=== PATIENT | female | born 1935 | race Caucasian/White ===

== ENCOUNTER 2018-09-05 17:50 | Inpatient (IN) | payer MEDICARE, BC ==
[2018-09-05] MEDS ORDERED: ONDANSETRON HCL INJ/PF 4 MG/2 ML SDV IV ONE (18:26)
--- NOTE | 2018-09-05 18:31 | ER Document Report ---
ED General - General Mode of Arrival: Ambulatory Information source: Relative TRAVEL OUTSIDE OF THE [place] IN LAST 30 DAYS: No <PARISA JHAVERI - Last Filed: 09/05/18 19:09> <USMAN LEVINE - Last Filed: 09/05/18 22:49> - General Chief Complaint: Flu Symptoms Stated Complaint: FLU LIKE SYMPTOMS Time Seen by Provider: 09/05/18 18:12 Notes: Patient is an 83 year old female with HTN, hyperlipidemia, insulin dependent diabetes, hypothyroidism, GERD presents to the the emergency department accompanied by son and daughter in law complaining of multiple symptoms including general malaise, wheezing, decreased appetite, vomiting and diarrhea. Family states the patient has been feeling unwell for the last 3-4 days. They report she has had half of a banana and a cup of milk around noon today. They also state she developed diarrhea yesterday evening and has had 4 episodes of vomiting today. They state they took the patient's blood sugar around 10 am today and found it to be 180. They also complain of increased confusion. Family denies any fevers or coughs. Son states the patient's symptoms are similar to 10 years ago when the patient had a bowel obstruction with subsequent lysis of adhesions. Son also reports the patient having symptoms similar to a mini stroke 6 months ago which the patient did not receive medical care. Patient is on chronic pain management and takes 4mg of Dilaudid 4x daily. Patient's PCP is Dr. Romeo. (PARISA JHAVERI) Patient does live at home with her family and has a home health caregiver. She has not been on antibiotics anytime recently. (USMAN LEVINE) - Related Data Allergies/Adverse Reactions: adhesive tape [Adhesive Tape] Allergy (Verified 08/09/12 14:02) latex [Latex] Allergy (Verified 08/09/12 14:02) meperidine HCl [From Demerol] Allergy (Verified 08/09/12 14:02) Past Medical History - General Information source: Relative - Social History Smoking Status: Unknown if Ever Smoked Family History: Reviewed & Not Pertinent Patient has suicidal ideation: No Patient has homicidal ideation: No - Past Medical History Cardiac Medical History: Reports: Hx Hypercholesterolemia, Hx Hypertension Endocrine Medical History: Reports: Hx Diabetes Mellitus Type 1, Hx Diabetes Mellitus Type 2 GI Medical History: Reports: Hx Gastroesophageal Reflux Disease Past Surgical History: Reports: Hx Abdominal Surgery, Hx Breast Surgery, Hx Hysterectomy, Hx Orthopedic Surgery - back - Immunizations Hx Diphtheria, Pertussis, Tetanus Vaccination: No Hx Pneumococcal Vaccination: 08/20/07 <PARISA JHAVERI - Last Filed: 09/05/18 19:09> Review of Systems - Review of Systems Constitutional: See HPI, Malaise EENT: No symptoms reported Cardiovascular: No symptoms reported Respiratory: See HPI, Wheezing Gastrointestinal: See HPI, Diarrhea, Vomiting Genitourinary: No symptoms reported Female Genitourinary: No symptoms reported Musculoskeletal: No symptoms reported Skin: No symptoms reported Hematologic/Lymphatic: No symptoms reported Neurological/Psychological: See HPI, Confusion -: Yes All other systems reviewed and negative <PARISA JHAVERI - Last Filed: 09/05/18 19:09> Physical Exam <PARISA JHAVERI - Last Filed: 09/05/18 19:09> - Vital signs Vitals: Resp Pulse Ox 23 H 91 L 09/05/18 19:01 09/05/18 19:01 - Notes Notes: GENERAL: Alert, does not answer questions, follows commands. No acute distress. HEAD: Normocephalic, atraumatic. EYES: Pupils equal, round, and reactive to light. Extraocular movements intact. ENT: Oral mucosa dry, tongue midline. NECK: Full range of motion. Supple. Trachea midline. LUNGS: Clear to auscultation bilaterally, no wheezes, rales, or rhonchi. No respiratory distress. HEART:Irregularly irregular.Tachycardic. ABDOMEN: Soft, obese, non-tender. Non-distended. Diminished bowel sounds. EXTREMITIES: Moves all 4 extremities spontaneously. 1+ pitting edema in the bilateral lower extremities. NEUROLOGICAL: Alert. Does not answer questions, follows commands. PSYCH: Normal affect, normal mood. SKIN: Warm, dry, normal turgor. No rashes or lesions noted. (PARISA JHAVERI) Course - Laboratory Result Diagrams: 09/05/18 18:40 09/05/18 18:40 <PARISA JHAVERI - Last Filed: 09/05/18 19:09> - Laboratory Result Diagrams: 09/05/18 18:40 09/05/18 18:40 - Diagnostic Test Radiology reviewed: Reports reviewed - Acute abdominal series shows enlarged heart with point vascular congestion, dilated loops of bowel that are nonspecific - EKG Interpretation by Ca EKG shows normal: [place], Intervals, QRS Complexes, ST-T Waves Rate: Tachycardia - 124 Rhythm: A.Fib, PVC's Voltage: Consistant with LVH When compared to previous EKG there are: Previous EKG unavailable - Consults Dr. Jarvis Time consulted: 21:43 Consulted provider: other - Requests a lactic acid and CT scan of the abdomen and pelvis prior to decision about admission. <USMAN LEVINE - Last Filed: 09/05/18 22:49> - Vital Signs Vital signs: Temp Pulse Resp BP Pulse Ox 99.7 F 19 161/78 H 97 09/05/18 20:27 09/05/18 21:01 09/05/18 21:01 09/05/18 21:01 - Laboratory Laboratory results interpreted by al: 09/05/18 09/05/18 09/05/18 18:40 18:40 18:40 WBC 21.8 H Seg Neuts % (Manual) 97 H Lymphocytes % (Manual) 1 L Monocytes % (Manual) 2 L Abs Neuts (Manual) 21.1 H Abs Lymphs (Manual) 0.2 L Sodium 127.1 L Potassium 3.2 L Chloride 87 L Carbon Dioxide 31 H BUN 23 H Est GFR (Non-Af Amer) 58 L Glucose 193 H Magnesium 1.4 L Total Bilirubin 1.5 H Direct Bilirubin 0.5 H AST 91 H Creatine Kinase 1306 H CK-MB (CK-2) 9.06 H NT-Pro-B Natriuret Pep Total Protein 6.0 L Albumin 3.4 L Urine Protein Urine Glucose (UA) Urine Ketones Urine Blood Urine Urobilinogen 09/05/18 09/05/18 18:40 19:02 WBC Seg Neuts % (Manual) Lymphocytes % (Manual) Monocytes % (Manual) Abs Neuts (Manual) Abs Lymphs (Manual) Sodium Potassium Chloride Carbon Dioxide BUN Est GFR (Non-Af Amer) Glucose Magnesium Total Bilirubin Direct Bilirubin AST Creatine Kinase CK-MB (CK-2) NT-Pro-B Natriuret Pep 4010 H Total Protein Albumin Urine Protein 30 H Urine Glucose (UA) 50 H Urine Ketones 20 H Urine Blood MODERATE H Urine Urobilinogen 2.0 H Critical Care Note - Critical Care Note Total time excluding time spent on procedures (mins): 40 <USMAN LEVINE - Last Filed: 09/05/18 22:49> Discharge <PARISA JHAVERI - Last Filed: 09/05/18 19:09> <USMAN LEVINE - Last Filed: 09/05/18 22:49> - Discharge Clinical Impression: Clostridium difficile colitis, Atrial fibrillation with RVR, High blood pressure associated with diabetes Rhabdomyolysis Qualifiers: Rhabdomyolysis type: non-traumatic Qualified Code(s): M62.82 - Rhabdomyolysis Leukocytosis Qualifiers: Leukocytosis type: unspecified Qualified Code(s): D72.829 - Elevated white blood cell count, unspecified Referrals: NNEKA ROMEO MD [Primary Care Provider] - Follow up as needed Scribe Attestation: 09/05/18 20:52 I personally performed the services described in the documentation, reviewed and edited the documentation which was dictated to the scribe in my presence, and it accurately records my words and actions. (USMAN LEVINE) Scribe Documentation - Scribe Written by Scribe:: Perla Loza, 09/05/2018 18:34 acting as scribe for :: Selene <PARISA JHAVERI - Last Filed: 09/05/18 19:09>
[2018-09-05 19:08] LABS: HEMATOCRIT 39.4 % (36.0-47.0); HEMOGLOBIN 13.5 g/dL (12.0-15.5); MEAN CORPUSCULAR HEMOGLOBIN 31.6 pg (27.0-33.4); MEAN CORPUSCULAR HGB CONC 34.2 g/dL (32.0-36.0); MEAN CORPUSCULAR VOLUME 93 fl (80-97); PLATELET COUNT 216 10^3/uL (150-450); RED BLOOD COUNT 4.26 10^6/uL (3.72-5.28); RED CELL DISTRIBUTION WIDTH 13.8 % (11.5-14.0); WHITE BLOOD COUNT 21.8 10^3/uL (4.0-10.5)
[2018-09-05 19:17] LABS: ALANINE AMINOTRANSFERASE 24 U/L (9-52); ALBUMIN 3.4 g/dL (3.5-5.0); ALKALINE PHOSPHATASE 62 U/L (38-126); ANION GAP 9 (5-19); ASPARTATE AMINO TRANSFERASE 91 U/L (14-36); BILIRUBIN,DIRECT 0.5 mg/dL (0.0-0.4); BILIRUBIN,TOTAL 1.5 mg/dL (0.2-1.3); BLOOD UREA NITROGEN 23 mg/dL (7-20); CALCIUM 8.6 mg/dL (8.4-10.2); CARBON DIOXIDE 31 mmol/L (22-30); CHLORIDE 87 mmol/L (98-107); CREATINE KINASE 1306 U/L (30-135); GLUCOSE 193 mg/dL (75-110); POTASSIUM 3.2 mmol/L (3.6-5.0); SODIUM 127.1 mmol/L (137-145)
[2018-09-05 19:20] LABS: APPEARANCE,URINE CLEAR; BILIRUBIN,URINE NEGATIVE (NEGATIVE); COLOR,URINE YELLOW; GLUCOSE, URINE 50 mg/dL (NEGATIVE); KETONES,URINE 20 mg/dL (NEGATIVE); LEUKOCYTE ESTERASE,URINE NEGATIVE (NEGATIVE); NITRITE,URINE NEGATIVE (NEGATIVE); PROTEIN,URINE 30 mg/dL (NEGATIVE); URINE SPECIFIC GRAVITY 1.019
[2018-09-05 19:29] LABS: CREATINE KINASE MB 9.06 ng/mL (<4.55)
[2018-09-05 19:31] LABS: TROPONIN I 0.041 ng/mL
[2018-09-05 19:32] LABS: ABSOLUTE LYMPHOCYTES# (MANUAL) 0.2 10^3/uL (0.5-4.7); ABSOLUTE MONOCYTES # (MANUAL) 0.4 10^3/uL (0.1-1.4); ABSOLUTE NEUTROPHILS# (MANUAL) 21.1 10^3/uL (1.7-8.2); BASOPHILS % (MANUAL) 0 % (0-2); EOSINOPHILS % (MANUAL) 0 % (0-6); LYMPHOCYTES % (MANUAL) 1 % (13-45); MONOCYTES % (MANUAL) 2 % (3-13); PLATELET COMMENT ADEQUATE; SEGMENTED NEUTROPHILS % (MAN) 97 % (42-78); TOTAL CELLS COUNTED 100; TOXIC VACUOLATION PRESENT
[2018-09-05] MEDS ORDERED: NORMAL SALINE 1000 ML 1,000 ML IV ONE (19:35)
--- NOTE | 2018-09-05 19:42 | RADIOLOGY REPORT (SQ) ---
EXAM DESCRIPTION: ACUTE ABDOMEN SERIES COMPLETED DATE/TIME: 09/05/2018 7:17 pm REASON FOR STUDY: N,V,D abd distention COMPARISON: 12/18/2008 NUMBER OF VIEWS: Three views. TECHNIQUE: Frontal chest, supine abdomen and upright/decubitus abdomen radiographic images acquired. LIMITATIONS: Nonspecific abdomen. None. FINDINGS: CHEST: Pulmonary vascular congestion. Cardiomegaly. Cannot exclude mild pulmonary edema. FREE AIR: None. No abnormal gas collections. BOWEL GAS PATTERN: Nonobstructive pattern. There are some gas-filled loops of bowel. CALCIFICATIONS: No suspicious calcifications. HARDWARE: Surgical changes in the lumbar spine. SOFT TISSUES: No gross mass or suggestion of organomegaly. BONES: No acute fracture. No worrisome bone lesions. OTHER: No other significant finding. IMPRESSION: Cardiomegaly. Cannot exclude mild pulmonary edema. Nonspecific abdomen. TECHNICAL DOCUMENTATION: JOB ID: [id number] Last Guide- All Rights Reserved Reading location - IP/workstation name: [email or web address]
[2018-09-05] MEDS ORDERED: ERTAPENEM SODIUM INJ 1 GM VIAL IV ONE (19:44)
[2018-09-05] MEDS ORDERED: VANCOMYCIN HCL INJ 1000 MG VIAL IV ONE (21:49)
--- NOTE | 2018-09-05 22:55 | RADIOLOGY REPORT (SQ) ---
EXAM DESCRIPTION: CT ABDOMEN PELVIS WITH IV CONTRAST COMPLETED DATE/TME: 09/05/2018 21:54 CLINICAL HISTORY: 83 years Female, C. difficile colitis, leukocytosis,distended bowel Comparison: None. Technique: IV contrast. Coronal and sagittal reformat. This exam was performed according to our departmental dose-optimization program, which includes automated exposure control, adjustment of the mA and/or kV according to patient size and/or use of iterative reconstruction technique. [facility]: Dose Right [facility]: CareDose [facility]: Dose Right [facility]: Teradose 4D [facility]: [employer] LIMITATIONS: Arm position. Findings: Moderate to severe diffuse bowel wall thickening of the sigmoid and rectal colon. Retained fluid within the large bowel. Patulous large bowel. Lobular liver contour which may indicate cirrhosis. Splenic varices. No ascites. Atelectasis/scar. Posterior L3-L4 hardware fusion. Degenerative disc disease. Atherosclerotic vascular disease. Inferior thorax, liver, gallbladder, pancreas, spleen, adrenals, renal system, gastrointestinal tract, pelvic organs, lymphatics, vasculature, and musculoskeleton appear otherwise unremarkable. IMPRESSION: 1. Moderate colitis. Differential etiologies include infectious, inflammatory, and neoplastic processes. 2. Possible cirrhosis. Splenic varices.
--- NOTE | 2018-09-05 23:06 | EKG REPORT ---
SEVERITY:- ABNORMAL ECG - ATRIAL FIBRILLATION, V-RATE 90-156 VENTRICULAR PREMATURE COMPLEX LVH WITH SECONDARY REPOLARIZATION ABNORMALITY : Confirmed by: Gage Marie 05-Sep-2018 23:05:31
[2018-09-06] MEDS ORDERED: LORAZEPAM INJ 2 MG/1 ML VIAL IV ONE (00:11)
[2018-09-06] MEDS ORDERED: GLUCAGON,HUMAN RECOMB 1 MG INJ IM PRN ×2 (00:11→10:00)
[2018-09-06] MEDS ORDERED: DEXTROSE 50%-WATER 25 GM/50 ML DISP.SYRIN IV PRN ×4 (00:11→10:00)
[2018-09-06] MEDS ORDERED: ACETAMINOPHEN 650 MG SUPP.RECT PR PRN (00:11)
[2018-09-06] MEDS ORDERED: DEXTROSE 40% GEL 15 GM TUBE PO PRN ×4 (00:11→10:00)
[2018-09-06] MEDS ORDERED: PROMETHAZINE HCL 25 MG TABLET PO PRN (00:11)
[2018-09-06] MEDS ORDERED: PROMETHAZINE HCL INJ 25 MG/1 ML VIAL IV PRN (00:11)
[2018-09-06] MEDS ORDERED: INSULIN LISPRO 100 UNIT/ML 3 ML VIAL SUBCUT PRN (00:11)
[2018-09-06] MEDS: VANCOMYCIN HCL INJ 500 MG VIAL PO SCH ×4 (00:41→17:58)
[2018-09-06 01:22] LABS: CREATINE KINASE MB 9.86 ng/mL (<4.55)
[2018-09-06 01:25] LABS: TROPONIN I 0.044 ng/mL
[2018-09-06] MEDS ORDERED: VANCOMYCIN HCL INJ 500 MG VIAL ONE ×2 (03:54→04:50)
[2018-09-06] MEDS ORDERED: DILTIAZEM HCL INJ 25 MG/5 ML VIAL ONE (04:11)
[2018-09-06] MEDS ORDERED: DILTIAZEM HCL INJ 25 MG/5 ML VIAL IV ONE ×2 (04:15→04:45)
[2018-09-06] MEDS: NORMAL SALINE 1000 ML 1,000 ML IV PRN ×2 (04:28→09:32)
[2018-09-06] MEDS ORDERED: METOPROLOL TARTRATE PF/INJ 5 MG/5 ML SDV IV PRN (04:38)
[2018-09-06] MEDS: HEPARIN SOD (PORCINE) 5,000 UNIT/ML 1 ML SYRINGE SUBCUT SCH ×3 (06:07→22:36)
[2018-09-06] MEDS: POTASSI CL 20 MEQ/50 ML RIDER 20 MEQ/50 ML RTUPB IV SCH ×3 (06:08→13:33)
--- NOTE | 2018-09-06 07:40 | PDOC H&P ---
History of Present Illness Admission Date/PCP: 09/06/18 00:26 NNEKA ULLOA MD Patient complains of: Abdominal pain History of Present Illness: YULI HAMMER is a 83 year old female with a past medical history of Dilaudid dependent chronic pain, atrial fibrillation, congestive heart failure, hypertension, dyslipidemia, insulin-dependent diabetes, hypothyroidism, GERD, obstructive sleep apnea with noncompliance, minimally ambulatory from bed to bathroom only. She presents with 4 days of abdominal pain nausea vomiting and diarrhea associated with fever prompting evaluation in the emergency room where she is found to have confusion, leukocytosis, colitis by CT and C. difficile positive stool. She started on IV vancomycin, Invanz and referred to the spitalist for admission. Patient is confused unable to provide history. Past Medical History Cardiac Medical History: Reports: Hyperlipidema, Hypertension Pulmonary Medical History: Reports: Sleep Apnea Endocrine Medical History: Reports: Diabetes Mellitus Type 1, Diabetes Mellitus Type 2 Renal/ Medical History: Reports: None Malignancy Medical History: Reports: None GI Medical History: Reports: Gastroesophageal Reflux Disease Psychiatric Medical History: Reports: Depression, Other - Chronic pain Past Surgical History Past Surgical History: Reports: Hysterectomy, Orthopedic Surgery - back Social History Information Source: [facility] Records Lives with: Alone - With daily caregiver Smoking Status: Former Smoker Number of Years Smokin Frequency of Alcohol Use: None Hx Recreational Drug Use: No Hx Prescription Drug Abuse: No - Advance Directive Resuscitation Status: Full Code Family History Family History: Other - Unobtainable Parental Family History Reviewed: No - Patient with altered mental status Children Family History Reviewed: No Sibling(s) Family History Reviewed.: No Medication/Allergy Home Medications: Ezetimibe [Zetia 10 Mg Tablet] 10 mg PO QHS 12/05/11 Levothyroxine Sodium [Synthroid 50 Mcg Tablet] 50 mcg PO MOTUWETHFRSA@0600 12/05/11 Lorazepam [Ativan 1 mg Tablet] 1 mg PO Q12 12/05/11 Mirtazapine [Remeron 15 Mg Tablet] 15 mg PO QHS 12/05/11 Triamterene/Hydrochlorothiazid [Dyazide 37.5-25 Capsule] 1 each PO DAILY 08/09/12 Escitalopram Oxalate [Lexapro 10 mg Tablet] 10 mg PO Q12 09/06/18 Hydromorphone HCl [Dilaudid] 4 mg PO Q6HP PRN 09/06/18 Insulin Aspart Prot/Insuln Asp [Novolog Mix 70-30 Flexpen Syrn] 0 unit SQ .SLIDING SCALE PRN 09/06/18 Insulin Aspart Prot/Insuln Asp [Novolog Mix 70-30 Flexpen Syrn] 5 unit SQ WLUNCH 09/06/18 Insulin Aspart Prot/Insuln Asp [Novolog Mix 70-30 Flexpen Syrn] 25 unit SQ WSUPPER 09/06/18 Insulin Aspart Prot/Insuln Asp [Novolog Mix 70-30 Flexpen Syrn] 30 unit SQ [id number] 09/06/18 Metoprolol Tartrate [Lopressor 25 mg Tablet] 25 mg PO Q12 09/06/18 Valsartan [Diovan 160 mg Tablet] 160 mg PO DAILY 09/06/18 Allergies/Adverse Reactions: adhesive tape [Adhesive Tape] Allergy (Verified 08/09/12 14:02) latex [Latex] Allergy (Verified 08/09/12 14:02) meperidine HCl [From Demerol] Allergy (Verified 08/09/12 14:02) Review of Systems ROS unobtainable: Due to mental status - Unobtainable Physical Exam Vital Signs: Temp Pulse Resp BP Pulse Ox 99.2 F 116 H 24 H 112/55 L 92 09/06/18 04:31 09/06/18 04:31 09/06/18 04:31 09/06/18 04:31 09/06/18 04:31 Intake & Output 09/04/18 09/05/18 09/06/18 11:59 11:59 11:59 Intake Total 1000 Output Total 0 Balance 1000 Weight 84 kg General appearance: PRESENT: obese, severe distress. ABSENT: cooperative, disheveled Head exam: PRESENT: atraumatic, normocephalic Eye exam: PRESENT: conjunctiva pink, EOMI, PERRLA. ABSENT: scleral icterus Ear exam: PRESENT: normal external ear exam Mouth exam: PRESENT: dry mucosa, tongue midline Neck exam: ABSENT: carotid bruit, JVD, lymphadenopathy, thyromegaly Respiratory exam: PRESENT: clear to auscultation [place]. ABSENT: rales, rhonchi, wheezes Cardiovascular exam: PRESENT: RRR. ABSENT: diastolic murmur, rubs, systolic murmur Pulses: PRESENT: normal dorsalis pedis pul Vascular exam: PRESENT: normal capillary refill GI/Abdominal exam: PRESENT: normal bowel sounds, soft. ABSENT: distended, guarding, mass, organolmegaly, rebound, tenderness Rectal exam: PRESENT: deferred Extremities exam: PRESENT: full ROM. ABSENT: calf tenderness, clubbing, pedal edema Musculoskeletal exam: ABSENT: tenderness Neurological exam: PRESENT: alert, altered, CN II-XII grossly intact Psychiatric exam: PRESENT: appropriate affect, normal mood. ABSENT: homicidal ideation, suicidal ideation Skin exam: PRESENT: dry, intact, warm. ABSENT: cyanosis, rash Results Laboratory Results: 09/05/18 18:40 09/05/18 18:40 09/05/18 09/05/18 09/05/18 18:40 18:40 19:02 WBC 21.8 H RBC 4.26 Hgb 13.5 Hct 39.4 MCV 93 MCH 31.6 MCHC 34.2 RDW 13.8 Plt Count 216 Seg Neutrophils % Not Reportable Lymphocytes % Not Reportable Monocytes % Not Reportable Eosinophils % Not Reportable Basophils % Not Reportable Absolute Neutrophils Not Reportable Absolute Lymphocytes Not Reportable Absolute Monocytes Not Reportable Absolute Eosinophils Not Reportable Absolute Basophils Not Reportable Sodium 127.1 L Potassium 3.2 L Chloride 87 L Carbon Dioxide 31 H Anion Gap 9 BUN 23 H Creatinine 0.92 Est GFR ( Amer) > 60 Est GFR (Non-Af Amer) 58 L Glucose 193 H Lactic Acid Calcium 8.6 Magnesium 1.4 L Total Bilirubin 1.5 H AST 91 H ALT 24 Alkaline Phosphatase 62 Total Protein 6.0 L Albumin 3.4 L Urine Color YELLOW Urine Appearance CLEAR Urine pH 5.0 Ur Specific [place] 1.019 Urine Protein 30 H Urine Glucose (UA) 50 H Urine Ketones 20 H Urine Blood MODERATE H Urine Nitrite NEGATIVE Ur Leukocyte Esterase NEGATIVE Urine WBC (Auto) 2 Urine RBC (Auto) 2 Stool for White Cells 09/05/18 09/05/18 20:20 22:40 WBC RBC Hgb Hct MCV MCH MCHC RDW Plt Count Seg Neutrophils % Lymphocytes % Monocytes % Eosinophils % Basophils % Absolute Neutrophils Absolute Lymphocytes Absolute Monocytes Absolute Eosinophils Absolute Basophils Sodium Potassium Chloride Carbon Dioxide Anion Gap BUN Creatinine Est GFR ( Amer) Est GFR (Non-Af Amer) Glucose Lactic Acid 1.6 Calcium Magnesium Total Bilirubin AST ALT Alkaline Phosphatase Total Protein Albumin Urine Color Urine Appearance Urine pH Ur Specific [place] Urine Protein Urine Glucose (UA) Urine Ketones Urine Blood Urine Nitrite Ur Leukocyte Esterase Urine WBC (Auto) Urine RBC (Auto) Stool for White Cells NO WBCs SEEN 09/05/18 09/05/18 09/05/18 18:40 18:40 18:40 Creatine Kinase 1306 H CK-MB (CK-2) 9.06 H Troponin I 0.041 NT-Pro-B Natriuret Pep 4010 H 09/06/18 09/06/18 00:47 00:47 Creatine Kinase 1231 H CK-MB (CK-2) 9.86 H Troponin I 0.044 NT-Pro-B Natriuret Pep Impressions: Acute Abdomen Series 09/05/18 18:27 IMPRESSION: Cardiomegaly. Cannot exclude mild pulmonary edema. Nonspecific abdomen. Abdomen/Pelvis CT 09/05/18 21:54 IMPRESSION: 1. Moderate colitis. Differential etiologies include infectious, inflammatory, and neoplastic processes. 2. Possible cirrhosis. Splenic varices. Assessment & Plan - Diagnosis (1) Clostridium difficile colitis Is this a current diagnosis for this admission?: Yes Plan: Discontinue IV antibiotics, p.o. vancomycin 250 mg every 6 hours. IV fluid challenge, surgical consultation for possibility of developing toxic megacolon (2) Atrial fibrillation with RVR Is this a current diagnosis for this admission?: Yes Plan: IV Lopressor every 6 as needed (3) High blood pressure associated with diabetes Is this a current diagnosis for this admission?: Yes Plan: Humalog sliding scale while n.p.o. (4) Rhabdomyolysis Qualifiers: Rhabdomyolysis type: non-traumatic Qualified Code(s): M62.82 - Rhabdomyolysis Is this a current diagnosis for this admission?: Yes Plan: IV fluid challenge, follow-up chemistry - Time Time Spent: 50 to 70 Minutes - Inpatient Certification Medical Necessity: Need Close Monitoring Due to Risk of Patient Decompensation
[2018-09-06 07:56] LABS: CREATINE KINASE MB 8.18 ng/mL (<4.55); TROPONIN I 0.055 ng/mL
[2018-09-06] MEDS: FAMOTIDINE INJ/PF 20 MG/2 ML SDV IV SCH ×2 (09:28→21:36)
[2018-09-06] MEDS ORDERED: NORMAL SALINE 1000 ML 1,000 ML IV PRN (09:51)
[2018-09-06] MEDS ORDERED: HYDROMORPHONE HCL 2 MG TABLET PO PRN (09:58)
[2018-09-06] MEDS ORDERED: TRIAMTERENE PO SCH (10:00)
[2018-09-06] MEDS ORDERED: HYDROCHLOROTHIAZID PO SCH (10:00)
--- NOTE | 2018-09-06 10:00 | PDOC PROGRESS REPORT ---
Subjective Progress Note for:: 09/06/18 Subjective:: 83-year-old female admitted with severe diarrhea positive for C. difficile she is on p.o. vancomycin.Ms. 3.2 this morning, magnesium is 1.4 and sodium is 127. She is getting potassium supplementation order for magnesium was written and she is getting IV fluids normal saline we going to recheck her sodium levels today. Patient is still having the loose stools. Temperature is 99.2. Blood pressure is 112/55. Reason For Visit: C DIFF COLITIS,VINCENT, DIABETES, CHRONIC PAIN Physical Exam Vital Signs: Temp Pulse Resp BP Pulse Ox 99.2 F 105 H 24 H 112/55 L 92 09/06/18 04:31 09/06/18 07:00 09/06/18 04:31 09/06/18 04:31 09/06/18 04:31 Intake & Output 09/05/18 09/06/18 09/07/18 06:59 06:59 06:59 Intake Total 1000 1050 Output Total 0 Balance 1000 1050 Weight 84 kg General appearance: PRESENT: mild distress Head exam: PRESENT: atraumatic Eye exam: PRESENT: PERRLA Mouth exam: PRESENT: moist Neck exam: ABSENT: carotid bruit, JVD, lymphadenopathy, thyromegaly Respiratory exam: PRESENT: clear to auscultation caroline. ABSENT: rales, rhonchi, wheezes Cardiovascular exam: PRESENT: tachycardia GI/Abdominal exam: PRESENT: normal bowel sounds, soft, other - Generalized mild tenderness which is diffuse. Extremities exam: PRESENT: full ROM. ABSENT: calf tenderness, clubbing, pedal edema Neurological exam: PRESENT: alert, awake, oriented to person, oriented to place, oriented to time, oriented to situation, CN II-XII grossly intact. ABSENT: motor sensory deficit Psychiatric exam: PRESENT: appropriate affect, normal mood. ABSENT: homicidal ideation, suicidal ideation Results Laboratory Results: 09/05/18 09/05/18 09/05/18 18:40 18:40 19:02 WBC 21.8 H RBC 4.26 Hgb 13.5 Hct 39.4 MCV 93 MCH 31.6 MCHC 34.2 RDW 13.8 Plt Count 216 Seg Neutrophils % Not Reportable Lymphocytes % Not Reportable Monocytes % Not Reportable Eosinophils % Not Reportable Basophils % Not Reportable Absolute Neutrophils Not Reportable Absolute Lymphocytes Not Reportable Absolute Monocytes Not Reportable Absolute Eosinophils Not Reportable Absolute Basophils Not Reportable Sodium 127.1 L Potassium 3.2 L Chloride 87 L Carbon Dioxide 31 H Anion Gap 9 BUN 23 H Creatinine 0.92 Est GFR ( Amer) > 60 Est GFR (Non-Af Amer) 58 L Glucose 193 H Lactic Acid Calcium 8.6 Magnesium 1.4 L Total Bilirubin 1.5 H AST 91 H ALT 24 Alkaline Phosphatase 62 Total Protein 6.0 L Albumin 3.4 L Urine Color YELLOW Urine Appearance CLEAR Urine pH 5.0 Ur Specific [place] 1.019 Urine Protein 30 H Urine Glucose (UA) 50 H Urine Ketones 20 H Urine Blood MODERATE H Urine Nitrite NEGATIVE Ur Leukocyte Esterase NEGATIVE Urine WBC (Auto) 2 Urine RBC (Auto) 2 Stool for White Cells 09/05/18 09/05/18 20:20 22:40 WBC RBC Hgb Hct MCV MCH MCHC RDW Plt Count Seg Neutrophils % Lymphocytes % Monocytes % Eosinophils % Basophils % Absolute Neutrophils Absolute Lymphocytes Absolute Monocytes Absolute Eosinophils Absolute Basophils Sodium Potassium Chloride Carbon Dioxide Anion Gap BUN Creatinine Est GFR ( Amer) Est GFR (Non-Af Amer) Glucose Lactic Acid 1.6 Calcium Magnesium Total Bilirubin AST ALT Alkaline Phosphatase Total Protein Albumin Urine Color Urine Appearance Urine pH Ur Specific [place]ollhouse Urine Protein Urine Glucose (UA) Urine Ketones Urine Blood Urine Nitrite Ur Leukocyte Esterase Urine WBC (Auto) Urine RBC (Auto) Stool for White Cells NO WBCs SEEN 09/05/18 09/05/18 09/05/18 18:40 18:40 18:40 Creatine Kinase 1306 H CK-MB (CK-2) 9.06 H Troponin I 0.041 NT-Pro-B Natriuret Pep 4010 H 09/06/18 09/06/18 09/06/18 00:47 00:47 07:00 Creatine Kinase 1231 H 1007 H CK-MB (CK-2) 9.86 H Troponin I 0.044 NT-Pro-B Natriuret Pep 09/06/18 07:00 Creatine Kinase CK-MB (CK-2) 8.18 H Troponin I 0.055 NT-Pro-B Natriuret Pep Impressions: Acute Abdomen Series 09/05/18 18:27 IMPRESSION: Cardiomegaly. Cannot exclude mild pulmonary edema. Nonspecific abdomen. Abdomen/Pelvis CT 09/05/18 21:54 IMPRESSION: 1. Moderate colitis. Differential etiologies include infectious, inflammatory, and neoplastic processes. 2. Possible cirrhosis. Splenic varices. Assessment & Plan - Diagnosis (1) Clostridium difficile colitis Is this a current diagnosis for this admission?: Yes Plan: 09/06/2018 stool positive for C. difficile patient is on p.o. vancomycin. Temperature 99.2. She is n.p.o., the CT scan indicates infectious process/neoplasm causes need to be ruled out. surgical consult was placed. And is to continue the IV fluids. (2) Atrial fibrillation with RVR Is this a current diagnosis for this admission?: Yes Plan: 09/06/2018 patient has history of chronic atrial fibrillation with RVR she is on Lopressor IV every 6 as needed, restarted her home medications. And reviewed her home medications she is not on any anticoagulants. Baseline PT/INR is requested. (3) Rhabdomyolysis Qualifiers: Rhabdomyolysis type: non-traumatic Qualified Code(s): M62.82 - Rhabdomyolysis Is this a current diagnosis for this admission?: Yes Plan: 09/06/2018-CPK levels are elevated at the time of admission 1306 with IV fluids it came down to 1007. Plan is to continue the IV fluids recheck the CPK levels this evening. (4) Leukocytosis Qualifiers: Leukocytosis type: unspecified Qualified Code(s): D72.829 - Elevated white blood cell count, unspecified Is this a current diagnosis for this admission?: Yes Plan: 09/06/2018 leukocyte esterase is most likely secondary to colitis with positive C. difficile. She does not know how she got C. difficile. 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 (5) Hyponatremia Is this a current diagnosis for this admission?: Yes Plan: 09/06/2017 sodium levels are 127. Hyponatremia most likely secondary to severe diarrhea causing dehydration. Is presently on normal saline we are going to recheck her chemistry today (6) Hypokalemia Is this a current diagnosis for this admission?: Yes Plan: 09/06/2018 patient's potassium is 3.2. she is getting K rider plan is to recheck the potassium levels this morning. (7) Hypomagnesemia Is this a current diagnosis for this admission?: Yes Plan: 09/06/2018 magnesium level is 1.4 probably secondary to severe diarrhea. She is going to get 2 g of IV magnesium supplementation. - Time Time Spent with patient: 15-24 minutes Medications reviewed and adjusted accordingly: Yes Anticipated discharge: Home
[2018-09-06 10:10] LABS: ALANINE AMINOTRANSFERASE 33 U/L (9-52); ALBUMIN 3.1 g/dL (3.5-5.0); ALKALINE PHOSPHATASE 66 U/L (38-126); ANION GAP 8 (5-19); ASPARTATE AMINO TRANSFERASE 98 U/L (14-36); BILIRUBIN,DIRECT 0.5 mg/dL (0.0-0.4); BILIRUBIN,TOTAL 0.9 mg/dL (0.2-1.3); BLOOD UREA NITROGEN 23 mg/dL (7-20); CALCIUM 8.3 mg/dL (8.4-10.2); CARBON DIOXIDE 29 mmol/L (22-30); CHLORIDE 95 mmol/L (98-107); GLUCOSE 146 mg/dL (75-110); SODIUM 132.3 mmol/L (137-145); TOTAL PROTEIN 5.8 g/dL (6.3-8.2)
[2018-09-06 10:13] LABS: POTASSIUM 3.1 mmol/L (3.6-5.0)
[2018-09-06 10:14] LABS: HEMATOCRIT 37.1 % (36.0-47.0); HEMOGLOBIN 12.7 g/dL (12.0-15.5); MEAN CORPUSCULAR HEMOGLOBIN 31.3 pg (27.0-33.4); MEAN CORPUSCULAR HGB CONC 34.1 g/dL (32.0-36.0); MEAN CORPUSCULAR VOLUME 92 fl (80-97); PLATELET COUNT 212 10^3/uL (150-450); RED BLOOD COUNT 4.04 10^6/uL (3.72-5.28); WHITE BLOOD COUNT 21.6 10^3/uL (4.0-10.5)
[2018-09-06 10:44] LABS: ABSOLUTE LYMPHOCYTES# (MANUAL) 1.1 10^3/uL (0.5-4.7); ABSOLUTE MONOCYTES # (MANUAL) 0.2 10^3/uL (0.1-1.4); ABSOLUTE NEUTROPHILS# (MANUAL) 20.3 10^3/uL (1.7-8.2); BAND NEUTROPHILS % (MANUAL) 2 % (3-5); BASOPHILS % (MANUAL) 0 % (0-2); EOSINOPHILS % (MANUAL) 0 % (0-6); LYMPHOCYTES % (MANUAL) 5 % (13-45); MONOCYTES % (MANUAL) 1 % (3-13); SEGMENTED NEUTROPHILS % (MAN) 92 % (42-78); TOTAL CELLS COUNTED 100
[2018-09-06 10:45] LABS: PLATELET COMMENT ADEQUATE; RBC MORPHOLOGY COMMENT NORMO-CYTIC/CHROMIC
[2018-09-06 11:08] LABS: INTERNATIONAL RATION (INR) 1.35; PROTHROMBIN TIME 17.4 SEC (11.4-15.4)
[2018-09-06 11:31] LABS: CREATINE KINASE MB 7.46 ng/mL (<4.55); TROPONIN I 0.044 ng/mL
[2018-09-06] MEDS ORDERED: POTASSI CL 20 MEQ/50 ML RIDER 20 MEQ/50 ML RTUPB IV ONE (13:24)
[2018-09-06] MEDS: MAGNESIUM SULFATE/D5W 1 GM/100 ML RTUPB IV SCH ×2 (13:30→17:59)
[2018-09-06] MEDS: LORAZEPAM 1 MG TABLET PO SCH ×2 (13:33→22:36)
[2018-09-06] MEDS: METOPROLOL TARTRATE 25 MG TABLET PO SCH ×2 (13:33→22:40)
[2018-09-06] MEDS: ESCITALOPRAM OXALATE 10 MG TABLET PO SCH ×2 (13:34→22:36)
[2018-09-06] MEDS: VALSARTAN 160 MG TABLET PO SCH (13:34)
[2018-09-06] MEDS: TRIAMTERENE/HYDROCHLOROTHIAZIDE 37.5-25 MG TABLET PO SCH (14:30)
[2018-09-06 17:47] LABS: CREATINE KINASE MB 8.2 ng/mL (<4.55); TROPONIN I 0.044 ng/mL
[2018-09-06] MEDS ORDERED: MAGNESIUM SULFATE/D5W 1 GM/100 ML RTUPB IV ONE (17:53)
[2018-09-06] MEDS: IPRATROPIUM/ALBUTEROL 0.5-2.5 MG/3 ML AMPUL NEB PRN (20:41)
[2018-09-06] MEDS ORDERED: FUROSEMIDE INJ/PF 20 MG/2 ML SDV IV ONE (20:45)
[2018-09-06] MEDS: EZETIMIBE 10 MG TABLET PO SCH (22:36)
[2018-09-06] MEDS: MIRTAZAPINE 15 MG TABLET PO SCH (22:36)
[2018-09-06 23:49] LABS: CREATINE KINASE MB 8.83 ng/mL (<4.55); TROPONIN I 0.044 ng/mL
[2018-09-07] MEDS: VANCOMYCIN HCL INJ 500 MG VIAL PO SCH ×4 (00:27→18:18)
[2018-09-07 05:02] LABS: HEMATOCRIT 38.7 % (36.0-47.0); HEMOGLOBIN 12.9 g/dL (12.0-15.5); MEAN CORPUSCULAR HEMOGLOBIN 31.1 pg (27.0-33.4); MEAN CORPUSCULAR HGB CONC 33.3 g/dL (32.0-36.0); MEAN CORPUSCULAR VOLUME 93 fl (80-97); PLATELET COUNT 219 10^3/uL (150-450); RED BLOOD COUNT 4.14 10^6/uL (3.72-5.28); RED CELL DISTRIBUTION WIDTH 14.1 % (11.5-14.0); WHITE BLOOD COUNT 20.6 10^3/uL (4.0-10.5)
[2018-09-07 05:22] LABS: ALANINE AMINOTRANSFERASE 38 U/L (9-52); ALBUMIN 3.4 g/dL (3.5-5.0); ALKALINE PHOSPHATASE 62 U/L (38-126); ANION GAP 6 (5-19); ASPARTATE AMINO TRANSFERASE 94 U/L (14-36); BILIRUBIN,DIRECT 0.4 mg/dL (0.0-0.4); BILIRUBIN,TOTAL 0.8 mg/dL (0.2-1.3); BLOOD UREA NITROGEN 26 mg/dL (7-20); CALCIUM 8.5 mg/dL (8.4-10.2); CARBON DIOXIDE 30 mmol/L (22-30); CHLORIDE 100 mmol/L (98-107); GLUCOSE 143 mg/dL (75-110); POTASSIUM 3.5 mmol/L (3.6-5.0); TOTAL PROTEIN 6.2 g/dL (6.3-8.2)
[2018-09-07 05:42] LABS: ABSOLUTE LYMPHOCYTES# (MANUAL) 0.8 10^3/uL (0.5-4.7); ABSOLUTE NEUTROPHILS# (MANUAL) 18.7 10^3/uL (1.7-8.2); BASOPHILS % (MANUAL) 0 % (0-2); EOSINOPHILS % (MANUAL) 0 % (0-6); LYMPHOCYTES % (MANUAL) 4 % (13-45); MONOCYTES % (MANUAL) 5 % (3-13); SEGMENTED NEUTROPHILS % (MAN) 91 % (42-78); TOTAL CELLS COUNTED 100
[2018-09-07 05:43] LABS: ANISOCYTOSIS SLIGHT; PLATELET COMMENT ADEQUATE; POLYCHROMASIA SLIGHT
[2018-09-07] MEDS: HEPARIN SOD (PORCINE) 5,000 UNIT/ML 1 ML SYRINGE SUBCUT SCH ×3 (05:55→21:47)
[2018-09-07] MEDS: LEVOTHYROXINE SODIUM 0.05 MG TABLET PO SCH (05:59)
[2018-09-07] MEDS ORDERED: FUROSEMIDE INJ/PF 40 MG/4 ML SDV IV ONE (09:00)
[2018-09-07] MEDS: METOPROLOL TARTRATE 25 MG TABLET PO SCH ×2 (09:41→21:48)
[2018-09-07] MEDS: TRIAMTERENE/HYDROCHLOROTHIAZIDE 37.5-25 MG TABLET PO SCH (09:41)
[2018-09-07] MEDS: ESCITALOPRAM OXALATE 10 MG TABLET PO SCH ×2 (09:41→21:47)
[2018-09-07] MEDS: LORAZEPAM 1 MG TABLET PO SCH ×2 (09:41→21:47)
[2018-09-07] MEDS: VALSARTAN 160 MG TABLET PO SCH (09:41)
[2018-09-07] MEDS: FAMOTIDINE INJ/PF 20 MG/2 ML SDV IV SCH ×2 (09:42→21:48)
[2018-09-07] MEDS ORDERED: NORMAL SALINE 1000 ML 1,000 ML IV PRN (10:09)
--- NOTE | 2018-09-07 10:31 | PDOC CONSULTATION ---
Consultation Consult Date: 09/07/18 Consult reason:: C. Difficili colitis History of Present Illness Admission Date/PCP: 09/06/18 00:26 NNEKA ULLOA MD History of Present Illness: YULI HAMMER is a 83 year old female, home bound, rough to hospital with hx of severe diarrhea, now C. Difficilis positive, on oral vancomycin only, has leukocytosis (WBC = 20.6), obtunded but responsive to commands and tachypneic. On admission, she was found to have multiple electrolyte adormalities (hyponatrema, hypokalemia, and hypomagnesimia) now corrected except for mild hyponatrermia (136). Currently, she denies abdominal pain and is currently passing several bouts of green liquid stools. Past Medical History Cardiac Medical History: Reports: Hyperlipidema, Hypertension Pulmonary Medical History: Reports: Sleep Apnea Endocrine Medical History: Reports: Diabetes Mellitus Type 1, Diabetes Mellitus Type 2 Renal/ Medical History: Reports: None Malignancy Medical History: Reports: None GI Medical History: Reports: Gastroesophageal Reflux Disease Psychiatric Medical History: Reports: Depression, Other - Chronic pain Past Surgical History Past Surgical History: Reports: Hysterectomy, Orthopedic Surgery - back Social History Lives with: Alone - With daily caregiver Smoking Status: Former Smoker Number of Years Smokin Frequency of Alcohol Use: None Hx Recreational Drug Use: No Hx Prescription Drug Abuse: No - Advance Directive Resuscitation Status: Full Code Family History Family History: Other - Unobtainable Parental Family History Reviewed: No Children Family History Reviewed: No Sibling(s) Family History Reviewed.: No Medication/Allergy Home Medications: Ezetimibe [Zetia 10 Mg Tablet] 10 mg PO QHS 12/05/11 Levothyroxine Sodium [Synthroid 50 Mcg Tablet] 50 mcg PO MOTUWETHFRSA@0600 12/05/11 Lorazepam [Ativan 1 mg Tablet] 1 mg PO Q12 12/05/11 Mirtazapine [Remeron 15 Mg Tablet] 15 mg PO QHS 12/05/11 Triamterene/Hydrochlorothiazid [Dyazide 37.5-25 Capsule] 1 each PO DAILY 08/09/12 Escitalopram Oxalate [Lexapro 10 mg Tablet] 10 mg PO Q12 09/06/18 Hydromorphone HCl [Dilaudid] 4 mg PO Q6HP PRN 09/06/18 Insulin Aspart Prot/Insuln Asp [Novolog Mix 70-30 Flexpen Syrn] 0 unit SQ .SLIDING SCALE PRN 09/06/18 Insulin Aspart Prot/Insuln Asp [Novolog Mix 70-30 Flexpen Syrn] 5 unit SQ WLUNCH 09/06/18 Insulin Aspart Prot/Insuln Asp [Novolog Mix 70-30 Flexpen Syrn] 25 unit SQ WSUPPER 09/06/18 Insulin Aspart Prot/Insuln Asp [Novolog Mix 70-30 Flexpen Syrn] 30 unit SQ WBRKFST 09/06/18 Metoprolol Tartrate [Lopressor 25 mg Tablet] 25 mg PO Q12 09/06/18 Valsartan [Diovan 160 mg Tablet] 160 mg PO DAILY 09/06/18 Allergies/Adverse Reactions: adhesive tape [Adhesive Tape] Allergy (Verified 08/09/12 14:02) latex [Latex] Allergy (Verified 08/09/12 14:02) meperidine HCl [From Demerol] Allergy (Verified 08/09/12 14:02) Physical Exam Vital Signs: Temp Pulse Resp BP Pulse Ox 97.7 F 91 20 164/92 H 96 09/07/18 05:21 09/07/18 05:21 09/07/18 05:21 09/07/18 05:21 09/07/18 05:21 Intake & Output 09/06/18 09/07/18 09/08/18 06:59 06:59 06:59 Intake Total 1000 2350 Output Total 0 Balance 1000 2350 Weight 84 kg 84.5 kg General appearance: PRESENT: cooperative, mild distress, other - obtunded, but responsive Mouth exam: PRESENT: dry mucosa, neck supple Neck exam: PRESENT: full ROM Respiratory exam: PRESENT: clear to auscultation caroline Cardiovascular exam: PRESENT: RRR GI/Abdominal exam: PRESENT: hypoactive bowel sounds - not distended, no peritoneal signs, soft Rectal exam: PRESENT: deferred Extremities exam: PRESENT: full ROM Musculoskeletal exam: PRESENT: full ROM Neurological exam: PRESENT: other - disoriented to place, person, and time Results Laboratory Results: 09/07/18 04:31 09/07/18 04:31 09/06/18 09/06/18 09/06/18 07:00 07:00 10:43 WBC 21.6 H RBC 4.04 Hgb 12.7 Hct 37.1 MCV 92 MCH 31.3 MCHC 34.1 RDW 14.0 Plt Count 212 Seg Neutrophils % Not Reportable Lymphocytes % Not Reportable Monocytes % Not Reportable Eosinophils % Not Reportable Basophils % Not Reportable Absolute Neutrophils Not Reportable Absolute Lymphocytes Not Reportable Absolute Monocytes Not Reportable Absolute Eosinophils Not Reportable Absolute Basophils Not Reportable Sodium 132.3 L Potassium 3.1 L Chloride 95 L Carbon Dioxide 29 Anion Gap 8 BUN 23 H Creatinine 0.88 Est GFR ( Amer) > 60 Est GFR (Non-Af Amer) > 60 Glucose 146 H Lactic Acid 1.3 Calcium 8.3 L Magnesium 1.6 Total Bilirubin 0.9 AST 98 H ALT 33 Alkaline Phosphatase 66 Total Protein 5.8 L Albumin 3.1 L 09/07/18 09/07/18 09/07/18 04:31 04:31 04:31 WBC 20.6 H RBC 4.14 Hgb 12.9 Hct 38.7 MCV 93 MCH 31.1 MCHC 33.3 RDW 14.1 H Plt Count 219 Seg Neutrophils % Not Reportable Lymphocytes % Not Reportable Monocytes % Not Reportable Eosinophils % Not Reportable Basophils % Not Reportable Absolute Neutrophils Not Reportable Absolute Lymphocytes Not Reportable Absolute Monocytes Not Reportable Absolute Eosinophils Not Reportable Absolute Basophils Not Reportable Sodium 136.0 L Potassium 3.5 L Chloride 100 Carbon Dioxide 30 Anion Gap 6 BUN 26 H Creatinine 1.02 Est GFR ( Amer) > 60 Est GFR (Non-Af Amer) 52 L Glucose 143 H Lactic Acid Calcium 8.5 Magnesium 2.3 Total Bilirubin 0.8 AST 94 H ALT 38 Alkaline Phosphatase 62 Total Protein 6.2 L Albumin 3.4 L 09/05/18 09/05/18 09/05/18 18:40 18:40 18:40 Creatine Kinase 1306 H CK-MB (CK-2) 9.06 H Troponin I 0.041 NT-Pro-B Natriuret Pep 4010 H 09/06/18 09/06/18 09/06/18 00:47 00:47 07:00 Creatine Kinase 1231 H 1007 H CK-MB (CK-2) 9.86 H Troponin I 0.044 NT-Pro-B Natriuret Pep 09/06/18 09/06/18 09/06/18 07:00 10:43 10:43 Creatine Kinase 981 H CK-MB (CK-2) 8.18 H 7.46 H Troponin I 0.055 0.044 NT-Pro-B Natriuret Pep 4300 H 09/06/18 09/06/18 09/06/18 17:00 17:00 23:15 Creatine Kinase 984 H 907 H CK-MB (CK-2) 8.20 H Troponin I 0.044 NT-Pro-B Natriuret Pep 09/06/18 23:15 Creatine Kinase CK-MB (CK-2) 8.83 H Troponin I 0.044 NT-Pro-B Natriuret Pep Impressions: Acute Abdomen Series 09/05/18 18:27 IMPRESSION: Cardiomegaly. Cannot exclude mild pulmonary edema. Nonspecific abdomen. Abdomen/Pelvis CT 09/05/18 21:54 IMPRESSION: 1. Moderate colitis. Differential etiologies include infectious, inflammatory, and neoplastic processes. 2. Possible cirrhosis. Splenic varices. Assessment & Plan - Diagnosis (2) Clostridium difficile colitis Is this a current diagnosis for this admission?: Yes (3) Hyponatremia Is this a current diagnosis for this admission?: Yes - Plan Summary Plan Summary: A/ diarrhea secondary to C. Dificilis colitits confusion tachypneic electrolyte abnormalities, no correctfed except for mild hyponatremia (136) CT scan A/P significant for sigmoid colitis and proctitis, no evidence of signs of surgical catastrophy P/ Continue IVF NS 100 ml/hr Bolus NS 500 mL now Insert Flores catheter Consider adding IV Abx (Flagyl), already done by hospitalist Consider adding rectal vancomycin enema Consider admission to the ICU if the clinical pictures does not improve or deteriorates. Will follow
[2018-09-07] MEDS: IPRATROPIUM/ALBUTEROL 0.5-2.5 MG/3 ML AMPUL NEB PRN (10:59)
--- NOTE | 2018-09-07 11:48 | RADIOLOGY REPORT (SQ) ---
EXAM DESCRIPTION: CHEST SINGLE VIEW COMPLETED DATE/TIME: 09/07/2018 11:35 am REASON FOR STUDY: assess respiratory distress COMPARISON: 09/05/2018. EXAM PARAMETERS: NUMBER OF VIEWS: One view. TECHNIQUE: Single frontal radiographic view of the chest acquired. RADIATION DOSE: NA LIMITATIONS: None. FINDINGS: LUNGS AND PLEURA: No opacities, masses or pneumothorax. No pleural effusion. MEDIASTINUM AND HILAR STRUCTURES: No masses. Contour normal. HEART AND VASCULAR STRUCTURES: Stable mild cardiomegaly. Mild vascular prominence. BONES: No acute findings. Degenerative changes in the spine. HARDWARE: None in the chest. OTHER: No other significant finding. IMPRESSION: STABLE MILD CARDIOMEGALY WITH MILD VASCULAR PROMINENCE. NO SIGNIFICANT CHANGE. TECHNICAL DOCUMENTATION: JOB ID: [id number] [email or web address]- All Rights Reserved Reading location - IP/workstation name: [email or web address]
--- NOTE | 2018-09-07 15:07 | PROGRESS NOTE E ---
Progress Note NAME: YULI HAMMER : 1935 AGE: 83Y DATE: 09/07/2018 ROOM: 317 SUBJECTIVE: The patient is a pleasant 83-year-old female who has a past medical history of atrial fibrillation, C. diff, admitted with hyponatremia, C. diff, rhabdomyolysis, started on IV fluid. She still has a leukocytosis, but she is afebrile. Her white blood count is 20. OBJECTIVE: GENERAL: The patient is lying in bed, comfortable, not in distress. VITAL SIGNS: Temperature 97.9, heart rate 91, blood pressure 164/92, saturation 96% via nasal cannula. HEENT: Normocephalic/atraumatic. Pupils are equal, round, and reactive to light and accommodation bilaterally. Mucous membranes intact. Ears: Tympanic membranes intact bilaterally. No discharge from the ears. No discharge from the nose. NECK: Supple. No increased JVD. No thyromegaly, no lymphadenopathy. CARDIOVASCULAR: Normal S1, S2. Regular rate and rhythm. No murmur, no gallop. RESPIRATORY: Bilateral crackles ABDOMEN: Soft, nontender. MUSCULOSKELETAL: No edema. NEUROLOGIC: Awake, alert. SKIN: No rash. LABORATORY: White blood count 20, hemoglobin 12.9. Sodium 136, potassium 3.5, creatinine 1.0. ASSESSMENT AND PLAN: 1. CLOSTRIDIUM DIFFICILE. 2. LEUKOCYTOSIS. 3. SEPSIS. 4. POSSIBLE CIRRHOSIS. 5. RHABDOMYOLYSIS, MILD. 6. HYPONATREMIA SECONDARY TO VOLUME DEPLETION, IMPROVED. 7. HYPOMAGNESEMIA, CORRECTED. Will continue current treatment. Continue vancomycin p.o. Will add Flagyl also p.o. since the patient still has leukocytosis. Lasix 40 mg IV now and order chest x-ray for volume overload. MEDICAL NECESSITY: The patient needs to stay for treatment of C. diff. DICTATING PHYSICIAN: SHIRA COBOS M.D. [id number] PHY#: [id number] ID: [id number] JOB#: [id number] ACCT: [id number] cc: >
[2018-09-07] MEDS: METRONIDAZOLE 500 MG TABLET PO SCH ×2 (15:25→18:18)
[2018-09-07] MEDS: VANCOMYCIN HCL INJ 500 MG VIAL PR SCH ×2 (15:26→18:18)
[2018-09-07] MEDS: LEVALBUTEROL HCL NEB 1.25 MG/3 ML AMPUL NEB PRN (16:28)
[2018-09-07] MEDS: MIRTAZAPINE 15 MG TABLET PO SCH (21:48)
[2018-09-07] MEDS: EZETIMIBE 10 MG TABLET PO SCH (21:49)
[2018-09-08] MEDS: METRONIDAZOLE 500 MG TABLET PO SCH ×4 (00:53→18:15)
[2018-09-08] MEDS: VANCOMYCIN HCL INJ 500 MG VIAL PO SCH ×4 (00:53→18:15)
[2018-09-08] MEDS: IPRATROPIUM/ALBUTEROL 0.5-2.5 MG/3 ML AMPUL NEB PRN (01:04)
[2018-09-08] MEDS: VANCOMYCIN HCL INJ 500 MG VIAL PR SCH ×4 (02:20→18:19)
[2018-09-08] MEDS: HEPARIN SOD (PORCINE) 5,000 UNIT/ML 1 ML SYRINGE SUBCUT SCH ×3 (06:02→22:12)
[2018-09-08 06:18] LABS: HEMATOCRIT 39.4 % (36.0-47.0); MEAN CORPUSCULAR HEMOGLOBIN 30.8 pg (27.0-33.4); MEAN CORPUSCULAR HGB CONC 33.1 g/dL (32.0-36.0); MEAN CORPUSCULAR VOLUME 93 fl (80-97); PLATELET COUNT 227 10^3/uL (150-450); RED BLOOD COUNT 4.24 10^6/uL (3.72-5.28); RED CELL DISTRIBUTION WIDTH 13.9 % (11.5-14.0); WHITE BLOOD COUNT 14.3 10^3/uL (4.0-10.5)
[2018-09-08 06:41] LABS: ALBUMIN 3.7 g/dL (3.5-5.0); ANION GAP 8 (5-19); BLOOD UREA NITROGEN 29 mg/dL (7-20); CALCIUM 8.8 mg/dL (8.4-10.2); CARBON DIOXIDE 29 mmol/L (22-30); CHLORIDE 99 mmol/L (98-107); GLUCOSE 148 mg/dL (75-110); PHOSPHORUS 3.4 mg/dL (2.5-4.5); POTASSIUM 3.5 mmol/L (3.6-5.0); SODIUM 136.2 mmol/L (137-145)
[2018-09-08 07:07] LABS: ABSOLUTE LYMPHOCYTES# (MANUAL) 1.1 10^3/uL (0.5-4.7); ABSOLUTE MONOCYTES # (MANUAL) 0.6 10^3/uL (0.1-1.4); ABSOLUTE NEUTROPHILS# (MANUAL) 12.4 10^3/uL (1.7-8.2); BASOPHILS % (MANUAL) 0 % (0-2); EOSINOPHILS % (MANUAL) 1 % (0-6); LYMPHOCYTES % (MANUAL) 8 % (13-45); MONOCYTES % (MANUAL) 4 % (3-13); PLATELET COMMENT ADEQUATE; SEGMENTED NEUTROPHILS % (MAN) 87 % (42-78); TOTAL CELLS COUNTED 100
[2018-09-08] MEDS: INSULIN REG, HUMAN 100 UNIT/ML 3 ML VIAL (PYX) SUBCUT PRN ×2 (08:02→13:56)
[2018-09-08] MEDS: LEVALBUTEROL HCL NEB 1.25 MG/3 ML AMPUL NEB PRN ×2 (08:51→18:50)
[2018-09-08] MEDS ORDERED: METOPROLOL TARTRATE 25 MG TABLET PO SCH (10:00)
[2018-09-08] MEDS: TRIAMTERENE/HYDROCHLOROTHIAZIDE 37.5-25 MG TABLET PO SCH (10:31)
[2018-09-08] MEDS: ESCITALOPRAM OXALATE 10 MG TABLET PO SCH ×2 (10:31→22:11)
[2018-09-08] MEDS: METOPROLOL TARTRATE 50 MG TABLET PO SCH ×2 (10:31→22:11)
[2018-09-08] MEDS: FAMOTIDINE INJ/PF 20 MG/2 ML SDV IV SCH ×2 (10:31→22:12)
[2018-09-08] MEDS: VALSARTAN 160 MG TABLET PO SCH (10:31)
[2018-09-08] MEDS: LORAZEPAM 1 MG TABLET PO SCH ×2 (10:31→22:11)
--- NOTE | 2018-09-08 13:31 | PDOC PROGRESS REPORT ---
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; no c/o Reason For Visit: C DIFF COLITIS,VINCENT, DIABETES, CHRONIC PAIN Physical Exam Vital Signs: Temp Pulse Resp BP Pulse Ox 97.7 F 81 28 H 154/84 H 98 09/08/18 12:34 09/08/18 12:34 09/08/18 12:34 09/08/18 12:34 09/08/18 12:34 Intake & Output 09/07/18 09/08/18 09/09/18 06:59 06:59 06:59 Intake Total 2350 1000 0 Output Total 1900 150 Balance 2350 -900 -150 Weight 84.5 kg 84.4 kg General appearance: PRESENT: no acute distress GI/Abdominal exam: PRESENT: soft, other - obese Results Laboratory Results: 09/08/18 05:56 09/08/18 05:56 09/08/18 09/08/18 05:56 05:56 WBC 14.3 H RBC 4.24 Hgb 13.0 Hct 39.4 MCV 93 MCH 30.8 MCHC 33.1 RDW 13.9 Plt Count 227 Seg Neutrophils % Not Reportable Lymphocytes % Not Reportable Monocytes % Not Reportable Eosinophils % Not Reportable Basophils % Not Reportable Absolute Neutrophils Not Reportable Absolute Lymphocytes Not Reportable Absolute Monocytes Not Reportable Absolute Eosinophils Not Reportable Absolute Basophils Not Reportable Sodium 136.2 L Potassium 3.5 L Chloride 99 Carbon Dioxide 29 Anion Gap 8 BUN 29 H Creatinine 1.01 Est GFR ( Amer) > 60 Est GFR (Non-Af Amer) 52 L Glucose 148 H Calcium 8.8 Phosphorus 3.4 Albumin 3.7 09/05/18 20:20 Stool - Stool - Final 09/05/18 20:20 Stool - Stool Stool Culture - Final NO SALMONELLA, SHIGELLA, CAMPYLOBACTER, OR E.COLI 0157 RECOVERED. NEGATIVE FOR SHIGA TOXINS 1&2. 09/05/18 09/05/18 09/05/18 18:40 18:40 18:40 Creatine Kinase 1306 H CK-MB (CK-2) 9.06 H Troponin I 0.041 NT-Pro-B Natriuret Pep 4010 H 09/06/18 09/06/18 09/06/18 00:47 00:47 07:00 Creatine Kinase 1231 H 1007 H CK-MB (CK-2) 9.86 H Troponin I 0.044 NT-Pro-B Natriuret Pep 09/06/18 09/06/18 09/06/18 07:00 10:43 10:43 Creatine Kinase 981 H CK-MB (CK-2) 8.18 H 7.46 H Troponin I 0.055 0.044 NT-Pro-B Natriuret Pep 4300 H 09/06/18 09/06/18 09/06/18 17:00 17:00 23:15 Creatine Kinase 984 H 907 H CK-MB (CK-2) 8.20 H Troponin I 0.044 NT-Pro-B Natriuret Pep 09/06/18 23:15 Creatine Kinase CK-MB (CK-2) 8.83 H Troponin I 0.044 NT-Pro-B Natriuret Pep Impressions: Acute Abdomen Series 09/05/18 18:27 IMPRESSION: Cardiomegaly. Cannot exclude mild pulmonary edema. Nonspecific abdomen. Abdomen/Pelvis CT 09/05/18 21:54 IMPRESSION: 1. Moderate colitis. Differential etiologies include infectious, inflammatory, and neoplastic processes. 2. Possible cirrhosis. Splenic varices. Chest X-Ray 09/07/18 00:00 IMPRESSION: STABLE MILD CARDIOMEGALY WITH MILD VASCULAR PROMINENCE. NO SIGNIFICANT CHANGE. Assessment & Plan - Diagnosis (2) Clostridium difficile colitis Is this a current diagnosis for this admission?: Yes (3) Hyponatremia Is this a current diagnosis for this admission?: Yes - Plan Summary Plan Summary: A/ C. Difficilis colitis resolving Bowel function returned (2 BM yeterday) mental status improved, patient awake but confused (as per her baseline) VS, afebrile WBC decreased to 14 today after IV and oral abx (Flagyl and Vancomycin) abdomen soft P/ No cute General Surgery issues identified at this time requiring any intervention My recommendation is to continue current medical management of the infectious colitis as per the Hospitalist service I will sign off, please call me back with questions or concerns
--- NOTE | 2018-09-08 15:47 | PROGRESS NOTE E ---
Progress Note NAME: YULI HAMMER : 1935 AGE: 83Y DATE: 09/08/2018 ROOM: 317 SUBJECTIVE: The patient is an 83-year-old male who has a past medical history of atrial fibrillation, Clostridium difficile, admitted with hypernatremia, Clostridium difficile colitis, rhabdomyolysis. Was started on IV fluids. She has leukocytosis. The patient was on BiPAP overnight. She is feeling better today. She is on vancomycin orally. Yesterday, we added Flagyl p.o. as well as vancomycin enema. She had leukocytosis decrease to 14 today. OBJECTIVE: GENERAL: Patient lying in bed, comfortable, not in distress. VITAL SIGNS: Blood pressure is 178/96, heart rate 98, temperature 98.2, respiratory rate 24, saturation 93% on room air. HEENT: Head normocephalic, atraumatic. Pupils round, reactive to the light and accommodation bilaterally. Extraocular movements intact. Ears: Tympanic membranes intact bilaterally. No discharge from the ears. No discharge from the nose. NECK: Supple. No increased JVD. No thyromegaly, no lymphadenopathy. CARDIOVASCULAR: Normal S1, S2. Regular rate and rhythm. No murmur. RESPIRATORY: Bilateral crackles. ABDOMEN: Soft, nontender. MUSCULOSKELETAL: No edema. LABORATORY DATA: White blood count 14, hemoglobin is 13. Potassium is 3.5, sodium is 136, creatinine is 1.0. ASSESSMENT: 1. CLOSTRIDIUM DIFFICILE COLITIS. 2. LEUKOCYTOSIS, IMPROVED. 3. SEPSIS, RESOLVING. 4. POSSIBLE CIRRHOSIS. 5. RHABDOMYOLYSIS, IMPROVING. 6. HYPERNATREMIA, IMPROVED. PLAN: 1. Will continue p.o. vancomycin, as well as vancomycin enema and Flagyl. 2. As patient is clinically improved, IV fluids are discontinued. 3. Her blood pressure is slightly elevated. Will adjust her medication. 4. Will increase her Lopressor to 50 mg twice a day. MEDICAL NECESSITY: The patient needs to stay for treatment of Clostridium difficile. DICTATING PHYSICIAN: SHIRA COBOS M.D. [id number] PHY#: [id number] ID: [id number] JOB#: [id number] ACCT: [id number] cc: >
[2018-09-08] MEDS ORDERED: FUROSEMIDE INJ/PF 40 MG/4 ML SDV IV ONE (17:02)
[2018-09-08] MEDS: MIRTAZAPINE 15 MG TABLET PO SCH (22:11)
[2018-09-08] MEDS: AMLODIPINE BESYLATE 10 MG TABLET PO SCH (22:12)
[2018-09-08] MEDS: EZETIMIBE 10 MG TABLET PO SCH (22:13)
[2018-09-09] MEDS: VANCOMYCIN HCL INJ 500 MG VIAL PR SCH ×5 (01:14→23:40)
[2018-09-09] MEDS: METRONIDAZOLE 500 MG TABLET PO SCH ×5 (01:14→23:40)
[2018-09-09] MEDS: VANCOMYCIN HCL INJ 500 MG VIAL PO SCH ×5 (01:14→23:40)
[2018-09-09] MEDS: LEVOTHYROXINE SODIUM 0.05 MG TABLET PO SCH (05:24)
[2018-09-09] MEDS: HEPARIN SOD (PORCINE) 5,000 UNIT/ML 1 ML SYRINGE SUBCUT SCH ×3 (05:24→21:40)
[2018-09-09] MEDS: IPRATROPIUM/ALBUTEROL 0.5-2.5 MG/3 ML AMPUL NEB PRN (09:47)
[2018-09-09] MEDS: VALSARTAN 160 MG TABLET PO SCH (10:47)
[2018-09-09] MEDS: TRIAMTERENE/HYDROCHLOROTHIAZIDE 37.5-25 MG TABLET PO SCH (10:48)
[2018-09-09] MEDS: ESCITALOPRAM OXALATE 10 MG TABLET PO SCH ×2 (10:48→21:41)
[2018-09-09] MEDS: FAMOTIDINE INJ/PF 20 MG/2 ML SDV IV SCH ×2 (10:48→21:40)
[2018-09-09] MEDS: METHYLPREDNISOLONE INJ 40 MG/1 ML SDV IV SCH ×3 (10:48→21:40)
[2018-09-09] MEDS: METOPROLOL TARTRATE 50 MG TABLET PO SCH ×2 (10:48→21:41)
[2018-09-09] MEDS: LORAZEPAM 1 MG TABLET PO SCH ×2 (10:48→21:41)
[2018-09-09] MEDS: IPRATROPIUM/ALBUTEROL 0.5-2.5 MG/3 ML AMPUL NEB SCH ×4 (11:29→23:28)
--- NOTE | 2018-09-09 11:41 | RADIOLOGY REPORT (SQ) ---
EXAM DESCRIPTION: CHEST SINGLE VIEW COMPLETED DATE/TIME: 09/09/2018 10:55 am REASON FOR STUDY: sob COMPARISON: 09/07/2018 EXAM PARAMETERS: NUMBER OF VIEWS: One view. TECHNIQUE: Single frontal radiographic view of the chest acquired. RADIATION DOSE: NA LIMITATIONS: None. FINDINGS: LUNGS AND PLEURA: Blunting of the costophrenic angles, suggest small pleural effusions. Mild prominence of the interstitial markings may represent edema. No pneumothorax. MEDIASTINUM AND HILAR STRUCTURES: No masses. Contour normal. HEART AND VASCULAR STRUCTURES: Cardiomegaly and pulmonary vascular congestion. BONES: No acute findings. HARDWARE: None in the chest. OTHER: No other significant finding. IMPRESSION: 1. Bilateral small pleural effusions, cardiomegaly and pulmonary vascular congestion. Mild prominence of the interstitial markings may represent edema. TECHNICAL DOCUMENTATION: JOB ID: [id number] [employer]- All Rights Reserved Reading location - IP/workstation name: [email or web address]
--- NOTE | 2018-09-09 13:25 | PDOC PROGRESS REPORT ---
Subjective Progress Note for:: 09/09/18 Subjective:: This is an 83-year-old female with a PMH of chronic atrial fibrillation (not on anticoagulation), congestive heart failure, hypertension, dyslipidemia, insulin-dependent diabetes, hypothyroidism, GERD, obstructive sleep apnea with noncompliance, and COPD who presented with diarrhea and was admitted for C difficile colitis. She was also started on IV fluids and surgery also evaluated patient. Assumed care today. Reviewed chart. Per RN, patient has been having tachypnea in the past 2 days. Patient does complain of SOB today. Lung exam reveals prominent bilateral wheezing and bibasilar rales. No significant cough. No fever or chills. Denies chest pain. Her diarrhea has improved as well and she had 2 loose but better formed stools overnight. Denies abdominal pain. No nausea or vomiting. Called [facility], phone answered by [employer] ([facility] ) and update about labs and plan. She says patient has never been on anticoagulation for Afib and they are unsure why. Discussed risks and benefits of anticoagulation including bleeding. She denies history of bleeding in the patient. Fall risks also brought up. She expressed they will discuss this with family and patient and will also await evaluation and recommendation from physical therapy before deciding about anti coagulation. Reason For Visit: C DIFF COLITIS,VINCENT, DIABETES, CHRONIC PAIN Physical Exam Vital Signs: Temp Pulse Resp BP Pulse Ox 97.5 F 76 24 H 142/76 H 99 09/09/18 12:30 09/09/18 12:30 09/09/18 12:30 09/09/18 12:30 09/09/18 12:30 Intake & Output 09/08/18 09/09/18 09/10/18 06:59 06:59 06:59 Intake Total 1000 387 367 Output Total 1900 1550 200 Balance -900 -1163 167 Weight 186 lb 1.122 oz 187 lb 13.341 oz General appearance: PRESENT: mild distress, well-developed Head exam: PRESENT: atraumatic, normocephalic Eye exam: PRESENT: conjunctiva pink, EOMI, PERRLA. ABSENT: scleral icterus Ear exam: PRESENT: normal external ear exam Neck exam: ABSENT: carotid bruit, JVD, lymphadenopathy, thyromegaly Respiratory exam: PRESENT: rales, rhonchi, wheezes Cardiovascular exam: PRESENT: irregular rhythm. ABSENT: diastolic murmur, rubs, systolic murmur Pulses: PRESENT: normal dorsalis pedis pul GI/Abdominal exam: PRESENT: normal bowel sounds, soft. ABSENT: distended, guarding, mass, organolmegaly, rebound, tenderness Rectal exam: PRESENT: deferred Neurological exam: PRESENT: awake, oriented to person, oriented to place. ABSENT: oriented to time, oriented to situation Results Laboratory Results: 09/08/18 05:56 09/08/18 05:56 09/05/18 20:20 Stool - Stool - Final 09/05/18 20:20 Stool - Stool Stool Culture - Final NO SALMONELLA, SHIGELLA, CAMPYLOBACTER, OR E.COLI 0157 RECOVERED. NEGATIVE FOR SHIGA TOXINS 1&2. 09/05/18 09/05/18 09/05/18 18:40 18:40 18:40 Creatine Kinase 1306 H CK-MB (CK-2) 9.06 H Troponin I 0.041 NT-Pro-B Natriuret Pep 4010 H 09/06/18 09/06/18 09/06/18 00:47 00:47 07:00 Creatine Kinase 1231 H 1007 H CK-MB (CK-2) 9.86 H Troponin I 0.044 NT-Pro-B Natriuret Pep 09/06/18 09/06/18 09/06/18 07:00 10:43 10:43 Creatine Kinase 981 H CK-MB (CK-2) 8.18 H 7.46 H Troponin I 0.055 0.044 NT-Pro-B Natriuret Pep 4300 H 09/06/18 09/06/18 09/06/18 17:00 17:00 23:15 Creatine Kinase 984 H 907 H CK-MB (CK-2) 8.20 H Troponin I 0.044 NT-Pro-B Natriuret Pep 09/06/18 23:15 Creatine Kinase CK-MB (CK-2) 8.83 H Troponin I 0.044 NT-Pro-B Natriuret Pep Impressions: Acute Abdomen Series 09/05/18 18:27 IMPRESSION: Cardiomegaly. Cannot exclude mild pulmonary edema. Nonspecific abdomen. Abdomen/Pelvis CT 09/05/18 21:54 IMPRESSION: 1. Moderate colitis. Differential etiologies include infectious, inflammatory, and neoplastic processes. 2. Possible cirrhosis. Splenic varices. Chest X-Ray 09/09/18 10:09 IMPRESSION: 1. Bilateral small pleural effusions, cardiomegaly and pulmonary vascular congestion. Mild prominence of the interstitial markings may represent edema. Assessment & Plan - Diagnosis (1) Clostridium difficile colitis Is this a current diagnosis for this admission?: Yes Plan: Improving. Stools have been more well formed in the past 2 days. Continue vancomycin and Flagyl. Noted CT abdomen findings. Denies abdominal pain today. No surgical issues at this time. Continue to monitor for recurrence of abdominal pain. (2) Acute respiratory failure with hypoxia Is this a current diagnosis for this admission?: Yes Plan: Secondary to COPD exacerbation and pulmonary congestion. Currently on 3L via NC. (3) COPD exacerbation Is this a current diagnosis for this admission?: Yes Plan: She does have significant bilateral wheezing and rales this morning. Start IV steroids and scheduled breathing treatments. (4) Pulmonary congestion Is this a current diagnosis for this admission?: Yes Plan: She has also bibasal rales on top of wheezing. CXZR done and shows congestion. Will start IV Lasix 40 mg daily. Start PO Potassium 20 meqs bid for anticipated diuresis-induced hypokalemia. Repeat BMP tomorrow. (5) Atrial fibrillation with RVR Is this a current diagnosis for this admission?: Yes Plan: In Afib but rate-controlled. HR in the 80s. Continue lopressor. She has not been on anticoagulation. NAVID VASC score of 6. Called [facility], phone answered by [employer] ([facility] ) and update about labs and plan. She says patient has never been on anticoagulation for Afib and they are unsure why. Discussed risks and benefits of anticoagulation including bleeding. She denies history of bleeding in the patient. Fall risks also brought up. She expressed they will discuss this with family and patient and will also await ashanti luation and recommendation from physical therapy before deciding about anticoagulation. - Time Time Spent with patient: 35 or more minutes
[2018-09-09] MEDS: FUROSEMIDE INJ/PF 40 MG/4 ML SDV IV SCH (13:27)
[2018-09-09] MEDS: POTASSIUM CHLORIDE 10 MEQ CAPSULE.ER PO SCH ×2 (13:29→21:40)
[2018-09-09] MEDS: INSULIN REG, HUMAN 100 UNIT/ML 3 ML VIAL (PYX) SUBCUT PRN ×3 (13:55→23:52)
[2018-09-09 14:19] LABS: ABSOLUTE LYMPHOCYTES (AUTO) 0.5 10^3/uL (0.5-4.7); ABSOLUTE MONOCYTES (AUTO) 0.4 10^3/uL (0.1-1.4); ABSOLUTE NEUT (AUTO) 8.6 10^3/uL (1.7-8.2); BASOPHILS % (AUTO) 0.4 % (0-2); EOSINOPHILS % (AUTO) 0.4 % (0-6); HEMATOCRIT 42.8 % (36.0-47.0); HEMOGLOBIN 14.3 g/dL (12.0-15.5); LYMPHOCYTES % (AUTO) 5.4 % (13-45); MEAN CORPUSCULAR HEMOGLOBIN 31.2 pg (27.0-33.4); MEAN CORPUSCULAR HGB CONC 33.3 g/dL (32.0-36.0); MEAN CORPUSCULAR VOLUME 94 fl (80-97); MONOCYTES % (AUTO) 3.8 % (3-13); PLATELET COUNT 248 10^3/uL (150-450); RED BLOOD COUNT 4.58 10^6/uL (3.72-5.28); RED CELL DISTRIBUTION WIDTH 13.9 % (11.5-14.0); TOTAL CELLS COUNTED % (AUTO) 100 %; WHITE BLOOD COUNT 9.5 10^3/uL (4.0-10.5)
[2018-09-09 14:38] LABS: ANION GAP 9 (5-19); BLOOD UREA NITROGEN 27 mg/dL (7-20); CALCIUM 9.4 mg/dL (8.4-10.2); CARBON DIOXIDE 33 mmol/L (22-30); CHLORIDE 92 mmol/L (98-107); GLUCOSE 178 mg/dL (75-110); POTASSIUM 3.5 mmol/L (3.6-5.0); SODIUM 133.9 mmol/L (137-145)
[2018-09-09] MEDS: AMLODIPINE BESYLATE 10 MG TABLET PO SCH (21:41)
[2018-09-09] MEDS: MIRTAZAPINE 15 MG TABLET PO SCH (21:41)
[2018-09-09] MEDS: EZETIMIBE 10 MG TABLET PO SCH (21:42)
[2018-09-10] MEDS: IPRATROPIUM/ALBUTEROL 0.5-2.5 MG/3 ML AMPUL NEB SCH ×5 (04:21→20:44)
[2018-09-10 05:04] LABS: ABSOLUTE LYMPHOCYTES (AUTO) 0.7 10^3/uL (0.5-4.7); ABSOLUTE MONOCYTES (AUTO) 0.4 10^3/uL (0.1-1.4); ABSOLUTE NEUT (AUTO) 7.5 10^3/uL (1.7-8.2); BASOPHILS % (AUTO) 0.2 % (0-2); HEMATOCRIT 41.8 % (36.0-47.0); HEMOGLOBIN 14.3 g/dL (12.0-15.5); LYMPHOCYTES % (AUTO) 7.8 % (13-45); MEAN CORPUSCULAR HEMOGLOBIN 31.4 pg (27.0-33.4); MEAN CORPUSCULAR HGB CONC 34.2 g/dL (32.0-36.0); MEAN CORPUSCULAR VOLUME 92 fl (80-97); MONOCYTES % (AUTO) 4.4 % (3-13); PLATELET COUNT 285 10^3/uL (150-450); RED BLOOD COUNT 4.55 10^6/uL (3.72-5.28); RED CELL DISTRIBUTION WIDTH 13.8 % (11.5-14.0); SEGMENTED NEUTROPHILS % (AUTO) 87.6 % (42-78); TOTAL CELLS COUNTED % (AUTO) 100 %; WHITE BLOOD COUNT 8.6 10^3/uL (4.0-10.5)
[2018-09-10 05:35] LABS: ANION GAP 12 (5-19); BLOOD UREA NITROGEN 30 mg/dL (7-20); CALCIUM 9.2 mg/dL (8.4-10.2); CARBON DIOXIDE 31 mmol/L (22-30); CHLORIDE 92 mmol/L (98-107); GLUCOSE 190 mg/dL (75-110); POTASSIUM 3.4 mmol/L (3.6-5.0); SODIUM 134.7 mmol/L (137-145)
[2018-09-10] MEDS: HEPARIN SOD (PORCINE) 5,000 UNIT/ML 1 ML SYRINGE SUBCUT SCH ×3 (05:46→22:35)
[2018-09-10] MEDS: VANCOMYCIN HCL INJ 500 MG VIAL PO SCH ×3 (05:46→17:57)
[2018-09-10] MEDS: METRONIDAZOLE 500 MG TABLET PO SCH ×3 (05:46→17:57)
[2018-09-10] MEDS: VANCOMYCIN HCL INJ 500 MG VIAL PR SCH ×3 (05:46→17:57)
[2018-09-10] MEDS: METHYLPREDNISOLONE INJ 40 MG/1 ML SDV IV SCH ×3 (05:47→22:34)
[2018-09-10] MEDS: LEVOTHYROXINE SODIUM 0.05 MG TABLET PO SCH (05:49)
[2018-09-10] MEDS: INSULIN REG, HUMAN 100 UNIT/ML 3 ML VIAL (PYX) SUBCUT PRN ×3 (07:31→18:05)
--- NOTE | 2018-09-10 10:09 | RADIOLOGY REPORT (SQ) ---
EXAM DESCRIPTION: CHEST SINGLE VIEW COMPLETED DATE/TIME: 09/10/2018 9:46 am REASON FOR STUDY: reassess congestion COMPARISON: 09/09/2018 EXAM PARAMETERS: NUMBER OF VIEWS: One view. TECHNIQUE: Single frontal radiographic view of the chest acquired. RADIATION DOSE: NA LIMITATIONS: None. FINDINGS: LUNGS AND PLEURA: Slight decrease in the bilateral pleural effusions. Mildly prominent i nterstitial markings slightly decreased, may represent edema. No pneumothorax. MEDIASTINUM AND HILAR STRUCTURES: No masses. Contour normal. HEART AND VASCULAR STRUCTURES: Cardiomegaly, stable finding. Mild decrease in the pulmonary vascula r congestion. BONES: No acute findings. HARDWARE: None in the chest. OTHER: No other significant finding. IMPRESSION: 1. Since the prior examination dated 09/09/2018, slight to mild improvement in the CHF c hanges. TECHNICAL DOCUMENTATION: JOB ID: [id number] [employer]- All Rights Reserved Reading location - IP/workstation name: [email or web address]
[2018-09-10] MEDS: FAMOTIDINE INJ/PF 20 MG/2 ML SDV IV SCH ×2 (11:37→22:33)
[2018-09-10] MEDS: POTASSIUM CHLORIDE 10 MEQ CAPSULE.ER PO SCH ×2 (11:37→22:32)
[2018-09-10] MEDS: FUROSEMIDE INJ/PF 40 MG/4 ML SDV IV SCH (11:37)
[2018-09-10] MEDS: TRIAMTERENE/HYDROCHLOROTHIAZIDE 37.5-25 MG TABLET PO SCH (11:38)
[2018-09-10] MEDS: VALSARTAN 160 MG TABLET PO SCH (11:38)
[2018-09-10] MEDS: LORAZEPAM 1 MG TABLET PO SCH ×2 (11:38→22:33)
[2018-09-10] MEDS: ESCITALOPRAM OXALATE 10 MG TABLET PO SCH ×2 (11:38→22:33)
[2018-09-10] MEDS: METOPROLOL TARTRATE 50 MG TABLET PO SCH ×2 (11:38→22:33)
--- NOTE | 2018-09-10 16:12 | PDOC PROGRESS REPORT ---
Subjective Progress Note for:: 09/10/18 Subjective:: No adverse events overnight. No new complaints. Her responses are brief, limited to words of 1-2 syllables. She indicates that she is not having any more diarrhea. She indicates that she is not having any trouble breathing. She was on room air when I saw her. Reason For Visit: C DIFF COLITIS,VINCENT, DIABETES, CHRONIC PAIN Physical Exam Vital Signs: Temp Pulse Resp BP Pulse Ox 97.7 F 93 18 155/79 H 95 09/10/18 11:02 09/10/18 14:00 09/10/18 11:02 09/10/18 11:02 09/10/18 11:02 Intake & Output 09/09/18 09/10/18 09/11/18 06:59 06:59 06:59 Intake Total 387 667 150 Output Total 1550 2500 200 Balance -1163 -1833 -50 Weight 85.2 kg 82.5 kg General appearance: PRESENT: no acute distress, cooperative, disheveled Respiratory exam: PRESENT: decreased breath sounds, symmetrical, unlabored. ABSENT: accessory muscle use, crackles, prolonged expiratory phas, rhonchi, tachypnea, wheezes Cardiovascular exam: PRESENT: irregular rhythm Vascular exam: PRESENT: normal capillary refill GI/Abdominal exam: PRESENT: normal bowel sounds, soft. ABSENT: distended, guarding, rebound, tenderness Extremities exam: PRESENT: pedal edema. ABSENT: clubbing Musculoskeletal exam: PRESENT: normal inspection. ABSENT: deformity Neurological exam: PRESENT: alert, awake, oriented to person Psychiatric exam: PRESENT: flat affect, other - As noted above, responses were limited to words of 1-2 syllables, but she was pleasant and interactive Skin exam: PRESENT: dry, warm Results Laboratory Results: 09/10/18 04:30 09/10/18 04:30 09/10/18 09/10/18 04:30 04:30 WBC 8.6 RBC 4.55 Hgb 14.3 Hct 41.8 MCV 92 MCH 31.4 MCHC 34.2 RDW 13.8 Plt Count 285 Seg Neutrophils % 87.6 H Lymphocytes % 7.8 L Monocytes % 4.4 Eosinophils % 0.0 Basophils % 0.2 Absolute Neutrophils 7.5 Absolute Lymphocytes 0.7 Absolute Monocytes 0.4 Absolute Eosinophils 0.0 Absolute Basophils 0.0 Sodium 134.7 L Potassium 3.4 L Chloride 92 L Carbon Dioxide 31 H Anion Gap 12 BUN 30 H Creatinine 0.94 Est GFR ( Amer) > 60 Est GFR (Non-Af Amer) 57 L Glucose 190 H Calcium 9.2 Magnesium 1.9 09/05/18 09/05/18 09/05/18 18:40 18:40 18:40 Creatine Kinase 1306 H CK-MB (CK-2) 9.06 H Troponin I 0.041 NT-Pro-B Natriuret Pep 4010 H 09/06/18 09/06/18 09/06/18 00:47 00:47 07:00 Creatine Kinase 1231 H 1007 H CK-MB (CK-2) 9.86 H Troponin I 0.044 NT-Pro-B Natriuret Pep 09/06/18 09/06/18 09/06/18 07:00 10:43 10:43 Creatine Kinase 981 H CK-MB (CK-2) 8.18 H 7.46 H Troponin I 0.055 0.044 NT-Pro-B Natriuret Pep 4300 H 09/06/18 09/06/18 09/06/18 17:00 17:00 23:15 Creatine Kinase 984 H 907 H CK-MB (CK-2) 8.20 H Troponin I 0.044 NT-Pro-B Natriuret Pep 09/06/18 23:15 Creatine Kinase CK-MB (CK-2) 8.83 H Troponin I 0.044 NT-Pro-B Natriuret Pep Impressions: Acute Abdomen Series 09/05/18 18:27 IMPRESSION: Cardiomegaly. Cannot exclude mild pulmonary edema. Nonspecific abdomen. Abdomen/Pelvis CT 09/05/18 21:54 IMPRESSION: 1. Moderate colitis. Differential etiologies include infectious, inflammatory, and neoplastic processes. 2. Possible cirrhosis. Splenic varices. Chest X-Ray 09/10/18 06:00 IMPRESSION: 1. Since the prior examination dated 09/09/2018, slight to mild improvement in the CHF changes. Assessment & Plan - Diagnosis (1) Acute respiratory failure with hypoxia Is this a current diagnosis for this admission?: Yes Plan: Resolved. Part of this was due to volume overload, and we plan to get her off IV Lasix tomorrow. (2) Atrial fibrillation with RVR Is this a current diagnosis for this admission?: Yes Plan: Rate is controlled. Were awaiting on a physical therapy evaluation before we decide whether or not to anticoagulate her. (3) COPD exacerbation Is this a current diagnosis for this admission?: Yes (4) Clostridium difficile colitis Is this a current diagnosis for this admission?: Yes Plan: Improving on her current medication regimen. She will continue for a 14-day course. - Time Time Spent with patient: 25-34 minutes
[2018-09-10] MEDS: MIRTAZAPINE 15 MG TABLET PO SCH (22:33)
[2018-09-10] MEDS: AMLODIPINE BESYLATE 10 MG TABLET PO SCH (22:33)
[2018-09-10] MEDS: EZETIMIBE 10 MG TABLET PO SCH (22:35)
[2018-09-11] MEDS: IPRATROPIUM/ALBUTEROL 0.5-2.5 MG/3 ML AMPUL NEB SCH ×6 (00:30→19:53)
[2018-09-11] MEDS: METRONIDAZOLE 500 MG TABLET PO SCH ×4 (00:37→18:05)
[2018-09-11] MEDS: INSULIN REG, HUMAN 100 UNIT/ML 3 ML VIAL (PYX) SUBCUT PRN ×3 (00:37→14:38)
[2018-09-11] MEDS: VANCOMYCIN HCL INJ 500 MG VIAL PR SCH ×4 (00:37→18:05)
[2018-09-11] MEDS: VANCOMYCIN HCL INJ 500 MG VIAL PO SCH ×4 (00:37→18:05)
[2018-09-11] MEDS: LEVOTHYROXINE SODIUM 0.05 MG TABLET PO SCH (06:43)
[2018-09-11] MEDS: METHYLPREDNISOLONE INJ 40 MG/1 ML SDV IV SCH ×2 (06:45→14:15)
[2018-09-11] MEDS: HEPARIN SOD (PORCINE) 5,000 UNIT/ML 1 ML SYRINGE SUBCUT SCH ×3 (07:00→22:42)
[2018-09-11] MEDS: POTASSIUM CHLORIDE 10 MEQ CAPSULE.ER PO SCH ×2 (09:48→22:39)
[2018-09-11] MEDS: LORAZEPAM 1 MG TABLET PO SCH ×2 (09:50→22:39)
[2018-09-11] MEDS: TRIAMTERENE/HYDROCHLOROTHIAZIDE 37.5-25 MG TABLET PO SCH (09:51)
[2018-09-11] MEDS: VALSARTAN 160 MG TABLET PO SCH (09:51)
[2018-09-11] MEDS: ESCITALOPRAM OXALATE 10 MG TABLET PO SCH ×2 (09:53→22:39)
[2018-09-11] MEDS: METOPROLOL TARTRATE 50 MG TABLET PO SCH ×2 (09:53→22:39)
[2018-09-11] MEDS: FAMOTIDINE INJ/PF 20 MG/2 ML SDV IV SCH ×2 (09:56→22:40)
[2018-09-11] MEDS: FUROSEMIDE INJ/PF 40 MG/4 ML SDV IV SCH (09:57)
--- NOTE | 2018-09-11 15:06 | PDOC PROGRESS REPORT ---
Subjective Progress Note for:: 09/11/18 Subjective:: No adverse events overnight. No new complaints. Having 1-2 bowel movements a day. She still does not say very much, answers are very brief, usually 1-2 syllables. She has a caregiver that is with her during the day who reports that at home she is able to get the patient around fairly well, and has gotten her up here to the bedside commode by herself, but acknowledges that the patient is much weaker than usual. She is only eating about 25% of the food that is brought on her tray, but her trays have been nothing but clear liquids for a few days. Reason For Visit: C DIFF COLITIS,VINCENT, DIABETES, CHRONIC PAIN Physical Exam Vital Signs: Temp Pulse Resp BP Pulse Ox 98.5 F 99 14 138/77 H 95 09/11/18 13:02 09/11/18 13:02 09/11/18 13:02 09/11/18 13:02 09/11/18 13:02 Intake & Output 09/10/18 09/11/18 09/12/18 06:59 06:59 06:59 Intake Total 667 250 100 Output Total 2500 2850 1200 Balance -1833 2600 -1100 Weight 82.5 kg 82.5 kg General appearance: PRESENT: no acute distress, cooperative, disheveled Respiratory exam: PRESENT: decreased breath sounds, symmetrical, unlabored. ABSENT: accessory muscle use, crackles, prolonged expiratory phas, rhonchi, tachypnea, wheezes Cardiovascular exam: PRESENT: irregular rhythm Vascular exam: PRESENT: normal capillary refill GI/Abdominal exam: PRESENT: normal bowel sounds, soft. ABSENT: distended, guarding, rebound, tenderness Extremities exam: PRESENT: pedal edema. ABSENT: clubbing Musculoskeletal exam: PRESENT: normal inspection. ABSENT: deformity Neurological exam: PRESENT: alert, awake, oriented to person Psychiatric exam: PRESENT: flat affect, other - As noted above, responses were limited to words of 1-2 syllables, but she was pleasant and interactive Skin exam: PRESENT: dry, warm Results Laboratory Results: 09/10/18 04:30 09/10/18 04:30 09/05/18 19:30 Blood Blood Culture - Final NO GROWTH IN 5 DAYS 09/05/18 18:40 Blood Blood Culture - Final NO GROWTH IN 5 DAYS 09/05/18 09/05/1809/05/19 18:40 18:40 18:40 Creatine Kinase 1306 H CK-MB (CK-2) 9.06 H Troponin I 0.041 NT-Pro-B Natriuret Pep 4010 H 09/06/18 09/06/18 09/06/18 00:47 00:47 07:00 Creatine Kinase 1231 H 1007 H CK-MB (CK-2) 9.86 H Troponin I 0.044 NT-Pro-B Natriuret Pep 09/06/18 09/06/18 09/06/18 07:00 10:43 10:43 Creatine Kinase 981 H CK-MB (CK-2) 8.18 H 7.46 H Troponin I 0.055 0.044 NT-Pro-B Natriuret Pep 4300 H 09/06/18 09/06/18 09/06/18 17:00 17:00 23:15 Creatine Kinase 984 H 907 H CK-MB (CK-2) 8.20 H Troponin I 0.044 NT-Pro-B Natriuret Pep 09/06/18 23:15 Creatine Kinase CK-MB (CK-2) 8.83 H Troponin I 0.044 NT-Pro-B Natriuret Pep Impressions: Acute Abdomen Series 09/05/18 18:27 IMPRESSION: Cardiomegaly. Cannot exclude mild pulmonary edema. Nonspecific abdomen. Abdomen/Pelvis CT 09/05/18 21:54 IMPRESSION: 1. Moderate colitis. Differential etiologies include infectious, inflammatory, and neoplastic processes. 2. Possible cirrhosis. Splenic varices. Chest X-Ray 09/10/18 06:00 IMPRESSION: 1. Since the prior examination dated 09/09/2018, slight to mild improvement in the CHF changes. Assessment & Plan - Diagnosis (1) Acute respiratory failure with hypoxia Is this a current diagnosis for this admission?: Yes Plan: Resolved. Part of this was due to volume overload, and we plan to get her off IV Lasix tomorrow. (2) Atrial fibrillation with RVR Is this a current diagnosis for this admission?: Yes Plan: Rate is controlled. Were awaiting on a physical therapy evaluation before we decide whether or not to anticoagulate her. (3) COPD exacerbation Is this a current diagnosis for this admission?: Yes Plan: Resolved. We will try to get her off steroids altogether. (4) Clostridium difficile colitis Is this a current diagnosis for this admission?: Yes Plan: She is currently on vancomycin and Flagyl. I am advancing her diet to get her off of clear liquids. Were awaiting a physical therapy evaluation to see if she would benefit from SNF placement. - Time Time Spent with patient: 25-34 minutes
[2018-09-11] MEDS: AMLODIPINE BESYLATE 10 MG TABLET PO SCH (22:39)
[2018-09-11] MEDS: EZETIMIBE 10 MG TABLET PO SCH (22:39)
[2018-09-11] MEDS: MIRTAZAPINE 15 MG TABLET PO SCH (22:40)
[2018-09-12] MEDS: IPRATROPIUM/ALBUTEROL 0.5-2.5 MG/3 ML AMPUL NEB SCH ×6 (00:10→20:28)
[2018-09-12] MEDS: VANCOMYCIN HCL INJ 500 MG VIAL PR SCH ×4 (00:25→18:45)
[2018-09-12] MEDS: VANCOMYCIN HCL INJ 500 MG VIAL PO SCH ×4 (00:25→18:44)
[2018-09-12] MEDS: INSULIN REG, HUMAN 100 UNIT/ML 3 ML VIAL (PYX) SUBCUT PRN ×2 (00:26→06:37)
[2018-09-12] MEDS: METRONIDAZOLE 500 MG TABLET PO SCH ×4 (00:26→18:45)
[2018-09-12] MEDS: HEPARIN SOD (PORCINE) 5,000 UNIT/ML 1 ML SYRINGE SUBCUT SCH ×2 (05:10→21:10)
[2018-09-12] MEDS: LEVOTHYROXINE SODIUM 0.05 MG TABLET PO SCH (05:36)
[2018-09-12] MEDS: FAMOTIDINE INJ/PF 20 MG/2 ML SDV IV SCH ×2 (09:22→22:24)
[2018-09-12] MEDS: METOPROLOL TARTRATE 50 MG TABLET PO SCH ×2 (09:23→22:25)
[2018-09-12] MEDS: ESCITALOPRAM OXALATE 10 MG TABLET PO SCH ×2 (09:23→22:25)
[2018-09-12] MEDS: VALSARTAN 160 MG TABLET PO SCH (09:23)
[2018-09-12] MEDS: POTASSIUM CHLORIDE 10 MEQ CAPSULE.ER PO SCH ×2 (09:23→22:25)
[2018-09-12] MEDS: FUROSEMIDE INJ/PF 40 MG/4 ML SDV IV SCH (09:23)
[2018-09-12] MEDS: LORAZEPAM 1 MG TABLET PO SCH ×2 (09:23→22:24)
[2018-09-12] MEDS: TRIAMTERENE/HYDROCHLOROTHIAZIDE 37.5-25 MG TABLET PO SCH (09:23)
--- NOTE | 2018-09-12 17:05 | PDOC PROGRESS REPORT ---
Subjective Progress Note for:: 09/12/18 Subjective:: No adverse events overnight. No new complaints. Vital signs been stable. She is having 1-2 bowel movements a day. No chest pain or shortness of breath. Oxygen saturations have been good on room air. Appetite is still not very good but she is not having any nausea or vomiting. Reason For Visit: C DIFF COLITIS,VINCENT, DIABETES, CHRONIC PAIN Physical Exam Vital Signs: Temp Pulse Resp BP Pulse Ox 98.2 F 89 16 133/69 H 94 09/12/18 12:27 09/12/18 14:00 09/12/18 12:27 09/12/18 12:27 09/12/18 12:27 Intake & Output 09/11/18 09/12/18 09/13/18 06:59 06:59 06:59 Intake Total 250 300 500 Output Total 2850 2000 1350 Balance -2600 -1700 -850 Weight 82.5 kg 79.3 kg General appearance: PRESENT: no acute distress, cooperative, disheveled Respiratory exam: PRESENT: decreased breath sounds, symmetrical, unlabored. ABSENT: accessory muscle use, crackles, prolonged expiratory phas, rhonchi, tachypnea, wheezes Cardiovascular exam: PRESENT: irregular rhythm Vascular exam: PRESENT: normal capillary refill GI/Abdominal exam: PRESENT: normal bowel sounds, soft. ABSENT: distended, guarding, rebound, tenderness Extremities exam: PRESENT: pedal edema. ABSENT: clubbing Musculoskeletal exam: PRESENT: normal inspection. ABSENT: deformity Neurological exam: PRESENT: alert, awake, oriented to person Psychiatric exam: PRESENT: flat affect, other - As noted above, responses were limited to words of 1-2 syllables, but she was pleasant and interactive Skin exam: PRESENT: dry, warm Results Laboratory Results: 09/10/18 04:30 09/10/18 04:30 09/05/18 09/05/18 09/05/18 18:40 18:40 18:40 Creatine Kinase 1306 H CK-MB (CK-2) 9.06 H Troponin I 0.041 NT-Pro-B Natriuret Pep 4010 H 09/06/18 09/06/18 09/06/18 00:47 00:47 07:00 Creatine Kinase 1231 H 1007 H CK-MB (CK-2) 9.86 H Troponin I 0.044 NT-Pro-B Natriuret Pep 09/06/18 09/06/18 09/06/18 07:00 10:43 10:43 Creatine Kinase 981 H CK-MB (CK-2) 8.18 H 7.46 H Troponin I 0.055 0.044 NT-Pro-B Natriuret Pep 4300 H 09/06/18 09/06/18 09/06/18 17:00 17:00 23:15 Creatine Kinase 984 H 907 H CK-MB (CK-2) 8.20 H Troponin I 0.044 NT-Pro-B Natriuret Pep 09/06/18 23:15 Creatine Kinase CK-MB (CK-2) 8.83 H Troponin I 0.044 NT-Pro-B Natriuret Pep Impressions: Acute Abdomen Series 09/05/18 18:27 IMPRESSION: Cardiomegaly. Cannot exclude mild pulmonary edema. Nonspecific abdomen. Abdomen/Pelvis CT 09/05/18 21:54 IMPRESSION: 1. Moderate colitis. Differential etiologies include infectious, inflammatory, and neoplastic processes. 2. Possible cirrhosis. Splenic varices. Chest X-Ray 09/10/18 06:00 IMPRESSION: 1. Since the prior examination dated 09/09/2018, slight to mild improvement in the CHF changes. Assessment & Plan - Diagnosis (1) Acute respiratory failure with hypoxia Is this a current diagnosis for this admission?: Yes Plan: Resolved. Part of this was due to volume overload, and we plan to get her off IV Lasix today. (2) Atrial fibrillation with RVR Is this a current diagnosis for this admission?: Yes Plan: Rate is controlled. She is unsteady on her feet and requires a lot of super vision, but she has a full-time caregiver. Were trying to talk her into going to rehab so she can be in a supervised setting and hopefully regain some mobility before she goes back home. We will go ahead and start anticoagulation this evening. (3) COPD exacerbation Is this a current diagnosis for this admission?: Yes Plan: Resolved. (4) Clostridium difficile colitis Is this a current diagnosis for this admission?: Yes Plan: She is currently on vancomycin and Flagyl. She will need this for another 10 days. - Time Time Spent with patient: 25-34 minutes
[2018-09-12] MEDS: APIXABAN 5 MG TABLET PO SCH (18:45)
[2018-09-12] MEDS: EZETIMIBE 10 MG TABLET PO SCH (22:24)
[2018-09-12] MEDS: AMLODIPINE BESYLATE 10 MG TABLET PO SCH (22:24)
[2018-09-12] MEDS: MIRTAZAPINE 15 MG TABLET PO SCH (22:25)
[2018-09-13] MEDS: IPRATROPIUM/ALBUTEROL 0.5-2.5 MG/3 ML AMPUL NEB SCH ×6 (00:06→21:12)
[2018-09-13] MEDS: VANCOMYCIN HCL INJ 500 MG VIAL PR SCH ×4 (00:55→17:45)
[2018-09-13] MEDS: VANCOMYCIN HCL INJ 500 MG VIAL PO SCH ×2 (00:55→06:50)
[2018-09-13] MEDS: METRONIDAZOLE 500 MG TABLET PO SCH ×4 (00:55→17:39)
[2018-09-13] MEDS: LEVOTHYROXINE SODIUM 0.05 MG TABLET PO SCH (06:45)
[2018-09-13] MEDS: APIXABAN 5 MG TABLET PO SCH ×2 (09:11→17:45)
[2018-09-13] MEDS: FAMOTIDINE INJ/PF 20 MG/2 ML SDV IV SCH ×2 (09:11→22:42)
[2018-09-13] MEDS: POTASSIUM CHLORIDE 10 MEQ CAPSULE.ER PO SCH ×2 (09:11→22:42)
[2018-09-13] MEDS: VALSARTAN 160 MG TABLET PO SCH (09:12)
[2018-09-13] MEDS: METOPROLOL TARTRATE 50 MG TABLET PO SCH ×2 (09:12→22:42)
[2018-09-13] MEDS: ESCITALOPRAM OXALATE 10 MG TABLET PO SCH ×2 (09:12→22:42)
[2018-09-13] MEDS: TRIAMTERENE/HYDROCHLOROTHIAZIDE 37.5-25 MG TABLET PO SCH (09:13)
--- NOTE | 2018-09-13 16:50 | PDOC PROGRESS REPORT ---
Subjective Progress Note for:: 09/13/18 Subjective:: No adverse events overnight. She is having about 1 bowel movement a day now. Reading has been comfortable. She is on room air. Still not eating very much. Had a long talk with her son and [id number] yesterday, and they are in agreement that she would be best served by going to a longterm facility for rehab. The patient agreed to go today. Reason For Visit: C DIFF COLITIS,VINCENT, DIABETES, CHRONIC PAIN Physical Exam Vital Signs: Temp Pulse Resp BP Pulse Ox 97.9 F 98 16 102/53 L 93 09/13/18 12:31 09/13/18 12:31 09/13/18 12:31 09/13/18 12:31 09/13/18 12:31 Intake & Output 09/12/18 09/13/18 09/14/18 06:59 06:59 06:59 Intake Total 300 1150 400 Output Total 2000 2450 175 Balance -1700 -1300 225 Weight 79.3 kg 77.8 kg General appearance: PRESENT: no acute distress, cooperative, disheveled Respiratory exam: PRESENT: decreased breath sounds, symmetrical, unlabored. ABSENT: accessory muscle use, crackles, prolonged expiratory phas, rhonchi, tachypnea, wheezes Cardiovascular exam: PRESENT: irregular rhythm Vascular exam: PRESENT: normal capillary refill GI/Abdominal exam: PRESENT: normal bowel sounds, soft. ABSENT: distended, guarding, rebound, tenderness Extremities exam: PRESENT: pedal edema. ABSENT: clubbing Musculoskeletal exam: PRESENT: normal inspection. ABSENT: deformity Neurological exam: PRESENT: alert, awake, oriented to person Psychiatric exam: PRESENT: flat affect, other - As noted above, responses were limited to words of 1-2 syllables, but she was pleasant and interactive Skin exam: PRESENT: dry, warm Results Laboratory Results: 09/10/18 04:30 09/10/18 04:30 09/05/18 09/05/18 09/05/18 18:40 18:40 18:40 Creatine Kinase 1306 H CK-MB (CK-2) 9.06 H Troponin I 0.041 NT-Pro-B Natriuret Pep 4010 H 09/06/18 09/06/18 09/06/18 00:47 00:47 07:00 Creatine Kinase 1231 H 1007 H CK-MB (CK-2) 9.86 H Troponin I 0.044 NT-Pro-B Natriuret Pep 09/06/18 09/06/18 09/06/18 07:00 10:43 10:43 Creatine Kinase 981 H CK-MB (CK-2) 8.18 H 7.46 H Troponin I 0.055 0.044 NT-Pro-B Natriuret Pep 4300 H 09/06/18 09/06/18 09/06/18 17:00 17:00 23:15 Creatine Kinase 984 H 907 H CK-MB (CK-2) 8.20 H Troponin I 0.044 NT-Pro-B Natriuret Pep 09/06/18 23:15 Creatine Kinase CK-MB (CK-2) 8.83 H Troponin I 0.044 NT-Pro-B Natriuret Pep Impressions: Acute Abdomen Series 09/05/18 18:27 IMPRESSION: Cardiomegaly. Cannot exclude mild pulmonary edema. Nonspecific abdomen. Abdomen/Pelvis CT 09/05/18 21:54 IMPRESSION: 1. Moderate colitis. Differential etiologies include infectious, inflammatory, and neoplastic processes. 2. Possible cirrhosis. Splenic varices. Chest X-Ray 09/10/18 06:00 IMPRESSION: 1. Since the prior examination dated 09/09/2018, slight to mild improvement in the CHF changes. Assessment & Plan - Diagnosis (1) Acute respiratory failure with hypoxia Is this a current diagnosis for this admission?: Yes Plan: Resolved. Part of this was due to volume overload, and we plan to get her off IV Lasix today. (2) Atrial fibrillation with RVR Is this a current diagnosis for this admission?: Yes Plan: Rate is controlled. She is unsteady on her feet and requires a lot of supervision, but she has a full-time caregiver. Were trying to talk her into going to rehab so she can be in a supervised setting and hopefully regain some mobility before she goes back home. We will go ahead and start anticoagulation this evening. (3) COPD exacerbation Is this a current diagnosis for this admission?: Yes Plan: Resolved. (4) Clostridium difficile colitis Is this a current diagnosis for this admission?: Yes Plan: She is currently on vancomycin and Flagyl. She will need this for another 10 days. She is been very debilitated from this and working to try to find her pl acement in a longterm facility for rehab. - Time Time Spent with patient: 25-34 minutes
[2018-09-13] MEDS: AMLODIPINE BESYLATE 10 MG TABLET PO SCH (22:42)
[2018-09-13] MEDS: EZETIMIBE 10 MG TABLET PO SCH (22:42)
[2018-09-13] MEDS: MIRTAZAPINE 15 MG TABLET PO SCH (22:42)
[2018-09-14] MEDS: METRONIDAZOLE 500 MG TABLET PO SCH ×4 (00:36→23:44)
[2018-09-14] MEDS: VANCOMYCIN HCL INJ 500 MG VIAL PR SCH ×2 (00:36→06:21)
[2018-09-14] MEDS: IPRATROPIUM/ALBUTEROL 0.5-2.5 MG/3 ML AMPUL NEB SCH ×4 (01:08→12:02)
[2018-09-14] MEDS ORDERED: VANCOMYCIN HCL INJ 500 MG VIAL ONE (05:51)
[2018-09-14] MEDS ORDERED: METRONIDAZOLE 500 MG TABLET ONE (06:12)
[2018-09-14] MEDS: LEVOTHYROXINE SODIUM 0.05 MG TABLET PO SCH (06:21)
[2018-09-14] MEDS: APIXABAN 5 MG TABLET PO SCH ×2 (10:26→17:50)
[2018-09-14] MEDS: POTASSIUM CHLORIDE 10 MEQ CAPSULE.ER PO SCH ×2 (10:26→23:45)
[2018-09-14] MEDS: ESCITALOPRAM OXALATE 10 MG TABLET PO SCH ×2 (10:26→23:45)
[2018-09-14] MEDS: VALSARTAN 160 MG TABLET PO SCH (10:26)
[2018-09-14] MEDS: METOPROLOL TARTRATE 50 MG TABLET PO SCH ×2 (10:26→23:46)
[2018-09-14] MEDS: FAMOTIDINE INJ/PF 20 MG/2 ML SDV IV SCH ×2 (10:27→23:45)
[2018-09-14] MEDS: TRIAMTERENE/HYDROCHLOROTHIAZIDE 37.5-25 MG TABLET PO SCH (10:27)
--- NOTE | 2018-09-14 16:22 | PDOC PROGRESS REPORT ---
Subjective Progress Note for:: 09/14/18 Subjective:: No adverse events overnight. No new complaints. Still having about 1 loose bowel movement today. Appetite is extremely poor. She only picks at her meals and eats a couple of bites whenever she is brought a meal. Her caregiver brought her a milkshake that she likes yesterday and she took about 3 sips of that and that is all she had. She can answer yes or no to questions but when you ask her an open-ended question of for her to remember a detail that she shou ld remember, she just blankly stares at you for about a minute before she closes her eyes and lays her head down. Reason For Visit: C DIFF COLITIS,VINCENT, DIABETES, CHRONIC PAIN Physical Exam Vital Signs: Temp Pulse Resp BP Pulse Ox 97.4 F 89 16 106/58 L 93 09/14/18 12:59 09/14/18 13:59 09/14/18 12:59 09/14/18 12:59 09/14/18 12:59 Intake & Output 09/13/18 09/14/18 09/15/18 06:59 06:59 06:59 Intake Total 1150 450 Output Total 2450 865 Balance -1300 -415 Weight 77.8 kg 76.8 kg General appearance: PRESENT: no acute distress, cooperative, disheveled Respiratory exam: PRESENT: decreased breath sounds, symmetrical, unlabored. ABSENT: accessory muscle use, crackles, prolonged expiratory phas, rhonchi, tachypnea, wheezes Cardiovascular exam: PRESENT: irregular rhythm Vascular exam: PRESENT: normal capillary refill GI/Abdominal exam: PRESENT: normal bowel sounds, soft. ABSENT: distended, guarding, rebound, tenderness Extremities exam: PRESENT: pedal edema. ABSENT: clubbing Musculoskeletal exam: PRESENT: normal inspection. ABSENT: deformity Neurological exam: PRESENT: alert, awake, oriented to person Psychiatric exam: PRESENT: flat affect, other - As noted above, responses were limited to words of 1-2 syllables, but she was pleasant and interactive Skin exam: PRESENT: dry, warm Results Laboratory Results: 09/10/18 04:30 09/10/18 04:30 09/05/18 09/05/18 09/05/18 18:40 18:40 18:40 Creatine Kinase 1306 H CK-MB (CK-2) 9.06 H Troponin I 0.041 NT-Pro-B Natriuret Pep 4010 H 09/06/18 09/06/18 09/06/18 00:47 00:47 07:00 Creatine Kinase 1231 H 1007 H CK-MB (CK-2) 9.86 H Troponin I 0.044 NT-Pro-B Natriuret Pep 09/06/18 09/06/18 09/06/18 07:00 10:43 10:43 Creatine Kinase 981 H CK-MB (CK-2) 8.18 H 7.46 H Troponin I 0.055 0.044 NT-Pro-B Natriuret Pep 4300 H 09/06/18 09/06/18 09/06/18 17:00 17:00 23:15 Creatine Kinase 984 H 907 H CK-MB (CK-2) 8.20 H Troponin I 0.044 NT-Pro-B Natriuret Pep 09/06/18 23:15 Creatine Kinase CK-MB (CK-2) 8.83 H Troponin I 0.044 NT-Pro-B Natriuret Pep Impressions: Acute Abdomen Series 09/05/18 18:27 IMPRESSION: Cardiomegaly. Cannot exclude mild pulmonary edema. Nonspecific abdomen. Abdomen/Pelvis CT 09/05/18 21:54 IMPRESSION: 1. Moderate colitis. Differential etiologies include infectious, inflammatory, and neoplastic processes. 2. Possible cirrhosis. Splenic varices. Chest X-Ray 09/10/18 06:00 IMPRESSION: 1. Since the prior examination dated 09/09/2018, slight to mild improvement in the CHF changes. Assessment & Plan - Diagnosis (1) Acute respiratory failure with hypoxia Is this a current diagnosis for this admission?: Yes Plan: Resolved. Part of this was due to volume overload, and we plan to get her off IV Lasix today. (2) Atrial fibrillation with RVR Is this a current diagnosis for this admission?: Yes Plan: Rate is controlled. She is unsteady on her feet and requires a lot of supervision, but she has a full-time caregiver. Were trying to talk her into going to rehab so she can be in a supervised setting and hopefully regain some mobility before she goes back home. We will go ahead and start anticoagulation this evening. (3) COPD exacerbation Is this a current diagnosis for this admission?: Yes Plan: Resolved. (4) Clostridium difficile colitis Is this a current diagnosis for this admission?: Yes Plan: She is currently on vancomycin and Flagyl. She will need this for a total of 14 days. She is been very debilitated from this and working to try to find [facility] placement in [facility]. I expressed my concern to her son that she does not currently have the capacity to make the decision about whether or not she can go to rehab, but he seems very reluctant to make that decision for her. - Time Time Spent with patient: 25-34 minutes
[2018-09-14] MEDS: VANCOMYCIN HCL INJ 500 MG VIAL PO SCH ×2 (17:48→23:44)
[2018-09-14] MEDS: EZETIMIBE 10 MG TABLET PO SCH (23:44)
[2018-09-14] MEDS: MIRTAZAPINE 15 MG TABLET PO SCH (23:45)
[2018-09-14] MEDS: AMLODIPINE BESYLATE 10 MG TABLET PO SCH (23:46)
[2018-09-15] MEDS: METRONIDAZOLE 500 MG TABLET PO SCH ×4 (06:29→23:20)
[2018-09-15] MEDS: VANCOMYCIN HCL INJ 500 MG VIAL PO SCH ×4 (06:29→23:20)
[2018-09-15] MEDS ORDERED: NORMAL SALINE 1000 ML 1,000 ML IV ONE (09:40)
[2018-09-15] MEDS: FAMOTIDINE INJ/PF 20 MG/2 ML SDV IV SCH ×2 (10:34→22:30)
[2018-09-15] MEDS: APIXABAN 5 MG TABLET PO SCH ×4 (10:37→17:39)
[2018-09-15] MEDS: ESCITALOPRAM OXALATE 10 MG TABLET PO SCH ×3 (10:38→22:30)
[2018-09-15] MEDS: TRIAMTERENE/HYDROCHLOROTHIAZIDE 37.5-25 MG TABLET PO SCH ×2 (10:40→10:50)
[2018-09-15] MEDS: METOPROLOL TARTRATE 50 MG TABLET PO SCH ×3 (10:40→22:30)
[2018-09-15] MEDS: VALSARTAN 160 MG TABLET PO SCH ×2 (10:40→10:49)
[2018-09-15] MEDS: POTASSIUM CHLORIDE 10 MEQ CAPSULE.ER PO SCH ×3 (10:41→22:30)
[2018-09-15 11:13] LABS: ANION GAP 9 (5-19); BLOOD UREA NITROGEN 46 mg/dL (7-20); CALCIUM 9.3 mg/dL (8.4-10.2); CARBON DIOXIDE 23 mmol/L (22-30); CHLORIDE 99 mmol/L (98-107); GLUCOSE 252 mg/dL (75-110); POTASSIUM 4.5 mmol/L (3.6-5.0); SODIUM 131.2 mmol/L (137-145)
[2018-09-15] MEDS: INSULIN REG, HUMAN 100 UNIT/ML 3 ML VIAL (PYX) SUBCUT PRN ×2 (13:39→17:39)
[2018-09-15] MEDS: MEGESTROL ACETATE SUSP 400 MG/10 ML UDCUP PO SCH (13:40)
--- NOTE | 2018-09-15 15:50 | PDOC PROGRESS REPORT ---
Subjective Progress Note for:: 09/15/18 Subjective:: No adverse events overnight. No new complaints. She still not eating very much. Urine output has dropped off and she is got poor p.o. fluid intake. Reason For Visit: C DIFF COLITIS,VINCENT, DIABETES, CHRONIC PAIN Physical Exam Vital Signs: Temp Pulse Resp BP Pulse Ox 97.9 F 96 16 127/58 H 93 09/15/18 11:46 09/15/18 11:46 09/15/18 11:46 09/15/18 11:46 09/15/18 11:46 Intake & Output 09/14/18 09/15/18 09/16/18 06:59 06:59 06:59 Intake Total 751 456 1961 Output Total 865 575 Balance -415 -237 1000 Weight 76.8 kg 77.6 kg General appearance: PRESENT: no acute distress, cooperative, disheveled Respiratory exam: PRESENT: decreased breath sounds, symmetrical, unlabored. ABSENT: accessory muscle use, crackles, prolonged expiratory phas, rhonchi, tachypnea, wheezes Cardiovascular exam: PRESENT: irregular rhythm Vascular exam: PRESENT: normal capillary refill GI/Abdominal exam: PRESENT: normal bowel sounds, soft. ABSENT: distended, guarding, rebound, tenderness Extremities exam: PRESENT: pedal edema. ABSENT: clubbing Musculoskeletal exam: PRESENT: normal inspection. ABSENT: deformity Neurological exam: PRESENT: alert, awake, oriented to person Psychiatric exam: PRESENT: flat affect, other - As noted above, responses were limited to words of 1-2 syllables, but she was pleasant and interactive Skin exam: PRESENT: dry, warm Results Laboratory Results: 09/10/18 04:30 09/15/18 10:19 09/15/18 10:19 Sodium 131.2 L Potassium 4.5 Chloride 99 Carbon Dioxide 23 Anion Gap 9 BUN 46 H Creatinine 1.35 H Est GFR ( Amer) 45 L Est GFR (Non-Af Amer) 37 L Glucose 252 H Calcium 9.3 09/05/18 09/05/18 09/05/18 18:40 18:40 18:40 Creatine Kinase 1306 H CK-MB (CK-2) 9.06 H Troponin I 0.041 NT-Pro-B Natriuret Pep 4010 H 09/06/18 09/06/18 09/06/18 00:47 00:47 07:00 Creatine Kinase 1231 H 1007 H CK-MB (CK-2) 9.86 H Troponin I 0.044 NT-Pro-B Natriuret Pep 09/06/18 09/06/18 09/06/18 07:00 10:43 10:43 Creatine Kinase 981 H CK-MB (CK-2) 8.18 H 7.46 H Troponin I 0.055 0.044 NT-Pro-B Natriuret Pep 4300 H 09/06/18 09/06/18 09/06/18 17:00 17:00 23:15 Creatine Kinase 984 H 907 H CK-MB (CK-2) 8.20 H Troponin I 0.044 NT-Pro-B Natriuret Pep 09/06/18 23:15 Creatine Kinase CK-MB (CK-2) 8.83 H Troponin I 0.044 NT-Pro-B Natriuret Pep Impressions: Acute Abdomen Series 09/05/18 18:27 IMPRESSION: Cardiomegaly. Cannot exclude mild pulmonary edema. Nonspecific abdomen. Abdomen/Pelvis CT 09/05/18 21:54 IMPRESSION: 1. Moderate colitis. Differential etiologies include infectious, inflammatory, and neoplastic processes. 2. Possible cirrhosis. Splenic varices. Chest X-Ray 09/10/18 06:00 IMPRESSION: 1. Since the prior examination dated 09/09/2018, slight to mild improvement in the CHF changes. Assessment & Plan - Diagnosis (1) Acute respiratory failure with hypoxia Is this a current diagnosis for this admission?: Yes Plan: Resolved. Part of this was due to volume overload, and we plan to get her off IV Lasix today. (2) Atrial fibrillation with RVR Is this a current diagnosis for this admission?: Yes Plan: Rate is controlled. She is unsteady on her feet and requires a lot of supervision, but she has a full-time caregiver. Were trying to talk her into going to rehab so she can be in a supervised setting and hopefully regain some mobility before she goes back home. We will go ahead and start anticoagulation this evening. (3) COPD exacerbation Is this a current diagnosis for this admission?: Yes Plan: Resolved. (4) Clostridium difficile colitis Is this a current diagnosis for this admission?: Yes Plan: She is currently on vancomycin and Flagyl. She will need this for a total of 14 days. She is been very debilitated from this and working to try to find her placement in a [facility] facility [facility]. I expressed my concern to her son that she does not currently have the capacity to make the decision about whether or not she can go to rehab, but he seems very reluctant to make that decision for her. (5) Dehydration Is this a current diagnosis for this admission?: Yes Plan: Going to gently hydrate her with some IV fluids. Her oral intake is poor, so I am going to try some Megace to see if we can stimulate her appetite. - Time Time Spent with patient: 25-34 minutes
[2018-09-15] MEDS: NORMAL SALINE 1000 ML 1,000 ML IV PRN (17:40)
[2018-09-15] MEDS: EZETIMIBE 10 MG TABLET PO SCH (22:30)
[2018-09-15] MEDS: MIRTAZAPINE 15 MG TABLET PO SCH (22:30)
[2018-09-15] MEDS: AMLODIPINE BESYLATE 10 MG TABLET PO SCH (22:30)
[2018-09-16] MEDS: METRONIDAZOLE 500 MG TABLET PO SCH ×3 (05:03→17:58)
[2018-09-16] MEDS: VANCOMYCIN HCL INJ 500 MG VIAL PO SCH ×3 (05:03→17:58)
[2018-09-16] MEDS: LEVOTHYROXINE SODIUM 0.05 MG TABLET PO SCH (05:07)
[2018-09-16] MEDS: APIXABAN 5 MG TABLET PO SCH ×2 (10:06→17:58)
[2018-09-16] MEDS: METOPROLOL TARTRATE 50 MG TABLET PO SCH ×2 (10:06→21:42)
[2018-09-16] MEDS: POTASSIUM CHLORIDE 10 MEQ CAPSULE.ER PO SCH ×2 (10:06→21:41)
[2018-09-16] MEDS: FAMOTIDINE INJ/PF 20 MG/2 ML SDV IV SCH ×2 (10:06→21:42)
[2018-09-16] MEDS: ESCITALOPRAM OXALATE 10 MG TABLET PO SCH ×2 (10:06→21:42)
[2018-09-16] MEDS: TRIAMTERENE/HYDROCHLOROTHIAZIDE 37.5-25 MG TABLET PO SCH (10:06)
[2018-09-16] MEDS: VALSARTAN 160 MG TABLET PO SCH (10:06)
[2018-09-16] MEDS: MEGESTROL ACETATE SUSP 400 MG/10 ML UDCUP PO SCH (10:06)
--- NOTE | 2018-09-16 10:10 | PDOC PROGRESS REPORT ---
Subjective Progress Note for:: 09/16/18 Subjective:: No adverse events overnight. No new complaints. She still not eating very much. Urine output has dropped off and she is got poor p.o. fluid intake. 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 Reason For Visit: C DIFF COLITIS,VINCENT, DIABETES, CHRONIC PAIN Physical Exam Vital Signs: Temp Pulse Resp BP Pulse Ox 97.8 F 87 18 133/60 H 94 09/16/18 08:06 09/16/18 08:06 09/16/18 08:06 09/16/18 08:06 09/16/18 08:06 Intake & Output 09/15/18 09/16/18 09/17/18 06:59 06:59 06:59 Intake Total 338 1538 Output Total 575 650 Balance -237 888 Weight 77.6 kg 79.4 kg General appearance: PRESENT: no acute distress, cooperative, disheveled Respiratory exam: PRESENT: decreased breath sounds, symmetrical, unlabored. ABSENT: accessory muscle use, crackles, prolonged expiratory phas, rhonchi, tachypnea, wheezes Cardiovascular exam: PRESENT: irregular rhythm Vascular exam: PRESENT: normal capillary refill GI/Abdominal exam: PRESENT: normal bowel sounds, soft. ABSENT: distended, guarding, rebound, tenderness Extremities exam: PRESENT: pedal edema. ABSENT: clubbing Musculoskeletal exam: PRESENT: normal inspection. ABSENT: deformity Neurological exam: PRESENT: alert, awake, oriented to person Psychiatric exam: PRESENT: flat affect, other - As noted above, responses were limited to words of 1-2 syllables, but she was pleasant and interactive Skin exam: PRESENT: dry, warm Results Laboratory Results: 09/10/18 04:30 09/15/18 10:19 09/15/18 10:19 Sodium 131.2 L Potassium 4.5 Chloride 99 Carbon Dioxide 23 Anion Gap 9 BUN 46 H Creatinine 1.35 H Est GFR ( Amer) 45 L Est GFR (Non-Af Amer) 37 L Glucose 252 H Calcium 9.3 09/05/18 09/05/18 09/05/18 18:40 18:40 18:40 Creatine Kinase 1306 H CK-MB (CK-2) 9.06 H Troponin I 0.041 NT-Pro-B Natriuret Pep 4010 H 09/06/18 09/06/18 09/06/18 00:47 00:47 07:00 Creatine Kinase 1231 H 1007 H CK-MB (CK-2) 9.86 H Troponin I 0.044 NT-Pro-B Natriuret Pep 09/06/18 09/06/18 09/06/18 07:00 10:43 10:43 Creatine Kinase 981 H CK-MB (CK-2) 8.18 H 7.46 H Troponin I 0.055 0.044 NT-Pro-B Natriuret Pep 4300 H 09/06/18 09/06/18 09/06/18 17:00 17:00 23:15 Creatine Kinase 984 H 907 H CK-MB (CK-2) 8.20 H Troponin I 0.044 NT-Pro-B Natriuret Pep 09/06/18 23:15 Creatine Kinase CK-MB (CK-2) 8.83 H Troponin I 0.044 NT-Pro-B Natriuret Pep Impressions: Acute Abdomen Series 09/05/18 18:27 IMPRESSION: Cardiomegaly. Cannot exclude mild pulmonary edema. Nonspecific abdomen. Abdomen/Pelvis CT 09/05/18 21:54 IMPRESSION: 1. Moderate colitis. Differential etiologies include infectious, inflammatory, and neoplastic processes. 2. Possible cirrhosis. Splenic varices. Chest X-Ray 09/10/18 06:00 IMPRESSION: 1. Since the prior examination dated 09/09/2018, slight to mild improvement in the CHF changes. Assessment & Plan - Diagnosis (1) Acute respiratory failure with hypoxia Is this a current diagnosis for this admission?: Yes Plan: Resolved. Part of this was due to volume overload, and we plan to get her off IV Lasix today. (2) Atrial fibrillation with RVR Is this a current diagnosis for this admission?: Yes Plan: Rate is controlled. She is unsteady on her feet and requires a lot of supervision, but she has a full-time caregiver. Were trying to talk her into going to rehab so she can be in a supervised setting and hopefully regain some mobility before she goes back home. We will go ahead and start anticoagulation this evening. (3) COPD exacerbation Is this a current diagnosis for this admission?: Yes Plan: Resolved. (4) Clostridium difficile colitis Is this a current diagnosis for this admission?: Yes Plan: She is currently on vancomycin and Flagyl. She will need this for a total of 14 days. She is been very debilitated from this and working to try to find her placement in a [facility] facility for [facility]hab. I expressed my concern to her son that she does not currently have the capacity to make the decision about whether or not she can go to rehab, but he seems very reluctant to make that decision for her. (5) Dehydration Is this a current diagnosis for this admission?: Yes Plan: Continue to gently hydrate her with some IV fluids. Her oral intake is poor, so I am going to try some Megace to see if we can stimulate her appetite. - Time Time Spent with patient: 25-34 minutes
[2018-09-16] MEDS: MIRTAZAPINE 15 MG TABLET PO SCH (21:41)
[2018-09-16] MEDS: EZETIMIBE 10 MG TABLET PO SCH (21:42)
[2018-09-16] MEDS: AMLODIPINE BESYLATE 10 MG TABLET PO SCH (21:42)
[2018-09-17] MEDS: VANCOMYCIN HCL INJ 500 MG VIAL PO SCH ×5 (00:06→23:45)
[2018-09-17] MEDS: METRONIDAZOLE 500 MG TABLET PO SCH ×5 (00:06→23:44)
[2018-09-17] MEDS: NORMAL SALINE 1000 ML 1,000 ML IV PRN ×2 (00:16→13:12)
[2018-09-17] MEDS: LEVOTHYROXINE SODIUM 0.05 MG TABLET PO SCH (05:13)
[2018-09-17] MEDS: POTASSIUM CHLORIDE 10 MEQ CAPSULE.ER PO SCH ×2 (10:37→22:13)
[2018-09-17] MEDS: VALSARTAN 160 MG TABLET PO SCH (10:37)
[2018-09-17] MEDS: TRIAMTERENE/HYDROCHLOROTHIAZIDE 37.5-25 MG TABLET PO SCH (10:38)
[2018-09-17] MEDS: ESCITALOPRAM OXALATE 10 MG TABLET PO SCH ×2 (10:38→22:15)
[2018-09-17] MEDS: METOPROLOL TARTRATE 50 MG TABLET PO SCH ×2 (10:38→22:15)
[2018-09-17] MEDS: APIXABAN 5 MG TABLET PO SCH ×2 (10:38→17:24)
[2018-09-17] MEDS: FAMOTIDINE INJ/PF 20 MG/2 ML SDV IV SCH ×2 (10:39→22:16)
[2018-09-17] MEDS: MEGESTROL ACETATE SUSP 400 MG/10 ML UDCUP PO SCH (10:39)
[2018-09-17 10:53] LABS: ANION GAP 7 (5-19); BLOOD UREA NITROGEN 30 mg/dL (7-20); CALCIUM 8.6 mg/dL (8.4-10.2); CARBON DIOXIDE 19 mmol/L (22-30); CHLORIDE 109 mmol/L (98-107); GLUCOSE 207 mg/dL (75-110); POTASSIUM 4.6 mmol/L (3.6-5.0)
--- NOTE | 2018-09-17 11:17 | RADIOLOGY REPORT (SQ) ---
EXAM DESCRIPTION: CHEST SINGLE VIEW COMPLETED DATE/TIME: 09/17/2018 10:46 am REASON FOR STUDY: reassess congestion COMPARISON: 09/10/2018 EXAM PARAMETERS: NUMBER OF VIEWS: One view. TECHNIQUE: Single frontal radiographic view of the chest acquired. RADIATION DOSE: NA LIMITATIONS: None. FINDINGS: LUNGS AND PLEURA: Improved aeration without focal consolidation, pleural effusion or pneum othorax. MEDIASTINUM AND HILAR STRUCTURES: No masses. Contour normal. HEART AND VASCULAR STRUCTURES: Normal heart size. Atherosclerotic aorta. BONES: No acute findings. HARDWARE: None in the chest. OTHER: No other significant finding. IMPRESSION: Improved aeration without evidence of acute cardiopulmonary process. TECHNICAL DOCUMENTATION: JOB ID: [id number] [employer]- All Rights Reserved Reading location - IP/workstation name: [email or web address]
[2018-09-17] MEDS: INSULIN REG, HUMAN 100 UNIT/ML 3 ML VIAL (PYX) SUBCUT SCH ×3 (13:16→23:53)
--- NOTE | 2018-09-17 14:35 | PDOC PROGRESS REPORT ---
Subjective Progress Note for:: 09/17/18 Subjective:: This is an 83-year-old female with a PMH of chronic atrial fibrillation (not on anticoagulation), congestive heart failure, hypertension, dyslipidemia, insulin-dependent diabetes, hypothyroidism, GERD, obstructive sleep apnea with noncompliance, and COPD who presented with diarrhea and was admitted for C difficile colitis. She was also started on IV fluids and surgery also evaluated patient. She developed pulmonary congestion possible from IV fluids and was started on Lasix. She also went into COPD exacerbation and was started on steroids. Both resolved in the interim and she continues to improve. No acute event overnight. Her diarrhea has resolved. She is comfortable on room air. She denies SOB or chest pain. Called patient's son ([email or web address]) and discussed in length including disposition, plan of care and about anticoagulation. Son and his say they will discuss this today and will call us back about their decision. Reason For Visit: C DIFF COLITIS,VINCENT, DIABETES, CHRONIC PAIN Physical Exam Vital Signs: Temp Pulse Resp BP Pulse Ox 98.0 F 81 14 112/55 L 96 09/17/18 12:47 09/17/18 12:47 09/17/18 12:47 09/17/18 12:47 09/17/18 12:47 Intake & Output 09/16/18 09/17/18 09/18/18 06:59 06:59 06:59 Intake Total 1538 1480 1170 Output Total 650 575 300 Balance 888 905 870 Weight 175 lb 0.752 oz 175 lb 0.752 oz General appearance: PRESENT: no acute distress, well-developed, well-nourished Head exam: PRESENT: atraumatic, normocephalic Eye exam: PRESENT: conjunctiva pink, EOMI, PERRLA. ABSENT: scleral icterus Ear exam: PRESENT: normal external ear exam Mouth exam: PRESENT: moist, tongue midline Neck exam: ABSENT: carotid bruit, JVD, lymphadenopathy, thyromegaly Respiratory exam: PRESENT: clear to auscultation caroline. ABSENT: rales, rhonchi, wheezes Cardiovascular exam: PRESENT: irregular rhythm. ABSENT: diastolic murmur, rubs, systolic murmur Pulses: PRESENT: normal dorsalis pedis pul GI/Abdominal exam: PRESENT: normal bowel sounds, soft. ABSENT: distended, g uarding, mass, organolmegaly, rebound, tenderness Rectal exam: PRESENT: deferred Neurological exam: PRESENT: alert, awake, oriented to person, oriented to place, oriented to time, oriented to situation, CN II-XII grossly intact. ABSENT: motor sensory deficit Results Laboratory Results: 09/10/18 04:30 09/17/18 10:09 09/17/18 10:09 Sodium 135.0 L Potassium 4.6 Chloride 109 H Carbon Dioxide 19 L Anion Gap 7 BUN 30 H Creatinine 0.92 Est GFR ( Amer) > 60 Est GFR (Non-Af Amer) 58 L Glucose 207 H Calcium 8.6 09/05/18 09/05/18 09/05/18 18:40 18:40 18:40 Creatine Kinase 1306 H CK-MB (CK-2) 9.06 H Troponin I 0.041 NT-Pro-B Natriuret Pep 4010 H 09/06/18 09/06/18 09/06/18 00:47 00:47 07:00 Creatine Kinase 1231 H 1007 H CK-MB (CK-2) 9.86 H Troponin I 0.044 NT-Pro-B Natriuret Pep 09/06/18 09/06/18 09/06/18 07:00 10:43 10:43 Creatine Kinase 981 H CK-MB (CK-2) 8.18 H 7.46 H Troponin I 0.055 0.044 NT-Pro-B Natriuret Pep 4300 H 09/06/18 09/06/18 09/06/18 17:00 17:00 23:15 Creatine Kinase 984 H 907 H CK-MB (CK-2) 8.20 H Troponin I 0.044 NT-Pro-B Natriuret Pep 09/06/18 23:15 Creatine Kinase CK-MB (CK-2) 8.83 H Troponin I 0.044 NT-Pro-B Natriuret Pep Impressions: Acute Abdomen Series 09/05/18 18:27 IMPRESSION: Cardiomegaly. Cannot exclude mild pulmonary edema. Nonspecific abdomen. Abdomen/Pelvis CT 09/05/18 21:54 IMPRESSION: 1. Moderate colitis. Differential etiologies include infectious, inflammatory, and neoplastic processes. 2. Possible cirrhosis. Splenic varices. Chest X-Ray 09/17/18 09:45 IMPRESSION: Improved aeration without evidence of acute cardiopulmonary process. Assessment & Plan - Diagnosis (1) Clostridium difficile colitis Is this a current diagnosis for this admission?: Yes Plan: Resolving. Stools are back to baseline. Continue vancomycin and Flagyl. Noted CT abdomen findings. (2) Acute respiratory failure with hypoxia Is this a current diagnosis for this admission?: Yes Plan: Resolved. Secondary to COPD exacerbation and pulmonary congestion. Currently on room air. (3) COPD exacerbation Is this a current diagnosis for this admission?: Yes Plan: Resolved. Completed steroids. (4) Pulmonary congestion Is this a current diagnosis for this admission?: Yes Plan: Resolved. IV Lasix discontinued. (5) Atrial fibrillation with RVR Is this a current diagnosis for this admission?: Yes Plan: In Afib but rate-controlled. HR in the 80s. Continue lopressor. NAVID VASC score of 6. She was started on Eliquis by preceding hospitalist. - Time Time Spent with patient: 25-34 minutes
--- NOTE | 2018-09-17 17:13 | RADIOLOGY REPORT (SQ) ---
EXAM DESCRIPTION: CT HEAD WITHOUT COMPLETED DATE/TIME: 09/17/2018 4:33 pm REASON FOR STUDY: ams COMPARISON: None. TECHNIQUE: Axial images acquired through the brain without intravenous contrast. Images reviewed wi th bone, brain and subdural windows. Additional sagittal and coronal reconstructions were generated. Images stored on PACS. All CT scanners at this facility use dose modulation, iterative reconstruction, and/or weight based d osing when appropriate to reduce radiation dose to as low as reasonably achievable (ALARA). [facility]: Dose Right [facility]: CareDose [facility]: Dose Right [facility]: Teradose 4D [facility]: [facility] RADIATION DOSE: CT Rad equipment meets quality standard of care and radiation dose reduction techniq ues were employed. CTDIvol: 53.2 mGy. DLP: 1017 mGy-cm. mGy. LIMITATIONS: None. FINDINGS: VENTRICLES: Prominent. CEREBRUM: No masses. No hemorrhage. No midline shift. Areas of low density in the white matter mos t likely due to chronic micro-vascular ischemic change. No evidence for acute infarction. CEREBELLUM: No masses. No hemorrhage. No alteration of density. No evidence for acute infarction. EXTRAAXIAL SPACES: Mild age-related involutional change. No fluid collections. No masses. ORBITS AND GLOBE: No intra- or extraconal masses. Normal contour of globe without masses. CALVARIUM: No fracture. PARANASAL SINUSES: No fluid or mucosal thickening. SOFT TISSUES: No mass or hematoma. OTHER: No other significant finding. IMPRESSION: MILD CHRONIC CHANGES OF ATROPHY AND MICROVASCULAR ISCHEMIA. NO ACUTE PROCESS. EVIDENCE OF ACUTE STROKE: NO. TECHNICAL DOCUMENTATION: JOB ID: [id number] Quality ID # [id number]: Final reports with documentation of one or more dose reduction techniques (e.g., Au tomated exposure control, adjustment of the mA and/or kV according to patient size, use of iterative reconstruction technique) 2010 [employer]- All Rights Reserved Reading location - IP/workstation name: [email or web address]
[2018-09-17] MEDS: AMLODIPINE BESYLATE 10 MG TABLET PO SCH (22:15)
[2018-09-17] MEDS: MIRTAZAPINE 15 MG TABLET PO SCH (22:16)
[2018-09-17] MEDS: EZETIMIBE 10 MG TABLET PO SCH (22:16)
[2018-09-18] MEDS: NORMAL SALINE 1000 ML 1,000 ML IV PRN ×2 (04:24→17:54)
[2018-09-18] MEDS: METRONIDAZOLE 500 MG TABLET PO SCH ×3 (05:14→17:30)
[2018-09-18] MEDS: VANCOMYCIN HCL INJ 500 MG VIAL PO SCH ×3 (05:14→17:30)
[2018-09-18] MEDS: LEVOTHYROXINE SODIUM 0.05 MG TABLET PO SCH (05:14)
[2018-09-18] MEDS: VALSARTAN 160 MG TABLET PO SCH (09:46)
[2018-09-18] MEDS: POTASSIUM CHLORIDE 10 MEQ CAPSULE.ER PO SCH ×2 (09:46→22:21)
[2018-09-18] MEDS: APIXABAN 5 MG TABLET PO SCH ×2 (09:46→17:30)
[2018-09-18] MEDS: TRIAMTERENE/HYDROCHLOROTHIAZIDE 37.5-25 MG TABLET PO SCH (09:46)
[2018-09-18] MEDS: ESCITALOPRAM OXALATE 10 MG TABLET PO SCH (09:46)
[2018-09-18] MEDS: METOPROLOL TARTRATE 50 MG TABLET PO SCH ×2 (09:46→22:22)
[2018-09-18] MEDS: MEGESTROL ACETATE SUSP 400 MG/10 ML UDCUP PO SCH (09:46)
[2018-09-18] MEDS: FAMOTIDINE INJ/PF 20 MG/2 ML SDV IV SCH ×2 (09:56→22:23)
[2018-09-18] MEDS: INSULIN REG, HUMAN 100 UNIT/ML 3 ML VIAL (PYX) SUBCUT SCH ×4 (12:47→23:46)
--- NOTE | 2018-09-18 13:44 | PDOC PROGRESS REPORT ---
Subjective Progress Note for:: 09/18/18 Subjective:: This is an 83-year-old female with a PMH of chronic atrial fibrillation (not on anticoagulation), congestive heart failure, hypertension, dyslipidemia, insulin-dependent diabetes, hypothyroidism, GERD, obstructive sleep apnea with noncompliance, and COPD who presented with diarrhea and was admitted for C difficile colitis. She was also started on IV fluids and surgery also evaluated patient. She developed pulmonary congestion possible from IV fluids and was started on Lasix. She also went into COPD exacerbation and was started on steroids. Both resolved in the interim and she continues to improve. 09/17: Her diarrhea has resolved. She is comfortable on room air. She denies SOB or chest pain. Called patient's son (BIENVENIDO) and discussed in length including disposition, plan of care and about anticoagulation. Son and his say they will discuss this today and will call us back about their decision. 09/18: No acute event overnight. Caregiver brought up patient does have history of depression and that's why she is on Celexa. Awaiting for family to call back about decision regarding SNF/rehab placement. Reason For Visit: C DIFF COLITIS,VINCENT, DIABETES, CHRONIC PAIN Physical Exam Vital Signs: Temp Pulse Resp BP Pulse Ox 97.8 F 80 16 114/62 98 09/18/18 12:24 09/18/18 12:24 09/18/18 12:24 09/18/18 12:24 09/18/18 12:24 Intake & Output 09/17/18 09/18/18 09/19/18 06:59 06:59 06:59 Intake Total 1480 2420 50 Output Total 575 950 375 Balance 905 1470 -325 Weight 175 lb 0.752 oz 176 lb 5.917 oz General appearance: PRESENT: no acute distress, well-developed, well-nourished Head exam: PRESENT: atraumatic, normocephalic Eye exam: PRESENT: conjunctiva pink, EOMI, PERRLA. ABSENT: scleral icterus Ear exam: PRESENT: normal external ear exam Mouth exam: PRESENT: moist, tongue midline Neck exam: ABSENT: carotid bruit, JVD, lymphadenopathy, thyromegaly Respiratory exam: PRESENT: clear to auscultation caroline. ABSENT: rales, rhonchi, wheezes Cardiovascular exam: PRESENT: RRR. ABSENT: diastolic murmur, rubs, systolic murmur Pulses: PRESENT: normal dorsalis pedis pul GI/Abdominal exam: PRESENT: normal bowel sounds, soft. ABSENT: distended, guarding, mass, organolmegaly, rebound, tenderness Rectal exam: PRESENT: deferred Extremities exam: PRESENT: full ROM. ABSENT: calf tenderness, clubbing, pedal edema Neurological exam: PRESENT: alert, awake, oriented to person, oriented to place, CN II-XII grossly intact. ABSENT: motor sensory deficit Results Laboratory Results: 09/10/18 04:30 09/17/18 10:09 09/05/18 09/05/18 09/05/18 18:40 18:40 18:40 Creatine Kinase 1306 H CK-MB (CK-2) 9.06 H Troponin I 0.041 NT-Pro-B Natriuret Pep 4010 H 09/06/18 09/06/18 09/06/18 00:47 00:47 07:00 Creatine Kinase 1231 H 1007 H CK-MB (CK-2) 9.86 H Troponin I 0.044 NT-Pro-B Natriuret Pep 09/06/18 09/06/18 09/06/18 07:00 10:43 10:43 Creatine Kinase 981 H CK-MB (CK-2) 8.18 H 7.46 H Troponin I 0.055 0.044 NT-Pro-B Natriuret Pep 4300 H 09/06/18 09/06/18 09/06/18 17:00 17:00 23:15 Creatine Kinase 984 H 907 H CK-MB (CK-2) 8.20 H Troponin I 0.044 NT-Pro-B Natriuret Pep 09/06/18 23:15 Creatine Kinase CK-MB (CK-2) 8.83 H Troponin I 0.044 NT-Pro-B Natriuret Pep Impressions: Acute Abdomen Series 09/05/18 18:27 IMPRESSION: Cardiomegaly. Cannot exclude mild pulmonary edema. Nonspecific abdomen. Abdomen/Pelvis CT 09/05/18 21:54 IMPRESSION: 1. Moderate colitis. Differential etiologies include infectious, inflammatory, and neoplastic processes. 2. Possible cirrhosis. Splenic varices. Chest X-Ray 09/17/18 09:45 IMPRESSION: Improved aeration without evidence of acute cardiopulmonary process. Head CT 09/17/18 14:06 IMPRESSION: MILD CHRONIC CHANGES OF ATROPHY AND MICROVASCULAR ISCHEMIA. NO ACUTE PROCESS. EVIDENCE OF ACUTE STROKE: NO. Assessment & Plan - Diagnosis (1) Clostridium difficile colitis Is this a current diagnosis for this admission?: Yes Plan: Resolving. Stools are back to baseline. Continue vancomycin and Flagyl. (2) Acute respiratory failure with hypoxia Is this a current diagnosis for this admission?: Yes Plan: Resolved. Secondary to COPD exacerbation and pulmonary congestion. Currently on room air. (3) COPD exacerbation Is this a current diagnosis for this admission?: Yes Plan: Resolved. Completed steroids. (4) Pulmonary congestion Is this a current diagnosis for this admission?: Yes Plan: Resolved. IV Lasix discontinued. (5) Atrial fibrillation with RVR Is this a current diagnosis for this admission?: Yes Plan: In Afib but rate-controlled. HR in the 80s. Continue lopressor. She is still not on anticoagulation. NAVID VASC score of 6. She has been started on Eliquis by preceding hospitalist. Rediscussed anticoagulation in length with son/DPOA. Son and verbalized they are not amenable to the risks of bleeding and prefer not to have patient on anticoagulation. Will discontinue Eliquis. They did verbalize they will rediscuss this with her PCP later. - Time Time Spent with patient: 25-34 minutes
[2018-09-18] MEDS: MIRTAZAPINE 15 MG TABLET PO SCH (22:23)
[2018-09-18] MEDS: AMLODIPINE BESYLATE 10 MG TABLET PO SCH (22:23)
[2018-09-18] MEDS: EZETIMIBE 10 MG TABLET PO SCH (22:26)
[2018-09-19] MEDS: METRONIDAZOLE 500 MG TABLET PO SCH ×5 (01:00→23:39)
[2018-09-19] MEDS: VANCOMYCIN HCL INJ 500 MG VIAL PO SCH ×5 (01:37→23:40)
[2018-09-19 05:31] LABS: ABSOLUTE BASOPHILS # (AUTO) 0.1 10^3/uL (0.0-0.2); ABSOLUTE EOSINOPHILS # (AUTO) 0.2 10^3/uL (0.0-0.6); ABSOLUTE LYMPHOCYTES (AUTO) 0.7 10^3/uL (0.5-4.7); ABSOLUTE MONOCYTES (AUTO) 1.4 10^3/uL (0.1-1.4); BASOPHILS % (AUTO) 0.8 % (0-2); EOSINOPHILS % (AUTO) 2.1 % (0-6); HEMATOCRIT 51.3 % (36.0-47.0); HEMOGLOBIN 17.4 g/dL (12.0-15.5); LYMPHOCYTES % (AUTO) 6.3 % (13-45); MEAN CORPUSCULAR HEMOGLOBIN 31.6 pg (27.0-33.4); MEAN CORPUSCULAR HGB CONC 33.8 g/dL (32.0-36.0); MEAN CORPUSCULAR VOLUME 94 fl (80-97); MONOCYTES % (AUTO) 11.9 % (3-13); PLATELET COUNT 250 10^3/uL (150-450); RED BLOOD COUNT 5.48 10^6/uL (3.72-5.28); RED CELL DISTRIBUTION WIDTH 14.7 % (11.5-14.0); SEGMENTED NEUTROPHILS % (AUTO) 78.9 % (42-78); TOTAL CELLS COUNTED % (AUTO) 100 %; WHITE BLOOD COUNT 11.4 10^3/uL (4.0-10.5)
[2018-09-19 05:49] LABS: ANION GAP 7 (5-19); BLOOD UREA NITROGEN 24 mg/dL (7-20); CALCIUM 8.6 mg/dL (8.4-10.2); CARBON DIOXIDE 19 mmol/L (22-30); CHLORIDE 109 mmol/L (98-107); GLUCOSE 169 mg/dL (75-110); POTASSIUM 4.8 mmol/L (3.6-5.0); SODIUM 134.8 mmol/L (137-145)
[2018-09-19] MEDS: LEVOTHYROXINE SODIUM 0.05 MG TABLET PO SCH (06:08)
[2018-09-19] MEDS: INSULIN REG, HUMAN 100 UNIT/ML 3 ML VIAL (PYX) SUBCUT SCH ×4 (06:52→23:39)
[2018-09-19] MEDS: FAMOTIDINE INJ/PF 20 MG/2 ML SDV IV SCH ×2 (09:31→22:21)
[2018-09-19] MEDS: METOPROLOL TARTRATE 50 MG TABLET PO SCH ×2 (09:31→22:20)
[2018-09-19] MEDS: POTASSIUM CHLORIDE 10 MEQ CAPSULE.ER PO SCH ×2 (09:31→22:19)
[2018-09-19] MEDS: TRIAMTERENE/HYDROCHLOROTHIAZIDE 37.5-25 MG TABLET PO SCH (09:31)
[2018-09-19] MEDS: ESCITALOPRAM OXALATE 10 MG TABLET PO SCH ×2 (09:31→22:20)
[2018-09-19] MEDS: VALSARTAN 160 MG TABLET PO SCH (09:31)
[2018-09-19] MEDS: NORMAL SALINE 1000 ML 1,000 ML IV PRN ×2 (09:32→23:46)
[2018-09-19] MEDS: MEGESTROL ACETATE SUSP 400 MG/10 ML UDCUP PO SCH (09:39)
[2018-09-19] MEDS ORDERED: FLUOXETINE HCL 20 MG CAPSULE PO SCH (10:00)
--- NOTE | 2018-09-19 17:37 | PDOC PROGRESS REPORT ---
Subjective Progress Note for:: 09/19/18 Subjective:: This is an 83-year-old female with a PMH of chronic atrial fibrillation (not on anticoagulation), congestive heart failure, hypertension, dyslipidemia, insulin-dependent diabetes, hypothyroidism, GERD, obstructive sleep apnea with noncompliance, and COPD who presented with diarrhea and was admitted for C difficile colitis. She was also started on IV fluids and surgery also evaluated patient. She developed pulmonary congestion possible from IV fluids and was started on Lasix. She also went into COPD exacerbation and was started on steroids. Both resolved in the interim and she continues to improve. 09/17: Her diarrhea has resolved. She is comfortable on room air. She denies SOB or chest pain. Called patient's son (BIENVENIDO) and discussed in length including disposition, plan of care and about anticoagulation. Son and his say they will discuss this today and will call us back about their decision. 09/18: No acute event overnight. Caregiver brought up patient does have history of depression and that's why she is on Celexa. Caregiver did mention patient has expressed before that she is sad that she was living alone with her caregiver at her house and is not getting frequent visits from her son and daughter in law. Awaiting for family to call back about decision regarding SNF/rehab placement. 09/19: Patient had one episode of loose, nonbloody BM. She denies acute complaint but does report she still has generalized weakness. She appears to have been physically deconditioned. Reason For Visit: C DIFF COLITIS,VINCENT, DIABETES, CHRONIC PAIN Physical Exam Vital Signs: Temp Pulse Resp BP Pulse Ox 97.7 F 182 H 14 111/53 L 94 09/19/18 15:23 09/19/18 15:23 09/19/18 15:23 09/19/18 15:23 09/19/18 15:23 Intake & Output 09/18/18 09/19/18 09/20/18 06:59 06:59 06:59 Intake Total 2420 1200 1000 Output Total 950 675 Balance 3574 508 9060 Weight 176 lb 5.917 oz 179 lb 7.3 oz General appearance: PRESENT: no acute distress, well-developed, well-nourished Head exam: PRESENT: atraumatic, normocephalic Eye exam: PRESENT: conjunctiva pink, EOMI, PERRLA. ABSENT: scleral icterus Ear exam: PRESENT: normal external ear exam Mouth exam: PRESENT: moist, tongue midline Neck exam: ABSENT: carotid bruit, JVD, lymphadenopathy, thyromegaly Respiratory exam: PRESENT: clear to auscultation caroline. ABSENT: rales, rhonchi, wheezes Cardiovascular exam: PRESENT: RRR. ABSENT: diastolic murmur, rubs, systolic murmur Pulses: PRESENT: normal dorsalis pedis pul GI/Abdominal exam: PRESENT: normal bowel sounds, soft. ABSENT: distended, guarding, mass, organolmegaly, rebound, tenderness Rectal exam: PRESENT: deferred Neurological exam: PRESENT: alert, awake, oriented to person, oriented to place, oriented to time, CN II-XII grossly intact. ABSENT: motor sensory deficit Results Laboratory Results: 09/19/18 04:37 09/19/18 04:37 09/19/18 09/19/18 04:37 04:37 WBC 11.4 H RBC 5.48 H Hgb 17.4 H Hct 51.3 H MCV 94 MCH 31.6 MCHC 33.8 RDW 14.7 H Plt Count 250 Seg Neutrophils % 78.9 H Lymphocytes % 6.3 L Monocytes % 11.9 Eosinophils % 2.1 Basophils % 0.8 Absolute Neutrophils 9.0 H Absolute Lymphocytes 0.7 Absolute Monocytes 1.4 Absolute Eosinophils 0.2 Absolute Basophils 0.1 Sodium 134.8 L Potassium 4.8 Chloride 109 H Carbon Dioxide 19 L Anion Gap 7 BUN 24 H Creatinine 0.96 Est GFR ( Amer) > 60 Est GFR (Non-Af Amer) 56 L Glucose 169 H Calcium 8.6 09/05/18 09/05/18 09/05/18 18:40 18:40 18:40 Creatine Kinase 1306 H CK-MB (CK-2) 9.06 H Troponin I 0.041 NT-Pro-B Natriuret Pep 4010 H 09/06/18 09/06/18 09/06/18 00:47 00:47 07:00 Creatine Kinase 1231 H 1007 H CK-MB (CK-2) 9.86 H Troponin I 0.044 NT-Pro-B Natriuret Pep 09/06/18 09/06/18 09/06/18 07:00 10:43 10:43 Creatine Kinase 981 H CK-MB (CK-2) 8.18 H 7.46 H Troponin I 0.055 0.044 NT-Pro-B Natriuret Pep 4300 H 09/06/18 09/06/18 09/06/18 17:00 17:00 23:15 Creatine Kinase 984 H 907 H CK-MB (CK-2) 8.20 H Troponin I 0.044 NT-Pro-B Natriuret Pep 09/06/18 23:15 Creatine Kinase CK-MB (CK-2) 8.83 H Troponin I 0.044 NT-Pro-B Natriuret Pep Impressions: Acute Abdomen Series 09/05/18 18:27 IMPRESSION: Cardiomegaly. Cannot exclude mild pulmonary edema. Nonspecific abdomen. Abdomen/Pelvis CT 09/05/18 21:54 IMPRESSION: 1. Moderate colitis. Differential etiologies include infectious, inflammatory, and neoplastic processes. 2. Possible cirrhosis. Splenic varices. Chest X-Ray 09/17/18 09:45 IMPRESSION: Improved aeration without evidence of acute cardiopulmonary process. Head CT 09/17/18 14:06 IMPRESSION: MILD CHRONIC CHANGES OF ATROPHY AND MICROVASCULAR ISCHEMIA. NO ACUTE PROCESS. EVIDENCE OF ACUTE STROKE: NO. Assessment & Plan - Diagnosis (1) Clostridium difficile colitis Is this a current diagnosis for this admission?: Yes Plan: Resolving. Continue vancomycin and Flagyl. (2) Acute respiratory failure with hypoxia Is this a current diagnosis for this admission?: Yes Plan: Resolved. Secondary to COPD exacerbation and pulmonary congestion. Currently on room air. (3) COPD exacerbation Is this a current diagnosis for this admission?: Yes Plan: Resolved. Completed steroids. (4) Pulmonary congestion Is this a current diagnosis for this admission?: Yes Plan: Resolved. IV Lasix discontinued. (5) Atrial fibrillation with RVR Is this a current diagnosis for this admission?: Yes Plan: In Afib but rate-controlled. HR in the 80s. Continue lopressor. She is still not on anticoagulation. NAVID VASC score of 6. She has been started on Eliquis by preceding hospitalist. 09/18: Rediscussed anticoagulation in length with son/DPOA. Son and verbalized they are not amenable to the risks of bleeding and prefer not to have patient on anticoagulation. Will discontinue Eliquis. They did verbalize they will rediscuss this with her PCP later. (6) Rhabdomyolysis Is this a current diagnosis for this admission?: Yes Plan: She was given IV fluids. Ezetimibe discontinued. - Time Time Spent with patient: 25-34 minutes
[2018-09-19] MEDS: MIRTAZAPINE 15 MG TABLET PO SCH (22:19)
[2018-09-19] MEDS: AMLODIPINE BESYLATE 10 MG TABLET PO SCH (22:21)
[2018-09-19] MEDS: EZETIMIBE 10 MG TABLET PO SCH (22:26)
[2018-09-20] MEDS: METRONIDAZOLE 500 MG TABLET PO SCH ×2 (06:07→11:53)
[2018-09-20] MEDS: VANCOMYCIN HCL INJ 500 MG VIAL PO SCH ×2 (06:07→11:53)
[2018-09-20] MEDS: LEVOTHYROXINE SODIUM 0.05 MG TABLET PO SCH (06:08)
[2018-09-20] MEDS: INSULIN REG, HUMAN 100 UNIT/ML 3 ML VIAL (PYX) SUBCUT SCH ×2 (06:43→11:54)
[2018-09-20] MEDS: POTASSIUM CHLORIDE 10 MEQ CAPSULE.ER PO SCH (10:41)
[2018-09-20] MEDS: VALSARTAN 160 MG TABLET PO SCH (10:41)
[2018-09-20] MEDS: ESCITALOPRAM OXALATE 10 MG TABLET PO SCH (10:41)
[2018-09-20] MEDS: METOPROLOL TARTRATE 50 MG TABLET PO SCH (10:42)
[2018-09-20] MEDS: FAMOTIDINE INJ/PF 20 MG/2 ML SDV IV SCH (10:42)
[2018-09-20] MEDS: TRIAMTERENE/HYDROCHLOROTHIAZIDE 37.5-25 MG TABLET PO SCH (10:42)
[2018-09-20] MEDS: MEGESTROL ACETATE SUSP 400 MG/10 ML UDCUP PO SCH (10:43)
[2018-09-20 15:49] VITALS: BP 120/62
--- NOTE | 2018-09-21 16:16 | PDOC DISCHARGE SUMMARY ---
General - Admit/Disc Date/PCP Admission Date/Primary Care Provider: 09/06/18 00:26 NNEKA ULLOA MD Discharge Date: 09/20/18 - Discharge Diagnosis (1) Clostridium difficile colitis Is this a current diagnosis for this admission?: Yes (2) Acute respiratory failure with hypoxia Is this a current diagnosis for this admission?: Yes (3) COPD exacerbation Is this a current diagnosis for this admission?: Yes (4) Pulmonary congestion Is this a current diagnosis for this admission?: Yes (5) Atrial fibrillation with RVR Is this a current diagnosis for this admission?: Yes (6) Rhabdomyolysis Is this a current diagnosis for this admission?: Yes - Additional Information Resuscitation Status: Full Code Discharge Diet: Cardiac, Diabetic Discharge Activity: Activity As Tolerated, Balance Activity w/Rest Prescriptions: Fluticasone/Salmeterol [Fluticasone-Salmeterol 113-14] 1 each IH BID #1 aer.pow.[email or web address] Lorazepam [Ativan 0.5 mg Tablet] 0.5 mg PO Q12 PRN #12 tab PRN Reason: Metronidazole [Flagyl 500 mg Tablet] 500 mg PO Q6 #20 tablet Vancomycin HCl 250 mg PO Q6H #20 capsule Home Medications: Levothyroxine Sodium [Synthroid 0.05 mg Tablet] 50 mcg PO MOTUWETHFRSA@0600 12/05/11 Mirtazapine [Remeron 15 mg Tablet] 15 mg PO QHS 12/05/11 Triamterene/Hydrochlorothiazid [Dyazide 37.5-25 Capsule] 1 each PO DAILY 08/09/12 Escitalopram Oxalate [Lexapro 10 mg Tablet] 10 mg PO Q12 09/06/18 Insulin Aspart Prot/Insuln Asp [Novolog Mix 70-30 Flexpen Syrn] 0 unit SQ .SLIDING SCALE PRN 09/06/18 Metoprolol Tartrate [Lopressor 25 mg Tablet] 25 mg PO Q12 09/06/18 Valsartan [Diovan 160 mg Tablet] 160 mg PO DAILY 09/06/18 Fluticasone/Salmeterol [Fluticasone-Salmeterol 113-14] 1 each IH BID #1 aer.pow.ba 09/20/18 Lorazepam [Ativan 0.5 mg Tablet] 0.5 mg PO Q12 PRN #12 tab 09/20/18 Metronidazole [Flagyl 500 mg Tablet] 500 mg PO Q6 #20 tablet 09/20/18 Vancomycin HCl 250 mg PO Q6H #20 capsule 09/20/18 History of Present Illness History of Present Illness: Admitting hospitalist's H&P: YULI HAMMER is a 83 year old female with a past medical history of Dilaudid dependent chronic pain, atrial fibrillation, congestive heart failure, hypertension, dyslipidemia, insulin-dependent diabetes, hypothyroidism, GERD, obstructive sleep apnea with noncompliance, minimally ambulatory from bed to bathroom only. She presents with 4 days of abdominal pain nausea vomiting and diarrhea associated with fever prompting evaluation in the emergency room where she is found to have confusion, leukocytosis, colitis by CT and C. difficile positive stool. She was initially started on IV vancomycin, Invanz and referred to the hospitalist for admission. Hospital Course Hospital Course: This is an 83-year-old female with a PMH of chronic atrial fibrillation (not on anticoagulation), congestive heart failure, hypertension, dyslipidemia, insulin- dependent diabetes, hypothyroidism, GERD, obstructive sleep apnea with noncompliance, and COPD who presented with diarrhea and was admitted for C difficile colitis. she was also found to have elevated CK. She was also started on IV fluids and surgery also evaluated patient. She did improve significantly and her stools became less frequent and became better formed. She developed pulmonary congestion possibly from hydration with IV fluids and was started on Lasix. She also developed COPD exacerbation and was started on steroids. She initially required BIPAP. Both resolved in the interim and she continued to improve. She was weaned off O2 and has since been comfortable and saturating well on room air. She is not on anticoagulation at home for her AFib. She has a NAVID VASC score of 6. She was started on Eliquis by preceding hospitalist. 09/18: Rediscussed anticoagulation in length with son/DPOA. Son and verbalized they are not amenable to the risks of bleeding and prefer not to have patient on anticoagulation. Discontinued Eliquis. They did verbalize they will rediscuss this with her PCP later. She has a history of depression and has been on Celexa. Family preferred to make changes with her antidepressant when they ff-up with her PCP. She also is on premeal insulin at home. Her Hba1c came back at 5.8 and her insulin premeals were discontinued. She was evaluated by PT with recommendation for discharge to SNF/rehab. Her generalized weakness was likely a combination of deconditioning, rhabdo (from ezetimibe and steroids as well). Her ezetimibe was also discontinued. This was discussed in length with patient and family (DPOA-son and daughter in law) and they preferred to go home instead. Patient will be staying with at her son's house for a few weeks. She has a caregiver, Aneta. They were offered home health and home PT services instead after refusing rehab placement. Physical Exam Vital Signs: Temp Pulse Resp BP Pulse Ox 97.7 F 91 16 120/62 96 09/20/18 15:10 09/20/18 15:10 09/20/18 15:10 09/20/18 15:10 09/20/18 15:10 Intake & Output 09/20/18 09/21/18 09/22/18 06:59 06:59 06:59 Intake Total 2200 1000 Balance 2200 1000 Weight 181 lb 3.52 oz General appearance: PRESENT: no acute distress, well-developed, well-nourished Head exam: PRESENT: atraumatic, normocephalic Eye exam: PRESENT: conjunctiva pink, EOMI, PERRLA. ABSENT: scleral icterus Ear exam: PRESENT: normal external ear exam Mouth exam: PRESENT: moist, tongue midline Neck exam: ABSENT: carotid bruit, JVD, lymphadenopathy, thyromegaly Respiratory exam: PRESENT: clear to auscultation caroline. ABSENT: rales, rhonchi, wheezes Cardiovascular exam: PRESENT: RRR. ABSENT: diastolic murmur, rubs, systolic murmur Pulses: PRESENT: normal dorsalis pedis pul GI/Abdominal exam: PRESENT: normal bowel sounds, soft. ABSENT: distended, guarding, mass, organolmegaly, rebound, tenderness Rectal exam: PRESENT: deferred Neurological exam: PRESENT: alert, awake, oriented to person, oriented to place, oriented to time, oriented to situation, CN II-XII grossly intact. ABSENT: motor sensory deficit Results Laboratory Results: 09/19/18 04:37 09/19/18 04:37 09/05/18 09/05/18 09/05/18 18:40 18:40 18:40 Creatine Kinase 1306 H CK-MB (CK-2) 9.06 H Troponin I 0.041 NT-Pro-B Natriuret Pep 4010 H 09/06/18 09/06/18 09/06/18 00:47 00:47 07:00 Creatine Kinase 1231 H 1007 H CK-MB (CK-2) 9.86 H Troponin I 0.044 NT-Pro-B Natriuret Pep 09/06/18 09/06/18 09/06/18 07:00 10:43 10:43 Creatine Kinase 981 H CK-MB (CK-2) 8.18 H 7.46 H Troponin I 0.055 0.044 NT-Pro-B Natriuret Pep 4300 H 09/06/18 09/06/18 09/06/18 17:00 17:00 23:15 Creatine Kinase 984 H 907 H CK-MB (CK-2) 8.20 H Troponin I 0.044 NT-Pro-B Natriuret Pep 09/06/18 23:15 Creatine Kinase CK-MB (CK-2) 8.83 H Troponin I 0.044 NT-Pro-B Natriuret Pep Impressions: Acute Abdomen Series 09/05/18 18:27 IMPRESSION: Cardiomegaly. Cannot exclude mild pulmonary edema. Nonspecific abdomen. Abdomen/Pelvis CT 09/05/18 21:54 IMPRESSION: 1. Moderate colitis. Differential etiologies include infectious, inflammatory, and neoplastic processes. 2. Possible cirrhosis. Splenic varices. Chest X-Ray 09/17/18 09:45 IMPRESSION: Improved aeration without evidence of acute cardiopulmonary process. Head CT 09/17/18 14:06 IMPRESSION: MILD CHRONIC CHANGES OF ATROPHY AND MICROVASCULAR ISCHEMIA. NO A CUTE PROCESS. EVIDENCE OF ACUTE STROKE: NO. Qualifiers - * PATIENT BEING DISCHARGED WITH ANY OF THE FOLLOWING DIAGNOSIS: No
== END 2018-09-20 17:15 | disposition home health service (06) | DRG 371 ==
LOC: ER 17:50 → EH 09-06 00:26 → 3W 09-06 03:40
PROVIDERS: ADMIT Internal Medicine; ATTEND Internal Medicine
PROC: 3E0F73Z Introduction of Anti-inflammatory into Respiratory Tract, Via Natural or Artificial Opening (ICD-10-PCS; 2018-09-06)
PROC: 5A09357 Assistance with Respiratory Ventilation, Less than 24 Consecutive Hours, Continuous Positive Airway Pressure (ICD-10-PCS; 2018-09-06)
PROC: 5A09457 Assistance with Respiratory Ventilation, 24-96 Consecutive Hours, Continuous Positive Airway Pressure (ICD-10-PCS; principal; 2018-09-07)
DX: A04.72 Enterocolitis due to Clostridium difficile, not specified as recurrent (principal); J96.01 Acute respiratory failure with hypoxia; I50.33 Acute on chronic diastolic (congestive) heart failure; J44.1 Chronic obstructive pulmonary disease with (acute) exacerbation; M62.82 Rhabdomyolysis; F11.20 Opioid dependence, uncomplicated; E87.1 Hypo-osmolality and hyponatremia; I48.2 Chronic atrial fibrillation; G47.33 Obstructive sleep apnea (adult) (pediatric); E11.9 Type 2 diabetes mellitus without complications; G89.29 Other chronic pain; I11.0 Hypertensive heart disease with heart failure; E78.00 Pure hypercholesterolemia, unspecified; E03.9 Hypothyroidism, unspecified; K21.9 Gastro-esophageal reflux disease without esophagitis; E87.6 Hypokalemia; E83.42 Hypomagnesemia; E86.0 Dehydration; F32.9 Major depressive disorder, single episode, unspecified; E78.5 Hyperlipidemia, unspecified; E66.9 Obesity, unspecified; I49.3 Ventricular premature depolarization; Z60.2 Problems related to living alone; Z79.899 Other long term (current) drug therapy; Z79.4 Long term (current) use of insulin; Z91.19 Patient's noncompliance with other medical treatment and regimen; Z88.6 Allergy status to analgesic agent; Z91.040 Latex allergy status; Z90.710 Acquired absence of both cervix and uterus; Z87.891 Personal history of nicotine dependence
CPT/HCPCS: 36415; 70450; 71045; 74022; 74177; 80048; 80053; 80069; 81001; 82550; 82553; 82962; 83036; 83605; 83735; 83880; 84484; 85025; 85610; 87040; 87045; 87205; 87493; 89055; 93005; 93010; 94640; 94660; 96361; 96365; 96367; 96375; 99291; J1335; J1644; J1815; J1940; J2060; J2405; J2550; J2920; J3370; J3475; J3480; J3490; J7030; J7620; S0028

== ENCOUNTER 2018-09-27 12:46 | Inpatient (IN) | payer MEDICARE, BC ==
[2018-09-27] MEDS ORDERED: NORMAL SALINE 1000 ML 1,000 ML IV ONE ×3 (13:53→16:58)
--- NOTE | 2018-09-27 14:26 | RADIOLOGY REPORT (SQ) ---
EXAM DESCRIPTION: CHEST SINGLE VIEW COMPLETED DATE/TIME: 09/27/2018 2:13 pm REASON FOR STUDY: ALOC COMPARISON: 09/17/2018 EXAM PARAMETERS: NUMBER OF VIEWS: One view. TECHNIQUE: Single frontal radiographic view of the chest acquired. RADIATION DOSE: NA LIMITATIONS: None. FINDINGS: LUNGS AND PLEURA: No opacities, masses or pneumothorax. No pleural effusion. MEDIASTINUM AND HILAR STRUCTURES: No masses. Contour normal. HEART AND VASCULAR STRUCTURES: Heart normal in size. Normal vasculature. BONES: No acute findings. HARDWARE: None in the chest. OTHER: No other significant finding. IMPRESSION: NO ACUTE RADIOGRAPHIC FINDING IN THE CHEST. TECHNICAL DOCUMENTATION: JOB ID: [id number] [employer]- All Rights Reserved Reading location - IP/workstation name: [email or web address]
--- NOTE | 2018-09-27 14:38 | ER Document Report ---
ED General - General Chief Complaint: Decreased LOC Stated Complaint: BLOOD PRESSURE ISSUES Time Seen by Provider: 09/27/18 14:15 Mode of Arrival: Medic Information source: Relative, Friend, [facility] Records Cannot obtain history due to: Uncooperative, Altered mental status Notes: 83-year-old female with hypertension, hyperlipidemia, diabetes, congestive heart failure, hypothyroidism, fibromyalgia, chronic back pain with history of Dilaudid dependency who was recently discharged 6 days prior to arrival after a 2-week admission for C. difficile colitis, elevated CK. Home health aide is at the bedside and provides the majority of the history. She states that the pat ient has been refusing to speak, eat or take in fluids for 2 weeks. Patient was living independently prior to her admission. [id number] is at the bedside and states that patient has slowly declined, refusing to get out of bed, open her eyes and has continued to have multiple episodes of diarrhea.. She was evaluated by physical therapy and occupational therapy this morning and found to be markedly hypotensive. Her primary care physician Dr. Hull was contacted and he advised that the patient come to the emergency department. Patient's son is her power of helicopter dispatcher. [id number] states that the patient is a DNR. Patient does shake her head no when asked if she is in pain but does not verbally answer me when questioning her about anything else. She does not follow commands. She is awake. TRAVEL OUTSIDE OF THE [place] IN LAST 30 DAYS: No - HPI Onset: Other Associated symptoms: Diarrhea, Weakness. denies: Chest pain, Fever, Vomiting Similar symptoms previously: Yes Recently seen / treated by doctor: Yes - Recently discharged on September 21, 2018 from [facility] - Related Data Allergies/Adverse Reactions: adhesive tape [Adhesive Tape] Allergy (Verified 08/09/12 14:02) latex [Latex] Allergy (Verified 08/09/12 14:02) meperidine HCl [From Demerol] Allergy (Verified 08/09/12 14:02) Past Medical History - General Information source: Relative, Friend, [facility] Records Cannot obtain history due to: Uncooperative, Altered mental status - Social History Smoking Status: Former Smoker Frequency of alcohol use: None Drug Abuse: Prescription drugs Lives with: Family Family History: Other - Unobtainable - Past Medical History Cardiac Medical History: Reports: Hx Hypercholesterolemia, Hx Hypertension Pulmonary Medical History: Reports: Hx Sleep Apnea Endocrine Medical History: Reports: Hx Diabetes Mellitus Type 1, Hx Diabetes Mellitus Type 2 Renal/ Medical History: Denies: Hx Peritoneal Dialysis GI Medical History: Reports: Hx Gastroesophageal Reflux Disease Psychiatric Medical History: Reports: Hx Depression Past Surgical History: Reports: Hx Abdominal Surgery, Hx Breast Surgery, Hx Hysterectomy, Hx Orthopedic Surgery - back - Immunizations Hx Diphtheria, Pertussis, Tetanus Vaccination: No Hx Pneumococcal Vaccination: 08/20/07 Review of Systems - Review of Systems -: Yes ROS unobtainable due to patient's medical condition Gastrointestinal: Diarrhea Physical Exam - Vital signs Vitals: Resp BP Pulse Ox 16 84/42 L 95 09/27/18 16:01 09/27/18 16:01 09/27/18 16:01 Interpretation: Hypotensive. No: Tachycardic - Notes Notes: PHYSICAL EXAMINATION: GENERAL: Awake, alert, no acute distress. HEAD: Atraumatic, normocephalic. EYES: Pupils equal round and reactive to light, extraocular movements intact, conjunctiva are normal. ENT: Nares patent, oropharynx clear without exudates. Dry mucous membranes. NECK: Normal range of motion, supple without lymphadenopathy LUNGS: Breath sounds clear to auscultation bilaterally and equal. No wheezes rales or rhonchi. HEART: Regular rate and rhythm without murmurs ABDOMEN: Soft, nontender, nondistended abdomen. No guarding, no rebound. No masses appreciated. Female : deferred Musculoskeletal: Normal range of motion, no pitting or edema. No cyanosis. NEUROLOGICAL: Awake, alert, does not follow commands but will shake her head yes and no when asked about pain. PSYCH: Refusing to speak SKIN: Skin tenting Course - Re-evaluation Re-evalutation: Chest X-Ray 09/27/18 13:54 IMPRESSION: NO ACUTE RADIOGRAPHIC FINDING IN THE CHEST. Head CT 09/27/18 14:30 IMPRESSION: No acute intracranial pathology. EVIDENCE OF ACUTE STROKE: NO. Chest X-Ray 09/27/18 16:19 IMPRESSION: 1. The examination is somewhat limited as above. 2. Interval placement of Right PICC line with the tip at the region of the superior vena cava--right atrium. No evidence of pneumothorax. Laboratory 09/27/18 09/27/18 09/27/18 14:18 15:00 15:00 WBC 19.1 H RBC 5.87 H Hgb 18.8 H Hct 55.6 H MCV 95 MCH 31.9 MCHC 33.7 RDW 15.8 H Plt Count 275 Seg Neutrophils % 85.9 H Lymphocytes % 8.6 L Monocytes % 5.1 Eosinophils % 0.1 Basophils % 0.3 Absolute Neutrophils 16.4 H Absolute Lymphocytes 1.6 Absolute Monocytes 1.0 Absolute Eosinophils 0.0 Absolute Basophils 0.1 Sodium 140.5 Potassium 4.3 Chloride 108 H Carbon Dioxide 11 L Anion Gap 22 H BUN 137 H Creatinine 7.20 H Est GFR ( Amer) 7 L Est GFR (Non-Af Amer) 5 L Glucose 175 H POC Glucose 181 H Lactic Acid Calcium 9.7 Total Bilirubin 2.1 H Direct Bilirubin 1.9 H Neonat Total Bilirubin Not Reportable Neonat Direct Bilirubin Not Reportable Neonat Indirect Bili Not Reportable AST 30 ALT 25 Alkaline Phosphatase 87 Creatine Kinase 68 Total Protein 6.7 Albumin 3.5 09/27/18 09/27/18 15:00 15:00 WBC RBC Hgb Hct MCV MCH MCHC RDW Plt Count Seg Neutrophils % Lymphocytes % Monocytes % Eosinophils % Basophils % Absolute Neutrophils Absolute Lymphocytes Absolute Monocytes Absolute Eosinophils Absolute Basophils Sodium Potassium Chloride Carbon Dioxide Anion Gap BUN Creatinine Est GFR ( Amer) Est GFR (Non-Af Amer) Glucose POC Glucose Lactic Acid Cancelled 5.0 H Calcium Total Bilirubin Direct Bilirubin Neonat Total Bilirubin Neonat Direct Bilirubin Neonat Indirect Bili AST ALT Alkaline Phosphatase Creatine Kinase Total Protein Albumin 09/27/18 14:42 83-year-old female with multiple comorbidities presents via EMS from home with concern for hypotension. Patient was recently discharged from [facility] on September 21, 2018 after a 2-week admission for C. difficile colitis, rhabdomyolysis. [id number]-ub-[id number] reports a steady decline at home with the patient refusing to eat, drink or get out of bed. Patient has refused to speak for approximately 2 weeks. She also reports that the patient is a DNR. Vital signs reviewed upon arrival and patient is hypotensive but not tachycardic. Patient is alert, awake and in no acute distress. EKG was obtained and showed the patient be in atrial fibrillation. Patient is a difficult to obtain IV access likely to her hydration status and central line was recommended. [id number] is trying to contact the patient's son who is power of helicopter dispatcher to see if these measures are wanted. 09/27/18 22:14 Son is at the bedside and spoke to his mother who is agreeable to go ahead with central line placement which was performed without complication. IV hydration initiated. Levophed initiated. Patient did receive Zosyn, vancomycin. CT of the head was obtained due to patient's altered mental status and showed no evidence of acute stroke. Chest x-ray shows appropriate placement of central line. CBC shows a leukocytosis of 19. CMP shows acute onset of renal failure and lactic acid is 5. Patient has been accepted by the hospitalist for the ICU. 09/27/18 22:17 - Vital Signs Vital signs: Temp Pulse Resp BP Pulse Ox 17 85/67 L 97 09/27/18 19:40 09/27/18 19:31 09/27/18 19:40 - Laboratory Result Diagrams: 09/27/18 15:00 09/27/18 15:00 Laboratory results interpreted by me: 09/27/18 09/27/18 09/27/18 14:18 15:00 15:00 WBC 19.1 H RBC 5.87 H Hgb 18.8 H Hct 55.6 H RDW 15.8 H Seg Neutrophils % 85.9 H Lymphocytes % 8.6 L Absolute Neutrophils 16.4 H Chloride 108 H Carbon Dioxide 11 L Anion Gap 22 H BUN 137 H Creatinine 7.20 H Est GFR ( Amer) 7 L Est GFR (Non-Af Amer) 5 L Glucose 175 H POC Glucose 181 H Lactic Acid Total Bilirubin 2.1 H Direct Bilirubin 1.9 H 09/27/18 15:00 WBC RBC Hgb Hct RDW Seg Neutrophils % Lymphocytes % Absolute Neutrophils Chloride Carbon Dioxide Anion Gap BUN Creatinine Est GFR ( Amer) Est GFR (Non-Af Amer) Glucose POC Glucose Lactic Acid 5.0 H Total Bilirubin Direct Bilirubin - Diagnostic Test Radiology reviewed: Image reviewed, Reports reviewed Critical Care Note - Critical Care Note Total time excluding time spent on procedures (mins): 60 - Minutes of critical care time spent in direct contact evaluating and reevaluating the patient, treating symptoms, reviewing labs and studies and speaking with family and consultants excluding any procedures Discharge - Discharge Clinical Impression: Clostridium difficile colitis, Dehydration, Confusion associated with infection Sepsis Qualifiers: Sepsis type: sepsis due to unspecified organism Qualified Code(s): A41.9 - Sepsis, unspecified organism Renal failure Qualifiers: Renal failure chronicity: acute Acute renal failure type: unspecified Qualified Code(s): N17.9 - Acute kidney failure, unspecified Leukocytosis Qualifiers: Leukocytosis type: unspecified Qualified Code(s): D72.829 - Elevated white blood cell count, unspecified Hypotension Qualifiers: Hypotension type: unspecified hypotension type Qualified Code(s): I95.9 - Hypotension, unspecified Condition: Critical Disposition: ADMITTED INPATIENT Admitting Provider: Hospitalist Unit Admitted: [facility]
[2018-09-27 15:18] LABS: ABSOLUTE BASOPHILS # (AUTO) 0.1 10^3/uL (0.0-0.2); ABSOLUTE LYMPHOCYTES (AUTO) 1.6 10^3/uL (0.5-4.7); ABSOLUTE NEUT (AUTO) 16.4 10^3/uL (1.7-8.2); BASOPHILS % (AUTO) 0.3 % (0-2); EOSINOPHILS % (AUTO) 0.1 % (0-6); HEMOGLOBIN 18.8 g/dL (12.0-15.5); LYMPHOCYTES % (AUTO) 8.6 % (13-45); MEAN CORPUSCULAR HEMOGLOBIN 31.9 pg (27.0-33.4); MEAN CORPUSCULAR HGB CONC 33.7 g/dL (32.0-36.0); MEAN CORPUSCULAR VOLUME 95 fl (80-97); MONOCYTES % (AUTO) 5.1 % (3-13); PLATELET COUNT 275 10^3/uL (150-450); RED BLOOD COUNT 5.87 10^6/uL (3.72-5.28); RED CELL DISTRIBUTION WIDTH 15.8 % (11.5-14.0); SEGMENTED NEUTROPHILS % (AUTO) 85.9 % (42-78); TOTAL CELLS COUNTED % (AUTO) 100 %; WHITE BLOOD COUNT 19.1 10^3/uL (4.0-10.5)
[2018-09-27 15:19] LABS: HEMATOCRIT 55.6 % (36.0-47.0)
[2018-09-27 15:34] LABS: ALANINE AMINOTRANSFERASE 25 U/L (9-52); ALBUMIN 3.5 g/dL (3.5-5.0); ALKALINE PHOSPHATASE 87 U/L (38-126); ASPARTATE AMINO TRANSFERASE 30 U/L (14-36); BILIRUBIN,DIRECT 1.9 mg/dL (0.0-0.4); BILIRUBIN,TOTAL 2.1 mg/dL (0.2-1.3); CALCIUM 9.7 mg/dL (8.4-10.2); CREATINE KINASE 68 U/L (30-135); GLUCOSE 175 mg/dL (75-110); POTASSIUM 4.3 mmol/L (3.6-5.0); TOTAL PROTEIN 6.7 g/dL (6.3-8.2)
[2018-09-27 15:39] LABS: CARBON DIOXIDE 11 mmol/L (22-30); CHLORIDE 108 mmol/L (98-107); SODIUM 140.5 mmol/L (137-145)
[2018-09-27 15:43] LABS: ANION GAP 22 (5-19); BLOOD UREA NITROGEN 137 mg/dL (7-20)
[2018-09-27] MEDS ORDERED: LIDOCAINE 1% INJ-PF (10 MG/ML) 30 ML SDV ONE (16:02)
[2018-09-27] MEDS ORDERED: NOREPINEPHRINE BITARTRATE INJ/PF 4 MG/4 ML SDV IV ONE ×2 (16:17→19:27)
--- NOTE | 2018-09-27 16:50 | RADIOLOGY REPORT (SQ) ---
EXAM DESCRIPTION: CHEST SINGLE VIEW COMPLETED DATE/TIME: 09/27/2018 4:38 pm REASON FOR STUDY: CENTRAL LINE PLACEMENT CONFIRMATION COMPARISON: 09/27/2018 EXAM PARAMETERS: NUMBER OF VIEWS: One view. TECHNIQUE: Single frontal radiographic view of the chest acquired. RADIATION DOSE: NA LIMITATIONS: The patient's chin obscures detail somewhat in the apical regions of the lungs. FINDINGS: LUNGS AND PLEURA: No opacities, masses or pneumothorax. No pleural effusion. MEDIASTINUM AND HILAR STRUCTURES: No masses. Contour normal. HEART AND VASCULAR STRUCTURES: Heart normal in size. Normal vasculature. BONES: No acute findings. HARDWARE: Interval placement of Right PICC line since the previous study. The tip is at the region of the superior vena cava-right atrium. OTHER: No other significant finding. IMPRESSION: 1. The examination is somewhat limited as above. 2. Interval placement of Right PICC line with the tip at the region of the superior vena cava--right atrium. No evidence of pneumothorax. TECHNICAL DOCUMENTATION: JOB ID: [id number] [employer]- All Rights Reserved Reading location - IP/workstation name: [email or web address]
[2018-09-27] MEDS ORDERED: VANCOMYCIN HCL INJ 1000 MG VIAL IV ONE (16:58)
[2018-09-27] MEDS ORDERED: PIPERACILLIN/TAZOBACTAM 3.375 GM VIAL IV ONE ×2 (16:58→18:31)
[2018-09-27] MEDS ORDERED: DEXTROSE 40% GEL 15 GM TUBE PO PRN ×2 (17:57)
[2018-09-27] MEDS ORDERED: DEXTROSE 50%-WATER 25 GM/50 ML DISP.SYRIN IV PRN ×2 (17:57)
[2018-09-27] MEDS ORDERED: ONDANSETRON HCL INJ/PF 4 MG/2 ML SDV IV PRN (17:57)
[2018-09-27] MEDS ORDERED: PROMETHAZINE HCL INJ 25 MG/1 ML VIAL IV PRN (17:57)
[2018-09-27] MEDS ORDERED: ACETAMINOPHEN 325 MG TABLET PO PRN (17:57)
[2018-09-27] MEDS ORDERED: GLUCAGON,HUMAN RECOMB 1 MG INJ SUBCUT PRN (17:57)
[2018-09-27] MEDS ORDERED: DEXTROSE 5%-WATER 250 ML with VASOPRESSIN 100 UNIT IV PRN ×2 (18:17)
[2018-09-27 18:24] LABS: CREATINE KINASE MB 3.15 ng/mL (<4.55)
[2018-09-27] MEDS ORDERED: VANCOMYCIN HCL 0 MG in DEXTROSE 5%-WATER 250 ML IV NR (18:30)
--- NOTE | 2018-09-27 18:38 | RADIOLOGY REPORT (SQ) ---
EXAM DESCRIPTION: CT HEAD WITHOUT COMPLETED DATE/TIME: 09/27/2018 6:21 pm REASON FOR STUDY: ams COMPARISON: 09/17/2018 TECHNIQUE: Axial images acquired through the brain without intravenous contrast. Images reviewed wi th bone, brain and subdural windows. Additional sagittal and coronal reconstructions were generated. Images stored on PACS. All CT scanners at this facility use dose modulation, iterative reconstruction, and/or weight based d osing when appropriate to reduce radiation dose to as low as reasonably achievable (ALARA). [facility]: Dose Right [facility]: CareDose [facility]: Dose Right [facility]: Teradose 4D [facility]: [employer] RADIATION DOSE: CT Rad equipment meets quality standard of care and radiation dose reduction techniq ues were employed. CTDIvol: 53.2 mGy. DLP: 1017 mGy-cm. mGy. LIMITATIONS: None. FINDINGS: VENTRICLES: Normal size and contour. CEREBRUM: No masses. No hemorrhage. No midline shift. No evidence for acute infarction. Few scatte red areas of low density in the white matter most likely chronic small vessel ischemic changes. CEREBELLUM: No masses. No hemorrhage. No alteration of density. No evidence for acute infarction. EXTRAAXIAL SPACES: No fluid collections. No masses. ORBITS AND GLOBE: No intra- or extraconal masses. Normal contour of globe without masses. CALVARIUM: No fracture. PARANASAL SINUSES: No fluid or mucosal thickening. SOFT TISSUES: No mass or hematoma. OTHER: No other significant finding. IMPRESSION: No acute intracranial pathology. EVIDENCE OF ACUTE STROKE: NO. COMMENT: Quality ID # [id number]: Final reports with documentation of one or more dose reduction techniques (e.g., Automated exposure control, adjustment of the mA and/or kV according to patient size, use of iterative reconstruction technique) TECHNICAL DOCUMENTATION: JOB ID: [id number] [employer]- All Rights Reserved Reading location - IP/workstation name: [email or web address]
[2018-09-27 18:43] LABS: TROPONIN I 0.061 ng/mL
[2018-09-27] MEDS ORDERED: DEXTROSE 5%-WATER 250 ML with NOREPINEPHRINE BITARTRATE 4 MG IV PRN ×2 (19:04)
[2018-09-27 19:37] LABS: ARTERIAL BLOOD H2CO3 0.59 mmol/L (1.05-1.35); ARTERIAL BLOOD HCO3 9.5 mmol/L (20-24); ARTERIAL BLOOD O2 SATURATION 98.5 % (94-98); ARTERIAL BLOOD PO2 134.7 mmHg (80-100); ARTERIAL BLOOD TOTAL CO2 10.1 mmol/L (21-25)
[2018-09-27 19:38] LABS: ARTERIAL BLOOD FIO2 2LNC
[2018-09-27 19:39] LABS: ARTERIAL BLOOD PCO2 19.7 mmHg (35-45)
[2018-09-27 20:10] LABS: APPEARANCE,URINE CLOUDY; BILIRUBIN,URINE SMALL (NEGATIVE); COLOR,URINE AMBER; GLUCOSE, URINE NEGATIVE (NEGATIVE); KETONES,URINE NEGATIVE (NEGATIVE); LEUKOCYTE ESTERASE,URINE MODERATE (NEGATIVE); NITRITE,URINE NEGATIVE (NEGATIVE); PROTEIN,URINE 30 mg/dL (NEGATIVE); URINE SPECIFIC GRAVITY 1.017; UROBILINOGEN,URINE NEGATIVE mg/dL (<2.0)
[2018-09-27] MEDS: DEXTROSE 5%-WATER 250 ML with NOREPINEPHRINE BITARTRATE 4 MG IV PRN ×2 (20:16)
[2018-09-27] MEDS ORDERED: NORMAL SALINE 1000 ML 1,000 ML IV PRN (20:39)
[2018-09-27] MEDS ORDERED: ACETAMINOPHEN 650 MG SUPP.RECT PR PRN (21:03)
--- NOTE | 2018-09-27 21:08 | OPERATIVE REPORT E ---
Operative Report NAME: YULI HAMMER : 1935 AGE: 83Y DATE OF SURGERY: 09/27/2018 ROOM: 603 PREOPERATIVE DIAGNOSIS: PATIENT IN SEPTIC SHOCK AND HAS POOR PERIPHERAL VEINS FOR INTRAVENOUS ACCESS. OPERATION: INSERTION OF RIGHT SUBCLAVIAN VEIN TRIPLE LUMEN CATHETER WITH LOCAL ANESTHESIA. SURGEON: BAY JAFFE M.D. PROCEDURE: The patient was placed in Trendelenburg position and the right clavicular and infraclavicular area were then prepped and draped in the usual sterile fashion. Local anesthesia infiltrated and the right subclavian vein subsequently punctured and aspirated blood easily that is nonpulsatile. A guidewire passed through the needle in the superior vena cava, and the insertion site subsequently dilated. A triple lumen catheter was inserted through the guidewire to a distance of about 17 cm. All three ports aspirated blood easily and instilled saline easily. The catheter was then anchored to the skin with 3-0 silk, and a Biopatch placed at the insertion site and a transparent dressing placed over the Biopatch and catheter. Chest x-ray will be obtained for placement. DICTATING PHYSICIAN: BAY JAFFE M.D. [id number] PHY#: [id number] ID: [id number] JOB#: [id number] ACCT: [id number] cc:BAY JAFFE M.D. > MTDD
[2018-09-27] MEDS ORDERED: RINGERS SOLUTION,LACTATED 1,000 ML IV ONE (22:00)
[2018-09-27] MEDS: IPRATROPIUM/ALBUTEROL 0.5-2.5 MG/3 ML AMPUL NEB SCH (22:27)
[2018-09-27] MEDS: METRONIDAZOLE 500 MG/NS RTU 500 MG/100 ML RTUPB IV SCH ×2 (23:15)
[2018-09-27] MEDS: HEPARIN SOD (PORCINE) 5,000 UNIT/ML 1 ML SYRINGE SUBCUT SCH (23:16)
[2018-09-27] MEDS: PANTOPRAZOLE SODIUM 40 MG VIAL IV SCH (23:16)
[2018-09-27 23:34] LABS: ALBUMIN 2.4 g/dL (3.5-5.0); ANION GAP 14 (5-19); CALCIUM 8.3 mg/dL (8.4-10.2); CARBON DIOXIDE 14 mmol/L (22-30); CHLORIDE 110 mmol/L (98-107); GLUCOSE 266 mg/dL (75-110); PHOSPHORUS 8.4 mg/dL (2.5-4.5); POTASSIUM 3.6 mmol/L (3.6-5.0); SODIUM 138.4 mmol/L (137-145)
[2018-09-27] MEDS: INSULIN LISPRO 100 UNIT/ML 3 ML VIAL SUBCUT SCH (23:37)
[2018-09-27 23:57] LABS: BLOOD UREA NITROGEN 117 mg/dL (7-20)
[2018-09-28] MEDS: DEXTROSE 5%-WATER 250 ML with NOREPINEPHRINE BITARTRATE 4 MG IV PRN ×6 (01:25→20:27)
[2018-09-28] MEDS: IPRATROPIUM/ALBUTEROL 0.5-2.5 MG/3 ML AMPUL NEB SCH ×3 (01:48→14:03)
[2018-09-28] MEDS ORDERED: PIPERACILLIN SODIUM/TAZOBACTAM 2.25 GM in NORMAL SALINE 50 ML IV SCH (02:00)
[2018-09-28 05:19] LABS: ARTERIAL BLOOD BASE EXCESS -11.6 mmol/L; ARTERIAL BLOOD H2CO3 0.68 mmol/L (1.05-1.35); ARTERIAL BLOOD HCO3 11.7 mmol/L (20-24); ARTERIAL BLOOD O2 SATURATION 98.2 % (94-98); ARTERIAL BLOOD PCO2 22.5 mmHg (35-45); ARTERIAL BLOOD PH 7.33 (7.35-7.45); ARTERIAL BLOOD PO2 120.9 mmHg (80-100); ARTERIAL BLOOD TOTAL CO2 12.4 mmol/L (21-25)
[2018-09-28 05:20] LABS: ARTERIAL BLOOD FIO2 2L
[2018-09-28 05:23] LABS: ABSOLUTE EOSINOPHILS # (AUTO) 0.1 10^3/uL (0.0-0.6); ABSOLUTE LYMPHOCYTES (AUTO) 1.4 10^3/uL (0.5-4.7); ABSOLUTE MONOCYTES (AUTO) 1.2 10^3/uL (0.1-1.4); ABSOLUTE NEUT (AUTO) 14.8 10^3/uL (1.7-8.2); BASOPHILS % (AUTO) 0.2 % (0-2); EOSINOPHILS % (AUTO) 0.4 % (0-6); HEMATOCRIT 48.1 % (36.0-47.0); LYMPHOCYTES % (AUTO) 7.8 % (13-45); MEAN CORPUSCULAR HEMOGLOBIN 31.5 pg (27.0-33.4); MEAN CORPUSCULAR HGB CONC 33.2 g/dL (32.0-36.0); MEAN CORPUSCULAR VOLUME 95 fl (80-97); MONOCYTES % (AUTO) 6.7 % (3-13); PLATELET COUNT 293 10^3/uL (150-450); RED BLOOD COUNT 5.06 10^6/uL (3.72-5.28); RED CELL DISTRIBUTION WIDTH 15.8 % (11.5-14.0); SEGMENTED NEUTROPHILS % (AUTO) 84.9 % (42-78); TOTAL CELLS COUNTED % (AUTO) 100 %; WHITE BLOOD COUNT 17.4 10^3/uL (4.0-10.5)
[2018-09-28 05:45] LABS: ALANINE AMINOTRANSFERASE 31 U/L (9-52); ALBUMIN 2.5 g/dL (3.5-5.0); ALKALINE PHOSPHATASE 66 U/L (38-126); ANION GAP 14 (5-19); ASPARTATE AMINO TRANSFERASE 24 U/L (14-36); BILIRUBIN,DIRECT 1.3 mg/dL (0.0-0.4); BILIRUBIN,TOTAL 1.5 mg/dL (0.2-1.3); BLOOD UREA NITROGEN 114 mg/dL (7-20); CALCIUM 8.6 mg/dL (8.4-10.2); CARBON DIOXIDE 14 mmol/L (22-30); CHLORIDE 112 mmol/L (98-107); GLUCOSE 253 mg/dL (75-110); POTASSIUM 3.4 mmol/L (3.6-5.0); SODIUM 139.6 mmol/L (137-145); TOTAL PROTEIN 5.2 g/dL (6.3-8.2)
[2018-09-28] MEDS: HEPARIN SOD (PORCINE) 5,000 UNIT/ML 1 ML SYRINGE SUBCUT SCH ×3 (05:55→21:48)
[2018-09-28] MEDS: METRONIDAZOLE 500 MG/NS RTU 500 MG/100 ML RTUPB IV SCH (05:55)
--- NOTE | 2018-09-28 06:15 | PDOC H&P ---
History of Present Illness Admission Date/PCP: 09/27/18 16:43 NNEKA ULLOA MD Patient complains of: Altered mental status History of Present Illness: YULI HAMMER is a 83 year old female who was just discharged from the hospital September 20. At that time she was diagnosed with Clostridium difficile colitis. She presents with altered mental status. Additional history was not available from the patient. Evidently the patient has been having persistent diarrhea. Her condition declined and she was presented to the emergency department for further evaluation. Upon evaluation she was found to be hypotensive with severe dehydration and severe acute kidney injury. She was referred to the hospitalist service for admission. Past Medical History Cardiac Medical History: Reports: Atrial Fibrillation - Noted on previous admission, Hyperlipidema, Hypertension Pulmonary Medical History: Reports: Sleep Apnea Endocrine Medical History: Reports: Diabetes Mellitus Type 1, Diabetes Mellitus Type 2 GI Medical History: Reports: Gastroesophageal Reflux Disease Psychiatric Medical History: Reports: Depression Infectious Medical History: Reports: Clostridium Difficile Past Surgical History Past Surgical History: Reports: Hysterectomy, Orthopedic Surgery - back Social History Information Source: [facility] Records Lives with: Family Smoking Status: Former Smoker Frequency of Alcohol Use: None Hx Recreational Drug Use: No Hx Prescription Drug Abuse: No - Advance Directive Resuscitation Status: Do Not Resuscitate Family History Family History: Other - Unobtainable Parental Family History Reviewed: No - Unobtainable due to patient's current state Children Family History Reviewed: No - Unobtainable Sibling(s) Family History Reviewed.: No - Unobtainable Medication/Allergy Home Medications: Levothyroxine Sodium [Synthroid 0.05 mg Tablet] 50 mcg PO MOTUWETHFRSA@0600 12/05/11 Mirtazapine [Remeron 15 mg Tablet] 15 mg PO QHS 12/05/11 Triamterene/Hydrochlorothiazid [Dyazide 37.5-25 Capsule] 1 each PO DAILY 08/09/12 Escitalopram Oxalate [Lexapro 10 mg Tablet] 10 mg PO Q12 09/06/18 Insulin Aspart Prot/Insuln Asp [Novolog Mix 70-30 Flexpen Syrn] 0 unit SQ .SLIDING SCALE PRN 09/06/18 Metoprolol Tartrate [Lopressor 25 mg Tablet] 25 mg PO Q12 09/06/18 Valsartan [Diovan 160 mg Tablet] 160 mg PO DAILY 09/06/18 Fluticasone/Salmeterol [Fluticasone-Salmeterol 113-14] 1 each IH Q12 09/27/18 Lorazepam [Ativan 0.5 mg Tablet] 0.5 mg PO Q12HP PRN 09/27/18 Megestrol Acetate 600 mg PO DAILY 09/27/18 Allergies/Adverse Reactions: adhesive tape [Adhesive Tape] Allergy (Verified 08/09/12 14:02) latex [Latex] Allergy (Verified 08/09/12 14:02) meperidine HCl [From Demerol] Allergy (Verified 08/09/12 14:02) Review of Systems ROS unobtainable: Due to mental status Physical Exam Vital Signs: Temp Pulse Resp BP Pulse Ox 97.5 F 90 12 114/54 L 98 09/28/18 02:05 09/28/18 01:50 09/28/18 02:05 09/28/18 02:05 09/28/18 02:05 Intake & Output 09/26/18 09/27/18 09/28/18 06:59 06:59 06:59 Intake Total 2658 Output Total 375 Balance 2283 Weight 74.7 kg Exam: Well-developed 83-year-old female obtunded. Occasional spontaneous movement. Head exam: PRESENT: normocephalic Respiratory exam: PRESENT: clear to auscultation caroline, symmetrical, other - Limited inspiratory phase. ABSENT: rales, rhonchi, wheezes Cardiovascular exam: PRESENT: irregular rhythm GI/Abdominal exam: PRESENT: soft. ABSENT: tenderness - No grimacing to palpation Rectal exam: PRESENT: deferred, other - Staff reports liquid stool Gentrourinary exam: PRESENT: indwelling catheter Neurological exam: PRESENT: altered - Obtunded Results Laboratory Results: 09/28/18 05:00 09/27/18 09/27/18 09/27/18 15:00 15:00 15:00 WBC 19.1 H RBC 5.87 H Hgb 18.8 H Hct 55.6 H MCV 95 MCH 31.9 MCHC 33.7 RDW 15.8 H Plt Count 275 Seg Neutrophils % 85.9 H Lymphocytes % 8.6 L Monocytes % 5.1 Eosinophils % 0.1 Basophils % 0.3 Absolute Neutrophils 16.4 H Absolute Lymphocytes 1.6 Absolute Monocytes 1.0 Absolute Eosinophils 0.0 Absolute Basophils 0.1 Carbonic Acid HCO3/H2CO3 Ratio ABG pH ABG pCO2 ABG pO2 ABG HCO3 ABG O2 Saturation ABG Base Excess FiO2 Sodium 140.5 Potassium 4.3 Chloride 108 H Carbon Dioxide 11 L Anion Gap 22 H BUN 137 H Creatinine 7.20 H Est GFR ( Amer) 7 L Est GFR (Non-Af Amer) 5 L Glucose 175 H Lactic Acid Cancelled Calcium 9.7 Phosphorus Magnesium Total Bilirubin 2.1 H AST 30 ALT 25 Alkaline Phosphatase 87 Total Protein 6.7 Albumin 3.5 Urine Color Urine Appearance Urine pH Ur Specific [place] Urine Protein Urine Glucose (UA) Urine Ketones Urine Blood Urine Nitrite Ur Leukocyte Esterase Urine WBC (Auto) Urine RBC (Auto) 09/27/18 09/27/18 09/27/18 15:00 18:43 19:13 WBC RBC Hgb Hct MCV MCH MCHC RDW Plt Count Seg Neutrophils % Lymphocytes % Monocytes % Eosinophils % Basophils % Absolute Neutrophils Absolute Lymphocytes Absolute Monocytes Absolute Eosinophils Absolute Basophils Carbonic Acid 0.59 L HCO3/H2CO3 Ratio 16:1 ABG pH 7.30 L ABG pCO2 19.7 L* ABG pO2 134.7 H ABG HCO3 9.5 L ABG O2 Saturation 98.5 H ABG Base Excess -14.0 FiO2 2LNC Sodium Potassium Chloride Carbon Dioxide Anion Gap BUN Creatinine Est GFR ( Amer) Est GFR (Non-Af Amer) Glucose Lactic Acid 5.0 H Calcium Phosphorus Magnesium Total Bilirubin AST ALT Alkaline Phosphatase Total Protein Albumin Urine Color JR Urine Appearance CLOUDY Urine pH 6.0 Ur Specific [place] 1.017 Urine Protein 30 H Urine Glucose (UA) NEGATIVE Urine Ketones NEGATIVE Urine Blood SMALL H Urine Nitrite NEGATIVE Ur Leukocyte Esterase MODERATE H Urine WBC (Auto) >182 Urine RBC (Auto) 7 09/27/18 09/27/18 09/28/18 22:44 22:44 05:00 WBC RBC Hgb Hct MCV MCH MCHC RDW Plt Count Seg Neutrophils % Lymphocytes % Monocytes % Eosinophils % Basophils % Absolute Neutrophils Absolute Lymphocytes Absolute Monocytes Absolute Eosinophils Absolute Basophils Carbonic Acid 0.68 L HCO3/H2CO3 Ratio 17:1 ABG pH 7.33 L ABG pCO2 22.5 L ABG pO2 120.9 H ABG HCO3 11.7 L ABG O2 Saturation 98.2 H ABG Base Excess -11.6 FiO2 2L Sodium 138.4 Potassium 3.6 Chloride 110 H Carbon Dioxide 14 L Anion Gap 14 BUN 117 H D Creatinine 6.23 H Est GFR ( Amer) 8 L Est GFR (Non-Af Amer) 6 L Glucose 266 H Lactic Acid 3.6 H Calcium 8.3 L Phosphorus 8.4 H Magnesium 2.8 H Total Bilirubin AST ALT Alkaline Phosphatase Total Protein Albumin 2.4 L Urine Color Urine Appearance Urine pH Ur Specific [place] Urine Protein Urine Glucose (UA) Urine Ketones Urine Blood Urine Nitrite Ur Leukocyte Esterase Urine WBC (Auto) Urine RBC (Auto) 09/28/18 05:00 WBC 17.4 H RBC 5.06 Hgb 16.0 H D Hct 48.1 H MCV 95 MCH 31.5 MCHC 33.2 RDW 15.8 H Plt Count 293 Seg Neutrophils % 84.9 H Lymphocytes % 7.8 L Monocytes % 6.7 Eosinophils % 0.4 Basophils % 0.2 Absolute Neutrophils 14.8 H Absolute Lymphocytes 1.4 Absolute Monocytes 1.2 Absolute Eosinophils 0.1 Absolute Basophils 0.0 Carbonic Acid HCO3/H2CO3 Ratio ABG pH ABG pCO2 ABG pO2 ABG HCO3 ABG O2 Saturation ABG Base Excess FiO2 Sodium Potassium Chloride Carbon Dioxide Anion Gap BUN Creatinine Est GFR ( Amer) Est GFR (Non-Af Amer) Glucose Lactic Acid Calcium Phosphorus Magnesium Total Bilirubin AST ALT Alkaline Phosphatase Total Protein Albumin Urine Color Urine Appearance Urine pH Ur Specific [place] Urine Protein Urine Glucose (UA) Urine Ketones Urine Blood Urine Nitrite Ur Leukocyte Esterase Urine WBC (Auto) Urine RBC (Auto) 09/27/18 09/27/18 15:00 17:25 Creatine Kinase 68 CK-MB (CK-2) 3.15 Troponin I 0.061 NT-Pro-B Natriuret Pep 1140 H Impressions: Head CT 09/27/18 14:30 IMPRESSION: No acute intracranial pathology. EVIDENCE OF ACUTE STROKE: NO. Chest X-Ray 09/27/18 16:19 IMPRESSION: 1. The examination is somewhat limited as above. 2. Interval placement of Right PICC line with the tip at the region of the superior vena cava--right atrium. No evidence of pneumothorax. Assessment & Plan - Diagnosis (1) Sepsis Qualifiers: Sepsis type: sepsis due to unspecified organism Qualified Code(s): A41.9 - Sepsis, unspecified organism Is this a current diagnosis for this admission?: Yes Plan: Sepsis secondary to recurrent Clostridium difficile infection, diarrhea and marked volume depletion. She is obtunded with metabolic encephalopathy due to the sepsis. She requires vasopressor support. Her serum creatinine was 7 with a total bilirubin of 2.1. She will be admitted to the ICU. She is receiving aggressive fluid resuscitation. We will need to monitor for volume overload with congestive heart failure (she does have a history of CHF and atrial fibrillation). Antibiotic therapy directed at Clostridium difficile will be initiated. Chest x-ray is negative and with her history would like to avoid any unnecessary antibiotic therapy. (2) Clostridium difficile colitis Is this a current diagnosis for this admission?: Yes Plan: Most likely a recurrence due to the clinical presentation and recent infection. We will repeat a stool specimen. (3) Dehydration Is this a current diagnosis for this admission?: Yes Plan: From profuse ongoing diarrhea. The patient was not likely able to keep her intake up to compensate for the output. Volume resuscitation. (4) Renal failure Qualifiers: Renal failure chronicity: acute Acute renal failure type: unspecified Qualified Code(s): N17.9 - Acute kidney failure, unspecified Is this a current diagnosis for this admission?: Yes Plan: Possibly acute tubular necrosis from sepsis with shock. Aggressive resuscitation with large amounts of fluid. We will monitor intake and output. If we do not see consistent improvement we will consult nephrology. (5) Leukocytosis Qualifiers: Leukocytosis type: unspecified Qualified Code(s): D72.829 - Elevated white blood cell count, unspecified Is this a current diagnosis for this admission?: Yes Plan: Markedly elevated white blood cell count. We will continue to monitor as treatment progresses. (6) Atrial fibrillation with RVR Is this a current diagnosis for this admission?: Yes Plan: We will monitor rhythm. We will resume metoprolol when clinically appropriate. We will provide DVT prophylaxis at this point. No full anticoagulation. P atient was noted not to be on anticoagulation as an outpatient. (7) Essential hypertension Is this a current diagnosis for this admission?: Yes Plan: Previously on Dyazide 37.5/25 daily, metoprolol 25 mg twice daily, Diovan 160 mg daily. Medications on hold. Will resume when clinically indicated. (8) Diabetes mellitus type 2 in obese Is this a current diagnosis for this admission?: Yes Plan: Previously on NovoLog 70/30 given as scheduled doses with meals. She was also on a sliding scale. Her oral intake will be limited initially. She will be on a sliding scale only. (9) Depression Qualifiers: Depression Type: unspecified Qualified Code(s): F32.9 - Major depressive disorder, single episode, unspecified Is this a current diagnosis for this admission?: Yes Plan: Currently on Lexapro 10 mg twice daily and Remeron 50 mg at bedtime. Currently on hold. As patient begins to show improvement in mental status and has a safe swallow we can resume medications. (10) Hypothyroidism Qualifiers: Hypothyroidism type: unspecified Qualified Code(s): E03.9 - Hypothyroidism, unspecified Is this a current diagnosis for this admission?: Yes Plan: Currently on levothyroxine 50 mcg daily. It appears that she takes the medication daily except on Sunday. Currently on hold. Will resume when appropriate. - Time Time Spent: 50 to 70 Minutes Medications reviewed and adjusted accordingly: Yes - Inpatient Certification Based on my medical assessment, after consideration of the patient's comorbidities, presenting symptoms, or acuity I expect that the services needed warrant INPATIENT care.: Yes I certify that my determination is in accordance with my understanding of Medicare's requirements for reasonable and necessary INPATIENT services [42 CFR 412.3e].: Yes Medical Necessity: Need For IV Fluids, Need for IV Antibiotics - Plan Summary Plan Summary: The patient's CODE STATUS is DO NOT RESUSCITATE. Per conversations between the emergency department physician on the family they would like to pursue va sopressor support at this time. She will not be intubated and CPR will not be performed.
--- NOTE | 2018-09-28 06:45 | RADIOLOGY REPORT (SQ) ---
EXAM DESCRIPTION: XR CHEST 1 VIEW COMPLETED DATE/TME: 09/28/2018 06:00 CLINICAL HISTORY: 83 years, Female, copd COMPARISON: 09/27/2018 chest x-ray NUMBER OF VIEWS: 1 TECHNIQUE: Portable chest LIMITATIONS: None. FINDINGS: Heart size is normal. PICC catheter in place. Atheromatous change thoracic aorta. Osteopenia. Tiny right effusion and/or pleural thickening, unchanged. Lungs are otherwise clear. IMPRESSION: Little interval change copyright 2010 [employer]- All Rights Reserved
[2018-09-28] MEDS: POTASSI CL 20 MEQ/NS 1L 1000 ML IV PRN ×3 (07:39→21:32)
[2018-09-28] MEDS: INSULIN LISPRO 100 UNIT/ML 3 ML VIAL SUBCUT SCH ×4 (07:41→18:51)
--- NOTE | 2018-09-28 09:05 | PDOC PROGRESS REPORT ---
Subjective Progress Note for:: 09/28/18 Subjective:: Patient is more responsive today than last evening. She does make eye contact. She in fact nodded her head to answer question. She does not maintain eye contact for long periods. Reason For Visit: SEPSIS, CLOSTRIDIUM DIFFICILE COLITIS,ACUTE KIDNEY Physical Exam Vital Signs: Temp Pulse Resp BP Pulse Ox 96.8 F L 92 15 115/52 L 98 09/28/18 08:00 09/28/18 08:00 09/28/18 08:00 09/28/18 08:00 09/28/18 08:00 Intake & Output 09/27/18 09/28/18 09/29/18 06:59 06:59 06:59 Intake Total 3008 1942 Output Total 575 60 Balance 2433 1882 Weight 75.7 kg General appearance: PRESENT: no acute distress, cooperative - As much as possible Head exam: PRESENT: normocephalic Respiratory exam: PRESENT: clear to auscultation caroline - Anteriorly, other - Snores when sleeping. ABSENT: rales, rhonchi, wheezes Cardiovascular exam: PRESENT: irregular rhythm GI/Abdominal exam: PRESENT: normal bowel sounds, soft. ABSENT: tenderness Rectal exam: PRESENT: deferred Gentrourinary exam: PRESENT: indwelling catheter Extremities exam: PRESENT: +1 edema - Upper extremities. ABSENT: pedal edema Neurological exam: PRESENT: other - As noted above the patient would open her eyes and establish eye contact. She did answer one question with nodding of her head. She was unable to maintain her eyes open for more than 30-45 seconds. Psychiatric exam: PRESENT: flat affect Results Laboratory Results: 09/28/18 05:00 09/28/18 05:00 09/27/18 09/27/18 09/27/18 15:00 15:00 15:00 WBC 19.1 H RBC 5.87 H Hgb 18.8 H Hct 55.6 H MCV 95 MCH 31.9 MCHC 33.7 RDW 15.8 H Plt Count 275 Seg Neutrophils % 85.9 H Lymphocytes % 8.6 L Monocytes % 5.1 Eosinophils % 0.1 Basophils % 0.3 Absolute Neutrophils 16.4 H Absolute Lymphocytes 1.6 Absolute Monocytes 1.0 Absolute Eosinophils 0.0 Absolute Basophils 0.1 Carbonic Acid HCO3/H2CO3 Ratio ABG pH ABG pCO2 ABG pO2 ABG HCO3 ABG O2 Saturation ABG Base Excess FiO2 Sodium 140.5 Potassium 4.3 Chloride 108 H Carbon Dioxide 11 L Anion Gap 22 H BUN 137 H Creatinine 7.20 H Est GFR ( Amer) 7 L Est GFR (Non-Af Amer) 5 L Glucose 175 H Lactic Acid Cancelled Calcium 9.7 Phosphorus Magnesium Total Bilirubin 2.1 H AST 30 ALT 25 Alkaline Phosphatase 87 Total Protein 6.7 Albumin 3.5 Urine Color Urine Appearance Urine pH Ur Specific [place] Urine Protein Urine Glucose (UA) Urine Ketones Urine Blood Urine Nitrite Ur Leukocyte Esterase Urine WBC (Auto) Urine RBC (Auto) 09/27/18 09/27/18 09/27/18 15:00 18:43 19:13 WBC RBC Hgb Hct MCV MCH MCHC RDW Plt Count Seg Neutrophils % Lymphocytes % Monocytes % Eosinophils % Basophils % Absolute Neutrophils Absolute Lymphocytes Absolute Monocytes Absolute Eosinophils Absolute Basophils Carbonic Acid 0.59 L HCO3/H2CO3 Ratio 16:1 ABG pH 7.30 L ABG pCO2 19.7 L* ABG pO2 134.7 H ABG HCO3 9.5 L ABG O2 Saturation 98.5 H ABG Base Excess -14.0 FiO2 2LNC Sodium Potassium Chloride Carbon Dioxide Anion Gap BUN Creatinine Est GFR ( Amer) Est GFR (Non-Af Amer) Glucose Lactic Acid 5.0 H Calcium Phosphorus Magnesium Total Bilirubin AST ALT Alkaline Phosphatase Total Protein Albumin Urine Color JR Urine Appearance CLOUDY Urine pH 6.0 Ur Specific [place] 1.017 Urine Protein 30 H Urine Glucose (UA) NEGATIVE Urine Ketones NEGATIVE Urine Blood SMALL H Urine Nitrite NEGATIVE Ur Leukocyte Esterase MODERATE H Urine WBC (Auto) >182 Urine RBC (Auto) 7 09/27/18 09/27/18 09/28/18 22:44 22:44 05:00 WBC RBC Hgb Hct MCV MCH MCHC RDW Plt Count Seg Neutrophils % Lymphocytes % Monocytes % Eosinophils % Basophils % Absolute Neutrophils Absolute Lymphocytes Absolute Monocytes Absolute Eosinophils Absolute Basophils Carbonic Acid 0.68 L HCO3/H2CO3 Ratio 17:1 ABG pH 7.33 L ABG pCO2 22.5 L ABG pO2 120.9 H ABG HCO3 11.7 L ABG O2 Saturation 98.2 H ABG Base Excess -11.6 FiO2 2L Sodium 138.4 Potassium 3.6 Chloride 110 H Carbon Dioxide 14 L Anion Gap 14 BUN 117 H D Creatinine 6.23 H Est GFR ( Amer) 8 L Est GFR (Non-Af Amer) 6 L Glucose 266 H Lactic Acid 3.6 H Calcium 8.3 L Phosphorus 8.4 H Magnesium 2.8 H Total Bilirubin AST ALT Alkaline Phosphatase Total Protein Albumin 2.4 L Urine Color Urine Appearance Urine pH Ur Specific [place] Urine Protein Urine Glucose (UA) Urine Ketones Urine Blood Urine Nitrite Ur Leukocyte Esterase Urine WBC (Auto) Urine RBC (Auto) 09/28/18 09/28/18 09/28/18 05:00 05:00 05:00 WBC 17.4 H RBC 5.06 Hgb 16.0 H D Hct 48.1 H MCV 95 MCH 31.5 MCHC 33.2 RDW 15.8 H Plt Count 293 Seg Neutrophils % 84.9 H Lymphocytes % 7.8 L Monocytes % 6.7 Eosinophils % 0.4 Basophils % 0.2 Absolute Neutrophils 14.8 H Absolute Lymphocytes 1.4 Absolute Monocytes 1.2 Absolute Eosinophils 0.1 Absolute Basophils 0.0 Carbonic Acid HCO3/H2CO3 Ratio ABG pH ABG pCO2 ABG pO2 ABG HCO3 ABG O2 Saturation ABG Base Excess FiO2 Sodium 139.6 Potassium 3.4 L Chloride 112 H Carbon Dioxide 14 L Anion Gap 14 BUN 114 H Creatinine 5.67 H Est GFR ( Amer) 9 L Est GFR (Non-Af Amer) 7 L Glucose 253 H Lactic Acid 2.5 H Calcium 8.6 Phosphorus Magnesium Total Bilirubin 1.5 H AST 24 ALT 31 Alkaline Phosphatase 66 Total Protein 5.2 L Albumin 2.5 L Urine Color Urine Appearance Urine pH Ur Specific [place] Urine Protein Urine Glucose (UA) Urine Ketones Urine Blood Urine Nitrite Ur Leukocyte Esterase Urine WBC (Auto) Urine RBC (Auto) 09/27/18 09/27/18 15:00 17:25 Creatine Kinase 68 CK-MB (CK-2) 3.15 Troponin I 0.061 NT-Pro-B Natriuret Pep 1140 H Impressions: Head CT 09/27/18 14:30 IMPRESSION: No acute intracranial pathology. EVIDENCE OF ACUTE STROKE: NO. Chest X-Ray 09/28/18 06:00 IMPRESSION: Little interval change copyright 2011 [employer]- All Rights Reserved Assessment & Plan - Diagnosis (1) Sepsis Qualifiers: Sepsis type: sepsis due to unspecified organism Qualified Code(s): A41.9 - Sepsis, unspecified organism Is this a current diagnosis for this admission?: Yes Plan: Remains on vasopressors. Total bilirubin is improved. Renal function is improving. On antibiotics for presumed C. difficile infection. Await serology results. No other clear source of infection at this time. In addition, consider several stress doses of hydrocortisone. (2) Clostridium difficile colitis Is this a current diagnosis for this admission?: Yes Plan: On vancomycin and metronidazole. Await serologies to confirm recurrence. (3) Dehydration Is this a current diagnosis for this admission?: Yes Plan: BUN is slowly decreasing but remains above 100. We will continue IV fluids. He may need to increase the rate depending on the improvement of her BUN, creatinine and blood pressure. She still requires vasopressors. (4) Renal failure Qualifiers: Renal failure chronicity: acute Acute renal failure type: unspecified Qualified Code(s): N17.9 - Acute kidney failure, unspecified Is this a current diagnosis for this admission?: Yes Plan: As noted above, renal function continues to improve slowly. Will monitor urine output. If there is evidence of congestive heart failure then we will likely institute low-dose diuretic therapy. In addition, if her serum albumin drops any lower we will give IV albumin to help perfuse the kidneys by raising the oncotic pressure. (5) Leukocytosis Qualifiers: Leukocytosis type: unspecified Qualified Code(s): D72.829 - Elevated white blood cell count, unspecified Is this a current diagnosis for this admission?: Yes Plan: Slight improvement with the addition of antibiotics and fluid resuscitation. (6) Atrial fibrillation with RVR Is this a current diagnosis for this admission?: Yes Plan: Reasonable rate control. We will resume beta-bhanu therapy if necessary keeping in mind her blood pressure. Alternatively low-dose digoxin (renal dosing) can be used to control rate without impacting blood pressure. (7) Essential hypertension Is this a current diagnosis for this admission?: Yes Plan: Still requiring dual vasopressor therapy. (8) Diabetes mellitus type 2 in obese Is this a current diagnosis for this admission?: Yes Plan: Sliding scale at this time. Intake will likely be limited. When she is able to eat me may need to institute low-dose long-acting insulin. (9) Depression Qualifiers: Depression Type: unspecified Qualified Code(s): F32.9 - Major depressive disorder, single episode, unspecified Is this a current diagnosis for this admission?: Yes Plan: We will resume when there is a safe swallow. (10) Hypothyroidism Qualifiers: Hypothyroidism type: unspecified Qualified Code(s): E03.9 - Hypothyroidism, unspecified Is this a current diagnosis for this admission?: Yes Plan: I have resumed levothyroxine therapy. Will be given by IV at half the normal p.o. dose. - Time Time Spent with patient: 35 or more minutes Medications reviewed and adjusted accordingly: Yes
[2018-09-28] MEDS ORDERED: HYDROCORTISONE SOD SUCCINATE INJ/PF 100 MG/2 ML SDV IV SCH (10:00)
[2018-09-28] MEDS ORDERED: LEVOTHYROXINE SODIUM INJ/PF 0.1 MG SDV IV SCH (10:00)
[2018-09-28] MEDS: PANTOPRAZOLE SODIUM 40 MG VIAL IV SCH ×2 (10:40→21:48)
[2018-09-28 12:27] LABS: ALBUMIN 2.2 g/dL (3.5-5.0); ANION GAP 11 (5-19); BLOOD UREA NITROGEN 111 mg/dL (7-20); CALCIUM 8.3 mg/dL (8.4-10.2); CARBON DIOXIDE 13 mmol/L (22-30); CHLORIDE 115 mmol/L (98-107); GLUCOSE 235 mg/dL (75-110); POTASSIUM 3.5 mmol/L (3.6-5.0); SODIUM 139.3 mmol/L (137-145)
[2018-09-28 12:51] LABS: PHOSPHORUS 5.9 mg/dL (2.5-4.5)
[2018-09-28] MEDS ORDERED: DIGOXIN INJ 0.5 MG/2 ML AMPULE ONE (14:31)
[2018-09-28] MEDS ORDERED: METOPROLOL TARTRATE PF/INJ 5 MG/5 ML SDV IV PRN (16:13)
[2018-09-28] MEDS ORDERED: MORPHINE SULFATE 10 MG/ML INJ ONE (16:31)
[2018-09-28] MEDS ORDERED: DEXTROSE 5%-WATER 250 ML with NOREPINEPHRINE BITARTRATE 4 MG IV PRN ×2 (19:32)
[2018-09-28] MEDS ORDERED: DEXTROSE 5%-WATER 250 ML with VASOPRESSIN 100 UNIT IV PRN ×2 (19:32)
--- NOTE | 2018-09-28 20:09 | EKG REPORT ---
SEVERITY:- ABNORMAL ECG - ATRIAL FIBRILLATION, V-RATE 99-123 INCOMPLETE LEFT BUNDLE BRANCH BLOCK PROBABLE LVH WITH SECONDARY REPOL ABNRM ANTERIOR Q WAVES, POSSIBLY DUE TO LVH : Confirmed by: Gage Marie 28-Sep-2018 20:09:15
--- NOTE | 2018-09-28 20:10 | EKG REPORT ---
SEVERITY:- ABNORMAL ECG - ATRIAL FIBRILLATION, V-RATE 74-113 NONSPECIFIC IVCD WITH LAD LVH WITH SECONDARY REPOLARIZATION ABNORMALITY : Confirmed by: Gage Marie 28-Sep-2018 20:09:29
[2018-09-28] MEDS: DEXTROSE 5%-WATER 250 ML with VASOPRESSIN 100 UNIT IV PRN ×2 (20:29)
[2018-09-28] MEDS: ALBUMIN HUMAN 12.5 GM/50 ML RTUINJ IV SCH ×2 (21:17→22:39)
[2018-09-28] MEDS: METOPROLOL TARTRATE PF/INJ 5 MG/5 ML SDV IV PRN (21:28)
[2018-09-29] MEDS: INSULIN LISPRO 100 UNIT/ML 3 ML VIAL SUBCUT SCH ×4 (00:13→19:24)
[2018-09-29] MEDS: LEVALBUTEROL HCL NEB 1.25 MG/3 ML AMPUL NEB SCH ×5 (01:41→19:56)
[2018-09-29] MEDS: POTASSI CL 20 MEQ/NS 1L 1000 ML IV PRN ×4 (04:01→22:00)
[2018-09-29] MEDS: HEPARIN SOD (PORCINE) 5,000 UNIT/ML 1 ML SYRINGE SUBCUT SCH ×3 (05:06→22:22)
[2018-09-29 05:34] LABS: ABSOLUTE LYMPHOCYTES (AUTO) 0.6 10^3/uL (0.5-4.7); ABSOLUTE MONOCYTES (AUTO) 0.6 10^3/uL (0.1-1.4); ABSOLUTE NEUT (AUTO) 9.3 10^3/uL (1.7-8.2); BASOPHILS % (AUTO) 0.1 % (0-2); EOSINOPHILS % (AUTO) 0.1 % (0-6); HEMATOCRIT 41.4 % (36.0-47.0); LYMPHOCYTES % (AUTO) 6.1 % (13-45); MEAN CORPUSCULAR HEMOGLOBIN 31.9 pg (27.0-33.4); MEAN CORPUSCULAR HGB CONC 33.9 g/dL (32.0-36.0); MEAN CORPUSCULAR VOLUME 94 fl (80-97); MONOCYTES % (AUTO) 5.8 % (3-13); PLATELET COUNT 175 10^3/uL (150-450); RED BLOOD COUNT 4.39 10^6/uL (3.72-5.28); RED CELL DISTRIBUTION WIDTH 16.2 % (11.5-14.0); SEGMENTED NEUTROPHILS % (AUTO) 87.9 % (42-78); TOTAL CELLS COUNTED % (AUTO) 100 %; WHITE BLOOD COUNT 10.6 10^3/uL (4.0-10.5)
[2018-09-29 05:50] LABS: ALANINE AMINOTRANSFERASE 22 U/L (9-52); ALBUMIN 2.8 g/dL (3.5-5.0); ALKALINE PHOSPHATASE 51 U/L (38-126); ANION GAP 10 (5-19); ASPARTATE AMINO TRANSFERASE 19 U/L (14-36); BILIRUBIN,DIRECT 1.4 mg/dL (0.0-0.4); BILIRUBIN,TOTAL 1.5 mg/dL (0.2-1.3); BLOOD UREA NITROGEN 92 mg/dL (7-20); CALCIUM 8.7 mg/dL (8.4-10.2); CARBON DIOXIDE 15 mmol/L (22-30); CHLORIDE 121 mmol/L (98-107); GLUCOSE 255 mg/dL (75-110); POTASSIUM 4.3 mmol/L (3.6-5.0); SODIUM 145.6 mmol/L (137-145); TOTAL PROTEIN 5.3 g/dL (6.3-8.2)
[2018-09-29] MEDS: MORPHINE SULFATE 10 MG/ML INJ IV PRN ×2 (07:31→19:20)
--- NOTE | 2018-09-29 10:50 | PDOC PROGRESS REPORT ---
Subjective Progress Note for:: 09/29/18 Subjective:: The patient is awake enough to answer questions. Clinically she looks quite poorly. She appears cold and in pain but denies both. Reason For Visit: SEPSIS, CLOSTRIDIUM DIFFICILE COLITIS,ACUTE KIDNEY Physical Exam Vital Signs: Temp Pulse Resp BP Pulse Ox 97.0 F 115 H 7 L 111/61 100 09/29/18 08:00 09/29/18 08:00 09/29/18 08:00 09/29/18 08:00 09/29/18 08:00 Intake & Output 09/28/18 09/29/18 09/30/18 06:59 06:59 06:59 Intake Total 3008 4410 Output Total 575 1550 0 Balance 2433 2860 0 Weight 75.7 kg 77.8 kg Exam: Well-developed but very ill-appearing 83-year-old female resting in bed. She exhibits facial grimacing. She is able to answer strings mostly with head nods. It appears that she attempts verbalization. Head exam: PRESENT: normocephalic Eye exam: PRESENT: conjunctiva pink. ABSENT: scleral icterus Ear exam: PRESENT: normal external ear exam Mouth exam: PRESENT: dry mucosa Neck exam: ABSENT: carotid bruit, lymphadenopathy Respiratory exam: PRESENT: clear to auscultation caroline - Anteriorly. ABSENT: accessory muscle use, rales, rhonchi, stridor, wheezes Cardiovascular exam: PRESENT: irregular rhythm, tachycardia GI/Abdominal exam: PRESENT: normal bowel sounds, soft. ABSENT: distended, firm, tenderness Rectal exam: PRESENT: deferred Gentrourinary exam: PRESENT: indwelling catheter - Urine is still concentrated and cloudy. Extremities exam: ABSENT: pedal edema Neurological exam: PRESENT: alert - Alert but not fully alert, awake, oriented to person - Appears to be oriented to person and place, oriented to place Psychiatric exam: PRESENT: appropriate affect, other - Affect certainly reflects her poor clinical state.. ABSENT: agitated, anxious Focused psych exam: ABSENT: restlessness Results Laboratory Results: 09/29/18 05:02 09/29/18 05:02 09/28/18 09/28/18 09/28/18 11:45 11:45 19:55 WBC RBC Hgb Hct MCV MCH MCHC RDW Plt Count Seg Neutrophils % Lymphocytes % Monocytes % Eosinophils % Basophils % Absolute Neutrophils Absolute Lymphocytes Absolute Monocytes Absolute Eosinophils Absolute Basophils Sodium 139.3 Potassium 3.5 L Chloride 115 H Carbon Dioxide 13 L Anion Gap 11 BUN 111 H Creatinine 4.92 H Est GFR ( Amer) 10 L Est GFR (Non-Af Amer) 8 L Glucose 235 H Lactic Acid 2.3 H 3.3 H Calcium 8.3 L Phosphorus 5.9 H D Magnesium Total Bilirubin AST ALT Alkaline Phosphatase Total Protein Albumin 2.2 L 09/29/18 09/29/18 09/29/18 02:15 05:02 05:02 WBC 10.6 H RBC 4.39 Hgb 14.0 Hct 41.4 MCV 94 MCH 31.9 MCHC 33.9 RDW 16.2 H Plt Count 175 Seg Neutrophils % 87.9 H Lymphocytes % 6.1 L Monocytes % 5.8 Eosinophils % 0.1 Basophils % 0.1 Absolute Neutrophils 9.3 H Absolute Lymphocytes 0.6 Absolute Monocytes 0.6 Absolute Eosinophils 0.0 Absolute Basophils 0.0 Sodium 145.6 H Potassium 4.3 Chloride 121 H Carbon Dioxide 15 L Anion Gap 10 BUN 92 H Creatinine 3.63 H Est GFR ( Amer) 14 L Est GFR (Non-Af Amer) 12 L Glucose 255 H Lactic Acid 1.8 Calcium 8.7 Phosphorus Magnesium 2.4 H Total Bilirubin 1.5 H AST 19 ALT 22 Alkaline Phosphatase 51 Total Protein 5.3 L Albumin 2.8 L 09/27/18 09/27/18 15:00 17:25 Creatine Kinase 68 CK-MB (CK-2) 3.15 Troponin I 0.061 NT-Pro-B Natriuret Pep 1140 H Impressions: Head CT 09/27/18 14:30 IMPRESSION: No acute intracranial pathology. EVIDENCE OF ACUTE STROKE: NO. Chest X-Ray 09/28/18 06:00 IMPRESSION: Little interval change copyright 2010 [employer]- All Rights Reserved Assessment & Plan - Diagnosis (1) Sepsis Qualifiers: Sepsis type: sepsis due to unspecified organism Is this a current diagnosis for this admission?: Yes Plan: The urine culture returns with a positive result. The patient is septic from Proteus mirabilis cystitis. Blood cultures remain negative at this time. The patient still requires pressor therapy. She has also been getting IV fluids. She remains tachycardic. She does not require oxygen supplementation. Lactic acid is now normal. Bilirubin, BUN and Cr are still elevated (2) Acute cystitis with positive culture Is this a current diagnosis for this admission?: Yes Plan: Urine culture returned with greater than 100,000 colony-forming units per m illiliter of Proteus mirabilis. It is lomeli sensitive. I will start Ancef and probiotics. (3) Renal failure Qualifiers: Renal failure chronicity: acute Acute renal failure type: unspecified Qualified Code(s): N17.9 - Acute kidney failure, unspecified Is this a current diagnosis for this admission?: Yes Plan: Renal function is slowly improving. We will continue aggressive hydration and monitor for volume overload. (4) Dehydration Is this a current diagnosis for this admission?: Yes Plan: Continue IV fluids. Will use fluid warmer to help with hypothermia. Continue to monitor labs. (5) Leukocytosis Qualifiers: Leukocytosis type: unspecified Qualified Code(s): D72.829 - Elevated white blood cell count, unspecified Is this a current diagnosis for this admission?: Yes Plan: Improving. (6) Atrial fibrillation with RVR Is this a current diagnosis for this admission?: Yes Plan: Still with RVR. May need a continuous infusion if patient is unable to swallow medications. (7) Essential hypertension Is this a current diagnosis for this admission?: Yes Plan: Medications on hold due to hypotension (8) Diabetes mellitus type 2 in obese Is this a current diagnosis for this admission?: Yes Plan: Glucoses still running high. Should improve as the infection improves. May need to adjust insulin regimen and utilize a more aggressive sliding scale. (9) Depression Qualifiers: Depression Type: unspecified Qualified Code(s): F32.9 - Major depressive disorder, single episode, unspecified Is this a current diagnosis for this admission?: Yes Plan: As soon as there is a safe swallow resume medications. (10) Hypothyroidism Qualifiers: Hypothyroidism type: unspecified Qualified Code(s): E03.9 - Hypothyroidism, unspecified Is this a current diagnosis for this admission?: Yes Plan: As soon as there is safe swallow resume medications. (11) Clostridium difficile colitis Is this a current diagnosis for this admission?: No Plan: C. diff serology negativ - Time Time Spent with patient: 35 or more minutes Medications reviewed and adjusted accordingly: Yes
[2018-09-29] MEDS: PANTOPRAZOLE SODIUM 40 MG VIAL IV SCH ×2 (10:57→22:22)
[2018-09-29] MEDS: METOPROLOL TARTRATE PF/INJ 5 MG/5 ML SDV IV PRN (10:57)
[2018-09-29] MEDS: DEXTROSE 5%-WATER 250 ML with NOREPINEPHRINE BITARTRATE 4 MG IV PRN ×2 (11:00)
[2018-09-29] MEDS: DEXTROSE 5%-WATER 250 ML with VASOPRESSIN 100 UNIT IV PRN ×2 (11:01)
[2018-09-29] MEDS: ALBUMIN HUMAN 12.5 GM/50 ML RTUINJ IV SCH ×2 (13:07→13:38)
[2018-09-29] MEDS: CEFAZOLIN 1 GM/D5W RTU 1 GM/50 ML RTUPB IV SCH ×2 (13:36→22:23)
[2018-09-29 14:57] LABS: ANION GAP 6 (5-19); BLOOD UREA NITROGEN 82 mg/dL (7-20); CALCIUM 8.8 mg/dL (8.4-10.2); CARBON DIOXIDE 16 mmol/L (22-30); CHLORIDE 125 mmol/L (98-107); GLUCOSE 226 mg/dL (75-110); PHOSPHORUS 3.3 mg/dL (2.5-4.5); POTASSIUM 4.5 mmol/L (3.6-5.0); SODIUM 147.3 mmol/L (137-145)
--- NOTE | 2018-09-29 21:17 | RADIOLOGY REPORT (SQ) ---
EXAM DESCRIPTION: XR ABDOMEN 1 VIEW (KUB) COMPLETED DATE/TME: 09/29/2018 00:00 CLINICAL HISTORY: 83 years, Female, NGT placement COMPARISON: None. NUMBER OF VIEWS: 1 TECHNIQUE: AP abdomen LIMITATIONS: None. FINDINGS: Enteric tube with the tip in the left upper quadrant, likely in the body of the stomach. No evidence for free air under the hemidiaphragms. Osteopenia. Postsurgical change lumbar spine. A few mildly dilated air-filled loops of small bowel could reflect ileus. Minimal left basilar airspace opacity. IMPRESSION: Tip of the enteric tube likely in the body of the stomach. Several mildly prominent air filled loops of small bowel may reflect ileus. Follow-up recommended copyright 2010 [employer]- All Rights Reserved
[2018-09-30] MEDS ORDERED: DIGOXIN INJ 0.5 MG/2 ML AMPULE IV ONE (00:30)
[2018-09-30] MEDS: INSULIN LISPRO 100 UNIT/ML 3 ML VIAL SUBCUT SCH ×4 (00:35→19:01)
[2018-09-30] MEDS: MORPHINE SULFATE 10 MG/ML INJ IV PRN ×3 (00:35→18:56)
[2018-09-30] MEDS: LEVALBUTEROL HCL NEB 1.25 MG/3 ML AMPUL NEB SCH ×4 (02:16→20:00)
[2018-09-30 05:59] LABS: ALBUMIN 2.7 g/dL (3.5-5.0); ANION GAP 5 (5-19); BLOOD UREA NITROGEN 67 mg/dL (7-20); CALCIUM 8.7 mg/dL (8.4-10.2); CARBON DIOXIDE 15 mmol/L (22-30); CHLORIDE 129 mmol/L (98-107); DIGOXIN 1.88 ng/mL (0.8-2.0); GLUCOSE 195 mg/dL (75-110); PHOSPHORUS 2.5 mg/dL (2.5-4.5); POTASSIUM 4.9 mmol/L (3.6-5.0); SODIUM 149.4 mmol/L (137-145)
[2018-09-30 06:15] LABS: ABSOLUTE LYMPHOCYTES (AUTO) 0.7 10^3/uL (0.5-4.7); ABSOLUTE MONOCYTES (AUTO) 0.6 10^3/uL (0.1-1.4); ABSOLUTE NEUT (AUTO) 7.6 10^3/uL (1.7-8.2); BASOPHILS % (AUTO) 0.2 % (0-2); EOSINOPHILS % (AUTO) 0.4 % (0-6); HEMATOCRIT 37.1 % (36.0-47.0); HEMOGLOBIN 12.4 g/dL (12.0-15.5); LYMPHOCYTES % (AUTO) 7.5 % (13-45); MEAN CORPUSCULAR HEMOGLOBIN 31.8 pg (27.0-33.4); MEAN CORPUSCULAR HGB CONC 33.4 g/dL (32.0-36.0); MEAN CORPUSCULAR VOLUME 95 fl (80-97); MONOCYTES % (AUTO) 7.1 % (3-13); PLATELET COUNT 130 10^3/uL (150-450); RED CELL DISTRIBUTION WIDTH 16.1 % (11.5-14.0); SEGMENTED NEUTROPHILS % (AUTO) 84.8 % (42-78); TOTAL CELLS COUNTED % (AUTO) 100 %; WHITE BLOOD COUNT 8.9 10^3/uL (4.0-10.5)
[2018-09-30] MEDS: HEPARIN SOD (PORCINE) 5,000 UNIT/ML 1 ML SYRINGE SUBCUT SCH ×3 (06:29→21:28)
[2018-09-30] MEDS: PANTOPRAZOLE SODIUM 40 MG VIAL IV SCH (11:17)
[2018-09-30] MEDS: CEFAZOLIN 1 GM/D5W RTU 1 GM/50 ML RTUPB IV SCH ×2 (11:17→21:29)
[2018-09-30] MEDS: POTASSI CL 20 MEQ/NS 1L 1000 ML IV PRN (11:19)
[2018-09-30] MEDS ORDERED: ACETAMINOPHEN 650 MG SUPP.RECT PR PRN (13:05)
[2018-09-30] MEDS ORDERED: PROMETHAZINE HCL INJ 25 MG/1 ML VIAL IV PRN (13:30)
[2018-09-30] MEDS: ALBUMIN HUMAN 12.5 GM/50 ML RTUINJ IV SCH ×2 (14:17→16:43)
[2018-09-30] MEDS: BUMETANIDE INJ/PF 1 MG/4 ML SDV IV SCH (14:43)
[2018-09-30] MEDS: POTASSI CL 20 MEQ/1/2NS 1L 20 MEQ/1,000 ML RTUINJ IV PRN ×2 (14:47→21:29)
[2018-09-30] MEDS: MIRTAZAPINE 15 MG TABLET NG SCH (21:27)
[2018-09-30] MEDS: METOPROLOL TARTRATE 25 MG TABLET NG SCH (21:28)
[2018-10-01] MEDS: INSULIN LISPRO 100 UNIT/ML 3 ML VIAL SUBCUT SCH ×5 (00:19→23:29)
[2018-10-01] MEDS: LEVALBUTEROL HCL NEB 1.25 MG/3 ML AMPUL NEB SCH ×4 (02:03→20:00)
[2018-10-01] MEDS: MORPHINE SULFATE 10 MG/ML INJ IV PRN ×3 (02:25→15:32)
[2018-10-01 04:08] LABS: HEMATOCRIT 37.1 % (36.0-47.0); HEMOGLOBIN 12.4 g/dL (12.0-15.5); MEAN CORPUSCULAR HEMOGLOBIN 31.9 pg (27.0-33.4); MEAN CORPUSCULAR HGB CONC 33.3 g/dL (32.0-36.0); MEAN CORPUSCULAR VOLUME 96 fl (80-97); PLATELET COUNT 118 10^3/uL (150-450); RED BLOOD COUNT 3.88 10^6/uL (3.72-5.28); RED CELL DISTRIBUTION WIDTH 16.7 % (11.5-14.0); WHITE BLOOD COUNT 9.2 10^3/uL (4.0-10.5)
[2018-10-01 04:35] LABS: ANION GAP 5 (5-19); BLOOD UREA NITROGEN 56 mg/dL (7-20); CALCIUM 8.9 mg/dL (8.4-10.2); CARBON DIOXIDE 18 mmol/L (22-30); CHLORIDE 127 mmol/L (98-107); GLUCOSE 219 mg/dL (75-110); POTASSIUM 4.7 mmol/L (3.6-5.0); SODIUM 149.8 mmol/L (137-145)
[2018-10-01] MEDS: HEPARIN SOD (PORCINE) 5,000 UNIT/ML 1 ML SYRINGE SUBCUT SCH ×3 (05:02→21:35)
[2018-10-01] MEDS: LEVOTHYROXINE SODIUM 0.05 MG TABLET NG SCH (05:16)
[2018-10-01] MEDS ORDERED: LEVOTHYROXINE SODIUM 0.05 MG TABLET NG SCH ×2 (06:00→10:00)
[2018-10-01] MEDS: METOPROLOL TARTRATE 25 MG TABLET NG SCH ×2 (09:22→21:35)
[2018-10-01] MEDS: BUMETANIDE INJ/PF 1 MG/4 ML SDV IV SCH (09:22)
[2018-10-01] MEDS: CEFAZOLIN 1 GM/D5W RTU 1 GM/50 ML RTUPB IV SCH ×2 (09:22→21:36)
[2018-10-01] MEDS: ESCITALOPRAM OXALATE 10 MG TABLET NG SCH (09:22)
--- NOTE | 2018-10-01 10:06 | PDOC PROGRESS REPORT ---
Subjective Progress Note for:: 09/30/18 Subjective:: Patient is awake and answering questions. She is reporting feeling very poorly. Unable to provide specifics but reports globally feeling unwell. Reason For Visit: SEPSIS, CLOSTRIDIUM DIFFICILE COLITIS,ACUTE KIDNEY Physical Exam Vital Signs: Temp Pulse Resp BP Pulse Ox 99.0 F 113 H 16 150/60 H 98 09/30/18 08:00 09/30/18 10:00 09/30/18 10:00 09/30/18 10:00 09/30/18 10:00 Intake & Output 09/29/18 09/30/18 10/01/18 06:59 06:59 06:59 Intake Total 4410 4570 1000 Output Total 1550 1660 50 Balance 2860 2910 950 Weight 77.8 kg 80.6 kg General appearance: PRESENT: cooperative - Minimal verbal interaction during the encounter., mild distress - Appears to have at least mild to moderate distress. Head exam: PRESENT: normocephalic Mouth exam: PRESENT: moist, tongue midline Respiratory exam: PRESENT: decreased breath sounds - At bases. Inspiration was shallow.. ABSENT: rales, rhonchi, wheezes Cardiovascular exam: PRESENT: irregular rhythm GI/Abdominal exam: PRESENT: diminished bowel sounds, soft. ABSENT: distended, tenderness Rectal exam: PRESENT: deferred Gentrourinary exam: PRESENT: indwelling catheter Neurological exam: PRESENT: alert, awake, oriented to person - Appears to be oriented to person place and situation., oriented to place, oriented to situation Psychiatric exam: PRESENT: appropriate affect - Affect reflects discomfort.. ABSENT: agitated, anxious Focused psych exam: ABSENT: restlessness Results Laboratory Results: 09/30/18 04:55 09/30/18 04:55 09/29/18 09/30/18 09/30/18 14:25 04:55 04:55 WBC 8.9 RBC 3.90 Hgb 12.4 Hct 37.1 MCV 95 MCH 31.8 MCHC 33.4 RDW 16.1 H Plt Count 130 L Seg Neutrophils % 84.8 H Lymphocytes % 7.5 L Monocytes % 7.1 Eosinophils % 0.4 Basophils % 0.2 Absolute Neutrophils 7.6 Absolute Lymphocytes 0.7 Absolute Monocytes 0.6 Absolute Eosinophils 0.0 Absolute Basophils 0.0 Sodium 147.3 H 149.4 H Potassium 4.5 4.9 Chloride 125 H 129 H Carbon Dioxide 16 L 15 L Anion Gap 6 5 BUN 82 H 67 H Creatinine 2.85 H 2.33 H Est GFR ( Amer) 19 L 24 L Est GFR (Non-Af Amer) 16 L 20 L Glucose 226 H 195 H Calcium 8.8 8.7 Phosphorus 3.3 2.5 Magnesium 2.4 H 2.2 Albumin 3.0 L 2.7 L 09/27/18 18:43 Flores Catheter Urine Culture - Final Proteus Mirabilis 09/27/18 09/27/18 15:00 17:25 Creatine Kinase 68 CK-MB (CK-2) 3.15 Troponin I 0.061 NT-Pro-B Natriuret Pep 1140 H Impressions: Head CT 09/27/18 14:30 IMPRESSION: No acute intracranial pathology. EVIDENCE OF ACUTE STROKE: NO. Chest X-Ray 09/28/18 06:00 IMPRESSION: Little interval change copyright 2010 [employer]- All Rights Reserved KUB X-Ray 09/29/18 00:00 IMPRESSION: Tip of the enteric tube likely in the body of the stomach. Several mildly prominent air filled loops of small bowel may reflect ileus. Follow-up recommended copyright 2010 [employer]- All Rights Reserved Assessment & Plan - Diagnosis (1) Sepsis Qualifiers: Sepsis type: sepsis due to unspecified organism Qualified Code(s): A41.9 - Sepsis, unspecified organism Is this a current diagnosis for this admission?: Yes Plan: The patient no longer requires pressor therapy. Her tachycardia is improved. Hypoxia is resolved. Abnormal liver functions were improving as is her renal function. She still has hypernatremia but we are changing her IV fluids to half-normal saline and will adjust the rate based on her electrolytes. (2) Acute cystitis with positive culture Is this a current diagnosis for this admission?: Yes Plan: Sepsis was secondary to Proteus mirabilis. We will continue antibiotic therapy. (3) Renal failure Qualifiers: Renal failure chronicity: acute Acute renal failure type: unspecified Qualified Code(s): N17.9 - Acute kidney failure, unspecified Is this a current diagnosis for this admission?: Yes Plan: With ongoing rehydration the patient's renal failure is improving. I did add IV albumin to help improve perfusion and she continues to get IV fluids. (4) Dehydration Is this a current diagnosis for this admission?: Yes Plan: Ongoing IV fluids. She is starting to get edematous. We will need to begin diuresis. (5) Leukocytosis Qualifiers: Leukocytosis type: unspecified Qualified Code(s): D72.829 - Elevated white blood cell count, unspecified Is this a current diagnosis for this admission?: Yes Plan: Continues to improve. Should normalize within 1-2 days. (6) Atrial fibrillation with RVR Is this a current diagnosis for this admission?: Yes Plan: Heart rate improved. Continue to modify medications accordingly. (7) Essential hypertension Is this a current diagnosis for this admission?: Yes Plan: The patient is no longer on pressor therapy for hypotension. As blood pressure increases we will add back medications accordingly. She is already resuming diuresis for fluid retention. (8) Diabetes mellitus type 2 in obese Is this a current diagnosis for this admission?: Yes Plan: Continue sliding scale. The patient was started on Nepro tube feedings. Continue fingersticks every 6 hours. (9) Depression Qualifiers: Depression Type: unspecified Qualified Code(s): F32.9 - Major depressive disorder, single episode, unspecified Is this a current diagnosis for this admission?: Yes Plan: Resume medications through nasogastric tube. Change to p.o. when appropriate. (10) Hypothyroidism Qualifiers: Hypothyroidism type: unspecified Qualified Code(s): E03.9 - Hypothyroidism, unspecified Is this a current diagnosis for this admission?: Yes Plan: IV levothyroxine was discontinued. We will use the nasogastric tube to administer her 50 mcg dose daily. (11) Clostridium difficile colitis Is this a current diagnosis for this admission?: No Plan: Testing on loose stool at the time of admission revealed negative results for Clostridium difficile. - Time Time Spent with patient: 35 or more minutes Medications reviewed and adjusted accordingly: Yes
[2018-10-01] MEDS: POTASSI CL 20 MEQ/1/2NS 1L 20 MEQ/1,000 ML RTUINJ IV PRN ×2 (12:02→18:30)
--- NOTE | 2018-10-01 19:09 | PDOC PROGRESS REPORT ---
Subjective Progress Note for:: 10/01/18 Subjective:: No adverse events overnight. Her vital signs been stable. Her mental status is about what it was last time I saw her in the hospital. She can give a one syllable yes or no to answer but that is about as much as she can get out of her. Apparently whenever she went home from the hospital last time, she went home instead of to a facility. At home she was not eating or drinking and she presented with the metabolic derangements noted on her H&P. She is been getting fluids and tube feeds and she is improving. Reason For Visit: SEPSIS, CLOSTRIDIUM DIFFICILE COLITIS,ACUTE KIDNEY Physical Exam Vital Signs: Temp Pulse Resp BP Pulse Ox 99.0 F 92 16 126/64 H 97 10/01/18 18:05 10/01/18 18:00 10/01/18 18:05 10/01/18 18:05 10/01/18 18:05 Intake & Output 09/30/18 10/01/18 10/02/18 06:59 06:59 06:59 Intake Total 4570 4173 1313 Output Total 1660 2550 1725 Balance 2910 1623 -412 Weight 80.6 kg 57.8 kg General appearance: PRESENT: disheveled, other - She lays in bed and opens her eyes to verbal command and does not really answer questions except once in a while when she says yes or no Respiratory exam: PRESENT: clear to auscultation caroline, symmetrical, unlabored. ABSENT: accessory muscle use, crackles, prolonged expiratory phas, rhonchi, tachypnea, wheezes Cardiovascular exam: PRESENT: RRR, +S1, +S2, systolic murmur Vascular exam: PRESENT: normal capillary refill GI/Abdominal exam: PRESENT: normal bowel sounds, soft. ABSENT: distended, guarding, rebound, tenderness Extremities exam: PRESENT: pedal edema, +2 edema. ABSENT: clubbing Musculoskeletal exam: PRESENT: normal inspection. ABSENT: deformity Neurological exam: PRESENT: awake, oriented to person Psychiatric exam: PRESENT: flat affect Skin exam: PRESENT: dry, warm Results Laboratory Results: 10/01/18 04:00 10/01/18 04:00 10/01/18 10/01/18 04:00 04:00 WBC 9.2 RBC 3.88 Hgb 12.4 Hct 37.1 MCV 96 MCH 31.9 MCHC 33.3 RDW 16.7 H Plt Count 118 L Sodium 149.8 H Potassium 4.7 Chloride 127 H Carbon Dioxide 18 L Anion Gap 5 BUN 56 H Creatinine 1.80 H Est GFR ( Amer) 33 L Est GFR (Non-Af Amer) 27 L Glucose 219 H Calcium 8.9 Phosphorus 2.0 L Magnesium 2.1 Albumin 3.0 L 09/27/18 09/27/18 15:00 17:25 Creatine Kinase 68 CK-MB (CK-2) 3.15 Troponin I 0.061 NT-Pro-B Natriuret Pep 1140 H Impressions: Head CT 09/27/18 14:30 IMPRESSION: No acute intracranial pathology. EVIDENCE OF ACUTE STROKE: NO. Chest X-Ray 09/28/18 06:00 IMPRESSION: Little interval change copyright 2010 [employer]- All Rights Reserved KUB X-Ray 09/29/18 00:00 IMPRESSION: Tip of the enteric tube likely in the body of the stomach. Several mildly prominent air filled loops of small bowel may reflect ileus. Follow-up recommended copyright 2010 [employer]- All Rights Reserved Assessment & Plan - Diagnosis (1) Sepsis Qualifiers: Sepsis type: sepsis due to unspecified organism Qualified Code(s): A41.9 - Sepsis, unspecified organism Is this a current diagnosis for this admission?: Yes Plan: Due to Proteus mirabilis in the urine. She is on appropriate antibiotics. She is off pressors. (2) Acute cystitis with positive culture Is this a current diagnosis for this admission?: Yes Plan: Positive for Proteus mirabilis. On appropriate antibiotics. (3) Dehydration Is this a current diagnosis for this admission?: Yes Plan: Resolved with IV fluids. She is also getting fluids through tube feeds. (4) Atrial fibrillation with RVR Is this a current diagnosis for this admission?: Yes Plan: Resolved. She is rate controlled. (5) Renal failure Qualifiers: Renal failure chronicity: acute Acute renal failure type: unspecified Qualified Code(s): N17.9 - Acute kidney failure, unspecified Is this a current diagnosis for this admission?: Yes Plan: Improving with IV fluids - Time Time Spent with patient: 35 or more minutes
[2018-10-01] MEDS: MIRTAZAPINE 15 MG TABLET NG SCH (21:35)
[2018-10-02] MEDS: MORPHINE SULFATE 10 MG/ML INJ IV PRN ×2 (00:35→14:18)
[2018-10-02] MEDS: POTASSI CL 20 MEQ/1/2NS 1L 20 MEQ/1,000 ML RTUINJ IV PRN ×2 (02:02→08:24)
[2018-10-02] MEDS: LEVALBUTEROL HCL NEB 1.25 MG/3 ML AMPUL NEB SCH ×4 (03:01→20:06)
[2018-10-02 05:45] LABS: HEMATOCRIT 35.8 % (36.0-47.0); MEAN CORPUSCULAR HGB CONC 33.5 g/dL (32.0-36.0); MEAN CORPUSCULAR VOLUME 95 fl (80-97); PLATELET COUNT 108 10^3/uL (150-450); RED BLOOD COUNT 3.76 10^6/uL (3.72-5.28)
[2018-10-02] MEDS: HEPARIN SOD (PORCINE) 5,000 UNIT/ML 1 ML SYRINGE SUBCUT SCH ×3 (05:51→23:02)
[2018-10-02] MEDS: INSULIN LISPRO 100 UNIT/ML 3 ML VIAL SUBCUT SCH ×3 (06:18→18:04)
[2018-10-02] MEDS: LEVOTHYROXINE SODIUM 0.05 MG TABLET NG SCH (06:19)
[2018-10-02 09:57] LABS: BLOOD UREA NITROGEN 45 mg/dL (7-20); CALCIUM 8.5 mg/dL (8.4-10.2); GLUCOSE 268 mg/dL (75-110); POTASSIUM 5.4 mmol/L (3.6-5.0)
[2018-10-02] MEDS: ESCITALOPRAM OXALATE 10 MG TABLET NG SCH (10:00)
[2018-10-02] MEDS: CEFAZOLIN 1 GM/D5W RTU 1 GM/50 ML RTUPB IV SCH ×2 (10:00→22:48)
[2018-10-02] MEDS: METOPROLOL TARTRATE 25 MG TABLET NG SCH ×2 (10:01→23:03)
[2018-10-02 10:02] LABS: ANION GAP 5 (5-19); CARBON DIOXIDE 19 mmol/L (22-30); CHLORIDE 122 mmol/L (98-107); SODIUM 145.5 mmol/L (137-145)
[2018-10-02] MEDS: NORMAL SALINE 1000 ML 1,000 ML IV PRN (10:46)
--- NOTE | 2018-10-02 17:50 | PDOC PROGRESS REPORT ---
Subjective Progress Note for:: 10/02/18 Subjective:: No adverse events overnight. No new complaints. No substantial change in her clinical conditions. Her vital signs remained stable. Mental status is unchanged. She is apparently been tolerating her tube feeds without difficulty. Reason For Visit: SEPSIS, CLOSTRIDIUM DIFFICILE COLITIS,ACUTE KIDNEY Physical Exam Vital Signs: Temp Pulse Resp BP Pulse Ox 99.9 F 97 18 131/54 H 97 10/02/18 14:21 10/02/18 14:21 10/02/18 14:21 10/02/18 14:21 10/02/18 14:21 Intake & Output 10/01/18 10/02/18 10/03/18 06:59 06:59 06:59 Intake Total 4173 2873 1736 Output Total 2550 2550 745 Balance 1623 323 991 Weight 77.8 kg 82.1 kg General appearance: PRESENT: disheveled, other - She lays in bed and opens her eyes to verbal command and does not really answer questions except once in a while when she says yes or no Respiratory exam: PRESENT: clear to auscultation caroline, symmetrical, unlabored. ABSENT: accessory muscle use, crackles, prolonged expiratory phas, rhonchi, tachypnea, wheezes Cardiovascular exam: PRESENT: RRR, +S1, +S2, systolic murmur Vascular exam: PRESENT: normal capillary refill GI/Abdominal exam: PRESENT: normal bowel sounds, soft. ABSENT: distended, guarding, rebound, tenderness Extremities exam: PRESENT: pedal edema, +2 edema. ABSENT: clubbing Musculoskeletal exam: PRESENT: normal inspection. ABSENT: deformity Neurological exam: PRESENT: awake, oriented to person Psychiatric exam: PRESENT: flat affect Skin exam: PRESENT: dry, warm Results Laboratory Results: 10/02/18 05:02 10/02/18 09:25 10/02/18 10/02/18 05:02 09:25 WBC 8.0 RBC 3.76 Hgb 12.0 Hct 35.8 L MCV 95 MCH 32.0 MCHC 33.5 RDW 17.0 H Plt Count 108 L Sodium 145.5 H Potassium 5.4 H Chloride 122 H Carbon Dioxide 19 L Anion Gap 5 BUN 45 H Creatinine 1.10 Est GFR ( Amer) 57 L Est GFR (Non-Af Amer) 47 L Glucose 268 H Calcium 8.5 09/27/18 15:00 Blood Blood Culture - Final NO GROWTH IN 5 DAYS 09/27/18 09/27/18 15:00 17:25 Creatine Kinase 68 CK-MB (CK-2) 3.15 Troponin I 0.061 NT-Pro-B Natriuret Pep 1140 H Impressions: Head CT 09/27/18 14:30 IMPRESSION: No acute intracranial pathology. EVIDENCE OF ACUTE STROKE: NO. Chest X-Ray 09/28/18 06:00 IMPRESSION: Little interval change copyright 2010 [employer]- All Rights Reserved KUB X-Ray 09/29/18 00:00 IMPRESSION: Tip of the enteric tube likely in the body of the stomach. Several mildly prominent air filled loops of small bowel may reflect ileus. Follow-up recommended copyright 2010 [employer]- All Rights Reserved Assessment & Plan - Diagnosis (1) Sepsis Qualifiers: Sepsis type: sepsis due to unspecified organism Qualified Code(s): A41.9 - Sepsis, unspecified organism Is this a current diagnosis for this admission?: Yes Plan: Due to Proteus mirabilis in the urine. She is on appropriate antibiotics. She is off pressors. (2) Acute cystitis with positive culture Is this a current diagnosis for this admission?: Yes Plan: Positive for Proteus mirabilis. On appropriate antibiotics. (3) Dehydration Is this a current diagnosis for this admission?: Yes Plan: Resolved with IV fluids. She is also getting fluids through tube feeds. We changed up her IV fluids a little bit today because her potassium was going up so we stopped the fluid with potassium in it. (4) Atrial fibrillation with RVR Is this a current diagnosis for this admission?: Yes Plan: Resolved. She is rate controlled. (5) Renal failure Qualifiers: Renal failure chronicity: acute Acute renal failure type: unspecified Qualified Code(s): N17.9 - Acute kidney failure, unspecified Is this a current diagnosis for this admission?: Yes Plan: Resolved - Time Time Spent with patient: 25-34 minutes
[2018-10-02] MEDS ORDERED: INSULIN GLARGINE,HUM.REC.ANLOG 1,000 UNIT/10 ML UNIT SUBCUT SCH (22:00)
[2018-10-02] MEDS: MIRTAZAPINE 15 MG TABLET NG SCH (23:04)
[2018-10-03] MEDS: LEVALBUTEROL HCL NEB 1.25 MG/3 ML AMPUL NEB SCH ×4 (02:09→13:53)
[2018-10-03] MEDS: INSULIN LISPRO 100 UNIT/ML 3 ML VIAL SUBCUT SCH ×4 (02:44→18:25)
[2018-10-03] MEDS: HEPARIN SOD (PORCINE) 5,000 UNIT/ML 1 ML SYRINGE SUBCUT SCH ×3 (06:13→22:28)
[2018-10-03] MEDS: LEVOTHYROXINE SODIUM 0.05 MG TABLET NG SCH (06:18)
[2018-10-03] MEDS: ESCITALOPRAM OXALATE 10 MG TABLET NG SCH (09:41)
[2018-10-03] MEDS: METOPROLOL TARTRATE 25 MG TABLET NG SCH ×2 (09:41→22:33)
[2018-10-03] MEDS: CEFAZOLIN 1 GM/D5W RTU 1 GM/50 ML RTUPB IV SCH ×2 (09:41→22:32)
[2018-10-03] MEDS: NORMAL SALINE 1000 ML 1,000 ML IV PRN (09:43)
[2018-10-03] MEDS: MORPHINE SULFATE 10 MG/ML INJ IV PRN (09:51)
[2018-10-03 12:43] LABS: BLOOD UREA NITROGEN 39 mg/dL (7-20); CALCIUM 8.5 mg/dL (8.4-10.2); CARBON DIOXIDE 19 mmol/L (22-30); CHLORIDE 124 mmol/L (98-107); GLUCOSE 266 mg/dL (75-110); POTASSIUM 4.2 mmol/L (3.6-5.0); SODIUM 147.3 mmol/L (137-145)
[2018-10-03 12:50] LABS: ANION GAP 4 (5-19)
[2018-10-03] MEDS: INSULIN GLARGINE,HUM.REC.ANLOG 300 UNIT/3 ML INSULN.PEN SUBCUT SCH (15:55)
--- NOTE | 2018-10-03 17:03 | PDOC PROGRESS REPORT ---
Subjective Progress Note for:: 10/03/18 Subjective:: No adverse events overnight. Today when I came into the room to verbal command, and she was able to display that she was oriented x3. She was able to string several words together at once. I took care of her during her last hospitalization and it was a little over a month ago the last time I saw her, and today was the most alert and interactive I have ever seen her. Reason For Visit: SEPSIS, CLOSTRIDIUM DIFFICILE COLITIS,ACUTE KIDNEY Physical Exam Vital Signs: Temp Pulse Resp BP Pulse Ox 98.5 F 81 18 150/75 H 96 10/03/18 12:00 10/03/18 12:00 10/03/18 12:00 10/03/18 12:00 10/03/18 12:00 Intake & Output 10/02/18 10/03/18 10/04/18 06:59 06:59 06:59 Intake Total 2873 2931 1050 Output Total 2550 1645 Balance 323 1286 1050 Weight 82.1 kg 88.2 kg General appearance: PRESENT: disheveled, oriented to person place and time Respiratory exam: PRESENT: clear to auscultation caroline, symmetrical, unlabored. ABSENT: accessory muscle use, crackles, prolonged expiratory phase, rhonchi, tachypnea, wheezes Cardiovascular exam: PRESENT: RRR, +S1, +S2, systolic murmur Vascular exam: PRESENT: normal capillary refill GI/Abdominal exam: PRESENT: normal bowel sounds, soft. ABSENT: distended, guarding, rebound, tenderness Extremities exam: PRESENT: pedal edema, +2 edema. ABSENT: clubbing Musculoskeletal exam: PRESENT: normal inspection. ABSENT: deformity Neurological exam: PRESENT: awake, oriented to person Psychiatric exam: PRESENT: flat affect Skin exam: PRESENT: dry, warm Results Laboratory Results: 10/02/18 05:02 10/03/18 09:30 10/03/18 09:30 Sodium 147.3 H Potassium 4.2 Chloride 124 H Carbon Dioxide 19 L Anion Gap 4 L BUN 39 H Creatinine 0.89 Est GFR ( Amer) > 60 Est GFR (Non-Af Amer) > 60 Glucose 266 H Calcium 8.5 09/27/18 17:25 Blood Blood Culture - Final NO GROWTH IN 5 DAYS 09/27/18 15:00 Blood Blood Culture - Final NO GROWTH IN 5 DAYS 09/27/18 09/27/18 15:00 17:25 Creatine Kinase 68 CK-MB (CK-2) 3.15 Troponin I 0.061 NT-Pro-B Natriuret Pep 1140 H Impressions: Head CT 09/27/18 14:30 IMPRESSION: No acute intracranial pathology. EVIDENCE OF ACUTE STROKE: NO. Chest X-Ray 09/28/18 06:00 IMPRESSION: Little interval change copyright 2010 [employer]- All Rights Reserved KUB X-Ray 09/29/18 00:00 IMPRESSION: Tip of the enteric tube likely in the body of the stomach. Several mildly prominent air filled loops of small bowel may reflect ileus. Follow-up recommended copyright 2010 [employer]- All Rights Reserved Assessment & Plan - Diagnosis (1) Sepsis Qualifiers: Sepsis type: sepsis due to unspecified organism Qualified Code(s): A41.9 - Sepsis, unspecified organism Is this a current diagnosis for this admission?: Yes Plan: Due to Proteus mirabilis in the urine. She is on appropriate antibiotics. She is off pressors. This has resolved (2) Acute cystitis with positive culture Is this a current diagnosis for this admission?: Yes Plan: Positive for Proteus mirabilis. On appropriate antibiotics. (3) Dehydration Is this a current diagnosis for this admission?: Yes Plan: Resolved with IV fluids. She is also getting fluids through tube feeds. (4) Atrial fibrillation with RVR Is this a current diagnosis for this admission?: Yes Plan: Resolved. She is rate controlled. (5) Renal failure Qualifiers: Renal failure chronicity: acute Acute renal failure type: unspecified Qualified Code(s): N17.9 - Acute kidney failure, unspecified Is this a current diagnosis for this admission?: Yes Plan: Resolved. (6) Metabolic encephalopathy Is this a current diagnosis for this admission?: Yes Plan: I suspect that this is due in large part to the fact that she has not been eating much of anything at all for weeks and has been drinking very little. The bulk of what we have been doing for her is hydrating her and giving her tube feeds through an NG tube, and her clinical condition today looks the best that it has been in weeks. It will be interesting to see how well she eats wants her nutritional status has improved some more and we discontinue the NG tube, because previously the problem was not that she could not eat, but that she just did not want to. - Time Time Spent with patient: 25-34 minutes
[2018-10-03] MEDS: MIRTAZAPINE 15 MG TABLET NG SCH (22:33)
[2018-10-04] MEDS: INSULIN LISPRO 100 UNIT/ML 3 ML VIAL SUBCUT SCH ×6 (00:32→19:40)
[2018-10-04] MEDS: INSULIN GLARGINE,HUM.REC.ANLOG 300 UNIT/3 ML INSULN.PEN SUBCUT SCH (00:34)
[2018-10-04] MEDS: HEPARIN SOD (PORCINE) 5,000 UNIT/ML 1 ML SYRINGE SUBCUT SCH ×3 (06:18→22:22)
[2018-10-04] MEDS: LEVOTHYROXINE SODIUM 0.05 MG TABLET NG SCH (11:19)
[2018-10-04] MEDS: NORMAL SALINE 1000 ML 1,000 ML IV PRN (11:25)
[2018-10-04] MEDS: CEFAZOLIN 1 GM/D5W RTU 1 GM/50 ML RTUPB IV SCH ×2 (11:34→22:32)
[2018-10-04] MEDS: METOPROLOL TARTRATE 25 MG TABLET NG SCH ×2 (11:36→22:33)
[2018-10-04] MEDS: BUMETANIDE INJ/PF 1 MG/4 ML SDV IV SCH (11:37)
[2018-10-04] MEDS: ESCITALOPRAM OXALATE 10 MG TABLET NG SCH (11:37)
[2018-10-04] MEDS: ACETAMINOPHEN 325 MG TABLET PO PRN (13:07)
--- NOTE | 2018-10-04 17:15 | PDOC PROGRESS REPORT ---
Subjective Progress Note for:: 10/04/18 Subjective:: No adverse events overnight. No new complaints. Clinical condition is about the same as yesterday. She remains interactive, at least more so than she was for the past several weeks, and she is communicating better. Reason For Visit: SEPSIS, CLOSTRIDIUM DIFFICILE COLITIS,ACUTE KIDNEY Physical Exam Vital Signs: Temp Pulse Resp BP Pulse Ox 97.8 F 86 20 151/74 H 97 10/04/18 16:00 10/04/18 16:00 10/04/18 16:00 10/04/18 16:00 10/04/18 16:00 Intake & Output 10/03/18 10/04/18 10/05/18 06:59 06:59 06:59 Intake Total 2931 2681 Output Total 1645 1450 Balance 1286 1231 Weight 88.2 kg 81.6 kg General appearance: PRESENT: disheveled, oriented to person place and time Respiratory exam: PRESENT: clear to auscultation caroline, symmetrical, unlabored. ABSENT: accessory muscle use, crackles, prolonged expiratory phase, rhonchi, tachypnea, wheezes Cardiovascular exam: PRESENT: RRR, +S1, +S2, systolic murmur Vascular exam: PRESENT: normal capillary refill GI/Abdominal exam: PRESENT: normal bowel sounds, soft. ABSENT: distended, guarding, rebound, tenderness Extremities exam: PRESENT: pedal edema, +2 edema. ABSENT: clubbing Musculoskeletal exam: PRESENT: normal inspection. ABSENT: deformity Neurological exam: PRESENT: awake, oriented to person Psychiatric exam: PRESENT: flat affect Skin exam: PRESENT: dry, warm Results Laboratory Results: 10/02/18 05:02 10/03/18 09:30 09/27/18 09/27/18 15:00 17:25 Creatine Kinase 68 CK-MB (CK-2) 3.15 Troponin I 0.061 NT-Pro-B Natriuret Pep 1140 H Impressions: Head CT 09/27/18 14:30 IMPRESSION: No acute intracranial pathology. EVIDENCE OF ACUTE STROKE: NO. Chest X-Ray 09/28/18 06:00 IMPRESSION: Little interval change copyright 2011 [email or web address]- All Rights Reserved KUB X-Ray 09/29/18 00:00 IMPRESSION: Tip of the enteric tube likely in the body of the stomach. Several mildly prominent air filled loops of small bowel may reflect ileus. Follow-up recommended copyright 2010 [email or web address]- All Rights Reserved Assessment & Plan - Diagnosis (1) Sepsis Qualifiers: Sepsis type: sepsis due to unspecified organism Qualified Code(s): A41.9 - Sepsis, unspecified organism Is this a current diagnosis for this admission?: Yes Plan: Due to Proteus mirabilis in the urine. She is on appropriate antibiotics. She is off pressors. This has resolved (2) Acute cystitis with positive culture Is this a current diagnosis for this admission?: Yes Plan: Positive for Proteus mirabilis. On appropriate antibiotics. (3) Dehydration Is this a current diagnosis for this admission?: Yes Plan: Resolved with IV fluids. She is also getting fluids through tube feeds. (4) Atrial fibrillation with RVR Is this a current diagnosis for this admission?: Yes Plan: Resolved. She is rate controlled. (5) Renal failure Qualifiers: Renal failure chronicity: acute Acute renal failure type: unspecified Qualified Code(s): N17.9 - Acute kidney failure, unspecified Is this a current diagnosis for this admission?: Yes Plan: Resolved. (6) Metabolic encephalopathy Is this a current diagnosis for this admission?: Yes Plan: I suspect that this is due in large part to the fact that she has not been eating much of anything at all for weeks and has been drinking very little. The bulk of what we have been doing for her is hydrating her and giving her tube feeds through an NG tube, and her clinical condition now looks the best that it has been in weeks. It will be interesting to see how well she eats wants her nutritional status has improved some more and we discontinue the NG tube, because previously the problem was not that she could not eat, but that she just did not want to. We plan to give her tube feeds through the weekend, and then, the first of the week, will clamp the tube and hold the tube feeds, and see how well she tolerates liquids and soft foods, and what sort of appetite she has. - Time Time Spent with patient: 15-24 minutes
[2018-10-04 21:14] LABS: ANION GAP 5 (5-19); BLOOD UREA NITROGEN 39 mg/dL (7-20); CALCIUM 8.7 mg/dL (8.4-10.2); CARBON DIOXIDE 23 mmol/L (22-30); CHLORIDE 122 mmol/L (98-107); GLUCOSE 287 mg/dL (75-110); POTASSIUM 3.5 mmol/L (3.6-5.0); SODIUM 149.5 mmol/L (137-145)
[2018-10-04] MEDS: MIRTAZAPINE 15 MG TABLET NG SCH (22:33)
[2018-10-05] MEDS: INSULIN LISPRO 100 UNIT/ML 3 ML VIAL SUBCUT SCH ×8 (00:42→23:30)
[2018-10-05] MEDS: INSULIN GLARGINE,HUM.REC.ANLOG 300 UNIT/3 ML INSULN.PEN SUBCUT SCH ×2 (00:44→23:32)
[2018-10-05] MEDS: HEPARIN SOD (PORCINE) 5,000 UNIT/ML 1 ML SYRINGE SUBCUT SCH ×3 (05:37→23:16)
[2018-10-05] MEDS: ACETAMINOPHEN 325 MG TABLET PO PRN (06:00)
[2018-10-05] MEDS: LEVOTHYROXINE SODIUM 0.05 MG TABLET NG SCH (06:01)
[2018-10-05] MEDS: CEFAZOLIN 1 GM/D5W RTU 1 GM/50 ML RTUPB IV SCH ×2 (10:30→23:16)
[2018-10-05] MEDS: METOPROLOL TARTRATE 25 MG TABLET NG SCH ×2 (10:31→23:19)
[2018-10-05] MEDS: BUMETANIDE INJ/PF 1 MG/4 ML SDV IV SCH (10:31)
[2018-10-05] MEDS: ESCITALOPRAM OXALATE 10 MG TABLET NG SCH (10:31)
[2018-10-05] MEDS: NORMAL SALINE 1000 ML 1,000 ML IV PRN (13:17)
--- NOTE | 2018-10-05 15:43 | PDOC PROGRESS REPORT ---
Subjective Progress Note for:: 10/05/18 Subjective:: No adverse events overnight. Her caregiver tells me that she is developing some yeast in her groin. I talked to the patient about getting up into the chair today and she was not interested at all in doing that. She does not even want to be rolled onto her side every couple of hours. I talked to her about clamping the NG tube and stopping her tube feeds to see how her appetite would do on Sunday, and she almost look depressed, almost like I had given her some bad news. Reason For Visit: SEPSIS, CLOSTRIDIUM DIFFICILE COLITIS,ACUTE KIDNEY Physical Exam Vital Signs: Temp Pulse Resp BP Pulse Ox 97.3 F 82 16 153/78 H 96 10/05/18 12:00 10/05/18 14:00 10/05/18 13:39 10/05/18 12:00 10/05/18 13:39 Intake & Output 10/04/18 10/05/18 10/06/18 06:59 06:59 06:59 Intake Total 2681 1100 2040 Output Total 1450 2450 Balance 1231 -1350 2040 Weight 81.6 kg 84.1 kg General appearance: PRESENT: disheveled, oriented to person place and time Respiratory exam: PRESENT: clear to auscultation caroline, symmetrical, unlabored. ABSENT: accessory muscle use, crackles, prolonged expiratory phase, rhonchi, tachypnea, wheezes Cardiovascular exam: PRESENT: RRR, +S1, +S2, systolic murmur Vascular exam: PRESENT: normal capillary refill GI/Abdominal exam: PRESENT: normal bowel sounds, soft. ABSENT: distended, guarding, rebound, tenderness Extremities exam: PRESENT: pedal edema, +2 edema. ABSENT: clubbing Musculoskeletal exam: PRESENT: normal inspection. ABSENT: deformity Neurological exam: PRESENT: awake, oriented to person Psychiatric exam: PRESENT: flat affect Skin exam: PRESENT: dry, warm Results Laboratory Results: 10/02/18 05:02 10/04/18 20:30 10/04/18 20:30 Sodium 149.5 H Potassium 3.5 L Chloride 122 H Carbon Dioxide 23 Anion Gap 5 BUN 39 H Creatinine 0.86 Est GFR ( Amer) > 60 Est GFR (Non-Af Amer) > 60 Glucose 287 H Calcium 8.7 02/08/19 02/08/19 15:00 17:25 Creatine Kinase 68 CK-MB (CK-2) 3.15 Troponin I 0.061 NT-Pro-B Natriuret Pep 1140 H Impressions: Head CT 09/27/18 14:30 IMPRESSION: No acute intracranial pathology. EVIDENCE OF ACUTE STROKE: NO. Chest X-Ray 09/28/18 06:00 IMPRESSION: Little interval change copyright 2010 [employer]- All Rights Reserved KUB X-Ray 09/29/18 00:00 IMPRESSION: Tip of the enteric tube likely in the body of the stomach. Several mildly prominent air filled loops of small bowel may reflect ileus. Follow-up recommended copyright 2010 [employer]- All Rights Reserved Assessment & Plan - Diagnosis (1) Sepsis Qualifiers: Sepsis type: sepsis due to unspecified organism Qualified Code(s): A41.9 - Sepsis, unspecified organism Is this a current diagnosis for this admission?: Yes Plan: Due to Proteus mirabilis in the urine. She is on appropriate antibiotics. She is off pressors. This has resolved (2) Acute cystitis with positive culture Is this a current diagnosis for this admission?: Yes Plan: Positive for Proteus mirabilis. On appropriate antibiotics. (3) Dehydration Is this a current diagnosis for this admission?: Yes Plan: Resolved with IV fluids. She is also getting fluids through tube feeds. (4) Atrial fibrillation with RVR Is this a current diagnosis for this admission?: Yes Plan: Resolved. She is rate controlled. (5) Renal failure Qualifiers: Renal failure chronicity: acute Acute renal failure type: unspecified Qualified Code(s): N17.9 - Acute kidney failure, unspecified Is this a current diagnosis for this admission?: Yes Plan: Resolved. (6) Metabolic encephalopathy Is this a current diagnosis for this admission?: Yes Plan: I suspect that this is due in large part to the fact that she has not been eating much of anything at all for weeks and has been drinking very little. The bulk of what we have been doing for her is hydrating her and giving her tube feeds through an NG tube, and her clinical condition now looks the best that it has been in weeks. It will be interesting to see how well she eats wants her nutritional status has improved some more and we discontinue the NG tube, because previously the problem was not that she could not eat, but that she just did not want to. We plan to give her tube feeds through the weekend, and then, the first of the week, will clamp the tube and hold the tube feeds, and see how well she tolerates liquids and soft foods, and what sort of appetite she has. I am concerned that she lacks the motivation, for some reason, to eat on her own. (7) Candidiasis, intertrigo Is this a current diagnosis for this admission?: Yes Plan: Will order some nystatin powder for the affected areas, have encouraged her to change positions, such as getting up into the chair, to help encourage getting some air to her intertrigo areas. She was not at all interested and was resistant to the idea. - Time Time Spent with patient: 25-34 minutes
[2018-10-05] MEDS ORDERED: NYSTATIN TOPICAL POWDER 15 GM TP ONE (16:30)
[2018-10-05] MEDS: NYSTATIN TOPICAL POWDER 15 GM TP SCH (17:54)
[2018-10-05] MEDS: MORPHINE SULFATE 10 MG/ML INJ IV PRN (20:39)
[2018-10-05] MEDS: ONDANSETRON HCL INJ/PF 4 MG/2 ML SDV IV PRN (20:39)
[2018-10-05] MEDS: MIRTAZAPINE 15 MG TABLET NG SCH (23:19)
[2018-10-06] MEDS: MORPHINE SULFATE 10 MG/ML INJ IV PRN ×3 (03:45→13:47)
[2018-10-06] MEDS: ONDANSETRON HCL INJ/PF 4 MG/2 ML SDV IV PRN (03:46)
[2018-10-06] MEDS: LEVOTHYROXINE SODIUM 0.05 MG TABLET NG SCH (06:30)
[2018-10-06] MEDS: INSULIN LISPRO 100 UNIT/ML 3 ML VIAL SUBCUT SCH ×4 (06:31→18:19)
[2018-10-06] MEDS: HEPARIN SOD (PORCINE) 5,000 UNIT/ML 1 ML SYRINGE SUBCUT SCH ×4 (06:33→22:42)
[2018-10-06] MEDS: METOPROLOL TARTRATE 25 MG TABLET NG SCH ×2 (10:25→22:40)
[2018-10-06] MEDS: CEFAZOLIN 1 GM/D5W RTU 1 GM/50 ML RTUPB IV SCH ×2 (10:25→22:41)
[2018-10-06] MEDS: BUMETANIDE INJ/PF 1 MG/4 ML SDV IV SCH (10:25)
[2018-10-06] MEDS: ESCITALOPRAM OXALATE 10 MG TABLET NG SCH (10:25)
[2018-10-06] MEDS: NYSTATIN TOPICAL POWDER 15 GM TP SCH ×2 (10:26→18:19)
[2018-10-06] MEDS ORDERED: SODIUM BICARBONATE 650 MG TABLET NG ONE (13:00)
[2018-10-06] MEDS ORDERED: LIPASE/PROTEASE/AMYLASE 1 CAP CAPSULE.DR PO ONE (13:00)
--- NOTE | 2018-10-06 18:08 | PDOC PROGRESS REPORT ---
Subjective Progress Note for:: 10/06/18 Subjective:: No adverse events overnight. Her NG tube became clogged today and we put a solution of pancrelipase and bicarbonate in the tube to help unclog it. It began to flow freely afterwards. Her clinical condition has unchanged. As noted yesterday, and again today, she was not appearing to be terribly enthusiastic about the prospect of clamping the tube and trying to eat. Reason For Visit: SEPSIS, CLOSTRIDIUM DIFFICILE COLITIS,ACUTE KIDNEY Physical Exam Vital Signs: Temp Pulse Resp BP Pulse Ox 97.4 F 94 18 148/68 H 94 10/06/18 15:31 10/06/18 15:31 10/06/18 15:31 10/06/18 15:31 10/06/18 15:31 Intake & Output 10/05/18 10/06/18 10/07/18 06:59 06:59 06:59 Intake Total 1100 2995 1050 Output Total 2450 1250 Balance -1350 1745 1050 Weight 84.1 kg 84.5 kg General appearance: PRESENT: disheveled, oriented to person place and time Respiratory exam: PRESENT: clear to auscultation caroline, symmetrical, unlabored. ABSENT: accessory muscle use, crackles, prolonged expiratory phase, rhonchi, tachypnea, wheezes Cardiovascular exam: PRESENT: RRR, +S1, +S2, systolic murmur Vascular exam: PRESENT: normal capillary refill GI/Abdominal exam: PRESENT: normal bowel sounds, soft. ABSENT: distended, guarding, rebound, tenderness Extremities exam: PRESENT: pedal edema, +2 edema. ABSENT: clubbing Musculoskeletal exam: PRESENT: normal inspection. ABSENT: deformity Neurological exam: PRESENT: awake, oriented to person Psychiatric exam: PRESENT: flat affect Skin exam: PRESENT: dry, warm Results Laboratory Results: 10/02/18 05:02 10/04/18 20:30 09/27/18 09/27/18 15:00 17:25 Creatine Kinase 68 CK-MB (CK-2) 3.15 Troponin I 0.061 NT-Pro-B Natriuret Pep 1140 H Impressions: Head CT 09/27/18 14:30 IMPRESSION: No acute intracranial pathology. EVIDENCE OF ACUTE STROKE: NO. Chest X-Ray 09/28/18 06:00 IMPRESSION: Little interval change copyright 2011 [employer]- All Rights Reserved KUB X-Ray 09/29/18 00:00 IMPRESSION: Tip of the enteric tube likely in the body of the stomach. Several mildly prominent air filled loops of small bowel may reflect ileus. Follow-up recommended copyright 2010 [employer]- All Rights Reserved Assessment & Plan - Diagnosis (1) Sepsis Qualifiers: Sepsis type: sepsis due to unspecified organism Qualified Code(s): A41.9 - Sepsis, unspecified organism Is this a current diagnosis for this admission?: Yes Plan: Due to Proteus mirabilis in the urine. She is on appropriate antibiotics. She is off pressors. This has resolved (2) Acute cystitis with positive culture Is this a current diagnosis for this admission?: Yes Plan: Positive for Proteus mirabilis. On appropriate antibiotics. (3) Dehydration Is this a current diagnosis for this admission?: Yes Plan: Resolved with IV fluids. She is also getting fluids through tube feeds. (4) Atrial fibrillation with RVR Is this a current diagnosis for this admission?: Yes Plan: Resolved. She is rate controlled. (5) Renal failure Qualifiers: Renal failure chronicity: acute Acute renal failure type: unspecified Qualified Code(s): N17.9 - Acute kidney failure, unspecified Is this a current diagnosis for this admission?: Yes Plan: Resolved. (6) Metabolic encephalopathy Is this a current diagnosis for this admission?: Yes Plan: I suspect that this is due in large part to the fact that she has not been eating much of anything at all for weeks and has been drinking very little. The bulk of what we have been doing for her is hydrating her and giving her tube feeds through an NG tube, and her clinical condition now looks the best that it has been in weeks. It will be interesting to see how well she eats wants her nutritional status has improved some more and we discontinue the NG tube, because previously the problem was not that she could not eat, but that she just did not want to. We plan to give her tube feeds through the weekend, and then, the first of the week, will clamp the tube and hold the tube feeds, and see how well she tolerates liquids and soft foods, and what sort of appetite she has. I am concerned that she lacks the motivation, for some reason, to eat on her own. (7) Candidiasis, intertrigo Is this a current diagnosis for this admission?: Yes Plan: Have ordered some nystatin powder for the affected areas, have encouraged her to change positions, such as getting up into the chair, to help encourage getting some air to her intertrigo areas. She was not at all interested and was resistant to the idea. - Time Time Spent with patient: 15-24 minutes
[2018-10-06] MEDS: INSULIN GLARGINE,HUM.REC.ANLOG 300 UNIT/3 ML INSULN.PEN SUBCUT SCH (22:33)
[2018-10-06] MEDS: MIRTAZAPINE 15 MG TABLET NG SCH (22:40)
[2018-10-07] MEDS: INSULIN LISPRO 100 UNIT/ML 3 ML VIAL SUBCUT SCH ×4 (00:45→17:15)
[2018-10-07] MEDS: HEPARIN SOD (PORCINE) 5,000 UNIT/ML 1 ML SYRINGE SUBCUT SCH ×3 (06:40→22:37)
[2018-10-07] MEDS: MORPHINE SULFATE 10 MG/ML INJ IV PRN ×2 (06:44→16:13)
[2018-10-07] MEDS: LEVOTHYROXINE SODIUM 0.05 MG TABLET NG SCH (06:46)
[2018-10-07] MEDS: METOPROLOL TARTRATE 25 MG TABLET NG SCH ×2 (10:14→22:38)
[2018-10-07] MEDS: ESCITALOPRAM OXALATE 10 MG TABLET NG SCH (10:14)
[2018-10-07] MEDS: NYSTATIN TOPICAL POWDER 15 GM TP SCH ×2 (10:15→17:16)
[2018-10-07] MEDS: BUMETANIDE INJ/PF 1 MG/4 ML SDV IV SCH (10:15)
[2018-10-07] MEDS: CEFAZOLIN 1 GM/D5W RTU 1 GM/50 ML RTUPB IV SCH (10:15)
[2018-10-07] MEDS ORDERED: LORAZEPAM 0.5 MG TABLET PO PRN (15:51)
--- NOTE | 2018-10-07 16:00 | PDOC PROGRESS REPORT ---
Subjective Progress Note for:: 10/07/18 Subjective:: No acute events in the last 24 hours. Patient is afebrile. C. difficile came back negative. Patient still have NG tube getting the NG tube feedings until now. Plan is to remove the NG tube start her on clear liquids and advance the diet as tolerated. Reason For Visit: SEPSIS, CLOSTRIDIUM DIFFICILE COLITIS,ACUTE KIDNEY Physical Exam Vital Signs: Temp Pulse Resp BP Pulse Ox 98.9 F 96 18 137/65 H 95 10/07/18 12:01 10/07/18 14:00 10/07/18 12:01 10/07/18 12:01 10/07/18 12:01 Intake & Output 10/06/18 10/07/18 10/08/18 06:59 06:59 06:59 Intake Total 2995 1100 50 Output Total 1250 1700 Balance 1745 -600 50 Weight 84.5 kg 86.7 kg General appearance: PRESENT: no acute distress Head exam: PRESENT: atraumatic Eye exam: PRESENT: PERRLA Mouth exam: PRESENT: moist, tongue midline Neck exam: ABSENT: carotid bruit, JVD, lymphadenopathy, thyromegaly Respiratory exam: PRESENT: clear to auscultation caroline. ABSENT: rales, rhonchi, wheezes Cardiovascular exam: PRESENT: RRR. ABSENT: diastolic murmur, rubs, systolic murmur GI/Abdominal exam: PRESENT: normal bowel sounds, soft. ABSENT: distended, guarding, mass, organolmegaly, rebound, tenderness Extremities exam: PRESENT: full ROM. ABSENT: calf tenderness, clubbing, pedal edema Neurological exam: PRESENT: alert, awake, oriented to person, oriented to place, oriented to time, oriented to situation, CN II-XII grossly intact. ABSENT: motor sensory deficit Psychiatric exam: PRESENT: appropriate affect, normal mood. ABSENT: homicidal ideation, suicidal ideation Results Laboratory Results: 10/02/18 05:02 10/04/18 20:30 09/27/18 09/27/18 15:00 17:25 Creatine Kinase 68 CK-MB (CK-2) 3.15 Troponin I 0.061 NT-Pro-B Natriuret Pep 1140 H Impressions: Head CT 09/27/18 14:30 IMPRESSION: No acute intracranial pathology. EVIDENCE OF ACUTE STROKE: NO. Chest X-Ray 09/28/18 06:00 IMPRESSION: Little interval change copyright 2010 [employer]- All Rights Reserved KUB X-Ray 09/29/18 00:00 IMPRESSION: Tip of the enteric tube likely in the body of the stomach. Several mildly prominent air filled loops of small bowel may reflect ileus. Follow-up recommended copyright 2010 [employer]- All Rights Reserved Assessment & Plan - Diagnosis (1) Acute cystitis with positive culture Is this a current diagnosis for this admission?: Yes Plan: 10/07/2018-urine cultures positive for Proteus mirabilis. Presently on cefazolin 1 g every 12 hours IV. Patient completed the course of 7 days of IV antibiotic therapy plan is to discontinue antibiotics today. (2) Atrial fibrillation with RVR Is this a current diagnosis for this admission?: Yes Plan: 10/07/2018 patient was admitted with atrial fibrillation with RVR now is rate controlled. Patient is on metoprolol 25 mg every 12 hours. Plan is to continue the present management. (3) Renal failure Qualifiers: Renal failure chronicity: acute Acute renal failure type: unspecified Qualified Code(s): N17.9 - Acute kidney failure, unspecified Is this a current diagnosis for this admission?: Yes Plan: 10/07/2018 patient came in with creatinine of 7.2 and today is 0.86. Acute kidney injury most likely prerenal is resolved. (4) Metabolic encephalopathy Is this a current diagnosis for this admission?: Yes Plan: I suspect that this is due in large part to the fact that she has not been eating much of anything at all for weeks and has been drinking very little. The bulk of what we have been doing for her is hydrating her and giving her tube feeds through an NG tube, and her clinical condition now looks the best that it has been in weeks. It will be interesting to see how well she eats wants her nutritional status has improved some more and we discontinue the NG tube, because previously the problem was not that she could not eat, but that she just did not want to. We plan to give her tube feeds through the weekend, and then, the first of the week, will clamp the tube and hold the tube feeds, and see how well she tolerates liquids and soft foods, and what sort of appetite she has. I am concerned that she lacks the motivation, for some reason, to eat on her own. 10/07/2018-metabolic encephalopathy most likely secondary to poor oral intake and poor nutrition status. She is received NG tube feedings until this morning. We are going to remove the NG tube start with clear liquids today to advance the diet and see if he is able to tolerate the oral feeds. Acute abdominal series was requested. We continue to follow her on regular basis with the daily labs. - Time Time Spent with patient: 15-24 minutes Medications reviewed and adjusted accordingly: Yes
[2018-10-07] MEDS: INSULIN GLARGINE,HUM.REC.ANLOG 300 UNIT/3 ML INSULN.PEN SUBCUT SCH (17:14)
--- NOTE | 2018-10-07 17:46 | RADIOLOGY REPORT (SQ) ---
EXAM DESCRIPTION: ACUTE ABDOMEN SERIES COMPLETED DATE/TIME: 10/07/2018 4:36 pm REASON FOR STUDY: abd pain COMPARISON: 09/29/2018, 09/05/2018, 12/18/2008 NUMBER OF VIEWS: Three views. TECHNIQUE: Frontal chest, supine abdomen and upright abdomen radiographic images acquired. LIMITATIONS: None. FINDINGS: CHEST: Minimal airspace disease is present in the periphery of the right upper lobe worris ome for early or developing pneumonia. Remainder of the lungs are clear. No pleural effusion or pne umothorax. Right-sided triple-lumen catheter tip in the superior vena cava. No cardiomegaly. FREE AIR: None. No abnormal gas collections. BOWEL GAS PATTERN: Diffuse gaseous distension of colon out of proportion to stomach and small bowel m ay represent a colonic ileus. CALCIFICATIONS: No suspicious calcifications. HARDWARE: Lumbar fusion hardware. Flores catheter in the bladder SOFT TISSUES: No gross mass or suggestion of organomegaly. BONES: Diffuse degenerative changes in the spine OTHER: Findings discussed with Dr. Barahona IMPRESSION: Airspace disease in the right upper lobe, question early or developing pneumonia. Gaseous distension of colon out of proportion to the remainder of the gastrointestinal tract, questio n colonic ileus TECHNICAL DOCUMENTATION: JOB ID: [id number] [employer]- All Rights Reserved Reading location - IP/workstation name: [email or web address]
[2018-10-07] MEDS ORDERED: GLUCAGON,HUMAN RECOMB 1 MG INJ SUBCUT PRN (17:53)
[2018-10-07] MEDS ORDERED: DEXTROSE 40% GEL 15 GM TUBE PO PRN ×2 (17:53)
[2018-10-07] MEDS ORDERED: DEXTROSE 50%-WATER 25 GM/50 ML DISP.SYRIN IV PRN ×2 (17:53)
[2018-10-07] MEDS ORDERED: INSULIN GLARGINE,HUM.REC.ANLOG 1,000 UNIT/10 ML UNIT SUBCUT SCH (18:00)
[2018-10-07] MEDS: POTASSI CL 20 MEQ/50 ML RIDER 20 MEQ/50 ML RTUPB IV SCH ×2 (18:25→22:27)
[2018-10-07] MEDS ORDERED: (PENDING PHARMACY ID) (Fluticasone/Salmeterol [Fluticasone-Salmeterol 113-14] 1 EACH) IH SCH (22:00)
[2018-10-07] MEDS: MIRTAZAPINE 15 MG TABLET NG SCH (22:38)
--- NOTE | 2018-10-08 02:32 | RADIOLOGY REPORT (SQ) ---
EXAM DESCRIPTION: CT ABDOMEN PELVIS WITHOUT IV CONTRAST COMPLETED DATE/TME: 10/08/2018 00:00 CLINICAL HISTORY: 83 years, Female, colonic ileus Comparison: None TECHNIQUE: Contiguous axial CT images of the abdomen and pelvis were obtained. Sagittal and coronal reformats were reviewed. This exam was performed according to our departmental dose-optimization program, which includes automated exposure control, adjustment of the mA and/or kV according to patient size and/or use of iterative reconstruction technique. FINDINGS: Lung bases: Moderate size bilateral pleural effusions with adjacent atelectasis. Liver:Unremarkable. No focal liver lesion. Gallbladder:Unremarkable. No gallstones. No gallbladder wall thickening or pericholecystic fluid. Spleen:Unremarkable Pancreas: Pancreas is unremarkable. Adrenal glands:Within normal limits. Kidneys/ureters:Within normal limits Stomach/small bowel/colon: Stomach is unremarkable. Small bowel is unremarkable. Diffuse dilatation of the large bowel with multiple air-fluid levels. Maximal diameter 10 cm. No mucosal thickening. No obvious masses or colonic strictures. No pneumatosis. No torsion/volvulus. Appendix: No evidence of appendicitis. Peritoneum: Small amount of free fluid adjacent to the liver. Vascular structures: within normal limits Lymph nodes: No abnormal lymph nodes. Bladder:Flores catheter terminating within the bladder. Pelvic organs: No acute abnormality Bones: No acute osseous abnormality. Multilevel degenerative changes in the spine. Postsurgical changes in the lower lumbar spine. Soft tissues: Mild anasarca.. IMPRESSION: Diffuse dilatation of the colon containing air and fluid. Maximal diameter approximately 10 cm. No wall thickening or evidence of torsion. The small bowel is normal in caliber. Moderate size bilateral pleural effusions with adjacent atelectasis. Small amount of perihepatic free fluid.
[2018-10-08] MEDS: INSULIN LISPRO 100 UNIT/ML 3 ML VIAL SUBCUT SCH ×4 (05:31→17:20)
[2018-10-08] MEDS: HEPARIN SOD (PORCINE) 5,000 UNIT/ML 1 ML SYRINGE SUBCUT SCH ×3 (05:32→22:06)
[2018-10-08] MEDS: LEVOTHYROXINE SODIUM 0.05 MG TABLET NG SCH (05:32)
[2018-10-08 07:00] LABS: ALANINE AMINOTRANSFERASE 47 U/L (9-52); ALBUMIN 2.5 g/dL (3.5-5.0); ALKALINE PHOSPHATASE 139 U/L (38-126); ANION GAP 9 (5-19); ASPARTATE AMINO TRANSFERASE 51 U/L (14-36); BILIRUBIN,DIRECT 0.4 mg/dL (0.0-0.4); BILIRUBIN,TOTAL 0.9 mg/dL (0.2-1.3); BLOOD UREA NITROGEN 47 mg/dL (7-20); CALCIUM 8.7 mg/dL (8.4-10.2); CARBON DIOXIDE 24 mmol/L (22-30); CHLORIDE 123 mmol/L (98-107); GLUCOSE 152 mg/dL (75-110); SODIUM 155.7 mmol/L (137-145); TOTAL PROTEIN 4.9 g/dL (6.3-8.2)
[2018-10-08 07:07] LABS: POTASSIUM 2.7 mmol/L (3.6-5.0)
[2018-10-08 07:09] LABS: ABSOLUTE LYMPHOCYTES (AUTO) 1.2 10^3/uL (0.5-4.7); ABSOLUTE MONOCYTES (AUTO) 0.8 10^3/uL (0.1-1.4); ABSOLUTE NEUT (AUTO) 15.3 10^3/uL (1.7-8.2); BASOPHILS % (AUTO) 0.2 % (0-2); EOSINOPHILS % (AUTO) 0.2 % (0-6); HEMATOCRIT 42.3 % (36.0-47.0); LYMPHOCYTES % (AUTO) 7.1 % (13-45); MEAN CORPUSCULAR HGB CONC 33.1 g/dL (32.0-36.0); MEAN CORPUSCULAR VOLUME 96 fl (80-97); MONOCYTES % (AUTO) 4.6 % (3-13); PLATELET COUNT 191 10^3/uL (150-450); RED BLOOD COUNT 4.39 10^6/uL (3.72-5.28); RED CELL DISTRIBUTION WIDTH 17.8 % (11.5-14.0); SEGMENTED NEUTROPHILS % (AUTO) 87.9 % (42-78); TOTAL CELLS COUNTED % (AUTO) 100 %; WHITE BLOOD COUNT 17.4 10^3/uL (4.0-10.5)
[2018-10-08] MEDS ORDERED: TRIAMTERENE PO SCH (10:00)
[2018-10-08] MEDS ORDERED: MEGESTROL ACETATE PO SCH (10:00)
[2018-10-08] MEDS ORDERED: TRIAMTERENE/HYDROCHLOROTHIAZIDE 37.5-25 MG TABLET PO SCH (10:00)
[2018-10-08] MEDS ORDERED: HYDROCHLOROTHIAZID PO SCH (10:00)
[2018-10-08] MEDS: BUMETANIDE INJ/PF 1 MG/4 ML SDV IV SCH (10:11)
[2018-10-08] MEDS: ESCITALOPRAM OXALATE 10 MG TABLET NG SCH (10:12)
[2018-10-08] MEDS: METOPROLOL TARTRATE 25 MG TABLET NG SCH ×2 (10:12→22:05)
[2018-10-08] MEDS: VALSARTAN 160 MG TABLET PO SCH (10:12)
[2018-10-08] MEDS: MEGESTROL ACETATE SUSP 400 MG/10 ML UDCUP PO SCH (10:13)
[2018-10-08] MEDS: NYSTATIN TOPICAL POWDER 15 GM TP SCH ×2 (10:14→17:21)
[2018-10-08] MEDS: INSULIN GLARGINE,HUM.REC.ANLOG 300 UNIT/3 ML INSULN.PEN SUBCUT SCH ×2 (10:15→17:20)
[2018-10-08] MEDS ORDERED: BISACODYL 10 MG SUPP.RECT PR PRN (14:26)
--- NOTE | 2018-10-08 14:33 | PDOC PROGRESS REPORT ---
Subjective Progress Note for:: 10/08/18 Subjective:: No acute events in the last 24 hours. Patient is afebrile. C. difficile came back negative. Patient still have NG tube getting the NG tube feedings until now. Plan is to remove the NG tube start her on clear liquids and advance the diet as tolerated. 10/08/2018-acute abdominal series came back yesterday as possible ileus. I discussed the case with Dr. Aguirre, surgical consult was placed he thinks basically patient has constipation and patient has a 2 large bowel movements yesterday. Today CT abdominal pelvis was done which shows:colon Dilated 10 cm. I discussed the care again with Dr. Aguirre he is not concerned and believes it is not ileus. He want me to do stool for C. difficile. Plan is to repeat the acute abdominal series tomorrow. Reason For Visit: SEPSIS, CLOSTRIDIUM DIFFICILE COLITIS,ACUTE KIDNEY Physical Exam Vital Signs: Temp Pulse Resp BP Pulse Ox 98.2 F 104 H 15 135/56 H 93 10/08/18 08:00 10/08/18 11:09 10/08/18 11:09 10/08/18 11:09 10/08/18 11:09 Intake & Output 10/07/18 10/08/18 10/09/18 06:59 06:59 06:59 Intake Total 1100 1050 Output Total 1700 1200 Balance -600 -150 Weight 86.7 kg 84.9 kg General appearance: PRESENT: no acute distress Head exam: PRESENT: atraumatic Eye exam: PRESENT: PERRLA Mouth exam: PRESENT: dry mucosa Neck exam: ABSENT: carotid bruit, JVD, lymphadenopathy, thyromegaly Respiratory exam: PRESENT: clear to auscultation caroline. ABSENT: rales, rhonchi, wheezes Cardiovascular exam: PRESENT: RRR. ABSENT: diastolic murmur, rubs, systolic murmur GI/Abdominal exam: PRESENT: other - Abdomen was bloated distended but bowel sounds are present. Extremities exam: PRESENT: full ROM. ABSENT: calf tenderness, clubbing, pedal edema Neurological exam: PRESENT: alert, awake, oriented to person, oriented to place, oriented to time, oriented to situation, CN II-XII grossly intact. ABSENT: motor sensory deficit Psychiatric exam: PRESENT: appropriate affect, normal mood. ABSENT: homicidal ideation, suicidal ideation Results Laboratory Results: 10/08/18 05:19 10/08/18 05:19 10/08/18 10/08/18 05:19 05:19 WBC 17.4 H RBC 4.39 Hgb 14.0 Hct 42.3 MCV 96 MCH 32.0 MCHC 33.1 RDW 17.8 H Plt Count 191 Seg Neutrophils % 87.9 H Lymphocytes % 7.1 L Monocytes % 4.6 Eosinophils % 0.2 Basophils % 0.2 Absolute Neutrophils 15.3 H Absolute Lymphocytes 1.2 Absolute Monocytes 0.8 Absolute Eosinophils 0.0 Absolute Basophils 0.0 Sodium 155.7 H Potassium 2.7 L* Chloride 123 H Carbon Dioxide 24 Anion Gap 9 BUN 47 H Creatinine 1.00 Est GFR ( Amer) > 60 Est GFR (Non-Af Amer) 53 L Glucose 152 H Calcium 8.7 Magnesium 1.8 Total Bilirubin 0.9 AST 51 H ALT 47 Alkaline Phosphatase 139 H Total Protein 4.9 L Albumin 2.5 L 09/27/18 09/27/18 15:00 17:25 Creatine Kinase 68 CK-MB (CK-2) 3.15 Troponin I 0.061 NT-Pro-B Natriuret Pep 1140 H Impressions: Head CT 09/27/18 14:30 IMPRESSION: No acute intracranial pathology. EVIDENCE OF ACUTE STROKE: NO. Chest X-Ray 09/28/18 06:00 IMPRESSION: Little interval change copyright 2010 [employer]- All Rights Reserved KUB X-Ray 09/29/18 00:00 IMPRESSION: Tip of the enteric tube likely in the body of the stomach. Several mildly prominent air filled loops of small bowel may reflect ileus. Follow-up recommended copyright 2010 [employer]- All Rights Reserved Acute Abdomen Series 10/07/18 00:00 IMPRESSION: Airspace disease in the right upper lobe, question early or developing pneumonia. Gaseous distension of colon out of proportion to the remainder of the gastrointestinal tract, question colonic ileus Abdomen/Pelvis CT 10/08/18 00:00 IMPRESSION: Diffuse dilatation of the colon containing air and fluid. Maximal diameter approximately 10 cm. No wall thickening or evidence of torsion. The small bowel is normal in caliber. Moderate size bilateral pleural effusions with adjacent atelectasis. Small amount of perihepatic free fluid. Assessment & Plan - Diagnosis (1) Acute cystitis with positive culture Is this a current diagnosis for this admission?: Yes Plan: 10/07/2018-urine cultures positive for Proteus mirabilis. Presently on cefazolin 1 g every 12 hours IV. Patient completed the course of 7 days of IV antibiotic therapy plan is to discontinue antibiotics today. 10/08/2018-patient is on Proteus mirabilis. On cefazolin 1 g IV every 12 hours. She is afebrile. She completed antibiotic course of 1 week yesterday. (2) Atrial fibrillation with RVR Is this a current diagnosis for this admission?: Yes Plan: 10/07/2018 patient was admitted with atrial fibrillation with RVR now is rate controlled. Patient is on metoprolol 25 mg every 12 hours. Plan is to continue the present management. 10/08/2018-patient is admitted with A. fib with RVR. Presently on metoprolol 25 mg every 6 hours. She is in sinus rhythm. (3) Renal failure Qualifiers: Renal failure chronicity: acute Acute renal failure type: unspecified Qualified Code(s): N17.9 - Acute kidney failure, unspecified Is this a current diagnosis for this admission?: Yes Plan: 10/07/2018 patient came in with creatinine of 7.2 and today is 0.86. Acute kidney injury most likely prerenal is resolved. 10/08/2018 patient admitted with creatinine of 7.2 today is 1.0. Acute kidney injury most likely prerenal is resolved. (4) Metabolic encephalopathy Is this a current diagnosis for this admission?: Yes Plan: I suspect that this is due in large part to the fact that she has not been eating much of anything at all for weeks and has been drinking very little. The bulk of what we have been doing for her is hydrating her and giving her tube feeds through an NG tube, and her clinical condition now looks the best that it has been in weeks. It will be interesting to see how well she eats wants her nutritional status has improved some more and we discontinue the NG tube, because previously the problem was not that she could not eat, but that she just did not want to. We plan to give her tube feeds through the weekend, and then, the first of the week, will clamp the tube and hold the tube feeds, and see how well she tolerates liquids and soft foods, and what sort of appetite she has. I am concerned that she lacks the motivation, for some reason, to eat on her own. 10/07/2018-metabolic encephalopathy most likely secondary to poor oral intake and poor nutrition status. She is received NG tube feedings until this morning. We are going to remove the NG tube start with clear liquids today to advance the diet and see if he is able to tolerate the oral feeds. Acute abdominal series was requested. We continue to follow her on regular basis with the daily labs. 10/08/2018-patient is little bit alert and oriented compared to yesterday. Metabolic encephalopathy may be secondary to electrolyte abnormalities, poor nutritional status and a poor oral intake. We could continue to follow her on regular basis. - Time Time Spent with patient: 15-24 minutes Medications reviewed and adjusted accordingly: Yes Anticipated discharge: Home
[2018-10-08] MEDS: POTASSI CL 20 MEQ/50 ML RIDER 20 MEQ/50 ML RTUPB IV SCH ×2 (15:11→16:55)
[2018-10-08] MEDS: MIRTAZAPINE 15 MG TABLET NG SCH (22:05)
[2018-10-08] MEDS: POTASSIUM CHLORIDE 20 MEQ/50 ML RTU IV SCH (23:05)
[2018-10-09] MEDS: INSULIN LISPRO 100 UNIT/ML 3 ML VIAL SUBCUT SCH ×4 (00:34→19:51)
[2018-10-09] MEDS: POTASSIUM CHLORIDE 20 MEQ/50 ML RTU IV SCH (02:42)
[2018-10-09] MEDS: HEPARIN SOD (PORCINE) 5,000 UNIT/ML 1 ML SYRINGE SUBCUT SCH ×2 (06:34→13:59)
[2018-10-09] MEDS: LEVOTHYROXINE SODIUM 0.05 MG TABLET NG SCH (06:35)
[2018-10-09 10:19] LABS: ABSOLUTE LYMPHOCYTES (AUTO) 1.1 10^3/uL (0.5-4.7); ABSOLUTE MONOCYTES (AUTO) 0.7 10^3/uL (0.1-1.4); ABSOLUTE NEUT (AUTO) 15.9 10^3/uL (1.7-8.2); HEMATOCRIT 40.6 % (36.0-47.0); HEMOGLOBIN 13.4 g/dL (12.0-15.5); LYMPHOCYTES % (AUTO) 6.1 % (13-45); MEAN CORPUSCULAR HEMOGLOBIN 32.1 pg (27.0-33.4); MEAN CORPUSCULAR HGB CONC 33.1 g/dL (32.0-36.0); MEAN CORPUSCULAR VOLUME 97 fl (80-97); MONOCYTES % (AUTO) 3.8 % (3-13); PLATELET COUNT 179 10^3/uL (150-450); RED BLOOD COUNT 4.18 10^6/uL (3.72-5.28); RED CELL DISTRIBUTION WIDTH 17.4 % (11.5-14.0); SEGMENTED NEUTROPHILS % (AUTO) 90.1 % (42-78); TOTAL CELLS COUNTED % (AUTO) 100 %; WHITE BLOOD COUNT 17.6 10^3/uL (4.0-10.5)
--- NOTE | 2018-10-09 10:22 | RADIOLOGY REPORT (SQ) ---
EXAM DESCRIPTION: ACUTE ABDOMEN SERIES COMPLETED DATE/TIME: 10/09/2018 9:48 am REASON FOR STUDY: ileus COMPARISON: 10/07/2018 NUMBER OF VIEWS: Three views. TECHNIQUE: Frontal chest, supine abdomen and upright/decubitus abdomen radiographic images acquired. LIMITATIONS: None. FINDINGS: CHEST: Small effusions unchanged. FREE AIR: None. No abnormal gas collections. BOWEL GAS PATTERN: Unchanged dilated loops of large bowel centrally. Cecum is not dilated. CALCIFICATIONS: No suspicious calcifications. HARDWARE: Lumbar fusion. SOFT TISSUES: No gross mass or suggestion of organomegaly. BONES: No acute fracture. No worrisome bone lesions. OTHER: Flores catheter. IMPRESSION: Partial colonic obstruction or pseudo-obstruction. No significant change. TECHNICAL DOCUMENTATION: JOB ID: [id number] [email or web address]- All Rights Reserved Reading location - IP/workstation name: [email or web address]
[2018-10-09] MEDS: METOPROLOL TARTRATE 25 MG TABLET NG SCH (10:42)
[2018-10-09] MEDS: BUMETANIDE INJ/PF 1 MG/4 ML SDV IV SCH (10:42)
[2018-10-09] MEDS: VALSARTAN 160 MG TABLET PO SCH (10:43)
[2018-10-09] MEDS: MEGESTROL ACETATE SUSP 400 MG/10 ML UDCUP PO SCH (10:43)
[2018-10-09] MEDS: ESCITALOPRAM OXALATE 10 MG TABLET NG SCH (10:43)
[2018-10-09] MEDS: NYSTATIN TOPICAL POWDER 15 GM TP SCH ×2 (10:50→19:52)
[2018-10-09 10:55] LABS: ALANINE AMINOTRANSFERASE 37 U/L (9-52); ALBUMIN 2.1 g/dL (3.5-5.0); ALKALINE PHOSPHATASE 103 U/L (38-126); ANION GAP 6 (5-19); ASPARTATE AMINO TRANSFERASE 30 U/L (14-36); BILIRUBIN,DIRECT 0.6 mg/dL (0.0-0.4); BILIRUBIN,TOTAL 0.9 mg/dL (0.2-1.3); BLOOD UREA NITROGEN 46 mg/dL (7-20); CALCIUM 8.3 mg/dL (8.4-10.2); CARBON DIOXIDE 21 mmol/L (22-30); CHLORIDE 129 mmol/L (98-107); GLUCOSE 122 mg/dL (75-110); SODIUM 156.3 mmol/L (137-145); TOTAL PROTEIN 4.3 g/dL (6.3-8.2)
[2018-10-09 10:59] LABS: POTASSIUM 2.6 mmol/L (3.6-5.0)
[2018-10-09] MEDS: INSULIN GLARGINE,HUM.REC.ANLOG 300 UNIT/3 ML INSULN.PEN SUBCUT SCH (11:11)
[2018-10-09] MEDS: POTASSI CL 20 MEQ/50 ML RIDER 20 MEQ/50 ML RTUPB IV SCH ×2 (13:59→16:34)
--- NOTE | 2018-10-09 15:55 | PDOC PROGRESS REPORT ---
Subjective Progress Note for:: 10/09/18 Subjective:: No acute events in the last 24 hours. Patient is afebrile. C. difficile came back negative. Patient still have NG tube getting the NG tube feedings until now. Plan is to remove the NG tube start her on clear liquids and advance the diet as tolerated. 10/08/2018-acute abdominal series came back yesterday as possible ileus. I discussed the case with Dr. Aguirre, surgical consult was placed he thinks basically patient has constipation and patient has a 2 large bowel movements yesterday. Today CT abdominal pelvis was done which shows:colon Dilated 10 cm. I discussed the care again with Dr. Aguirre he is not concerned and believes it is not ileus. He want me to do stool for C. difficile. Plan is to repeat the acute abdominal series tomorrow. 10/09/2018-no acute events in the last 24 hours. Acute abdominal series was done this morning shows partial obstruction versus pseudoobstruction. She still have a low potassium of 2.8 despite getting IV K rider. We are going to stop her on Bumex. Albumin is also less 2.1 be going to give albumin 50%. Since appetite is still poor. She has a few loose stools. Reason For Visit: SEPSIS, CLOSTRIDIUM DIFFICILE COLITIS,ACUTE KIDNEY Physical Exam Vital Signs: Temp Pulse Resp BP Pulse Ox 98.3 F 102 H 22 H 115/64 94 10/09/18 11:36 10/09/18 11:36 10/09/18 11:36 10/09/18 11:36 10/09/18 11:36 Intake & Output 10/08/18 10/09/18 10/10/18 06:59 06:59 06:59 Intake Total 1050 1083 438 Output Total 1200 1110 Balance -150 -27 438 Weight 84.9 kg 84.9 kg General appearance: PRESENT: no acute distress Head exam: PRESENT: atraumatic Eye exam: PRESENT: PERRLA Mouth exam: PRESENT: moist Neck exam: ABSENT: carotid bruit, JVD, lymphadenopathy, thyromegaly Respiratory exam: PRESENT: clear to auscultation caroline. ABSENT: rales, rhonchi, wheezes Cardiovascular exam: PRESENT: tachycardia GI/Abdominal exam: PRESENT: other - Abdominal was bloated and distended. Extremities exam: PRESENT: +1 edema Neurological exam: PRESENT: alert, awake, oriented to person Psychiatric exam: PRESENT: appropriate affect, normal mood. ABSENT: homicidal ideation, suicidal ideation Results Laboratory Results: 10/09/18 07:40 10/09/18 07:40 10/08/18 10/09/18 10/09/18 22:00 07:40 07:40 WBC 17.6 H RBC 4.18 Hgb 13.4 Hct 40.6 MCV 97 MCH 32.1 MCHC 33.1 RDW 17.4 H Plt Count 179 Seg Neutrophils % 90.1 H Lymphocytes % 6.1 L Monocytes % 3.8 Eosinophils % 0.0 Basophils % 0.0 Absolute Neutrophils 15.9 H Absolute Lymphocytes 1.1 Absolute Monocytes 0.7 Absolute Eosinophils 0.0 Absolute Basophils 0.0 Sodium 156.3 H Potassium 2.8 L* 2.6 L* Chloride 129 H Carbon Dioxide 21 L Anion Gap 6 BUN 46 H Creatinine 1.11 Est GFR ( Amer) 57 L Est GFR (Non-Af Amer) 47 L Glucose 122 H Calcium 8.3 L Magnesium 1.9 Total Bilirubin 0.9 AST 30 ALT 37 Alkaline Phosphatase 103 Total Protein 4.3 L Albumin 2.1 L 09/27/18 09/27/18 15:00 17:25 Creatine Kinase 68 CK-MB (CK-2) 3.15 Troponin I 0.061 NT-Pro-B Natriuret Pep 1140 H Impressions: Head CT 09/27/18 14:30 IMPRESSION: No acute intracranial pathology. EVIDENCE OF ACUTE STROKE: NO. Chest X-Ray 09/28/18 06:00 IMPRESSION: Little interval change copyright 2010 [employer]- All Rights Reserved KUB X-Ray 09/29/18 00:00 IMPRESSION: Tip of the enteric tube likely in the body of the stomach. Several mildly prominent air filled loops of small bowel may reflect ileus. Follow-up recommended copyright 2010 [employer]- All Rights Reserved Abdomen/Pelvis CT 10/08/18 00:00 IMPRESSION: Diffuse dilatation of the colon containing air and fluid. Maximal diameter approximately 10 cm. No wall thickening or evidence of torsion. The small bowel is normal in caliber. Moderate size bilateral pleural effusions with adjacent atelectasis. Small amount of perihepatic free fluid. Acute Abdomen Series 10/09/18 07:00 IMPRESSION: Partial colonic obstruction or pseudo-obstruction. No significant change. Assessment & Plan - Diagnosis (1) Acute cystitis with positive culture Is this a current diagnosis for this admission?: Yes Plan: 10/07/2018-urine cultures positive for Proteus mirabilis. Presently on cefazolin 1 g every 12 hours IV. Patient completed the course of 7 days of IV antibiotic therapy plan is to discontinue antibiotics today. 10/08/2018-patient is on Proteus mirabilis. On cefazolin 1 g IV every 12 hours. She is afebrile. She completed antibiotic course of 1 week yesterday. 10/09/2018-patient has urine culture positive for Proteus mirabilis, on cefazolin 1 g IV every 12 hours. She completed 1 week of antibiotic therapy she is off the antibiotics now. (2) Atrial fibrillation with RVR Is this a current diagnosis for this admission?: Yes Plan: 10/07/2018 patient was admitted with atrial fibrillation with RVR now is rate controlled. Patient is on metoprolol 25 mg every 12 hours. Plan is to continue the present management. 10/08/2018-patient is admitted with A. fib with RVR. Presently on metoprolol 25 mg every 6 hours. She is in sinus rhythm. 10/09/2018 8-patient has atrial fibrillation with RVR rate controlled on metoprolol 25 mg every 6 hours. Plan is to continue the present management. (3) Renal failure Qualifiers: Renal failure chronicity: acute Acute renal failure type: unspecified Qualified Code(s): N17.9 - Acute kidney failure, unspecified Is this a current diagnosis for this admission?: Yes Plan: 10/07/2018 patient came in with creatinine of 7.2 and today is 0.86. Acute kidney injury most likely prerenal is resolved. 10/08/2018 patient admitted with creatinine of 7.2 today is 1.0. Acute kidney injury most likely prerenal is resolved. 10/09/2018-patient is admitted with creatinine of 7.2 today 1.11 with a GFR of 47. Plan is to discontinue her Bumex today. And to recheck her labs tomorrow. (4) Metabolic encephalopathy Is this a current diagnosis for this admission?: Yes Plan: I suspect that this is due in large part to the fact that she has not been ea ting much of anything at all for weeks and has been drinking very little. The bulk of what we have been doing for her is hydrating her and giving her tube feeds through an NG tube, and her clinical condition now looks the best that it has been in weeks. It will be interesting to see how well she eats wants her nutritional status has improved some more and we discontinue the NG tube, because previously the problem was not that she could not eat, but that she just did not want to. We plan to give her tube feeds through the weekend, and then, the first of the week, will clamp the tube and hold the tube feeds, and see how well she tolerates liquids and soft foods, and what sort of appetite she has. I am concerned that she lacks the motivation, for some reason, to eat on her own. 10/07/2018-metabolic encephalopathy most likely secondary to poor oral intake and poor nutrition status. She is received NG tube feedings until this morning. We are going to remove the NG tube start with clear liquids today to advance the diet and see if he is able to tolerate the oral feeds. Acute abdominal series was requested. We continue to follow her on regular basis with the daily labs. 10/08/2018-patient is little bit alert and oriented compared to yesterday. Metabolic encephalopathy may be secondary to electrolyte abnormalities, poor nutritional status and a poor oral intake. We could continue to follow her on regular basis. 2018-patient able to communicate better compared to yesterday. But her appetite is still poor. Altered mental status /metabolic encephalopathy may be secondary to poor mental status, electrolyte abnormalities, poor oral intake. I am going to start her on Megace to improve her appetite. (5) Hypokalemia Is this a current diagnosis for this admission?: Yes Plan: 10/09/2018-hypokalemia with potassium of 2.8 most likely secondary to poor oral intake and patient is on Bumex which was stopped today. We are going to recheck her potassium tomorrow she is getting IV K riders. - Time Time Spent with patient: 25-34 minutes Medications reviewed and adjusted accordingly: Yes Anticipated discharge: [facility]
[2018-10-09] MEDS: MIDODRINE HCL 5 MG TABLET PO SCH (17:19)
[2018-10-09] MEDS ORDERED: MIDODRINE HCL 5 MG TABLET PO ONE (17:30)
[2018-10-09] MEDS: ALBUMIN HUMAN 12.5 GM/50 ML RTUINJ IV SCH (19:50)
[2018-10-10] MEDS: ALBUMIN HUMAN 12.5 GM/50 ML RTUINJ IV SCH ×3 (00:11→03:43)
[2018-10-10] MEDS: HEPARIN SOD (PORCINE) 5,000 UNIT/ML 1 ML SYRINGE SUBCUT SCH ×4 (00:30→22:48)
[2018-10-10] MEDS: METOPROLOL TARTRATE 25 MG TABLET NG SCH ×3 (00:31→22:48)
[2018-10-10] MEDS: MIRTAZAPINE 15 MG TABLET NG SCH ×2 (00:32→22:49)
[2018-10-10] MEDS: INSULIN LISPRO 100 UNIT/ML 3 ML VIAL SUBCUT SCH ×5 (02:21→23:06)
[2018-10-10] MEDS: LEVOTHYROXINE SODIUM 0.05 MG TABLET NG SCH (06:50)
[2018-10-10] MEDS ORDERED: VALSARTAN 80 MG TABLET PO SCH (10:00)
[2018-10-10] MEDS ORDERED: MEGESTROL ACETATE SUSP 400 MG/10 ML UDCUP PO SCH (10:00)
[2018-10-10] MEDS ORDERED: VALSARTAN 160 MG TABLET PO SCH (10:00)
[2018-10-10] MEDS: MEGESTROL ACETATE SUSP 400 MG/10 ML UDCUP PO SCH (10:42)
[2018-10-10] MEDS: ESCITALOPRAM OXALATE 10 MG TABLET NG SCH (10:43)
[2018-10-10] MEDS: NYSTATIN TOPICAL POWDER 15 GM TP SCH ×2 (10:56→17:46)
[2018-10-10] MEDS: MIDODRINE HCL 5 MG TABLET PO SCH ×2 (10:59→13:16)
[2018-10-10 12:07] LABS: ALANINE AMINOTRANSFERASE 30 U/L (9-52); ALBUMIN 2.6 g/dL (3.5-5.0); ALKALINE PHOSPHATASE 78 U/L (38-126); ANION GAP 8 (5-19); ASPARTATE AMINO TRANSFERASE 22 U/L (14-36); BILIRUBIN,DIRECT 0.5 mg/dL (0.0-0.4); BLOOD UREA NITROGEN 50 mg/dL (7-20); CALCIUM 8.7 mg/dL (8.4-10.2); CARBON DIOXIDE 21 mmol/L (22-30); CHLORIDE 128 mmol/L (98-107); GLUCOSE 162 mg/dL (75-110); SODIUM 157.3 mmol/L (137-145); TOTAL PROTEIN 4.5 g/dL (6.3-8.2)
[2018-10-10 12:11] LABS: POTASSIUM 2.2 mmol/L (3.6-5.0)
[2018-10-10] MEDS: POTASSI CL 20 MEQ/50 ML RIDER 20 MEQ/50 ML RTUPB IV SCH ×4 (13:55→20:26)
[2018-10-10] MEDS ORDERED: MAGNESIUM SULFATE/D5W 1 GM/100 ML RTUPB IV ONE ×2 (15:25→23:00)
--- NOTE | 2018-10-10 17:30 | PDOC PROGRESS REPORT ---
Subjective Progress Note for:: 10/10/18 Subjective:: No acute events in the last 24 hours. Patient is afebrile. C. difficile came back negative. Patient still have NG tube getting the NG tube feedings until now. Plan is to remove the NG tube start her on clear liquids and advance the diet as tolerated. 10/08/2018-acute abdominal series came back yesterday as possible ileus. I discussed the case with Dr. Aguirre, surgical consult was placed he thinks basically patient has constipation and patient has a 2 large bowel movements yesterday. Today CT abdominal pelvis was done which shows:colon Dilated 10 cm. I discussed the care again with Dr. Aguirre he is not concerned and believes it is not ileus. He want me to do stool for C. difficile. Plan is to repeat the acute abdominal series tomorrow. 10/09/2018-no acute events in the last 24 hours. Acute abdominal series was done this morning shows partial obstruction versus pseudoobstruction. She still have a low potassium of 2.8 despite getting IV K rider. We are going to stop her on Bumex. Albumin is also less 2.1 be going to give albumin 50%. Since appetite is still poor. She has a few loose stools. 10/10/2018-patient still having the loose stools. C. difficile last night is negative. Potassium is 2.2 despite giving a lot of IV K rider. She is off diuretics. Blood pressures are stable. Patient appetite is still very very minimal. Patient is afebrile. traffic and transport planner consult was placed for possible hospice. Reason For Visit: SEPSIS, CLOSTRIDIUM DIFFICILE COLITIS,ACUTE KIDNEY Physical Exam Vital Signs: Temp Pulse Resp BP Pulse Ox 97.7 F 86 17 135/42 H 93 10/10/18 15:44 10/10/18 15:44 10/10/18 15:44 10/10/18 15:44 10/10/18 15:44 Intake & Output 10/09/18 10/10/18 10/11/18 06:59 06:59 06:59 Intake Total 1083 738 100 Output Total 1110 700 Balance -27 38 100 Weight 84.9 kg 84.9 kg General appearance: PRESENT: no acute distress Head exam: PRESENT: atraumatic Eye exam: PRESENT: PERRLA Mouth exam: PRESENT: dry mucosa Neck exam: ABSENT: carotid bruit, JVD, lymphadenopathy, thyromegaly Respiratory exam: PRESENT: clear to auscultation caroline. ABSENT: rales, rhonchi, wheezes Cardiovascular exam: PRESENT: RRR. ABSENT: diastolic murmur, rubs, systolic murmur GI/Abdominal exam: PRESENT: normal bowel sounds, soft. ABSENT: distended, guarding, mass, organolmegaly, rebound, tenderness Extremities exam: PRESENT: full ROM. ABSENT: calf tenderness, clubbing, pedal edema Neurological exam: PRESENT: alert, oriented to person Psychiatric exam: PRESENT: appropriate affect, normal mood. ABSENT: homicidal ideation, suicidal ideation Results Laboratory Results: 10/09/18 07:40 10/10/18 10:40 10/10/18 10/10/18 10:36 10:40 Sodium 157.3 H Potassium 2.2 L* Chloride 128 H Carbon Dioxide 21 L Anion Gap 8 BUN 50 H Creatinine 1.19 Est GFR ( Amer) 52 L Est GFR (Non-Af Amer) 43 L Glucose 162 H Calcium 8.7 Total Bilirubin 1.0 AST 22 ALT 30 Alkaline Phosphatase 78 Total Protein 4.5 L Albumin 2.6 L Stool Occult Blood POSITIVE 09/27/18 09/27/18 15:00 17:25 Creatine Kinase 68 CK-MB (CK-2) 3.15 Troponin I 0.061 NT-Pro-B Natriuret Pep 1140 H Impressions: Head CT 09/27/18 14:30 IMPRESSION: No acute intracranial pathology. EVIDENCE OF ACUTE STROKE: NO. Chest X-Ray 09/28/18 06:00 IMPRESSION: Little interval change copyright 2010 [employer]- All Rights Reserved KUB X-Ray 09/29/18 00:00 IMPRESSION: Tip of the enteric tube likely in the body of the stomach. Several mildly prominent air filled loops of small bowel may reflect ileus. Follow-up recommended copyright 2010 [employer]- All Rights Reserved Abdomen/Pelvis CT 10/08/18 00:00 IMPRESSION: Diffuse dilatation of the colon containing air and fluid. Maximal diameter approximately 10 cm. No wall thickening or evidence of torsion. The small bowel is normal in caliber. Moderate size bilateral pleural effusions with adjacent atelectasis. Small amount of perihepatic free fluid. Acute Abdomen Series 10/09/18 07:00 IMPRESSION: Partial colonic obstruction or pseudo-obstruction. No significant change. Assessment & Plan - Diagnosis (1) Acute cystitis with positive culture Is this a current diagnosis for this admission?: Yes Plan: 10/07/2018-urine cultures positive for Proteus mirabilis. Presently on cefazolin 1 g every 12 hours IV. Patient completed the course of 7 days of IV antibiotic therapy plan is to discontinue antibiotics today. 10/08/2018-patient is on Proteus mirabilis. On cefazolin 1 g IV every 12 hours. She is afebrile. She completed antibiotic course of 1 week yesterday. 10/09/2018-patient has urine culture positive for Proteus mirabilis, on cefazolin 1 g IV every 12 hours. She completed 1 week of antibiotic therapy she is off the antibiotics now. 10/10/2018 urine culture was positive for protein Ms.'s mirabilis she was treated with cefazolin 1 g IV every 12 hours for 1 week. (2) Atrial fibrillation with RVR Is this a current diagnosis for this admission?: Yes Plan: 10/07/2018 patient was admitted with atrial fibrillation with RVR now is rate controlled. Patient is on metoprolol 25 mg every 12 hours. Plan is to continue the present management. 10/08/2018-patient is admitted with A. fib with RVR. Presently on metoprolol 25 mg every 6 hours. She is in sinus rhythm. 10/09/2018 -patient has atrial fibrillation with RVR rate controlled on metoprolol 25 mg every 6 hours. Plan is to continue the present management. 10/10/2018-patient has a history of atrial fibrillation with RVR rate controlled now on metoprolol 25 mg p.o. every 6 hours. Plan is to continue the present management. (3) Renal failure Qualifiers: Renal failure chronicity: acute Acute renal failure type: unspecified Qualified Code(s): N17.9 - Acute kidney failure, unspecified Is this a current diagnosis for this admission?: Yes Plan: 10/07/2018 patient came in with creatinine of 7.2 and today is 0.86. Acute kidney injury most likely prerenal is resolved. 10/08/2018 patient admitted with creatinine of 7.2 today is 1.0. Acute kidney injury most likely prerenal is resolved. 10/09/2018-patient is admitted with creatinine of 7.2 today 1.11 with a GFR of 47. Plan is to discontinue her Bumex today. And to recheck her labs tomorrow. 10/10/2018-patient was admitted with creatinine of 7.2 today her GFR is 43 and creatinine is 1.19. She is off the Bumex and she is off the IV fluids. Blood pressure today 132/42. (4) Metabolic encephalopathy Is this a current diagnosis for this admission?: Yes Plan: I suspect that this is due in large part to the fact that she has not been eating much of anything at all for weeks and has been drinking very little. The bulk of what we have been doing for her is hydrating her and giving her tube feeds through an NG tube, and her clinical condition now looks the best that it has been in weeks. It will be interesting to see how well she eats wants her nutritional status has improved some more and we discontinue the NG tube, becau se previously the problem was not that she could not eat, but that she just did not want to. We plan to give her tube feeds through the weekend, and then, the first of the week, will clamp the tube and hold the tube feeds, and see how well she tolerates liquids and soft foods, and what sort of appetite she has. I am concerned that she lacks the motivation, for some reason, to eat on her own. 10/07/2018-metabolic encephalopathy most likely secondary to poor oral intake and poor nutrition status. She is received NG tube feedings until this morning. We are going to remove the NG tube start with clear liquids today to advance the diet and see if he is able to tolerate the oral feeds. Acute abdominal series was requested. We continue to follow her on regular basis with the daily labs. 10/08/2018-patient is little bit alert and oriented compared to yesterday. Metabolic encephalopathy may be secondary to electrolyte abnormalities, poor nutritional status and a poor oral intake. We could continue to follow her on regular basis. 2018-patient able to communicate better compared to yesterday. But her appetite is still poor. Altered mental status /metabolic encephalopathy may be secondary to poor mental status, electrolyte abnormalities, poor oral intake. I am going to start her on Megace to improve her appetite. 10/10/2018-patient is comfortably in the bed not in distress appetite is very very minimal. Continued to have loose stools. Despite IV K riders potassium st ill low at 2.2. We are going to give a K rider 80 mg x2 doses today. To check the labs tomorrow. (5) Hypokalemia Is this a current diagnosis for this admission?: Yes Plan: 10/09/2018-hypokalemia with potassium of 2.8 most likely secondary to poor oral intake and patient is on Bumex which was stopped today. We are going to recheck her potassium tomorrow she is getting IV K riders. 10/10/2018-potassium level today is 2.2 she is not taking much by mouth be going to give K riders 80 mEq x2. - Time Time Spent with patient: 15-24 minutes Medications reviewed and adjusted accordingly: Yes
[2018-10-11] MEDS: LEVOTHYROXINE SODIUM 0.05 MG TABLET NG SCH (06:42)
[2018-10-11] MEDS: INSULIN LISPRO 100 UNIT/ML 3 ML VIAL SUBCUT SCH ×4 (06:43→23:20)
[2018-10-11] MEDS: HEPARIN SOD (PORCINE) 5,000 UNIT/ML 1 ML SYRINGE SUBCUT SCH ×3 (06:44→21:36)
[2018-10-11 07:39] LABS: HEMATOCRIT 36.6 % (36.0-47.0); MEAN CORPUSCULAR HEMOGLOBIN 32.1 pg (27.0-33.4); MEAN CORPUSCULAR HGB CONC 32.9 g/dL (32.0-36.0); MEAN CORPUSCULAR VOLUME 97 fl (80-97); RED BLOOD COUNT 3.76 10^6/uL (3.72-5.28); WHITE BLOOD COUNT 12.4 10^3/uL (4.0-10.5)
[2018-10-11 08:09] LABS: ALANINE AMINOTRANSFERASE 31 U/L (9-52); ALBUMIN 2.4 g/dL (3.5-5.0); ALKALINE PHOSPHATASE 95 U/L (38-126); ANION GAP 8 (5-19); ASPARTATE AMINO TRANSFERASE 26 U/L (14-36); BILIRUBIN,DIRECT 0.4 mg/dL (0.0-0.4); BILIRUBIN,TOTAL 0.7 mg/dL (0.2-1.3); BLOOD UREA NITROGEN 48 mg/dL (7-20); CALCIUM 8.2 mg/dL (8.4-10.2); CARBON DIOXIDE 20 mmol/L (22-30); CHLORIDE 130 mmol/L (98-107); GLUCOSE 209 mg/dL (75-110); TOTAL PROTEIN 4.3 g/dL (6.3-8.2)
[2018-10-11 08:19] LABS: POTASSIUM 2.3 mmol/L (3.6-5.0)
[2018-10-11 08:28] LABS: PLATELET COUNT 152 10^3/uL (150-450)
[2018-10-11 08:30] LABS: ABSOLUTE LYMPHOCYTES# (MANUAL) 0.2 10^3/uL (0.5-4.7); ABSOLUTE MONOCYTES # (MANUAL) 0.1 10^3/uL (0.1-1.4); BASOPHILS % (MANUAL) 0 % (0-2); EOSINOPHILS % (MANUAL) 0 % (0-6); LYMPHOCYTES % (MANUAL) 2 % (13-45); MONOCYTES % (MANUAL) 1 % (3-13); SEGMENTED NEUTROPHILS % (MAN) 97 % (42-78); TOTAL CELLS COUNTED 100
[2018-10-11 08:31] LABS: ANISOCYTOSIS 1+; OVALOCYTES SLIGHT; PLATELET CLUMPS PRESENT; POIKILOCYTOSIS SLIGHT
[2018-10-11] MEDS: POTASSI CL 20 MEQ/50 ML RIDER 20 MEQ/50 ML RTUPB IV SCH ×4 (09:51→23:20)
[2018-10-11] MEDS: MEGESTROL ACETATE SUSP 400 MG/10 ML UDCUP PO SCH (09:52)
[2018-10-11] MEDS: ESCITALOPRAM OXALATE 10 MG TABLET NG SCH (09:52)
[2018-10-11] MEDS: METOPROLOL TARTRATE 25 MG TABLET NG SCH ×2 (09:52→21:41)
[2018-10-11] MEDS: LOPERAMIDE HCL 2 MG CAPSULE PO PRN ×2 (10:19→21:41)
[2018-10-11] MEDS: NYSTATIN TOPICAL POWDER 15 GM TP SCH ×2 (10:21→17:43)
--- NOTE | 2018-10-11 12:52 | PDOC PROGRESS REPORT ---
Subjective Progress Note for:: 10/11/18 Subjective:: No acute events in the last 24 hours. Patient is afebrile. C. difficile came back negative. Patient still have NG tube getting the NG tube feedings until now. Plan is to remove the NG tube start her on clear liquids and advance the diet as tolerated. 10/08/2018-acute abdominal series came back yesterday as possible ileus. I discussed the case with Dr. Aguirre, surgical consult was placed he thinks basically patient has constipation and patient has a 2 large bowel movements yesterday. Today CT abdominal pelvis was done which shows:colon Dilated 10 cm. I discussed the care again with Dr. Aguirre he is not concerned and believes it is not ileus. He want me to do stool for C. difficile. Plan is to repeat the acute abdominal series tomorrow. 10/09/2018-no acute events in the last 24 hours. Acute abdominal series was done this morning shows partial obstruction versus pseudoobstruction. She still have a low potassium of 2.8 despite getting IV K rider. We are going to stop her on Bumex. Albumin is also less 2.1 be going to give albumin 50%. Since appetite is still poor. She has a few loose stools. 10/10/2018-patient still having the loose stools. C. difficile last night is negative. Potassium is 2.2 despite giving a lot of IV K rider. She is off diuretics. Blood pressures are stable. Patient appetite is still very very minimal. Patient is afebrile. operations planner consult was placed for possible hospice. 10/11/2018-no acute events in the last 24 hours. Stool culture was negative for C. difficile. Still having the loose stools. Started on Imodium. Potassium is persistently low she it is 2.3 today. She is going to receive at least 200 mEq of IV potassium today. Kidney function is improving. Reason For Visit: SEPSIS, CLOSTRIDIUM DIFFICILE COLITIS,ACUTE KIDNEY Physical Exam Vital Signs: Temp Pulse Resp BP Pulse Ox 98.5 F 92 18 138/61 H 95 10/11/18 11:39 10/11/18 11:39 10/11/18 11:39 10/11/18 11:39 10/11/18 11:39 Intake & Output 10/10/18 10/11/18 10/12/18 06:59 06:59 06:59 Intake Total 738 747 50 Output Total 700 1000 Balance 38 -253 50 Weight 84.9 kg 84.9 kg General appearance: PRESENT: no acute distress Head exam: PRESENT: atraumatic Eye exam: PRESENT: PERRLA Mouth exam: PRESENT: moist Neck exam: ABSENT: carotid bruit, JVD, lymphadenopathy, thyromegaly Respiratory exam: PRESENT: clear to auscultation caroline. ABSENT: rales, rhonchi, wheezes Cardiovascular exam: PRESENT: irregular rhythm, systolic murmur, tachycardia GI/Abdominal exam: PRESENT: normal bowel sounds, soft. ABSENT: distended, guarding, mass, organolmegaly, rebound, tenderness Extremities exam: PRESENT: +2 edema Neurological exam: PRESENT: alert, awake, oriented to person, oriented to place, oriented to time, oriented to situation, CN II-XII grossly intact. ABSENT: motor sensory deficit Psychiatric exam: PRESENT: appropriate affect, normal mood. ABSENT: homicidal ideation, suicidal ideation Results Laboratory Results: 10/11/18 05:55 10/11/18 05:55 10/11/18 10/11/18 05:55 05:55 WBC 12.4 H RBC 3.76 Hgb 12.0 Hct 36.6 MCV 97 MCH 32.1 MCHC 32.9 RDW 17.0 H Plt Count 152 Seg Neutrophils % Not Reportable Lymphocytes % Not Reportable Monocytes % Not Reportable Eosinophils % Not Reportable Basophils % Not Reportable Absolute Neutrophils Not Reportable Absolute Lymphocytes Not Reportable Absolute Monocytes Not Reportable Absolute Eosinophils Not Reportable Absolute Basophils Not Reportable Sodium 158.0 H Potassium 2.3 L* Chloride 130 H Carbon Dioxide 20 L Anion Gap 8 BUN 48 H Creatinine 1.04 Est GFR ( Amer) > 60 Est GFR (Non-Af Amer) 51 L Glucose 209 H Calcium 8.2 L Magnesium 2.3 Total Bilirubin 0.7 AST 26 ALT 31 Alkaline Phosphatase 95 Total Protein 4.3 L Albumin 2.4 L 09/27/18 09/27/18 15:00 17:25 Creatine Kinase 68 CK-MB (CK-2) 3.15 Troponin I 0.061 NT-Pro-B Natriuret Pep 1140 H Impressions: Head CT 09/27/18 14:30 IMPRESSION: No acute intracranial pathology. EVIDENCE OF ACUTE STROKE: NO. Chest X-Ray 09/28/18 06:00 IMPRESSION: Little interval change copyright 2010 [employer]- All Rights Reserved KUB X-Ray 09/29/18 00:00 IMPRESSION: Tip of the enteric tube likely in the body of the stomach. Several mildly prominent air filled loops of small bowel may reflect ileus. Follow-up recommended copyright 2010 [employer]- All Rights Reserved Abdomen/Pelvis CT 10/08/18 00:00 IMPRESSION: Diffuse dilatation of the colon containing air and fluid. Maximal diameter approximately 10 cm. No wall thickening or evidence of torsion. The small bowel is normal in caliber. Moderate size bilateral pleural effusions with adjacent atelectasis. Small amount of perihepatic free fluid. Acute Abdomen Series 10/09/18 07:00 IMPRESSION: Partial colonic obstruction or pseudo-obstruction. No significant change. Assessment & Plan - Diagnosis (1) Acute cystitis with positive culture Is this a current diagnosis for this admission?: Yes Plan: 10/07/2018-urine cultures positive for Proteus mirabilis. Presently on cefazolin 1 g every 12 hours IV. Patient completed the course of 7 days of IV antibiotic therapy plan is to discontinue antibiotics today. 10/08/2018-patient is on Proteus mirabilis. On cefazolin 1 g IV every 12 hours. She is afebrile. She completed antibiotic course of 1 week yesterday. 10/09/2018-patient has urine culture positive for Proteus mirabilis, on cefazolin 1 g IV every 12 hours. She completed 1 week of antibiotic therapy she is off the antibiotics now. 10/10/2018 urine culture was positive for proteus mirabilis she was treated with cefazolin 1 g IV every 12 hours for 1 week. 10/11/2018-urine culture was positive for Proteus mirabilis she was treated with cefazolin 1 g IV every 12 hours for 1 week. She is off the antibiotics. Patient is afebrile. (2) Atrial fibrillation with RVR Is this a current diagnosis for this admission?: Yes Plan: 10/07/2018 patient was admitted with atrial fibrillation with RVR now is rate controlled. Patient is on metoprolol 25 mg every 12 hours. Plan is to continue the present management. 10/08/2018-patient is admitted with A. fib with RVR. Presently on metoprolol 25 mg every 6 hours. She is in sinus rhythm. 10/09/2018 -patient has atrial fibrillation with RVR rate controlled on metoprolol 25 mg every 6 hours. Plan is to continue the present management. 10/10/2018-patient has a history of atrial fibrillation with RVR rate controlled now on metoprolol 25 mg p.o. every 6 hours. Plan is to continue the present management. 10/11/2018-patient has history of paroxysmal atrial fibrillation with RVR. She still in A. fib. The heart rate is 92 rate controlled. Patient is on metoprolol 25 mg p.o. twice daily we will continue the present medication. (3) Renal failure Qualifiers: Renal failure chronicity: acute Acute renal failure type: unspecified Qualified Code(s): N17.9 - Acute kidney failure, unspecified Is this a current diagnosis for this admission?: Yes Plan: 10/07/2018 patient came in with creatinine of 7.2 and today is 0.86. Acute kidney injury most likely prerenal is resolved. 10/08/2018 patient admitted with creatinine of 7.2 today is 1.0. Acute kidney injury most likely prerenal is resolved. 10/09/2018-patient is admitted with creatinine of 7.2 today 1.11 with a GFR of 47. Plan is to discontinue her Bumex today. And to recheck her labs tomorrow. 10/10/2018-patient was admitted with creatinine of 7.2 today her GFR is 43 and c reatinine is 1.19. She is off the Bumex and she is off the IV fluids. Blood pressure today 132/42. 10/11/2018-patient came in with creatinine of 7.2 improved to 1.04 today. Acute renal failure most likely prerenal resolving. (4) Metabolic encephalopathy Is this a current diagnosis for this admission?: Yes Plan: I suspect that this is due in large part to the fact that she has not been eating much of anything at all for weeks and has been drinking very little. The bulk of what we have been doing for her is hydrating her and giving her tube feeds through an NG tube, and her clinical condition now looks the best that it has been in weeks. It will be interesting to see how well she eats wants her nutritional status has improved some more and we discontinue the NG tube, because previously the problem was not that she could not eat, but that she just did not want to. We plan to give her tube feeds through the weekend, and then, the first of the week, will clamp the tube and hold the tube feeds, and see how well she tolerates liquids and soft foods, and what sort of appetite she has. I am concerned that she lacks the motivation, for some reason, to eat on her own. 10/07/2018-metabolic encephalopathy most likely secondary to poor oral intake and poor nutrition status. She is received NG tube feedings until this morning. We are going to remove the NG tube start with clear liquids today to advance the diet and see if he is able to tolerate the oral feeds. Acute abdominal series was requested. We continue to follow her on regular basis with the daily labs. 10/08/2018-patient is little bit alert and oriented compared to yesterday. Metabolic encephalopathy may be secondary to electrolyte abnormalities, poor nutritional status and a poor oral intake. We could continue to follow her on regular basis. 2018-patient able to communicate better compared to yesterday. But her appetite is still poor. Altered mental status /metabolic encephalopathy may be secondary to poor mental status, electrolyte abnormalities, poor oral intake. I am going to start her on Megace to improve her appetite. 10/10/2018-patient is comfortably in the bed not in distress appetite is very very minimal. Continued to have loose stools. Despite IV K riders potassium still low at 2.2. We are going to give a K rider 80 mg x2 doses today. To check the labs tomorrow. 10/11/2018-patient is admitted with altered mental status/acute encephalopathy most likely secondary to acute renal failure and electrolyte abnormalities including hypokalemia. Patient appetite is still poor. Patient is unable to participate in physical therapy. She may have to go to hospice care. (5) Hypokalemia Is this a current diagnosis for this admission?: Yes Plan: 10/09/2018-hypokalemia with potassium of 2.8 most likely secondary to poor oral intake and patient is on Bumex which was stopped today. We are going to recheck her potassium tomorrow she is getting IV K riders. 10/10/2018-potassium level today is 2.2 she is not taking much by mouth be going to give K riders 80 mEq x2. 10/11/2018-patient has persistently severe hypokalemia potassium today is 2.3 she received 80 meq of potassium yesterday. She is going to receive another 160 meq of potassium today. Nephrology consult was requested for input. Started on Imodium after C. difficile was negative. Hopefully controlling the loose stools may improve her potassium. - Time Time Spent with patient: 15-24 minutes Medications reviewed and adjusted accordingly: Yes Anticipated discharge: Hospice
--- NOTE | 2018-10-11 16:53 | PDOC CONSULTATION ---
Consultation Consult Date: 10/11/18 Consult reason:: persistant hypokalemia History of Present Illness Admission Date/PCP: 09/27/18 16:43 NNEKA ULLOA MD History of Present Illness: YULI HAMMER is a 83 year old female with history of prior hospitalization September 20 where she was diagnosed with C-diff. She was brought into the ER for altered mental status. Prior to coming to the ER she has been having persistent diarrhea and has not been eating or drinking much at all In the ER she was found to be hypotensive and on the dehydrated side. Creatinine was elevated in the 7s with a BUN in the 100s. C-diff test were done twice and negative both times. In the hospital she was hydrated over the past week in the hospital. Creatinine came down to 1.0 with a normal BUN. At the same time she was being tube fed due to not eating. There was concern for a possible bowel obstruction, which was ruled out. Patient was getting to a more stable state. The tube for feeding was removed. Patient was put on a clear liquid diet, but still has not been eating/drinking much. She also remains altered. Potassium started to drop, loop diuretics were stopped. Fluid was starting to build and potassium continue to fall despit. Diarrhea continued until today, when the patient was placed on imodium after a bowel obstruction was ruled out. Today she claims to be doing fine. Denies chest pain, palpitations, SOB, n/v. Diarrhea has improved some. Denies any fevers or chills. Past Medical History Cardiac Medical History: Reports: Atrial Fibrillation - Noted on previous admission, Hyperlipidemia Pulmonary Medical History: Reports: Sleep Apnea Endocrine Medical History: Reports: Diabetes Mellitus Type 1, Diabetes Mellitus Type 2 GI Medical History: Reports: Gastroesophageal Reflux Disease Psychiatric Medical History: Reports: Depression Infectious Medical History: Reports: Clostridium Difficile Past Surgical History Past Surgical History: Reports: Hysterectomy, Orthopedic Surgery - back Social History Lives with: Family Smoking Status: Former Smoker Frequency of Alcohol Use: None Hx Recreational Drug Use: No Hx Prescription Drug Abuse: No - Advance Directive Resuscitation Status: Do Not Resuscitate Family History Parental Family History Reviewed: Yes Children Family History Reviewed: Unknown Sibling(s) Family History Reviewed.: Unknown Medication/Allergy Home Medications: Levothyroxine Sodium [Synthroid 0.05 mg Tablet] 50 mcg PO [id number]@0600 12/05/11 Mirtazapine [Remeron 15 mg Tablet] 15 mg PO QHS 12/05/11 Triamterene/Hydrochlorothiazid [Dyazide 37.5-25 Capsule] 1 each PO DAILY 09/08 Escitalopram Oxalate [Lexapro 10 mg Tablet] 10 mg PO Q12 09/06/18 Insulin Aspart Prot/Insuln Asp [Novolog Mix 70-30 Flexpen Syrn] 0 unit SQ .SLIDING SCALE PRN 09/06/18 Metoprolol Tartrate [Lopressor 25 mg Tablet] 25 mg PO Q12 09/06/18 Valsartan [Diovan 160 mg Tablet] 160 mg PO DAILY 09/06/18 Fluticasone/Salmeterol [Fluticasone-Salmeterol 113-14] 1 each IH Q12 09/27/18 Lorazepam [Ativan 0.5 mg Tablet] 0.5 mg PO Q12HP PRN 09/27/18 Megestrol Acetate 600 mg PO DAILY 09/27/18 Allergies/Adverse Reactions: adhesive tape [Adhesive Tape] Allergy (Verified 08/09/12 14:02) latex [Latex] Allergy (Verified 08/09/12 14:02) meperidine HCl [From Demerol] Allergy (Verified 08/09/12 14:02) Review of Systems Constitutional: ABSENT: chills, fever(s) Nose, Mouth, and Throat: ABSENT: headache(s) Cardiovascular: PRESENT: edema. ABSENT: chest pain, orthropnea, palpitations Respiratory: ABSENT: cough, dyspnea, sputum Gastrointestinal: PRESENT: diarrhea. ABSENT: abdominal pain, constipation, nausea, vomiting Genitourinary: ABSENT: difficulty urinating, dysuria Musculoskeletal: PRESENT: muscle weakness Neurological: PRESENT: weakness. ABSENT: dizziness Endocrine: ABSENT: polydipsia, polyuria Physical Exam Vital Signs: Temp Pulse Resp BP Pulse Ox 98.9 F 85 16 131/56 H 96 10/11/18 15:32 10/11/18 15:32 10/11/18 15:32 10/11/18 15:32 10/11/18 15:32 Intake & Output 10/10/18 10/11/18 10/12/18 06:59 06:59 06:59 Intake Total 738 747 50 Output Total 700 1000 Balance 38 -253 50 Weight 84.9 kg 84.9 kg General appearance: PRESENT: no acute distress, morbidly obese, well-developed, well-nourished Mouth exam: PRESENT: dry mucosa. ABSENT: moist Neck exam: ABSENT: JVD, tracheal deviation Respiratory exam: PRESENT: clear to auscultation caroline. ABSENT: rales, rhonchi, wheezes Cardiovascular exam: PRESENT: +S1, +S2 GI/Abdominal exam: PRESENT: soft. ABSENT: firm, tenderness Extremities exam: PRESENT: pedal edema, +2 edema. ABSENT: tenderness Musculoskeletal exam: ABSENT: deformity, tenderness Neurological exam: PRESENT: alert, altered, oriented to place, oriented to situation Skin exam: PRESENT: dry, intact, warm Results Laboratory Results: 10/11/18 05:55 10/11/18 05:55 10/11/18 10/11/18 05:55 05:55 WBC 12.4 H RBC 3.76 Hgb 12.0 Hct 36.6 MCV 97 MCH 32.1 MCHC 32.9 RDW 17.0 H Plt Count 152 Seg Neutrophils % Not Reportable Lymphocytes % Not Reportable Monocytes % Not Reportable Eosinophils % Not Reportable Basophils % Not Reportable Absolute Neutrophils Not Reportable Absolute Lymphocytes Not Reportable Absolute Monocytes Not Reportable Absolute Eosinophils Not Reportable Absolute Basophils Not Reportable Sodium 158.0 H Potassium 2.3 L* Chloride 130 H Carbon Dioxide 20 L Anion Gap 8 BUN 48 H Creatinine 1.04 Est GFR ( Amer) > 60 Est GFR (Non-Af Amer) 51 L Glucose 209 H Calcium 8.2 L Magnesium 2.3 Total Bilirubin 0.7 AST 26 ALT 31 Alkaline Phosphatase 95 Total Protein 4.3 L Albumin 2.4 L 09/27/18 09/27/18 15:00 17:25 Creatine Kinase 68 CK-MB (CK-2) 3.15 Troponin I 0.061 NT-Pro-B Natriuret Pep 1140 H Impressions: Head CT 09/27/18 14:30 IMPRESSION: No acute intracranial pathology. EVIDENCE OF ACUTE STROKE: NO. Chest X-Ray 09/28/18 06:00 IMPRESSION: Little interval change copyright 2010 [employer]- All Rights Reserved KUB X-Ray 09/29/18 00:00 IMPRESSION: Tip of the enteric tube likely in the body of the stomach. Several mildly prominent air filled loops of small bowel may reflect ileus. Follow-up recommended copyright 2010 [employer]- All Rights Reserved Abdomen/Pelvis CT 10/08/18 00:00 IMPRESSION: Diffuse dilatation of the colon containing air and fluid. Maximal diameter approximately 10 cm. No wall thickening or evidence of torsion. The small bowel is normal in caliber. Moderate size bilateral pleural effusions with adjacent atelectasis. Small amount of perihepatic free fluid. Acute Abdomen Series 10/09/18 07:00 IMPRESSION: Partial colonic obstruction or pseudo-obstruction. No significant change. Assessment & Plan - Diagnosis (1) Hypokalemia Is this a current diagnosis for this admission?: Yes Plan: Looks to be due to a combination of diarrhea and not taking in any PO potassium. Continue with the Imodium and K-riders. Do not recommend PO potassium at this current point due to possible worsening of diarrhea. Will also look to start spironolactone 25mg bid to see if more fluid can be removed with decreasing the potassium. (2) Acute cystitis with positive culture Is this a current diagnosis for this admission?: Yes Plan: previously on antibiotics (3) Dehydration Is this a current diagnosis for this admission?: Yes Plan: Will look to give albumin 25g every 12 hours to see if the fluid will start to shift back into the blood vessels. (4) Renal failure Qualifiers: Renal failure chronicity: acute Acute renal failure type: unspecified Qualified Code(s): N17.9 - Acute kidney failure, unspecified Is this a current diagnosis for this admission?: Yes Plan: resolved (5) Depression Qualifiers: Depression Type: unspecified Qualified Code(s): F32.9 - Major depressive disorder, single episode, unspecified Is this a current diagnosis for this admission?: Yes Plan: per hospitalist services (6) Diabetes mellitus type 2 in obese Is this a current diagnosis for this admission?: Yes (7) Essential hypertension Is this a current diagnosis for this admission?: Yes Plan: Adding spironolactone 25mg bid - Notes Notes: case was discussed with Dr. Solis
--- NOTE | 2018-10-11 17:23 | Operative Report ---
Bedside Procedure - History of Present Illness Indication for Procedure: access Surgeon: JAMMIE GARCIA - Central Line Right Subclavian Time completed: 17:22 Consent obtained: Yes Central line pre-insertion: Sterile PPE donned, Betadine prep applied, Chloraprep applied, Sterile drapes applied Central line size (Fr.): 16 Central line lumen type: Triple Anesthetic type: 1% Lidocaine Ultrasound guided: No Line secured with sutures: Yes Central line post-insertion: Blood return from lumens, Biopatch applied, Sutured, Sterile dressing applied Number of attempts: 1 Complications: No
[2018-10-11] MEDS: SPIRONOLACTONE 25 MG TABLET PO SCH (21:41)
[2018-10-11] MEDS: MIRTAZAPINE 15 MG TABLET NG SCH (21:41)
--- NOTE | 2018-10-11 23:10 | RADIOLOGY REPORT (SQ) ---
EXAM DESCRIPTION: XR CHEST 1 VIEW COMPLETED DATE/TME: 10/11/2018 00:00 CLINICAL HISTORY: central line placement confirmation COMPARISON: 10/09/2018 FINDINGS: Single frontal view of the chest. Left subclavian central venous catheter with tip overlying the SVC. Atherosclerotic calcification of the thoracic aorta. Cardiomegaly. Low lung volumes. Small bilateral pleural effusions. No pneumothorax. Mild bibasilar opacities. Osseous structures are stable. Upper abdominal soft tissues are unremarkable. IMPRESSION: 1. Left subclavian central venous catheter with tip overlying the SVC. Otherwise stable appearance of the chest.
[2018-10-12] MEDS: ALBUMIN HUMAN 12.5 GM/50 ML RTUINJ IV SCH ×2 (01:32→02:38)
[2018-10-12] MEDS: POTASSI CL 20 MEQ/50 ML RIDER 20 MEQ/50 ML RTUPB IV SCH ×8 (01:38→20:29)
[2018-10-12] MEDS ORDERED: POTASSI CL 20 MEQ/50 ML RIDER 20 MEQ/50 ML RTUPB IV ONE ×4 (03:59→13:27)
[2018-10-12] MEDS ORDERED: ALBUMIN HUMAN 25% RTU INJ 12.5 GM/50 ML RTUINJ IV ONE (04:00)
[2018-10-12] MEDS: HEPARIN SOD (PORCINE) 5,000 UNIT/ML 1 ML SYRINGE SUBCUT SCH ×3 (05:39→22:57)
[2018-10-12] MEDS: LEVOTHYROXINE SODIUM 0.05 MG TABLET NG SCH (05:58)
[2018-10-12] MEDS ORDERED: ALBUMIN HUMAN 25% RTU INJ 12.5 GM/50 ML RTUINJ IV SCH (06:00)
[2018-10-12] MEDS: INSULIN LISPRO 100 UNIT/ML 3 ML VIAL SUBCUT SCH ×3 (10:33→18:05)
[2018-10-12] MEDS: NYSTATIN TOPICAL POWDER 15 GM TP SCH (10:34)
[2018-10-12] MEDS: METOPROLOL TARTRATE 25 MG TABLET NG SCH ×2 (10:36→23:04)
[2018-10-12] MEDS: MEGESTROL ACETATE SUSP 400 MG/10 ML UDCUP PO SCH (10:37)
[2018-10-12] MEDS: SPIRONOLACTONE 25 MG TABLET PO SCH ×2 (10:37→23:04)
[2018-10-12] MEDS: ESCITALOPRAM OXALATE 10 MG TABLET NG SCH (10:37)
--- NOTE | 2018-10-12 12:33 | PDOC PROGRESS REPORT ---
Subjective Progress Note for:: 10/12/18 Subjective:: No acute events in the last 24 hours. Patient is afebrile. C. difficile came back negative. Patient still have NG tube getting the NG tube feedings until now. Plan is to remove the NG tube start her on clear liquids and advance the diet as tolerated. 10/08/2018-acute abdominal series came back yesterday as possible ileus. I discussed the case with Dr. Aguirre, surgical consult was placed he thinks basically patient has constipation and patient has a 2 large bowel movements yesterday. Today CT abdominal pelvis was done which shows:colon Dilated 10 cm. I discussed the care again with Dr. Aguirre he is not concerned and believes it is not ileus. He want me to do stool for C. difficile. Plan is to repeat the acute abdominal series tomorrow. 10/09/2018-no acute events in the last 24 hours. Acute abdominal series was done this morning shows partial obstruction versus pseudoobstruction. She still have a low potassium of 2.8 despite getting IV K rider. We are going to stop her on Bumex. Albumin is also less 2.1 be going to give albumin 50%. Since appetite is still poor. She has a few loose stools. 10/10/2018-patient still having the loose stools. C. difficile last night is negative. Potassium is 2.2 despite giving a lot of IV K rider. She is off diuretics. Blood pressures are stable. Patient appetite is still very very minimal. Patient is afebrile. town planner consult was placed for possible hospice. 10/11/2018-no acute events in the last 24 hours. Stool culture was negative for C. difficile. Still having the loose stools. Started on Imodium. Potassium is persistently low she it is 2.3 today. She is going to receive at least 200 mEq of IV potassium today. Kidney function is improving. 10/12/2018-no acute events in the last 24 hours. Stool culture was negative for C. difficile she is on Imodium it is not helping with the loose stools. As per the nurse patient's appetite is better today compared to yesterday. Reason For Visit: SEPSIS, CLOSTRIDIUM DIFFICILE COLITIS,ACUTE KIDNEY Physical Exam Vital Signs: Temp Pulse Resp BP Pulse Ox 98.1 F 108 H 18 150/84 H 91 L 10/12/18 08:17 10/12/18 08:17 10/12/18 08:17 10/12/18 08:17 10/12/18 08:17 Intake & Output 10/11/18 10/12/18 10/13/18 06:59 06:59 06:59 Intake Total 747 737 100 Output Total 1000 1200 Balance -253 -463 100 Weight 84.9 kg 84.9 kg General appearance: PRESENT: no acute distress Head exam: PRESENT: atraumatic Eye exam: PRESENT: PERRLA Mouth exam: PRESENT: moist, tongue midline Neck exam: ABSENT: carotid bruit, JVD, lymphadenopathy, thyromegaly Respiratory exam: PRESENT: clear to auscultation caroline. ABSENT: rales, rhonchi, wheezes Cardiovascular exam: PRESENT: irregular rhythm Pulses: PRESENT: normal dorsalis pedis pul GI/Abdominal exam: PRESENT: other - Bloated abdomen bowel sounds are present. Extremities exam: PRESENT: +2 edema Neurological exam: PRESENT: alert, awake, oriented to person, oriented to place, oriented to time, oriented to situation, CN II-XII grossly intact. ABSENT: motor sensory deficit Psychiatric exam: PRESENT: appropriate affect, normal mood. ABSENT: homicidal ideation, suicidal ideation Results Laboratory Results: 10/11/18 05:55 10/11/18 05:55 09/27/18 09/27/18 15:00 17:25 Creatine Kinase 68 CK-MB (CK-2) 3.15 Troponin I 0.061 NT-Pro-B Natriuret Pep 1140 H Impressions: Head CT 09/27/18 14:30 IMPRESSION: No acute intracranial pathology. EVIDENCE OF ACUTE STROKE: NO. KUB X-Ray 09/29/18 00:00 IMPRESSION: Tip of the enteric tube likely in the body of the stomach. Several mildly prominent air filled loops of small bowel may reflect ileus. Follow-up recommended copyright 2011 [employer]- All Rights Reserved Abdomen/Pelvis CT 10/08/18 00:00 IMPRESSION: Diffuse dilatation of the colon containing air and fluid. Maximal diameter approximately 10 cm. No wall thickening or evidence of torsion. The small bowel is normal in caliber. Moderate size bilateral pleural effusions with adjacent atelectasis. Small amount of perihepatic free fluid. Acute Abdomen Series 10/09/18 07:00 IMPRESSION: Partial colonic obstruction or pseudo-obstruction. No significant change. Chest X-Ray 10/11/18 00:00 IMPRESSION: 1. Left subclavian central venous catheter with tip overlying the SVC. Otherwise stable appearance of the chest. Assessment & Plan - Diagnosis (1) Acute cystitis with positive culture Is this a current diagnosis for this admission?: Yes Plan: 10/07/2018-urine cultures positive for Proteus mirabilis. Presently on cefazolin 1 g every 12 hours IV. Patient completed the course of 7 days of IV antibiotic therapy plan is to discontinue antibiotics today. 10/08/2018-patient is on Proteus mirabilis. On cefazolin 1 g IV every 12 hours. She is afebrile. She completed antibiotic course of 1 week yesterday. 10/09/2018-patient has urine culture positive for Proteus mirabilis, on cefazolin 1 g IV every 12 hours. She completed 1 week of antibiotic therapy she is off the antibiotics now. 10/10/2018 urine culture was positive for proteus mirabilis she was treated with cefazolin 1 g IV every 12 hours for 1 week. 10/11/2018-urine culture was positive for Proteus mirabilis she was treated with cefazolin 1 g IV every 12 hours for 1 week. She is off the antibiotics. Patient is afebrile. 10/12/2018-pt is afebrile and off the antibiotics.completed treatment for proteus mirabilus. (2) Atrial fibrillation with RVR Is this a current diagnosis for this admission?: Yes Plan: 10/07/2018 patient was admitted with atrial fibrillation with RVR now is rate controlled. Patient is on metoprolol 25 mg every 12 hours. Plan is to continue the present management. 10/08/2018-patient is admitted with A. fib with RVR. Presently on metoprolol 25 mg every 6 hours. She is in sinus rhythm. 10/09/2018 -patient has atrial fibrillation with RVR rate controlled on metoprolol 25 mg every 6 hours. Plan is to continue the present management. 10/10/2018-patient has a history of atrial fibrillation with RVR rate controlled now on metoprolol 25 mg p.o. every 6 hours. Plan is to continue the present management. 10/11/2018-patient has history of paroxysmal atrial fibrillation with RVR. She still in A. fib. The heart rate is 92 rate controlled. Patient is on metoprolol 25 mg p.o. twice daily we will continue the present medication. 10/12/2018-patient with paroxysmal atrial fibrillation. On metoprolol 25 mg p.o. twice daily her heart rate is 198 today. Still in atrial fibrillation. (3) Renal failure Qualifiers: Renal failure chronicity: acute Acute renal failure type: unspecified Qualified Code(s): N17.9 - Acute kidney failure, unspecified Is this a current diagnosis for this admission?: Yes Plan: 10/07/2018 patient came in with creatinine of 7.2 and today is 0.86. Acute kidney injury most likely prerenal is resolved. 10/08/2018 patient admitted with creatinine of 7.2 today is 1.0. Acute kidney injury most likely prerenal is resolved. 10/09/2018-patient is admitted with creatinine of 7.2 today 1.11 with a GFR of 47. Plan is to discontinue her Bumex today. And to recheck her labs tomorrow. 10/10/2018-patient was admitted with creatinine of 7.2 today her GFR is 43 and creatinine is 1.19. She is off the Bumex and she is off the IV fluids. Blood pressure today 132/42. 10/11/2018-patient came in with creatinine of 7.2 improved to 1.04 today. Acute renal failure most likely prerenal resolving. 10/12/2018-patient was admitted with acute renal failure with creatinine of 7.2 ,it is 1.06 yesterday, today's labs are pending. (4) Metabolic encephalopathy Is this a current diagnosis for this admission?: Yes Plan: I suspect that this is due in large part to the fact that she has not been eating much of anything at all for weeks and has been drinking very little. The bulk of what we have been doing for her is hydrating her and giving her tube feeds through an NG tube, and her clinical condition now looks the best that it has been in weeks. It will be interesting to see how well she eats wants her n utritional status has improved some more and we discontinue the NG tube, because previously the problem was not that she could not eat, but that she just did not want to. We plan to give her tube feeds through the weekend, and then, the first of the week, will clamp the tube and hold the tube feeds, and see how well she tolerates liquids and soft foods, and what sort of appetite she has. I am concerned that she lacks the motivation, for some reason, to eat on her own. 10/07/2018-metabolic encephalopathy most likely secondary to poor oral intake and poor nutrition status. She is received NG tube feedings until this morning. We are going to remove the NG tube start with clear liquids today to advance the diet and see if he is able to tolerate the oral feeds. Acute abdominal series was requested. We continue to follow her on regular basis with the daily labs. 10/08/2018-patient is little bit alert and oriented compared to yesterday. Metabolic encephalopathy may be secondary to electrolyte abnormalities, poor nutritional status and a poor oral intake. We could continue to follow her on regular basis. 2018-patient able to communicate better compared to yesterday. But her appetite is still poor. Altered mental status /metabolic encephalopathy may be secondary to poor mental status, electrolyte abnormalities, poor oral intake. I am going to start her on Megace to improve her appetite. 10/10/2018-patient is comfortably in the bed not in distress appetite is very ve ry minimal. Continued to have loose stools. Despite IV K riders potassium still low at 2.2. We are going to give a K rider 80 mg x2 doses today. To check the labs tomorrow. 10/11/2018-patient is admitted with altered mental status/acute encephalopathy most likely secondary to acute renal failure and electrolyte abnormalities including hypokalemia. Patient appetite is still poor. Patient is unable to participate in physical therapy. She may have to go to hospice care. 10/12/2018-altered mental status/he could not coagulopathy most likely metabolic in nature due to electrolyte abnormalities and acute renal failure. It is still hypokalemic to be giving daily supplementations of potassium. Plan is to continue the present management. (5) Hypokalemia Is this a current diagnosis for this admission?: Yes Plan: 10/09/2018-hypokalemia with potassium of 2.8 most likely secondary to poor oral intake and patient is on Bumex which was stopped today. We are going to recheck her potassium tomorrow she is getting IV K riders. 10/10/2018-potassium level today is 2.2 she is not taking much by mouth be going to give K riders 80 mEq x2. 10/11/2018-patient has persistently severe hypokalemia potassium today is 2.3 she received 80 meq of potassium yesterday. She is going to receive another 160 meq of potassium today. Nephrology consult was requested for input. Started on Imodium after C. difficile was negative. Hopefully controlling the loose stools may improve her potassium. 10/12/2018 patient's potassium is persistently low because of severe diarrhea. She received at least one 60 mg of potassium yesterday. Today's labs are pending. We will continue to aggressively supplement potassium. She still have the diarrhea Imodium is not working. We are going to put her on Lomotil. Plan is to continue the other management. - Time Time Spent with patient: 15-24 minutes Anticipated discharge: Hospice
[2018-10-12] MEDS ORDERED: ALBUMIN HUMAN 12.5 GM/50 ML RTUINJ IV SCH ×2 (13:00→20:00)
[2018-10-12 13:18] LABS: ANION GAP 6 (5-19); BLOOD UREA NITROGEN 41 mg/dL (7-20); CALCIUM 8.4 mg/dL (8.4-10.2); CARBON DIOXIDE 20 mmol/L (22-30); CHLORIDE 133 mmol/L (98-107); GLUCOSE 260 mg/dL (75-110); POTASSIUM 3.7 mmol/L (3.6-5.0)
[2018-10-12 14:57] LABS: HEMATOCRIT 34.7 % (36.0-47.0); HEMOGLOBIN 11.3 g/dL (12.0-15.5); MEAN CORPUSCULAR HEMOGLOBIN 32.1 pg (27.0-33.4); MEAN CORPUSCULAR HGB CONC 32.5 g/dL (32.0-36.0); MEAN CORPUSCULAR VOLUME 99 fl (80-97); PLATELET COUNT 158 10^3/uL (150-450); RED BLOOD COUNT 3.52 10^6/uL (3.72-5.28); RED CELL DISTRIBUTION WIDTH 17.8 % (11.5-14.0); WHITE BLOOD COUNT 8.8 10^3/uL (4.0-10.5)
[2018-10-12 15:17] LABS: ABSOLUTE LYMPHOCYTES# (MANUAL) 0.4 10^3/uL (0.5-4.7); ABSOLUTE MONOCYTES # (MANUAL) 0.4 10^3/uL (0.1-1.4); BAND NEUTROPHILS % (MANUAL) 1 % (3-5); BASOPHILS % (MANUAL) 0 % (0-2); EOSINOPHILS % (MANUAL) 0 % (0-6); LYMPHOCYTES % (MANUAL) 4 % (13-45); MONOCYTES % (MANUAL) 5 % (3-13); SEGMENTED NEUTROPHILS % (MAN) 90 % (42-78); TOTAL CELLS COUNTED 100
[2018-10-12 15:18] LABS: ANISOCYTOSIS 1+; POLYCHROMASIA SLIGHT; TOXIC GRANULATION SLIGHT
[2018-10-12 15:19] LABS: PLATELET COMMENT ADEQUATE
[2018-10-12 15:25] LABS: ALANINE AMINOTRANSFERASE 29 U/L (9-52); ALBUMIN 2.9 g/dL (3.5-5.0); ALKALINE PHOSPHATASE 86 U/L (38-126); ASPARTATE AMINO TRANSFERASE 43 U/L (14-36); BILIRUBIN,DIRECT 0.6 mg/dL (0.0-0.4); BILIRUBIN,TOTAL 0.9 mg/dL (0.2-1.3); TOTAL PROTEIN 4.9 g/dL (6.3-8.2)
[2018-10-12] MEDS: DIPHENOXYLATE HCL/ATROP SULF 2.5-0.025 MG TABLET PO PRN ×2 (15:54→23:04)
[2018-10-12] MEDS: ALBUMIN HUMAN 25 GM/100 ML RTUINJ IV SCH (20:29)
[2018-10-12] MEDS: ALBUTEROL SULFATE 0.083% NEB 2.5 MG/3 ML AMPUL NEB PRN (21:38)
--- NOTE | 2018-10-12 23:03 | RADIOLOGY REPORT (SQ) ---
EXAM DESCRIPTION: XR CHEST 1 VIEW COMPLETED DATE/TME: 10/12/2018 00:00 CLINICAL HISTORY: 83 years, Female, change in breathing pattern COMPARISON: 10/11/2018 chest NUMBER OF VIEWS: 1 TECHNIQUE: Portable chest LIMITATIONS: None. FINDINGS: Heart size is normal. Central venous catheter in unchanged position. Atheromatous change thoracic aorta. Interstitial edema with probable small layering effusions bilaterally. Airspace opacity right upper lobe laterally. No pneumothorax IMPRESSION: Little interval change copyright 2010 [employer]- All Rights Reserved
[2018-10-12] MEDS: MIRTAZAPINE 15 MG TABLET NG SCH (23:04)
[2018-10-12] MEDS: DEXTROSE 5%-WATER 1000 ML 1,000 ML IV PRN (23:07)
[2018-10-13] MEDS: INSULIN LISPRO 100 UNIT/ML 3 ML VIAL SUBCUT SCH ×5 (00:26→23:00)
[2018-10-13] MEDS: HEPARIN SOD (PORCINE) 5,000 UNIT/ML 1 ML SYRINGE SUBCUT SCH ×3 (05:06→22:34)
[2018-10-13] MEDS: LEVOTHYROXINE SODIUM 0.05 MG TABLET NG SCH (05:08)
[2018-10-13] MEDS: DIPHENOXYLATE HCL/ATROP SULF 2.5-0.025 MG TABLET PO PRN (05:10)
[2018-10-13 07:53] LABS: HEMATOCRIT 34.7 % (36.0-47.0); HEMOGLOBIN 11.1 g/dL (12.0-15.5); MEAN CORPUSCULAR HEMOGLOBIN 31.9 pg (27.0-33.4); MEAN CORPUSCULAR HGB CONC 31.9 g/dL (32.0-36.0); MEAN CORPUSCULAR VOLUME 100 fl (80-97); PLATELET COUNT 154 10^3/uL (150-450); RED BLOOD COUNT 3.47 10^6/uL (3.72-5.28); RED CELL DISTRIBUTION WIDTH 18.5 % (11.5-14.0); WHITE BLOOD COUNT 9.4 10^3/uL (4.0-10.5)
[2018-10-13 08:02] LABS: ALANINE AMINOTRANSFERASE 38 U/L (9-52); ALBUMIN 3.2 g/dL (3.5-5.0); ALKALINE PHOSPHATASE 98 U/L (38-126); ANION GAP 6 (5-19); ASPARTATE AMINO TRANSFERASE 40 U/L (14-36); BILIRUBIN,DIRECT 0.4 mg/dL (0.0-0.4); BILIRUBIN,TOTAL 0.7 mg/dL (0.2-1.3); BLOOD UREA NITROGEN 38 mg/dL (7-20); CALCIUM 8.5 mg/dL (8.4-10.2); CARBON DIOXIDE 22 mmol/L (22-30); CHLORIDE 133 mmol/L (98-107); GLUCOSE 241 mg/dL (75-110); POTASSIUM 4.5 mmol/L (3.6-5.0); SODIUM 160.7 mmol/L (137-145)
[2018-10-13 08:39] LABS: ABSOLUTE LYMPHOCYTES# (MANUAL) 1.4 10^3/uL (0.5-4.7); ABSOLUTE MONOCYTES # (MANUAL) 0.2 10^3/uL (0.1-1.4); ABSOLUTE NEUTROPHILS# (MANUAL) 7.8 10^3/uL (1.7-8.2); BAND NEUTROPHILS % (MANUAL) 2 % (3-5); BASOPHILS % (MANUAL) 0 % (0-2); EOSINOPHILS % (MANUAL) 0 % (0-6); LYMPHOCYTES % (MANUAL) 13 % (13-45); MONOCYTES % (MANUAL) 2 % (3-13); NUCLEATED RED BLOOD CELLS 1 /100 WBC (0); SEGMENTED NEUTROPHILS % (MAN) 81 % (42-78); TOTAL CELLS COUNTED 100
[2018-10-13 08:40] LABS: ANISOCYTOSIS 2+; PLATELET COMMENT ADEQUATE
[2018-10-13] MEDS: ALBUMIN HUMAN 25 GM/100 ML RTUINJ IV SCH ×2 (08:58→20:01)
[2018-10-13] MEDS: MEGESTROL ACETATE SUSP 400 MG/10 ML UDCUP PO SCH (09:05)
[2018-10-13] MEDS: METOPROLOL TARTRATE 25 MG TABLET NG SCH ×2 (09:05→22:55)
[2018-10-13] MEDS: ESCITALOPRAM OXALATE 10 MG TABLET NG SCH (09:05)
[2018-10-13] MEDS: SPIRONOLACTONE 25 MG TABLET PO SCH ×2 (09:05→22:55)
--- NOTE | 2018-10-13 11:34 | PDOC PROGRESS REPORT ---
Subjective Progress Note for:: 10/13/18 Subjective:: No acute events in the last 24 hours. Patient is afebrile. C. difficile came back negative. Patient still have NG tube getting the NG tube feedings until now. Plan is to remove the NG tube start her on clear liquids and advance the diet as tolerated. 10/08/2018-acute abdominal series came back yesterday as possible ileus. I discussed the case with Dr. Aguirre, surgical consult was placed he thinks basically patient has constipation and patient has a 2 large bowel movements yesterday. Today CT abdominal pelvis was done which shows:colon Dilated 10 cm. I discussed the care again with Dr. Aguirre he is not concerned and believes it is not ileus. He want me to do stool for C. difficile. Plan is to repeat the acute abdominal series tomorrow. 10/09/2018-no acute events in the last 24 hours. Acute abdominal series was done this morning shows partial obstruction versus pseudoobstruction. She still have a low potassium of 2.8 despite getting IV K rider. We are going to stop her on Bumex. Albumin is also less 2.1 be going to give albumin 50%. Since appetite is still poor. She has a few loose stools. 10/10/2018-patient still having the loose stools. C. difficile last night is negative. Potassium is 2.2 despite giving a lot of IV K rider. She is off diuretics. Blood pressures are stable. Patient appetite is still very very minimal. Patient is afebrile. convention planner consult was placed for possible hospice. 10/11/2018-no acute events in the last 24 hours. Stool culture was negative for C. difficile. Still having the loose stools. Started on Imodium. Potassium is persistently low she it is 2.3 today. She is going to receive at least 200 mEq of IV potassium today. Kidney function is improving. 10/12/2018-no acute events in the last 24 hours. Stool culture was negative for C. difficile she is on Imodium it is not helping with the loose stools. As per the nurse patient's appetite is better today compared to yesterday. 10/13/2018-no acute events in the last 24 hours. Patient is afebrile. She does not have any loose stools anymore. Potassium came up to 4.5. Chest x-ray done yesterday shows interstitial edema with bilateral pleural effusions. Creatinine is 0.93. I had a discussion about feedings with the patient's son day before he wants NG tube feedings, yesterday morning nurse told me patient is requesting PEG but the patient has to meet the guidelines and protocol for the PEG placement. Patient appetite is still poor. Reason For Visit: SEPSIS, CLOSTRIDIUM DIFFICILE COLITIS,ACUTE KIDNEY Physical Exam Vital Signs: Temp Pulse Resp BP Pulse Ox 97.3 F 100 24 H 140/31 H 100 10/13/18 08:16 10/13/18 08:16 10/13/18 08:16 10/13/18 08:16 10/13/18 08:16 Intake & Output 10/12/18 10/13/18 10/14/18 06:59 06:59 06:59 Intake Total 737 1300 Output Total 1200 1425 Balance -463 -125 Weight 84.9 kg 84.4 kg General appearance: PRESENT: no acute distress Eye exam: PRESENT: PERRLA Mouth exam: PRESENT: moist Neck exam: ABSENT: carotid bruit, JVD, lymphadenopathy, thyromegaly Respiratory exam: PRESENT: decreased breath sounds Cardiovascular exam: PRESENT: irregular rhythm, tachycardia GI/Abdominal exam: PRESENT: other - Abdomen was distended bowel sounds are present. Extremities exam: PRESENT: +2 edema Neurological exam: PRESENT: other - Patient is comfortably sleeping in the bed on calling woke up alert and responding by saying okay okay and drifting back to sleep. Psychiatric exam: PRESENT: appropriate affect, normal mood. ABSENT: homicidal ideation, suicidal ideation Results Laboratory Results: 10/13/18 06:38 10/13/18 06:38 10/12/18 10/12/18 10/12/18 12:30 12:30 12:30 WBC 8.8 RBC 3.52 L Hgb 11.3 L Hct 34.7 L MCV 99 H MCH 32.1 MCHC 32.5 RDW 17.8 H Plt Count 158 Seg Neutrophils % Not Reportable Lymphocytes % Not Reportable Monocytes % Not Reportable Eosinophils % Not Reportable Basophils % Not Reportable Absolute Neutrophils Not Reportable Absolute Lymphocytes Not Reportable Absolute Monocytes Not Reportable Absolute Eosinophils Not Reportable Absolute Basophils Not Reportable Sodium 159.0 H Cancelled Potassium 3.7 Cancelled Chloride 133 H Cancelled Carbon Dioxide 20 L Cancelled Anion Gap 6 Cancelled BUN 41 H Cancelled Creatinine 0.92 Cancelled Est GFR ( Amer) > 60 Cancelled Est GFR (Non-Af Amer) 58 L Cancelled Glucose 260 H Cancelled Calcium 8.4 Cancelled Magnesium 2.2 Total Bilirubin 0.9 AST 43 H ALT 29 Alkaline Phosphatase 86 Total Protein 4.9 L Albumin 2.9 L 10/13/18 10/13/18 06:38 06:38 WBC 9.4 RBC 3.47 L Hgb 11.1 L Hct 34.7 L MCV 100 H MCH 31.9 MCHC 31.9 L RDW 18.5 H Plt Count 154 Seg Neutrophils % Not Reportable Lymphocytes % Not Reportable Monocytes % Not Reportable Eosinophils % Not Reportable Basophils % Not Reportable Absolute Neutrophils Not Reportable Absolute Lymphocytes Not Reportable Absolute Monocytes Not Reportable Absolute Eosinophils Not Reportable Absolute Basophils Not Reportable Sodium 160.7 H Potassium 4.5 Chloride 133 H Carbon Dioxide 22 Anion Gap 6 BUN 38 H Creatinine 0.93 Est GFR ( Amer) > 60 Est GFR (Non-Af Amer) 58 L Glucose 241 H Calcium 8.5 Magnesium 2.2 Total Bilirubin 0.7 AST 40 H ALT 38 Alkaline Phosphatase 98 Total Protein 5.0 L Albumin 3.2 L 09/27/18 09/27/18 15:00 17:25 Creatine Kinase 68 CK-MB (CK-2) 3.15 Troponin I 0.061 NT-Pro-B Natriuret Pep 1140 H Impressions: Head CT 09/27/18 14:30 IMPRESSION: No acute intracranial pathology. EVIDENCE OF ACUTE STROKE: NO. KUB X-Ray 09/29/18 00:00 IMPRESSION: Tip of the enteric tube likely in the body of the stomach. Several mildly prominent air filled loops of small bowel may reflect ileus. Follow-up recommended copyright 2010 [employer]- All Rights Reserved Abdomen/Pelvis CT 10/08/18 00:00 IMPRESSION: Diffuse dilatation of the colon containing air and fluid. Maximal diameter approximately 10 cm. No wall thickening or evidence of torsion. The small bowel is normal in caliber. Moderate size bilateral pleural effusions with adjacent atelectasis. Small amount of perihepatic free fluid. Acute Abdomen Series 10/09/18 07:00 IMPRESSION: Partial colonic obstruction or pseudo-obstruction. No significant change. Chest X-Ray 10/12/18 00:00 IMPRESSION: Little interval change copyright 2010 [employer]- All Rights Reserved Assessment & Plan - Diagnosis (1) Acute cystitis with positive culture Is this a current diagnosis for this admission?: Yes (2) Atrial fibrillation with RVR Is this a current diagnosis for this admission?: Yes Plan: 10/07/2018 patient was admitted with atrial fibrillation with RVR now is rate controlled. Patient is on metoprolol 25 mg every 12 hours. Plan is to continue the present management. 10/08/2018-patient is admitted with A. fib with RVR. Presently on metoprolol 25 mg every 6 hours. She is in sinus rhythm. 10/09/2018 -patient has atrial fibrillation with RVR rate controlled on metoprolol 25 mg every 6 hours. Plan is to continue the present management. 10/10/2018-patient has a history of atrial fibrillation with RVR rate controlled now on metoprolol 25 mg p.o. every 6 hours. Plan is to continue the present management. 10/11/2018-patient has history of paroxysmal atrial fibrillation with RVR. She still in A. fib. The heart rate is 92 rate controlled. Patient is on metoprolol 25 mg p.o. twice daily we will continue the present medication. 10/12/2018-patient with paroxysmal atrial fibrillation. On metoprolol 25 mg p.o. twice daily her heart rate is 198 today. Still in atrial fibrillation. 10/13/2018-patient has paroxysmal atrial fibrillation her heart rate is 100 today. On metoprolol 25 mg twice a day. (3) Renal failure Qualifiers: Renal failure chronicity: acute Acute renal failure type: unspecified Qualified Code(s): N17.9 - Acute kidney failure, unspecified Is this a current diagnosis for this admission?: Yes Plan: 10/07/2018 patient came in with creatinine of 7.2 and today is 0.86. Acute kidney injury most likely prerenal is resolved. 10/08/2018 patient admitted with creatinine of 7.2 today is 1.0. Acute kidney injury most likely prerenal is resolved. 10/09/2018-patient is admitted with creatinine of 7.2 today 1.11 with a GFR of 47. Plan is to discontinue her Bumex today. And to recheck her labs tomorrow. 10/10/2018-patient was admitted with creatinine of 7.2 today her GFR is 43 and creatinine is 1.19. She is off the Bumex and she is off the IV fluids. Blood pressure today 132/42. 10/11/2018-patient came in with creatinine of 7.2 improved to 1.04 today. Acute renal failure most likely prerenal resolving. 10/12/2018-patient was admitted with acute renal failure with creatinine of 7.2 ,it is 1.06 yesterday, today's labs are pending. 10/13/2018 patient came in with creatinine of 7.2 today it is 0.93 acute kidney injury resolved most likely prerenal secondary to poor intake. (4) Metabolic encephalopathy Is this a current diagnosis for this admission?: Yes Plan: I suspect that this is due in large part to the fact that she has not been eating much of anything at all for weeks and has been drinking very little. The bulk of what we have been doing for her is hydrating her and giving her tube feeds through an NG tube, and her clinical condition now looks the best that it has been in weeks. It will be interesting to see how well she eats wants her nutritional status has improved some more and we discontinue the NG tube, because previously the problem was not that she could not eat, but that she just did not want to. We plan to give her tube feeds through the weekend, and then, the first of the week, will clamp the tube and hold the tube feeds, and see how well she tolerates liquids and soft foods, and what sort of appetite she has. I am concerned that she lacks the motivation, for some reason, to eat on her own. 10/07/2018-metabolic encephalopathy most likely secondary to poor oral intake and poor nutrition status. She is received NG tube feedings until this morning. We are going to remove the NG tube start with clear liquids today to advance the diet and see if he is able to tolerate the oral feeds. Acute abdominal series was requested. We continue to follow her on regular basis with the daily labs. 10/08/2018-patient is little bit alert and oriented compared to yesterday. Metabolic encephalopathy may be secondary to electrolyte abnormalities, poor nutritional status and a poor oral intake. We could continue to follow her on regular basis. 2018-patient able to communicate better compared to yesterday. But her appetite is still poor. Altered mental status /metabolic encephalopathy may be secondary to poor mental status, electrolyte abnormalities, poor oral intake. I am going to start her on Megace to improve her appetite. 10/10/2018-patient is comfortably in the bed not in distress appetite is very very minimal. Continued to have loose stools. Despite IV K riders potassium still low at 2.2. We are going to give a K rider 80 mg x2 doses today. To check the labs tomorrow. 10/11/2018-patient is admitted with altered mental status/acute encephalopathy most likely secondary to acute renal failure and electrolyte abnormalities including hypokalemia. Patient appetite is still poor. Patient is unable to participate in physical therapy. She may have to go to hospice care. 10/12/2018-altered mental status/he could not coagulopathy most likely metabolic in nature due to electrolyte abnormalities and acute renal failure. It is still hypokalemic to be giving daily supplementations of potassium. Plan is to continue the present management. 10/13/2018-altered mental status/acute and coagulopathy most likely metabolic in nature. Hyperkalemia resolved. Acute kidney injury resolved. Appetite is still poor. Going to start her on NG tube feeding. (5) Hypokalemia Is this a current diagnosis for this admission?: Yes Plan: 10/09/2018-hypokalemia with potassium of 2.8 most likely secondary to poor oral intake and patient is on Bumex which was stopped today. We are going to recheck her potassium tomorrow she is getting IV K riders. 10/10/2018-potassium level today is 2.2 she is not taking much by mouth be going to give K riders 80 mEq x2. 10/11/2018-patient has persistently severe hypokalemia potassium today is 2.3 she received 80 meq of potassium yesterday. She is going to receive another 160 meq of potassium today. Nephrology consult was requested for input. Started on Imodium after C. difficile was negative. Hopefully controlling the loose stools may improve her potassium. 10/12/2018 patient's potassium is persistently low because of severe diarrhea. She received at least one 60 mg of potassium yesterday. Today's labs are pending. We will continue to aggressively supplement potassium. She still have the diarrhea Imodium is not working. We are going to put her on Lomotil. Plan is to continue the other management. 10/13/2018-potassium level today is 4.5 hyperkalemia resolved. Chest x-ray done yesterday shows interstitial edema and bilateral pleural effusions. Plan is to start on Lasix 20 mg p.o. every 8 hours. - Time Time Spent with patient: 15-24 minutes Medications reviewed and adjusted accordingly: Yes Anticipated discharge: Hospice
[2018-10-13] MEDS: ALBUTEROL SULFATE 0.083% NEB 2.5 MG/3 ML AMPUL NEB PRN ×3 (11:38→23:47)
[2018-10-13] MEDS ORDERED: FUROSEMIDE ORAL SOLN 40 MG/5 ML UDCUP PO SCH (14:00)
[2018-10-13] MEDS: FUROSEMIDE ORAL SOLN 40 MG/5 ML UDCUP PO SCH ×2 (16:51→22:59)
[2018-10-13] MEDS: DEXTROSE 5%-WATER 1000 ML 1,000 ML IV PRN (17:04)
[2018-10-13] MEDS ORDERED: INSULIN GLARGINE,HUM.REC.ANLOG 1,000 UNIT/10 ML UNIT SUBCUT SCH (22:00)
[2018-10-13] MEDS: MIRTAZAPINE 15 MG TABLET NG SCH (22:56)
[2018-10-13] MEDS: INSULIN GLARGINE,HUM.REC.ANLOG 300 UNIT/3 ML INSULN.PEN SUBCUT SCH (22:56)
[2018-10-14] MEDS: HEPARIN SOD (PORCINE) 5,000 UNIT/ML 1 ML SYRINGE SUBCUT SCH ×3 (05:18→22:52)
[2018-10-14] MEDS: FUROSEMIDE ORAL SOLN 40 MG/5 ML UDCUP PO SCH ×3 (05:42→22:49)
[2018-10-14] MEDS: LEVOTHYROXINE SODIUM 0.05 MG TABLET NG SCH (05:42)
[2018-10-14] MEDS: INSULIN LISPRO 100 UNIT/ML 3 ML VIAL SUBCUT SCH ×4 (06:44→22:50)
[2018-10-14 06:50] LABS: HEMATOCRIT 31.4 % (36.0-47.0); HEMOGLOBIN 10.3 g/dL (12.0-15.5); MEAN CORPUSCULAR HEMOGLOBIN 32.4 pg (27.0-33.4); MEAN CORPUSCULAR HGB CONC 32.7 g/dL (32.0-36.0); MEAN CORPUSCULAR VOLUME 99 fl (80-97); PLATELET COUNT 129 10^3/uL (150-450); RED BLOOD COUNT 3.17 10^6/uL (3.72-5.28); RED CELL DISTRIBUTION WIDTH 18.4 % (11.5-14.0); WHITE BLOOD COUNT 8.2 10^3/uL (4.0-10.5)
[2018-10-14 07:13] LABS: ABSOLUTE LYMPHOCYTES# (MANUAL) 0.7 10^3/uL (0.5-4.7); ABSOLUTE MONOCYTES # (MANUAL) 0.6 10^3/uL (0.1-1.4); ABSOLUTE NEUTROPHILS# (MANUAL) 6.8 10^3/uL (1.7-8.2); ALANINE AMINOTRANSFERASE 31 U/L (9-52); ALBUMIN 3.2 g/dL (3.5-5.0); ALKALINE PHOSPHATASE 72 U/L (38-126); ANION GAP 5 (5-19); ASPARTATE AMINO TRANSFERASE 28 U/L (14-36); BASOPHILS % (MANUAL) 0 % (0-2); BILIRUBIN,DIRECT 0.5 mg/dL (0.0-0.4); BILIRUBIN,TOTAL 0.8 mg/dL (0.2-1.3); BLOOD UREA NITROGEN 34 mg/dL (7-20); CALCIUM 8.8 mg/dL (8.4-10.2); CARBON DIOXIDE 24 mmol/L (22-30); CHLORIDE 129 mmol/L (98-107); EOSINOPHILS % (MANUAL) 1 % (0-6); GLUCOSE 241 mg/dL (75-110); LYMPHOCYTES % (MANUAL) 9 % (13-45); MONOCYTES % (MANUAL) 7 % (3-13); POTASSIUM 3.6 mmol/L (3.6-5.0); SEGMENTED NEUTROPHILS % (MAN) 83 % (42-78); SODIUM 158.1 mmol/L (137-145); TOTAL CELLS COUNTED 100
[2018-10-14 07:14] LABS: ANISOCYTOSIS 2+; PLATELET COMMENT ADEQUATE; POLYCHROMASIA 1+
[2018-10-14] MEDS: ALBUTEROL SULFATE 0.083% NEB 2.5 MG/3 ML AMPUL NEB PRN (08:11)
[2018-10-14] MEDS: ALBUMIN HUMAN 25 GM/100 ML RTUINJ IV SCH ×2 (09:30→22:47)
[2018-10-14] MEDS: SPIRONOLACTONE 25 MG TABLET PO SCH ×2 (09:33→22:47)
[2018-10-14] MEDS: ESCITALOPRAM OXALATE 10 MG TABLET NG SCH (09:33)
[2018-10-14] MEDS: METOPROLOL TARTRATE 25 MG TABLET NG SCH ×2 (09:33→22:53)
[2018-10-14] MEDS: INSULIN GLARGINE,HUM.REC.ANLOG 300 UNIT/3 ML INSULN.PEN SUBCUT SCH ×2 (11:34→22:51)
[2018-10-14] MEDS: MEGESTROL ACETATE SUSP 400 MG/10 ML UDCUP PO SCH (11:35)
--- NOTE | 2018-10-14 12:19 | RADIOLOGY REPORT (SQ) ---
EXAM DESCRIPTION: CHEST SINGLE VIEW COMPLETED DATE/TIME: 10/14/2018 12:05 pm REASON FOR STUDY: resp distress COMPARISON: Chest films 09/27/2018, 09/28/2018, 10/11/2018, 10/12/2018 EXAM PARAMETERS: NUMBER OF VIEWS: One view. TECHNIQUE: Single frontal radiographic view of the chest acquired. RADIATION DOSE: NA LIMITATIONS: None. FINDINGS: LUNGS AND PLEURA: Trace bilateral pleural effusions are present, similar compared to 2018 and 10/11/2018. There is bilateral perihilar patchy airspace disease worrisome for pulmonary edema or pneumonia. Pat magdalena right upper lobe airspace disease edema versus pneumonia. Left retrocardiac consolidation atelec tasis versus pneumonia. This is similar compared to 10/12/2018 and 10/11/2018. No pneumothorax MEDIASTINUM AND HILAR STRUCTURES: No masses. Contour normal. HEART AND VASCULAR STRUCTURES: Heart normal in size. Normal vasculature. BONES: No acute findings. HARDWARE: None in the chest. OTHER: No other significant finding. IMPRESSION: Trace bilateral pleural effusions persist, unchanged from 10/12/2018 and 10/11/2018 Persistent multifocal airspace disease, edema versus pneumonia. This is unchanged from 10/12/2018 and 10/11/2018. TECHNICAL DOCUMENTATION: JOB ID: [id number] [employer]- All Rights Reserved Reading location - IP/workstation name: [email or web address]
--- NOTE | 2018-10-14 13:39 | PDOC PROGRESS REPORT ---
Subjective Progress Note for:: 10/14/18 Subjective:: No acute events in the last 24 hours. Patient is afebrile. C. difficile came back negative. Patient still have NG tube getting the NG tube feedings until now. Plan is to remove the NG tube start her on clear liquids and advance the diet as tolerated. 10/08/2018-acute abdominal series came back yesterday as possible ileus. I discussed the case with Dr. Aguirre, surgical consult was placed he thinks basically patient has constipation and patient has a 2 large bowel movements yesterday. Today CT abdominal pelvis was done which shows:colon Dilated 10 cm. I discussed the care again with Dr. Aguirre he is not concerned and believes it is not ileus. He want me to do stool for C. difficile. Plan is to repeat the acute abdominal series tomorrow. 10/09/2018-no acute events in the last 24 hours. Acute abdominal series was done this morning shows partial obstruction versus pseudoobstruction. She still have a low potassium of 2.8 despite getting IV K rider. We are going to stop her on Bumex. Albumin is also less 2.1 be going to give albumin 50%. Since appetite is still poor. She has a few loose stools. 10/10/2018-patient still having the loose stools. C. difficile last night is negative. Potassium is 2.2 despite giving a lot of IV K rider. She is off diuretics. Blood pressures are stable. Patient appetite is still very very minimal. Patient is afebrile. estate planner consult was placed for possible hospice. 10/11/2018-no acute events in the last 24 hours. Stool culture was negative for C. difficile. Still having the loose stools. Started on Imodium. Potassium is persistently low she it is 2.3 today. She is going to receive at least 200 mEq of IV potassium today. Kidney function is improving. 10/12/2018-no acute events in the last 24 hours. Stool culture was negative for C. difficile she is on Imodium it is not helping with the loose stools. As per the nurse patient's appetite is better today compared to yesterday. 10/13/2018-no acute events in the last 24 hours. Patient is afebrile. She does not have any loose stools anymore. Potassium came up to 4.5. Chest x-ray done yesterday shows interstitial edema with bilateral pleural effusions. Creatinine is 0.93. I had a discussion about feedings with the patient's son day before he wants NG tube feedings, yesterday morning nurse told me patient is requesting PEG but the patient has to meet the guidelines and protocol for the PEG placement. Patient appetite is still poor. 10/14/2018-patient having the abdominal breathing last night nurses are concerned started on BiPAP. Patient's son was notified. This morning on examination without BiPAP patient is comfortably in the bed. No apneic spells noticed. No abdominal breathing is noticed. Nurse was requested to use BiPAP as needed basis. Appetite remains poor. She had third spacing of the fluid in the upper and lower extremity over the sacrum present. Getting IV albumin. Reason For Visit: SEPSIS, CLOSTRIDIUM DIFFICILE COLITIS,ACUTE KIDNEY Physical Exam Vital Signs: Temp Pulse Resp BP Pulse Ox 97.3 F 82 24 H 144/71 H 98 10/14/18 12:08 10/14/18 12:08 10/14/18 12:08 10/14/18 12:08 10/14/18 12:08 Intake & Output 10/13/18 10/14/18 10/15/18 06:59 06:59 06:59 Intake Total 1300 1434 Output Total 1425 2200 Balance -125 -766 Weight 84.4 kg 85.8 kg General appearance: PRESENT: no acute distress Head exam: PRESENT: atraumatic Eye exam: PRESENT: PERRLA Neck exam: ABSENT: carotid bruit, JVD, lymphadenopathy, thyromegaly Respiratory exam: PRESENT: decreased breath sounds Cardiovascular exam: PRESENT: tachycardia GI/Abdominal exam: PRESENT: normal bowel sounds, soft. ABSENT: distended, guarding, mass, organolmegaly, rebound, tenderness Extremities exam: PRESENT: +2 edema Neurological exam: PRESENT: alert, awake. ABSENT: oriented to person, oriented to place, oriented to time, oriented to situation Psychiatric exam: PRESENT: appropriate affect, normal mood. ABSENT: homicidal ideation, suicidal ideation Results Laboratory Results: 10/14/18 06:25 10/14/18 06:25 10/14/18 10/14/18 06:25 06:25 WBC 8.2 RBC 3.17 L Hgb 10.3 L Hct 31.4 L MCV 99 H MCH 32.4 MCHC 32.7 RDW 18.4 H Plt Count 129 L Seg Neutrophils % Not Reportable Lymphocytes % Not Reportable Monocytes % Not Reportable Eosinophils % Not Reportable Basophils % Not Reportable Absolute Neutrophils Not Reportable Absolute Lymphocytes Not Reportable Absolute Monocytes Not Reportable Absolute Eosinophils Not Reportable Absolute Basophils Not Reportable Sodium 158.1 H Potassium 3.6 Chloride 129 H Carbon Dioxide 24 Anion Gap 5 BUN 34 H Creatinine 0.93 Est GFR ( Amer) > 60 Est GFR (Non-Af Amer) 58 L Glucose 241 H Calcium 8.8 Magnesium 2.1 Total Bilirubin 0.8 AST 28 ALT 31 Alkaline Phosphatase 72 Total Protein 5.0 L Albumin 3.2 L 09/27/18 09/27/18 15:00 17:25 Creatine Kinase 68 CK-MB (CK-2) 3.15 Troponin I 0.061 NT-Pro-B Natriuret Pep 1140 H Impressions: Head CT 09/27/18 14:30 IMPRESSION: No acute intracranial pathology. EVIDENCE OF ACUTE STROKE: NO. KUB X-Ray 09/29/18 00:00 IMPRESSION: Tip of the enteric tube likely in the body of the stomach. Several mildly prominent air filled loops of small bowel may reflect ileus. Follow-up recommended copyright 2010 [employer]- All Rights Reserved Abdomen/Pelvis CT 10/08/18 00:00 IMPRESSION: Diffuse dilatation of the colon containing air and fluid. Maximal diameter approximately 10 cm. No wall thickening or evidence of torsion. The small bowel is normal in caliber. Moderate size bilateral pleural effusions with adjacent atelectasis. Small amount of perihepatic free fluid. Acute Abdomen Series 10/09/18 07:00 IMPRESSION: Partial colonic obstruction or pseudo-obstruction. No significant change. Chest X-Ray 10/14/18 00:00 IMPRESSION: Trace bilateral pleural effusions persist, unchanged from 10/12/2018 and 10/11/2018 Persistent multifocal airspace disease, edema versus pneumonia. This is unchanged from 10/12/2018 and 10/11/2018. Assessment & Plan - Diagnosis (1) Acute cystitis with positive culture Is this a current diagnosis for this admission?: Yes Plan: 10/07/2018-urine cultures positive for Proteus mirabilis. Presently on cefazolin 1 g every 12 hours IV. Patient completed the course of 7 days of IV antibiotic therapy plan is to discontinue antibiotics today. 10/08/2018-patient is on Proteus mirabilis. On cefazolin 1 g IV every 12 hours. She is afebrile. She completed antibiotic course of 1 week yesterday. 10/09/2018-patient has urine culture positive for Proteus mirabilis, on cefazolin 1 g IV every 12 hours. She completed 1 week of antibiotic therapy she is off the antibiotics now. 10/10/2018 urine culture was positive for proteus mirabilis she was treated with cefazolin 1 g IV every 12 hours for 1 week. 10/11/2018-urine culture was positive for Proteus mirabilis she was treated with cefazolin 1 g IV every 12 hours for 1 week. She is off the antibiotics. Patient is afebrile. 10/12/2018-pt is afebrile and off the antibiotics.completed treatment for proteus mirabilus. 10/14/2018 patient is afebrile T-max is 97.4 she is off the antibiotics. (2) Atrial fibrillation with RVR Is this a current diagnosis for this admission?: Yes Plan: 10/07/2018 patient was admitted with atrial fibrillation with RVR now is rate controlled. Patient is on metoprolol 25 mg every 12 hours. Plan is to continue the present management. 10/08/2018-patient is admitted with A. fib with RVR. Presently on metoprolol 25 mg every 6 hours. She is in sinus rhythm. 10/09/2018 -patient has atrial fibrillation with RVR rate controlled on metoprolol 25 mg every 6 hours. Plan is to continue the present management. 10/10/2018-patient has a history of atrial fibrillation with RVR rate controlled now on metoprolol 25 mg p.o. every 6 hours. Plan is to continue the present management. 10/11/2018-patient has history of paroxysmal atrial fibrillation with RVR. She still in A. fib. The heart rate is 92 rate controlled. Patient is on metoprolol 25 mg p.o. twice daily we will continue the present medication. 10/12/2018-patient with paroxysmal atrial fibrillation. On metoprolol 25 mg p.o. twice daily her heart rate is 108 today. Still in atrial fibrillation. 10/13/2018-patient has paroxysmal atrial fibrillation her heart rate is 100 today. On metoprolol 25 mg twice a day. 2018-patient has history of paroxysmal atrial fibrillation the heart rate is 74 today still in atrial fibrillation. She is not on anticoagulation but she is on metoprolol 25 mg p.o. twice daily plan is to continue the present management. (3) Renal failure Qualifiers: Renal failure chronicity: acute Acute renal failure type: unspecified Qualified Code(s): N17.9 - Acute kidney failure, unspecified Is this a current diagnosis for this admission?: Yes Plan: 10/07/2018 patient came in with creatinine of 7.2 and today is 0.86. Acute kidney injury most likely prerenal is resolved. 10/08/2018 patient admitted with creatinine of 7.2 today is 1.0. Acute kidney injury most likely prerenal is resolved. 10/09/2018-patient is admitted with creatinine of 7.2 today 1.11 with a GFR of 47. Plan is to discontinue her Bumex today. And to recheck her labs tomorrow. 10/10/2018-patient was admitted with creatinine of 7.2 today her GFR is 43 and creatinine is 1.19. She is off the Bumex and she is off the IV fluids. Blood pressure today 132/42. 10/11/2018-patient came in with creatinine of 7.2 improved to 1.04 today. Acute renal failure most likely prerenal resolving. 10/12/2018-patient was admitted with acute renal failure with creatinine of 7.2 ,it is 1.06 yesterday, today's labs are pending. 10/13/2018 patient came in with creatinine of 7.2 today it is 0.93 acute kidney injury resolved most likely prerenal secondary to poor intake. 10/14/2018-patient is admitted with renal failure with creatinine of 7.2 today cr eatinine is 0.93 acute kidney injury most likely prerenal is resolved. (4) Metabolic encephalopathy Is this a current diagnosis for this admission?: Yes Plan: I suspect that this is due in large part to the fact that she has not been eating much of anything at all for weeks and has been drinking very little. The bulk of what we have been doing for her is hydrating her and giving her tube feeds through an NG tube, and her clinical condition now looks the best that it has been in weeks. It will be interesting to see how well she eats wants her nutritional status has improved some more and we discontinue the NG tube, because previously the problem was not that she could not eat, but that she just did not want to. We plan to give her tube feeds through the weekend, and then, the first of the week, will clamp the tube and hold the tube feeds, and see how well she tolerates liquids and soft foods, and what sort of appetite she has. I am concerned that she lacks the motivation, for some reason, to eat on her own. 10/07/2018-metabolic encephalopathy most likely secondary to poor oral intake and poor nutrition status. She is received NG tube feedings until this morning. We are going to remove the NG tube start with clear liquids today to advance the diet and see if he is able to tolerate the oral feeds. Acute abdominal series was requested. We continue to follow her on regular basis with the daily labs. 10/08/2018-patient is little bit alert and oriented compared to yesterday. Metabolic encephalopathy may be secondary to electrolyte abnormalities, poor nutritional status and a poor oral intake. We could continue to follow her on regular basis. 2018-patient able to communicate better compared to yesterday. But her appetite is still poor. Altered mental status /metabolic encephalopathy may be secondary to poor mental status, electrolyte abnormalities, poor oral intake. I am going to start her on Megace to improve her appetite. 10/10/2018-patient is comfortably in the bed not in distress appetite is very very minimal. Continued to have loose stools. Despite IV K riders potassium still low at 2.2. We are going to give a K rider 80 mg x2 doses today. To check the labs tomorrow. 10/11/2018-patient is admitted with altered mental status/acute encephalopathy most likely secondary to acute renal failure and electrolyte abnormalities including hypokalemia. Patient appetite is still poor. Patient is unable to participate in physical therapy. She may have to go to hospice care. 10/12/2018-altered mental status/he could not coagulopathy most likely metabolic in nature due to electrolyte abnormalities and acute renal failure. It is still hypokalemic to be giving daily supplementations of potassium. Plan is to continue the present management. 10/13/2018-altered mental status/acute encephalopathy most likely metabolic in nature. Hyperkalemia resolved. Acute kidney injury resolved. Appetite is still poor. Going to start her on NG tube feeding. 10/14/2018-altered mental status/acute encephalopathy most likely metabolic in nature. Electrolyte abnormalities are resolved. Patient is alert responding to very few questions like "who are you doing- she is nodding her head slike ok ,Do you need anything she is shaking head indicating no, other that not maintaining much conversation. (5) Hypokalemia Is this a current diagnosis for this admission?: Yes Plan: 10/09/2018-hypokalemia with potassium of 2.8 most likely secondary to poor oral intake and patient is on Bumex which was stopped today. We are going to recheck her potassium tomorrow she is getting IV K riders. 10/10/2018-potassium level today is 2.2 she is not taking much by mouth be going to give K riders 80 mEq x2. 10/11/2018-patient has persistently severe hypokalemia potassium today is 2.3 she received 80 meq of potassium yesterday. She is going to receive another 160 meq of potassium today. Nephrology consult was requested for input. Started on Imodium after C. difficile was negative. Hopefully controlling the loose stools may improve her potassium. 10/12/2018 patient's potassium is persistently low because of severe diarrhea. She received at least one 60 mg of potassium yesterday. Today's labs are pending. We will continue to aggressively supplement potassium. She still have the diarrhea Imodium is not working. We are going to put her on Lomotil. Plan is to continue the other management. 10/13/2018-potassium level today is 4.5 hypokalemia resolved. Chest x-ray done yesterday shows interstitial edema and bilateral pleural effusions. Plan is to start on Lasix 20 mg p.o. every 8 hours. 10/14/2018-patient potassium is 3.6 today hypokalemia is resolved. - Time Time Spent with patient: 15-24 minutes Medications reviewed and adjusted accordingly: Yes Anticipated discharge: Hospice
[2018-10-14] MEDS: DEXTROSE 5%-WATER 1000 ML 1,000 ML IV PRN (14:51)
[2018-10-14] MEDS: NYSTATIN/TRIAMCIN CREAM 15 GM TP SCH ×3 (15:58→22:54)
[2018-10-14] MEDS: MIRTAZAPINE 15 MG TABLET NG SCH (22:47)
[2018-10-15] MEDS: LEVOTHYROXINE SODIUM 0.05 MG TABLET NG SCH (05:13)
[2018-10-15] MEDS: FUROSEMIDE ORAL SOLN 40 MG/5 ML UDCUP PO SCH ×3 (05:13→22:43)
[2018-10-15] MEDS: HEPARIN SOD (PORCINE) 5,000 UNIT/ML 1 ML SYRINGE SUBCUT SCH ×3 (05:14→22:45)
[2018-10-15 06:55] LABS: HEMATOCRIT 31.8 % (36.0-47.0); HEMOGLOBIN 10.5 g/dL (12.0-15.5); MEAN CORPUSCULAR HEMOGLOBIN 32.7 pg (27.0-33.4); MEAN CORPUSCULAR HGB CONC 33.2 g/dL (32.0-36.0); MEAN CORPUSCULAR VOLUME 99 fl (80-97); PLATELET COUNT 140 10^3/uL (150-450); RED BLOOD COUNT 3.22 10^6/uL (3.72-5.28); RED CELL DISTRIBUTION WIDTH 17.7 % (11.5-14.0); WHITE BLOOD COUNT 9.4 10^3/uL (4.0-10.5)
[2018-10-15 07:02] LABS: ALANINE AMINOTRANSFERASE 48 U/L (9-52); ALBUMIN 3.2 g/dL (3.5-5.0); ALKALINE PHOSPHATASE 103 U/L (38-126); ANION GAP 6 (5-19); ASPARTATE AMINO TRANSFERASE 39 U/L (14-36); BILIRUBIN,DIRECT 0.4 mg/dL (0.0-0.4); BILIRUBIN,TOTAL 0.7 mg/dL (0.2-1.3); BLOOD UREA NITROGEN 30 mg/dL (7-20); CALCIUM 8.9 mg/dL (8.4-10.2); CARBON DIOXIDE 26 mmol/L (22-30); CHLORIDE 124 mmol/L (98-107); GLUCOSE 174 mg/dL (75-110); SODIUM 156.4 mmol/L (137-145); TOTAL PROTEIN 5.2 g/dL (6.3-8.2)
[2018-10-15 07:11] LABS: POTASSIUM 2.9 mmol/L (3.6-5.0)
[2018-10-15 07:30] LABS: ABSOLUTE LYMPHOCYTES# (MANUAL) 0.4 10^3/uL (0.5-4.7); ABSOLUTE MONOCYTES # (MANUAL) 0.2 10^3/uL (0.1-1.4); ABSOLUTE NEUTROPHILS# (MANUAL) 8.8 10^3/uL (1.7-8.2); BASOPHILS % (MANUAL) 0 % (0-2); EOSINOPHILS % (MANUAL) 0 % (0-6); LYMPHOCYTES % (MANUAL) 4 % (13-45); MONOCYTES % (MANUAL) 2 % (3-13); POLYCHROMASIA 1+; SEGMENTED NEUTROPHILS % (MAN) 94 % (42-78); TOTAL CELLS COUNTED 100
[2018-10-15 07:31] LABS: ANISOCYTOSIS 2+; PLATELET COMMENT ADEQUATE
[2018-10-15] MEDS: INSULIN LISPRO 100 UNIT/ML 3 ML VIAL SUBCUT SCH ×4 (08:38→22:23)
[2018-10-15] MEDS: POTASSI CL 20 MEQ/50 ML RIDER 20 MEQ/50 ML RTUPB IV SCH ×4 (08:40→14:18)
[2018-10-15] MEDS: SPIRONOLACTONE 25 MG TABLET PO SCH ×2 (10:26→22:44)
[2018-10-15] MEDS: ESCITALOPRAM OXALATE 10 MG TABLET NG SCH (10:26)
[2018-10-15] MEDS: MEGESTROL ACETATE SUSP 400 MG/10 ML UDCUP PO SCH (10:26)
[2018-10-15] MEDS: METOPROLOL TARTRATE 25 MG TABLET NG SCH ×2 (10:26→22:45)
[2018-10-15] MEDS: FLUCONAZOLE 100 MG TABLET PO SCH (10:26)
[2018-10-15] MEDS: INSULIN GLARGINE,HUM.REC.ANLOG 300 UNIT/3 ML INSULN.PEN SUBCUT SCH ×2 (10:27→22:44)
[2018-10-15] MEDS: NYSTATIN/TRIAMCIN CREAM 15 GM TP SCH ×4 (10:27→22:46)
[2018-10-15] MEDS: DIPHENOXYLATE HCL/ATROP SULF 2.5-0.025 MG TABLET PO PRN (10:30)
--- NOTE | 2018-10-15 14:09 | PDOC PROGRESS REPORT ---
Subjective Progress Note for:: 10/15/18 Subjective:: No acute events in the last 24 hours. Patient is afebrile. C. difficile came back negative. Patient still have NG tube getting the NG tube feedings until now. Plan is to remove the NG tube start her on clear liquids and advance the diet as tolerated. 10/08/2018-acute abdominal series came back yesterday as possible ileus. I discussed the case with Dr. Aguirre, surgical consult was placed he thinks basically patient has constipation and patient has a 2 large bowel movements yesterday. Today CT abdominal pelvis was done which shows:colon Dilated 10 cm. I discussed the care again with Dr. Aguirre he is not concerned and believes it is not ileus. He want me to do stool for C. difficile. Plan is to repeat the acute abdominal series tomorrow. 10/09/2018-no acute events in the last 24 hours. Acute abdominal series was done this morning shows partial obstruction versus pseudoobstruction. She still have a low potassium of 2.8 despite getting IV K rider. We are going to stop her on Bumex. Albumin is also less 2.1 be going to give albumin 50%. Since appetite is still poor. She has a few loose stools. 10/10/2018-patient still having the loose stools. C. difficile last night is negative. Potassium is 2.2 despite giving a lot of IV K rider. She is off diuretics. Blood pressures are stable. Patient appetite is still very very minimal. Patient is afebrile. community planner consult was placed for possible hospice. 10/11/2018-no acute events in the last 24 hours. Stool culture was negative for C. difficile. Still having the loose stools. Started on Imodium. Potassium is persistently low she it is 2.3 today. She is going to receive at least 200 mEq of IV potassium today. Kidney function is improving. 10/12/2018-no acute events in the last 24 hours. Stool culture was negative for C. difficile she is on Imodium it is not helping with the loose stools. As per the nurse patient's appetite is better today compared to yesterday. 10/13/2018-no acute events in the last 24 hours. Patient is afebrile. She does not have any loose stools anymore. Potassium came up to 4.5. Chest x-ray done yesterday shows interstitial edema with bilateral pleural effusions. Creatinine is 0.93. I had a discussion about feedings with the patient's son day before he wants NG tube feedings, yesterday morning nurse told me patient is requesting PEG but the patient has to meet the guidelines and protocol for the PEG placement. Patient appetite is still poor. 10/14/2018-patient having the abdominal breathing last night nurses are concerned started on BiPAP. Patient's son was notified. This morning on examination without BiPAP patient is comfortably in the bed. No apneic spells noticed. No abdominal breathing is noticed. Nurse was requested to use BiPAP as needed basis. Appetite remains poor. She had third spacing of the fluid in the upper and lower extremity over the sacrum present. Getting IV albumin. 10/15/2018-patient is on BiPAP this morning. Her temperature is 93. Rectal temperature is 94.3. Blood cultures, urine cultures, chest x-ray, IV Zosyn was started thinking may be patient getting septic. She is DNR/DNI. Family is updated about her medical condition. over All prognosis is poor. Reason For Visit: SEPSIS, CLOSTRIDIUM DIFFICILE COLITIS,ACUTE KIDNEY Physical Exam Vital Signs: Temp Pulse Resp BP Pulse Ox 94.6 F L 75 20 118/65 94 10/15/18 13:21 10/15/18 13:50 10/15/18 13:50 10/15/18 11:57 10/15/18 13:50 Intake & Output 10/14/18 10/15/18 10/16/18 06:59 06:59 06:59 Intake Total 1434 1933 89 Output Total 2200 2225 600 Balance -289 -788 -580 Weight 85.8 kg 84.9 kg General appearance: PRESENT: mild distress Head exam: PRESENT: atraumatic Eye exam: PRESENT: PERRLA Mouth exam: PRESENT: moist, tongue midline Neck exam: ABSENT: carotid bruit, JVD, lymphadenopathy, thyromegaly Respiratory exam: PRESENT: crackles, decreased breath sounds Cardiovascular exam: PRESENT: irregular rhythm GI/Abdominal exam: PRESENT: normal bowel sounds, soft, other - Found to have opening next to the vagina fecal material is draining through the opening the indicating patient might have a fistula.. ABSENT: distended, guarding, mass, organolmegaly, rebound, tenderness Gentrourinary exam: PRESENT: indwelling catheter Extremities exam: PRESENT: +2 edema Neurological exam: PRESENT: alert, awake Psychiatric exam: PRESENT: appropriate affect, normal mood. ABSENT: homicidal ideation, suicidal ideation Results Laboratory Results: 10/15/18 05:20 10/15/18 05:20 10/15/18 10/15/18 05:20 05:20 WBC 9.4 RBC 3.22 L Hgb 10.5 L Hct 31.8 L MCV 99 H MCH 32.7 MCHC 33.2 RDW 17.7 H Plt Count 140 L Seg Neutrophils % Not Reportable Lymphocytes % Not Reportable Monocytes % Not Reportable Eosinophils % Not Reportable Basophils % Not Reportable Absolute Neutrophils Not Reportable Absolute Lymphocytes Not Reportable Absolute Monocytes Not Reportable Absolute Eosinophils Not Reportable Absolute Basophils Not Reportable Sodium 156.4 H Potassium 2.9 L* Chloride 124 H Carbon Dioxide 26 Anion Gap 6 BUN 30 H Creatinine 0.95 Est GFR ( Amer) > 60 Est GFR (Non-Af Amer) 56 L Glucose 174 H Calcium 8.9 Magnesium 1.9 Total Bilirubin 0.7 AST 39 H ALT 48 Alkaline Phosphatase 103 Total Protein 5.2 L Albumin 3.2 L 09/27/18 09/27/18 15:00 17:25 Creatine Kinase 68 CK-MB (CK-2) 3.15 Troponin I 0.061 NT-Pro-B Natriuret Pep 1140 H Impressions: Head CT 09/27/18 14:30 IMPRESSION: No acute intracranial pathology. EVIDENCE OF ACUTE STROKE: NO. KUB X-Ray 09/29/18 00:00 IMPRESSION: Tip of the enteric tube likely in the body of the stomach. Several mildly prominent air filled loops of small bowel may reflect ileus. Follow-up recommended copyright 2010 [employer]- All Rights Reserved Abdomen/Pelvis CT 10/08/18 00:00 IMPRESSION: Diffuse dilatation of the colon containing air and fluid. Maximal diameter approximately 10 cm. No wall thickening or evidence of torsion. The small bowel is normal in caliber. Moderate size bilateral pleural effusions with adjacent atelectasis. Small amount of perihepatic free fluid. Acute Abdomen Series 10/09/18 07:00 IMPRESSION: Partial colonic obstruction or pseudo-obstruction. No significant change. Chest X-Ray 10/14/18 00:00 IMPRESSION: Trace bilateral pleural effusions persist, unchanged from 10/12/2018 and 10/11/2018 Persistent multifocal airspace disease, edema versus pneumonia. This is unchanged from 10/12/2018 and 10/11/2018. Assessment & Plan - Diagnosis (1) Hypothermia Is this a current diagnosis for this admission?: Yes Plan: 10/15/2018-patient temperature rectal is 94.3. Hypothermia may be secondary to sepsis. Plan to put her on bear hugger, blood cultures, urine cultures, chest x-ray was requested started on Zosyn 3.37 g IV every 8 hours. We will continue to closely monitor her vital signs. Patient is DNR/DNI. (2) Acute cystitis with positive culture Is this a current diagnosis for this admission?: Yes Plan: 10/07/2018-urine cultures positive for Proteus mirabilis. Presently on cefazolin 1 g every 12 hours IV. Patient completed the course of 7 days of IV antibiotic therapy plan is to discontinue antibiotics today. 10/08/2018-patient is on Proteus mirabilis. On cefazolin 1 g IV every 12 hours. She is afebrile. She completed antibiotic course of 1 week yesterday. 10/09/2018-patient has urine culture positive for Proteus mirabilis, on cefazolin 1 g IV every 12 hours. She completed 1 week of antibiotic therapy she is off the antibiotics now. 10/10/2018 urine culture was positive for proteus mirabilis she was treated with cefazolin 1 g IV every 12 hours for 1 week. 10/11/2018-urine culture was positive for Proteus mirabilis she was treated with cefazolin 1 g IV every 12 hours for 1 week. She is off the antibiotics. Patient is afebrile. 10/12/2018-pt is afebrile and off the antibiotics.completed treatment for proteus mirabilus. 10/14/2018 patient is afebrile T-max is 97.4 she is off the antibiotics. 10/15/2018-patient temperature today is 94.3 previously had a acute cystitis with positive culture showing Proteus mirabilis and completed a course of cefazolin 1 g IV every 12 hours for 1 week. (3) Atrial fibrillation with RVR Is this a current diagnosis for this admission?: No Plan: 10/07/2018 patient was admitted with atrial fibrillation with RVR now is rate controlled. Patient is on metoprolol 25 mg every 12 hours. Plan is to continue the present management. 10/08/2018-patient is admitted with A. fib with RVR. Presently on metoprolol 25 mg every 6 hours. She is in sinus rhythm. 10/09/2018 -patient has atrial fibrillation with RVR rate controlled on metoprolol 25 mg every 6 hours. Plan is to continue the present management. 10/10/2018-patient has a history of atrial fibrillation with RVR rate controlled now on metoprolol 25 mg p.o. every 6 hours. Plan is to continue the present management. 10/11/2018-patient has history of paroxysmal atrial fibrillation with RVR. She still in A. fib. The heart rate is 92 rate controlled. Patient is on metoprolol 25 mg p.o. twice daily we will continue the present medication. 10/12/2018-patient with paroxysmal atrial fibrillation. On metoprolol 25 mg p.o. twice daily her heart rate is 108 today. Still in atrial fibrillation. 10/13/2018-patient has paroxysmal atrial fibrillation her heart rate is 100 today. On metoprolol 25 mg twice a day. 2018-patient has history of paroxysmal atrial fibrillation the heart rate is 74 today still in atrial fibrillation. She is not on anticoagulation but she is on metoprolol 25 mg p.o. twice daily plan is to continue the present management. 10/15/2018-patient has history of paroxysmal atrial fibrillation heart rate today 71 presently on metoprolol 25 mg p.o. twice daily plan is to continue the present management. (4) Renal failure Qualifiers: Renal failure chronicity: acute Acute renal failure type: unspecified Qualified Code(s): N17.9 - Acute kidney failure, unspecified Is this a current diagnosis for this admission?: Yes Plan: 10/07/2018 patient came in with creatinine of 7.2 and today is 0.86. Acute kidney injury most likely prerenal is resolved. 10/08/2018 patient admitted with creatinine of 7.2 today is 1.0. Acute kidney injury most likely prerenal is resolved. 10/09/2018-patient is admitted with creatinine of 7.2 today 1.11 with a GFR of 47. Plan is to discontinue her Bumex today. And to recheck her labs tomorrow. 10/10/2018-patient was admitted with creatinine of 7.2 today her GFR is 43 and creatinine is 1.19. She is off the Bumex and she is off the IV fluids. Blood pressure today 132/42. 10/11/2018-patient came in with creatinine of 7.2 improved to 1.04 today. Acute renal failure most likely prerenal resolving. 10/12/2018-patient was admitted with acute renal failure with creatinine of 7.2 ,it is 1.06 yesterday, today's labs are pending. 10/13/2018 patient came in with creatinine of 7.2 today it is 0.93 acute kidney injury resolved most likely prerenal secondary to poor intake. 10/14/2018-patient is admitted with renal failure with creatinine of 7.2 today creatinine is 0.93 acute kidney injury most likely prerenal is resolved.\\ 10/15/2018-with creatinine of 7.2 in acute renal failure creatinine today is 0.95 acute renal failure secondary to prerenal causes resolved. (5) Metabolic encephalopathy Is this a current diagnosis for this admission?: Yes Plan: I suspect that this is due in large part to the fact that she has not been eating much of anything at all for weeks and has been drinking very little. The bulk of what we have been doing for her is hydrating her and giving her tube feeds through an NG tube, and her clinical condition now looks the best that it has been in weeks. It will be interesting to see how well she eats wants her nutritional status has improved some more and we discontinue the NG tube, because previously the problem was not that she could not eat, but that she just did not want to. We plan to give her tube feeds through the weekend, and then, the first of the week, will clamp the tube and hold the tube feeds, and see how well she tolerates liquids and soft foods, and what sort of appetite she has. I am concerned that she lacks the motivation, for some reason, to eat on her own. 10/07/2018-metabolic encephalopathy most likely secondary to poor oral intake and poor nutrition status. She is received NG tube feedings until this morning. We are going to remove the NG tube start with clear liquids today to advance the diet and see if he is able to tolerate the oral feeds. Acute abdominal series was requested. We continue to follow her on regular basis with the daily labs. 10/08/2018-patient is little bit alert and oriented compared to yesterday. Metabolic encephalopathy may be secondary to electrolyte abnormalities, poor nutritional status and a poor oral intake. We could continue to follow her on regular basis. 2018-patient able to communicate better compared to yesterday. But her appetite is still poor. Altered mental status /metabolic encephalopathy may be secondary to poor mental status, electrolyte abnormalities, poor oral intake. I am going to start her on Megace to improve her appetite. 10/10/2018-patient is comfortably in the bed not in distress appetite is very very minimal. Continued to have loose stools. Despite IV K riders potassium still low at 2.2. We are going to give a K rider 80 mg x2 doses today. To check the labs tomorrow. 10/11/2018-patient is admitted with altered mental status/acute encephalopathy most likely secondary to acute renal failure and electrolyte abnormalities including hypokalemia. Patient appetite is still poor. Patient is unable to pa rticipate in physical therapy. She may have to go to hospice care. 10/12/2018-altered mental status/he could not coagulopathy most likely metabolic in nature due to electrolyte abnormalities and acute renal failure. It is still hypokalemic to be giving daily supplementations of potassium. Plan is to continue the present management. 10/13/2018-altered mental status/acute encephalopathy most likely metabolic in nature. Hyperkalemia resolved. Acute kidney injury resolved. Appetite is still poor. Going to start her on NG tube feeding. 10/14/2018-altered mental status/acute encephalopathy most likely metabolic in nature. Electrolyte abnormalities are resolved. Patient is alert responding to very few questions like "who are you doing- she is nodding her head like ok ,Do you need anything she is shaking head indicating no, other that not maintaining much conversation. 10/15/2018-altered mental status/acute encephalopathy most likely metabolic in nature. Potassium today of 2.9. Which is going to be supplemented. Acute renal failure is resolved. (6) Hypokalemia Is this a current diagnosis for this admission?: Yes Plan: 10/09/2018-hypokalemia with potassium of 2.8 most likely secondary to poor oral intake and patient is on Bumex which was stopped today. We are going to recheck her potassium tomorrow she is getting IV K riders. 10/10/2018-potassium level today is 2.2 she is not taking much by mouth be going to give K riders 80 mEq x2. 10/11/2018-patient has persistently severe hypokalemia potassium today is 2.3 she received 80 meq of potassium yesterday. She is going to receive another 160 meq of potassium today. Nephrology consult was requested for input. Started on Imodium after C. difficile was negative. Hopefully controlling the loose stools may improve her potassium. 10/12/2018 patient's potassium is persistently low because of severe diarrhea. She received at least one 60 mg of potassium yesterday. Today's labs are pending. We will continue to aggressively supplement potassium. She still have the diarrhea Imodium is not working. We are going to put her on Lomotil. Plan is to continue the other management. 10/13/2018-potassium level today is 4.5 hypokalemia resolved. Chest x-ray done yesterday shows interstitial edema and bilateral pleural effusions. Plan is to start on Lasix 20 mg p.o. every 8 hours. 10/14/2018-patient potassium is 3.6 today hypokalemia is resolved. 10/15/2018 patient is hypokalemic again today with potassium is 2.9 she is going to receive 80 mg of K rider. And to check labs again tomorrow morning. - Time Time Spent with patient: 15-24 minutes Medications reviewed and adjusted accordingly: Yes Anticipated discharge: Hospice
[2018-10-15] MEDS ORDERED: PIPERACILLIN/TAZOBACTAM 3.375 GM VIAL IV SCH (14:15)
[2018-10-15] MEDS: PIPERACILLIN SODIUM/TAZOBACTAM 3.375 GM in NORMAL SALINE 100 ML IV SCH ×2 (15:48→22:33)
--- NOTE | 2018-10-15 15:57 | RADIOLOGY REPORT (SQ) ---
EXAM DESCRIPTION: CHEST SINGLE VIEW COMPLETED DATE/TIME: 10/15/2018 3:47 pm REASON FOR STUDY: shortness of breath COMPARISON: Chest films 09/28/2018, 10/11/2018, 10/12/2018, 10/14/2018 EXAM PARAMETERS: NUMBER OF VIEWS: One view. TECHNIQUE: Single frontal radiographic view of the chest acquired. RADIATION DOSE: NA LIMITATIONS: None. FINDINGS: LUNGS AND PLEURA: Trace bilateral pleural effusions persist, unchanged from 10/14/2018. Mild bibasilar and right upper lobe airspace disease, unchanged from 10/14/2018. No pneumothorax. MEDIASTINUM AND HILAR STRUCTURES: No masses. Contour normal. HEART AND VASCULAR STRUCTURES: No cardiomegaly BONES: No acute findings. HARDWARE: Left-sided triple-lumen catheter tip in the superior vena cava OTHER: No other significant finding. IMPRESSION: Trace bilateral pleural effusions with bibasilar and right upper lobe airspace disease. Findings are unchanged from yesterday TECHNICAL DOCUMENTATION: JOB ID: [id number] [employer]- All Rights Reserved Reading location - IP/workstation name: [email or web address]
[2018-10-15] MEDS: DEXTROSE 5%-WATER 1000 ML 1,000 ML IV PRN (17:21)
[2018-10-15] MEDS: MIRTAZAPINE 15 MG TABLET NG SCH (22:44)
[2018-10-15] MEDS: ACETAMINOPHEN 325 MG TABLET PO PRN (23:13)
[2018-10-16] MEDS: PIPERACILLIN SODIUM/TAZOBACTAM 3.375 GM in NORMAL SALINE 100 ML IV SCH ×4 (03:18→23:32)
[2018-10-16] MEDS: HEPARIN SOD (PORCINE) 5,000 UNIT/ML 1 ML SYRINGE SUBCUT SCH ×3 (06:23→23:15)
[2018-10-16] MEDS: LEVOTHYROXINE SODIUM 0.05 MG TABLET NG SCH (06:25)
[2018-10-16] MEDS: FUROSEMIDE ORAL SOLN 40 MG/5 ML UDCUP PO SCH ×3 (06:25→22:57)
[2018-10-16 07:50] LABS: ABSOLUTE EOSINOPHILS # (AUTO) 0.1 10^3/uL (0.0-0.6); ABSOLUTE MONOCYTES (AUTO) 0.5 10^3/uL (0.1-1.4); ABSOLUTE NEUT (AUTO) 9.5 10^3/uL (1.7-8.2); BASOPHILS % (AUTO) 0.1 % (0-2); EOSINOPHILS % (AUTO) 0.8 % (0-6); HEMATOCRIT 32.1 % (36.0-47.0); HEMOGLOBIN 10.5 g/dL (12.0-15.5); LYMPHOCYTES % (AUTO) 9.1 % (13-45); MEAN CORPUSCULAR HEMOGLOBIN 31.9 pg (27.0-33.4); MEAN CORPUSCULAR HGB CONC 32.7 g/dL (32.0-36.0); MEAN CORPUSCULAR VOLUME 98 fl (80-97); MONOCYTES % (AUTO) 4.5 % (3-13); PLATELET COUNT 165 10^3/uL (150-450); RED BLOOD COUNT 3.29 10^6/uL (3.72-5.28); RED CELL DISTRIBUTION WIDTH 17.5 % (11.5-14.0); SEGMENTED NEUTROPHILS % (AUTO) 85.5 % (42-78); TOTAL CELLS COUNTED % (AUTO) 100 %; WHITE BLOOD COUNT 11.1 10^3/uL (4.0-10.5)
[2018-10-16 07:51] LABS: ALANINE AMINOTRANSFERASE 38 U/L (9-52); ALBUMIN 2.8 g/dL (3.5-5.0); ALKALINE PHOSPHATASE 93 U/L (38-126); ANION GAP 6 (5-19); ASPARTATE AMINO TRANSFERASE 28 U/L (14-36); BILIRUBIN,DIRECT 0.4 mg/dL (0.0-0.4); BILIRUBIN,TOTAL 0.8 mg/dL (0.2-1.3); BLOOD UREA NITROGEN 27 mg/dL (7-20); CALCIUM 8.5 mg/dL (8.4-10.2); CARBON DIOXIDE 27 mmol/L (22-30); CHLORIDE 122 mmol/L (98-107); GLUCOSE 146 mg/dL (75-110); POTASSIUM 3.1 mmol/L (3.6-5.0); SODIUM 154.8 mmol/L (137-145); TOTAL PROTEIN 4.5 g/dL (6.3-8.2)
[2018-10-16] MEDS ORDERED: POTASSIUM CHLORIDE 20 MEQ/15 ML UDCUP PO ONE ×2 (08:46→13:30)
[2018-10-16] MEDS: INSULIN LISPRO 100 UNIT/ML 3 ML VIAL SUBCUT SCH ×4 (12:04→22:57)
[2018-10-16] MEDS: NYSTATIN/TRIAMCIN CREAM 15 GM TP SCH ×2 (12:06→19:20)
[2018-10-16] MEDS: MEGESTROL ACETATE SUSP 400 MG/10 ML UDCUP PO SCH (12:06)
[2018-10-16] MEDS: ESCITALOPRAM OXALATE 10 MG TABLET NG SCH (12:06)
[2018-10-16] MEDS: INSULIN GLARGINE,HUM.REC.ANLOG 300 UNIT/3 ML INSULN.PEN SUBCUT SCH ×2 (12:23→22:56)
[2018-10-16] MEDS: METOPROLOL TARTRATE 25 MG TABLET NG SCH ×2 (12:23→22:59)
[2018-10-16] MEDS: FLUCONAZOLE 100 MG TABLET PO SCH (12:23)
[2018-10-16 12:42] LABS: ARTERIAL BLOOD BASE EXCESS 0.9 mmol/L; ARTERIAL BLOOD H2CO3 1.05 mmol/L (1.05-1.35); ARTERIAL BLOOD HCO3 24.4 mmol/L (20-24); ARTERIAL BLOOD O2 SATURATION 97.7 % (94-98); ARTERIAL BLOOD PCO2 34.9 mmHg (35-45); ARTERIAL BLOOD PH 7.46 (7.35-7.45); ARTERIAL BLOOD TOTAL CO2 25.4 mmol/L (21-25)
[2018-10-16 12:48] LABS: ARTERIAL BLOOD FIO2 3.5L
[2018-10-16 15:46] LABS: PHOSPHORUS 2.6 mg/dL (2.5-4.5)
[2018-10-16 15:53] LABS: PREALBUMIN 9.4 mg/dL (17.6-36.0)
[2018-10-16] MEDS ORDERED: FUROSEMIDE INJ/PF 20 MG/2 ML SDV IV PRN (16:15)
--- NOTE | 2018-10-16 16:53 | PDOC PROGRESS REPORT ---
Subjective Progress Note for:: 10/16/18 Reason For Visit: SEPSIS, CLOSTRIDIUM DIFFICILE COLITIS,ACUTE KIDNEY Physical Exam Vital Signs: Temp Pulse Resp BP Pulse Ox 98.5 F 79 20 126/53 H 99 10/16/18 12:02 10/16/18 12:30 10/16/18 12:30 10/16/18 12:02 10/16/18 12:30 Pulse Oximeter Continuous Start: 10/16/18 11:45 Freq: RTQ4 Status: Active Protocol: Document 10/16/18 12:30 [facility] [place] (Rec: 10/16/18 12:47 [facility] [place] [id number]) Pulse Oximetry Assessment Oxygen Saturation (92-100) 99 Oxygen Flow Rate (L/min) 3.5 Oxygen Delivery Method Nasal Cannula Fraction of Inspired Oxygen (FIO2) 34 Equipment Usage Initial Set Up Continuous Pulse Oximeter 24 Hour Charge Charge Now Continuous SpO2 Machine # n 5 Intake & Output 10/15/18 10/16/18 10/17/18 06:59 06:59 06:59 Intake Total 1933 1839 Output Total 2225 1800 Balance -292 39 Weight 84.9 kg 88.8 kg General appearance: PRESENT: no acute distress, disheveled, obese, well- developed, other - anasarca Head exam: PRESENT: atraumatic, normocephalic Eye exam: PRESENT: conjunctiva pink, EOMI, PERRLA. ABSENT: scleral icterus Mouth exam: PRESENT: moist, tongue midline Neck exam: ABSENT: carotid bruit, JVD, lymphadenopathy, thyromegaly Respiratory exam: PRESENT: crackles - Fine bibasilar, decreased breath sounds, symmetrical, other - Shallow, poor inspiratory effort. Supplemental oxygen via nasal cannula. ABSENT: rales, rhonchi, wheezes Cardiovascular exam: PRESENT: irregular rhythm, +S1, +S2. ABSENT: diastolic murmur, rubs, systolic murmur Pulses: PRESENT: normal dorsalis pedis pul Vascular exam: PRESENT: normal capillary refill GI/Abdominal exam: PRESENT: normal bowel sounds, soft. ABSENT: distended, guarding, mass, organolmegaly, rebound, tenderness Rectal exam: PRESENT: deferred Extremities exam: PRESENT: full ROM, +2 edema - BLE; +2 pitting edema, other - +3 pitting edema BUE. ABSENT: calf tenderness, clubbing, pedal edema Neurological exam: PRESENT: alert, awake, oriented to person, CN II-XII grossly intact, other - No facial asymmetry or focal deficits noted; fatigued. ABSENT: motor sensory deficit Psychiatric exam: PRESENT: flat affect Skin exam: PRESENT: dry, rash - Healing Janel rash to all skin folds, warm, other - Previous providers note indicates possible fistula near vagina/labia with questionable fecal material draining through the opening. Patient is noted to have loose stools today; unable to locate area of concern despite nursing's assistance.. ABSENT: cyanosis Results Laboratory Results: 10/16/18 06:10 10/16/18 06:10 10/16/18 10/16/18 10/16/18 06:10 06:10 12:20 WBC 11.1 H RBC 3.29 L Hgb 10.5 L Hct 32.1 L MCV 98 H MCH 31.9 MCHC 32.7 RDW 17.5 H Plt Count 165 Seg Neutrophils % 85.5 H Lymphocytes % 9.1 L Monocytes % 4.5 Eosinophils % 0.8 Basophils % 0.1 Absolute Neutrophils 9.5 H Absolute Lymphocytes 1.0 Absolute Monocytes 0.5 Absolute Eosinophils 0.1 Absolute Basophils 0.0 Carbonic Acid 1.05 HCO3/H2CO3 Ratio 23:1 ABG pH 7.46 H ABG pCO2 34.9 L ABG pO2 97.0 ABG HCO3 24.4 H ABG O2 Saturation 97.7 ABG Base Excess 0.9 FiO2 3.5L Sodium 154.8 H Potassium 3.1 L Chloride 122 H Carbon Dioxide 27 Anion Gap 6 BUN 27 H Creatinine 0.99 Est GFR ( Amer) > 60 Est GFR (Non-Af Amer) 54 L Glucose 146 H Lactic Acid Calcium 8.5 Phosphorus Magnesium 1.8 Total Bilirubin 0.8 AST 28 ALT 38 Alkaline Phosphatase 93 Total Protein 4.5 L Albumin 2.8 L Prealbumin 10/16/18 10/16/18 15:08 15:08 WBC RBC Hgb Hct MCV MCH MCHC RDW Plt Count Seg Neutrophils % Lymphocytes % Monocytes % Eosinophils % Basophils % Absolute Neutrophils Absolute Lymphocytes Absolute Monocytes Absolute Eosinophils Absolute Basophils Carbonic Acid HCO3/H2CO3 Ratio ABG pH ABG pCO2 ABG pO2 ABG HCO3 ABG O2 Saturation ABG Base Excess FiO2 Sodium Potassium Chloride Carbon Dioxide Anion Gap BUN Creatinine Est GFR ( Amer) Est GFR (Non-Af Amer) Glucose Lactic Acid 1.7 Calcium Phosphorus 2.6 Magnesium Total Bilirubin AST ALT Alkaline Phosphatase Total Protein Albumin Prealbumin 9.4 L 09/27/18 09/27/18 10/16/18 15:00 17:25 06:10 Creatine Kinase 68 CK-MB (CK-2) 3.15 Troponin I 0.061 NT-Pro-B Natriuret Pep 1140 H 4550 H Impressions: Head CT 09/27/18 14:30 IMPRESSION: No acute intracranial pathology. EVIDENCE OF ACUTE STROKE: NO. KUB X-Ray 09/29/18 00:00 IMPRESSION: Tip of the enteric tube likely in the body of the stomach. Several mildly prominent air filled loops of small bowel may reflect ileus. Follow-up recommended copyright 2011 [employer]- All Rights Reserved Abdomen/Pelvis CT 10/08/18 00:00 IMPRESSION: Diffuse dilatation of the colon containing air and fluid. Maximal diameter approximately 10 cm. No wall thickening or evidence of torsion. The small bowel is normal in caliber. Moderate size bilateral pleural effusions with adjacent atelectasis. Small amount of perihepatic free fluid. Acute Abdomen Series 10/09/18 07:00 IMPRESSION: Partial colonic obstruction or pseudo-obstruction. No significant change. Chest X-Ray 10/15/18 00:00 IMPRESSION: Trace bilateral pleural effusions with bibasilar and right upper lobe airspace disease. Findings are unchanged from yesterday Assessment & Plan - Diagnosis (1) Hypothermia Is this a current diagnosis for this admission?: Yes Plan: Patient was noted to develop hypothermia yesterday; rectal temp 94.3. Concerned that this may be early evidence of sepsis. Likely secondary to anasarca resulting from hypoalbuminemia. Blood cultures are pending. Urine cultures show gram-negative rods; recently treated for Proteus mirabilis with 1 week of IV Ancef. Possibly the patient is chronically colonized. WBC is minimally elevated 11.1. Normal temperature today; Bear hugger stopped midmorning. Lactic acid nml. Continue Zosyn; initiated yesterday. Continue bear hugger for temperature regulation. Will check AM cortisol and TSH. (2) Acute cystitis with positive culture Is this a current diagnosis for this admission?: Yes Plan: On admission UTI confirmed with urinalysis with follow-up culture positive for Proteus mirabilis. She completed a full course of IV cefazolin. Antibiotic was subsequently discontinued. Repeat urine culture obtained yesterday due to development of hypothermia is revealing C albicans and gram-negative rods. She is currently on IV Zosyn for treatment of sepsis; will continue as the Proteus mirabilis was sensitive to Zosyn. Will adjust antibiotics as cultures result. (3) Hypernatremia Is this a current diagnosis for this admission?: Yes Plan: Improved; though remains elevated. Na 140-> 160.7-> 154.8 Secondary to poor p.o. intake. Medications reviewed for hypernatremia. Continue D5W 50 mls/hr Continue Lasix 20 mg p.o. q 8 hours and spironolactone; spironolactone increased today. One-time dose of IV Lasix 20 mg. Continue to monitor with daily chemistries. (4) Metabolic encephalopathy Is this a current diagnosis for this admission?: Yes Plan: Improved; patient is awake, alert, oriented to self but with delayed responses to simple questions and otherwise does not participate conversationally. Likely multifactorial secondary to dementia, metabolic encephalopathy resulting from sepsis, electrolyte derangements, recent AK I, and hospitalization. Evaluation and management of hypothermia and possible sepsis as above. Avoid all sedating medications; home dose Remeron is continued. Provide for patient safety. Supportive care. (5) Renal failure Qualifiers: Renal failure chronicity: acute Acute renal failure type: unspecified Qualified Code(s): N17.9 - Acute kidney failure, unspecified Is this a current diagnosis for this admission?: Yes Plan: Resolved; prerenal secondary to poor p.o. intake. Admitted with creatinine of 7.20; now at baseline of 0.99 with BUN of 27. Potassium 3.1 Continue to avoid nephrotoxic medications as able. Patient does require spinal lactone and Lasix for fluid mobilization secondary to mild CHF exacerbation and anasarca. Daily chemistries. (6) Atrial fibrillation with RVR Is this a current diagnosis for this admission?: Yes Plan: Patient initially admitted with atrial fibrillation with RVR; likely secondary to dehydration resulting in AK I. She does have a history of proximal atrial fibrillation with RVR. Currently rate controlled with metoprolol 25 mg twice daily. She is not a good candidate for chronic anticoagulation; HAS-BLED Score 3: High risk for major bleeding event (5.8% yearly risk). (7) Hypokalemia Is this a current diagnosis for this admission?: Yes Plan: Persistent; likely secondary to poor p.o. intake, continued frequent loose stools, and Lasix utilization. Continue spironolactone; dose increased today. She was provided IV and p.o. potassium replacement today. We will check daily chemistry and replace as necessary. (8) Candidiasis, intertrigo Is this a current diagnosis for this admission?: Yes Plan: Fluconazole p.o. daily Nystatin/triamcinolone cream 4 times daily. Optimize diabetes management. Ensure adequate hygiene. (9) Hypoalbuminemia Is this a current diagnosis for this admission?: Yes Plan: Secondary to poor p.o. intake. Albumin 2.8; prealbumin 9.4. Patient previously admitted with failure to thrive secondary to advanced dementia with poor p.o. intake. She was provided tube feeds at that time; discharged to home on p.o. diet and subsequently readmitted with significant LEATHA (CR 7.20) despite Remeron and Megace for appetite support. This is likely a chronic condition and result of her advanced age and dementia; patient is unlikely to benefit from continued artificial means of nutrition. Will provide IV albumin 25 g today followed by IV furosemide to help mobilize fluid and attempt to reduce fluid overload. Have asked discharge planning to assist with setting up a family meeting between provider, social media sr strategy manager, and palliative of care/documentation liaison to discuss goals of care and medical futility of aggressive/heroic measures. If necessary, we will ask surgery to weigh in on ineffectiveness of PEG tube for tube feedings in patient with these comorbidities. - Time Time Spent with patient: 25-34 minutes Medications reviewed and adjusted accordingly: Yes Anticipated discharge: Hospice Within: Other - Pending patient's family's readiness for transition to hospice services. If d/c to SNF; anticipate near immediate readmission for LEATHA r/t poor p.o intake.
[2018-10-16] MEDS: SPIRONOLACTONE 25 MG TABLET PO SCH ×2 (17:58→22:58)
[2018-10-16] MEDS ORDERED: NYSTATIN CREAM 15 GM TP SCH (18:00)
[2018-10-16] MEDS ORDERED: POTASSIUM CHLORIDE 20 MEQ/15 ML UDCUP ONE (18:05)
[2018-10-16] MEDS: ALBUMIN HUMAN 12.5 GM/50 ML RTUINJ IV SCH ×2 (18:07→19:43)
[2018-10-16] MEDS: MIRTAZAPINE 15 MG TABLET NG SCH (22:59)
[2018-10-17] MEDS: NYSTATIN/TRIAMCIN CREAM 15 GM TP SCH ×4 (05:11→17:58)
[2018-10-17 05:23] LABS: HEMATOCRIT 31.8 % (36.0-47.0); HEMOGLOBIN 10.6 g/dL (12.0-15.5); MEAN CORPUSCULAR HEMOGLOBIN 32.3 pg (27.0-33.4); MEAN CORPUSCULAR HGB CONC 33.2 g/dL (32.0-36.0); MEAN CORPUSCULAR VOLUME 98 fl (80-97); PLATELET COUNT 176 10^3/uL (150-450); RED BLOOD COUNT 3.27 10^6/uL (3.72-5.28); RED CELL DISTRIBUTION WIDTH 17.9 % (11.5-14.0); WHITE BLOOD COUNT 11.7 10^3/uL (4.0-10.5)
[2018-10-17 05:38] LABS: ALANINE AMINOTRANSFERASE 39 U/L (9-52); ALBUMIN 3.1 g/dL (3.5-5.0); ALKALINE PHOSPHATASE 107 U/L (38-126); ANION GAP 5 (5-19); ASPARTATE AMINO TRANSFERASE 52 U/L (14-36); BILIRUBIN,DIRECT 0.4 mg/dL (0.0-0.4); BILIRUBIN,TOTAL 0.7 mg/dL (0.2-1.3); BLOOD UREA NITROGEN 26 mg/dL (7-20); CALCIUM 8.4 mg/dL (8.4-10.2); CARBON DIOXIDE 32 mmol/L (22-30); CHLORIDE 119 mmol/L (98-107); GLUCOSE 132 mg/dL (75-110); SODIUM 155.6 mmol/L (137-145)
[2018-10-17 05:46] LABS: POTASSIUM 2.8 mmol/L (3.6-5.0)
[2018-10-17] MEDS: LEVOTHYROXINE SODIUM 0.05 MG TABLET NG SCH (05:51)
[2018-10-17] MEDS: PIPERACILLIN SODIUM/TAZOBACTAM 3.375 GM in NORMAL SALINE 100 ML IV SCH ×3 (05:51→15:31)
[2018-10-17] MEDS: FUROSEMIDE ORAL SOLN 40 MG/5 ML UDCUP PO SCH (05:52)
[2018-10-17] MEDS: HEPARIN SOD (PORCINE) 5,000 UNIT/ML 1 ML SYRINGE SUBCUT SCH ×4 (05:52→23:00)
[2018-10-17] MEDS: POTASSIUM CHLORIDE 20 MEQ/50 ML RTU IV SCH ×3 (06:42→11:43)
[2018-10-17] MEDS: DEXTROSE 5%-WATER 1000 ML 1,000 ML IV PRN (06:44)
[2018-10-17] MEDS: INSULIN LISPRO 100 UNIT/ML 3 ML VIAL SUBCUT SCH ×4 (08:17→22:52)
[2018-10-17 09:24] LABS: FREE T3 1.97 pg/mL (2.77-5.27)
[2018-10-17 09:25] LABS: FREE T4 (FREE THYROXINE) 0.96 ng/dL (0.78-2.19)
[2018-10-17] MEDS: SPIRONOLACTONE 25 MG TABLET PO SCH (10:00)
[2018-10-17] MEDS: FLUCONAZOLE 100 MG TABLET PO SCH (10:00)
[2018-10-17] MEDS: METOPROLOL TARTRATE 25 MG TABLET NG SCH ×2 (10:01→22:51)
[2018-10-17] MEDS: INSULIN GLARGINE,HUM.REC.ANLOG 300 UNIT/3 ML INSULN.PEN SUBCUT SCH ×2 (10:03→22:51)
[2018-10-17] MEDS: FUROSEMIDE INJ/PF 40 MG/4 ML SDV IV SCH (10:10)
[2018-10-17] MEDS: ALBUMIN HUMAN 12.5 GM/50 ML RTUINJ IV SCH ×2 (11:30→12:26)
--- NOTE | 2018-10-17 18:33 | PDOC PROGRESS REPORT ---
Subjective Progress Note for:: 10/17/18 Subjective:: The patient was seen on afternoon rounds with her caregiver present. She was found resting in bed comfortably on supplemental oxygen by nasal cannula 3 L/min. She was lying in a semi-recumbent position; head of bed elevated approximately 20 degrees, without distress (no apparent orthopnea). She is awake, alert, oriented to self, does answer yes or no questions though difficult to assess if she is oriented and aware enough to understand what it is that I am asking her. However, she does deny chest pain, shortness of breath, and abdominal pain. She has no questions or concerns. Nursing is concerned about development of a possible fistula to her left labia. Reason For Visit: SEPSIS, CLOSTRIDIUM DIFFICILE COLITIS,ACUTE KIDNEY Physical Exam Vital Signs: Temp Pulse Resp BP Pulse Ox 98.1 F 91 18 120/69 100 10/17/18 17:00 10/17/18 17:00 10/17/18 17:00 10/17/18 17:00 10/17/18 17:00 Pulse Oximeter Continuous Start: 10/16/18 11:45 Freq: RTQ4 Status: Active Protocol: Document 10/17/18 16:10 [facility] (Rec: 10/17/18 16:10 [facility] [id number]) Pulse Oximetry Assessment Oxygen Saturation (92-100) 91 Oxygen Flow Rate (L/min) 2 Oxygen Delivery Method Nasal Cannula Equipment Usage Equipment in Use Continuous SpO2 Machine # 5 Intake & Output 10/16/18 10/17/18 10/18/18 06:59 06:59 06:59 Intake Total 1839 1680 347 Output Total 1800 2100 Balance 39 -420 347 Weight 88.8 kg 86.5 kg General appearance: PRESENT: no acute distress, morbidly obese, well-developed, well-nourished, other - Anasarca Head exam: PRESENT: atraumatic, normocephalic Eye exam: PRESENT: conjunctiva pink, EOMI, PERRLA. ABSENT: scleral icterus Mouth exam: PRESENT: moist, tongue midline Neck exam: ABSENT: carotid bruit, JVD, lymphadenopathy, thyromegaly Respiratory exam: PRESENT: crackles - Bibasilar, decreased breath sounds - Throughout; poor inspiratory effort, impeded by body habitus, symmetrical, unlabored, other - Supplemental oxygen by nasal cannula.. ABSENT: rales, rhonchi, wheezes Cardiovascular exam: PRESENT: irregular rhythm. ABSENT: diastolic murmur, rubs, systolic murmur Pulses: PRESENT: +1 pedal pulses bilateral Vascular exam: PRESENT: normal capillary refill GI/Abdominal exam: PRESENT: diminished bowel sounds, normal bowel sounds, soft, other - Exam limited secondary to body habitus. ABSENT: distended, guarding, mass, organolmegaly, rebound, tenderness Rectal exam: PRESENT: deferred Gentrourinary exam: PRESENT: lesions - Significant perineal/dependent edema. Left medial labia at 5 o'clock found to have a 0.5 cm round lesion draining copious amounts of apparently feculent material., indwelling catheter Extremities exam: PRESENT: full ROM - Moves all extremities spontaneously; weak dorsiflexion but equal bilaterally, equal but weak manager solar bilaterally.. ABSENT: calf tenderness, clubbing, pedal edema Neurological exam: PRESENT: alert, awake, oriented to person, CN II-XII grossly intact, other - Delayed responses; difficult to assess mental status; answers y es or no questions but is not conversational. Does follow simple directions with multiple prompts.. ABSENT: motor sensory deficit Psychiatric exam: PRESENT: flat affect, normal mood. ABSENT: homicidal ideation, suicidal ideation Skin exam: PRESENT: dry, rash - Healing Janel rash to all skin folds, warm. ABSENT: cyanosis, intact - As above Results Laboratory Results: 10/17/18 04:06 10/17/18 04:06 10/17/18 10/17/18 10/17/18 04:06 04:06 04:06 WBC 11.7 H RBC 3.27 L Hgb 10.6 L Hct 31.8 L MCV 98 H MCH 32.3 MCHC 33.2 RDW 17.9 H Plt Count 176 Sodium 155.6 H Potassium 2.8 L* Chloride 119 H Carbon Dioxide 32 H Anion Gap 5 BUN 26 H Creatinine 1.00 Est GFR ( Amer) > 60 Est GFR (Non-Af Amer) 53 L Glucose 132 H Calcium 8.4 Total Bilirubin 0.7 AST 52 H ALT 39 Alkaline Phosphatase 107 Total Protein 5.0 L Albumin 3.1 L TSH 7.31 H Free T4 Free T3 pg/mL 10/17/18 04:06 WBC RBC Hgb Hct MCV MCH MCHC RDW Plt Count Sodium Potassium Chloride Carbon Dioxide Anion Gap BUN Creatinine Est GFR ( Amer) Est GFR (Non-Af Amer) Glucose Calcium Total Bilirubin AST ALT Alkaline Phosphatase Total Protein Albumin TSH Free T4 0.96 Free T3 pg/mL 1.97 L 10/15/18 13:55 Flores Catheter Urine Culture - Final Escherichia Coli C.albicans/C.dubliniensis 09/27/18 09/27/18 10/16/18 15:00 17:25 06:10 Creatine Kinase 68 CK-MB (CK-2) 3.15 Troponin I 0.061 NT-Pro-B Natriuret Pep 1140 H 4550 H Impressions: Head CT 09/27/18 14:30 IMPRESSION: No acute intracranial pathology. EVIDENCE OF ACUTE STROKE: NO. KUB X-Ray 09/29/18 00:00 IMPRESSION: Tip of the enteric tube likely in the body of the stomach. Several mildly prominent air filled loops of small bowel may reflect ileus. Follow-up recommended copyright 2010 [employer]- All Rights Reserved Abdomen/Pelvis CT 10/08/18 00:00 IMPRESSION: Diffuse dilatation of the colon containing air and fluid. Maximal diameter approximately 10 cm. No wall thickening or evidence of torsion. The small bowel is normal in caliber. Moderate size bilateral pleural effusions with adjacent atelectasis. Small amount of perihepatic free fluid. Acute Abdomen Series 10/09/18 07:00 IMPRESSION: Partial colonic obstruction or pseudo-obstruction. No significant change. Chest X-Ray 10/15/18 00:00 IMPRESSION: Trace bilateral pleural effusions with bibasilar and right upper lobe airspace disease. Findings are unchanged from yesterday Assessment & Plan - Diagnosis (1) Hypothermia Is this a current diagnosis for this admission?: Yes Plan: Resolved; currently maintaining body temperature without use of bare hugger. Patient was noted to develop hypothermia; rectal temp 94.3. Concerned that this may be early evidence of sepsis. Likely secondary to anasarca resulting from hypoalbuminemia. Blood cultures have no growth at 48 hours. Original urine culture revealed Proteus mirabilis; repeat urine culture shows Janel and E. coli. WBC is minimally elevated 11.7. Normal temperature today. Lactic acid nml. Thyroid panel and a.m. cortisol are acceptable. Both Proteus mirabilis and E. coli are pansensitive/PCN sensitive. Will transition to p.o. amoxicillin to further reduce risk for fluid overloading. Continue bear hugger for temperature regulation as needed.. (2) Acute cystitis with positive culture Is this a current diagnosis for this admission?: Yes Plan: On admission UTI confirmed with urinalysis with follow-up culture positive for Proteus mirabilis. She completed a full course of IV cefazolin. Antibiotic was subsequently discontinued. Repeat urine culture demonstrates pansensitive E. coli. Received 3 days of IV Zosyn; transition to p.o. amoxicillin today. (3) Hypernatremia Is this a current diagnosis for this admission?: Yes Plan: Worsening; though remains elevated. Na 140-> 160.7-> 154.8-> Secondary to poor p.o. intake. Medications reviewed for hypernatremia. Continue Lasix 40 mg IV twice daily and spironolactone 50 mg twice daily. Continue to monitor with daily chemistries. (4) Metabolic encephalopathy Is this a current diagnosis for this admission?: Yes Plan: Waxing and waning; patient is awake, alert, oriented to self but with delayed responses to simple questions and otherwise does not participate conversationally. Does follow simple commands with multiple prompting. Home caregiver at bedside and reports that she has decreased alertness today. Likely multifactorial secondary to dementia, metabolic encephalopathy resulting from sepsis, electrolyte derangements, recent AK I, and hospitalization. Evaluation and management of hypothermia and possible sepsis as above. Avoid all sedating medications; home dose Remeron is continued. Provide for patient safety. Supportive care. (5) Renal failure Qualifiers: Renal failure chronicity: acute Acute renal failure type: unspecified Qualified Code(s): N17.9 - Acute kidney failure, unspecified Is this a current diagnosis for this admission?: Yes Plan: Resolved; prerenal secondary to poor p.o. intake. Admitted with creatinine of 7.20; now at baseline of 0.99 with BUN of 27. Continue to avoid nephrotoxic medications as able. Patient does require spironolactone and Lasix for fluid mobilization secondary to mild CHF exacerbation and anasarca. Will monitor renal function closely. Daily chemistries. (6) Atrial fibrillation with RVR Is this a current diagnosis for this admission?: Yes Plan: Patient initially admitted with atrial fibrillation with RVR; likely secondary to dehydration resulting in AK I. She does have a history of proximal atrial fibrillation with RVR. Currently rate controlled with metoprolol 25 mg twice daily. She is not a good candidate for chronic anticoagulation; HAS-BLED Score 3: High risk for major bleeding event (5.8% yearly risk). (7) Hypokalemia Is this a current diagnosis for this admission?: Yes Plan: Persistent; likely secondary to poor p.o. intake, continued frequent loose stools, and Lasix utilization. Continue spironolactone; dose increased today. Additional IV potassium today. We will check daily chemistry and replace as necessary. (8) Candidiasis, intertrigo Is this a current diagnosis for this admission?: Yes Plan: Fluconazole p.o. daily Nystatin/triamcinolone cream 4 times daily. Optimize diabetes management. Ensure adequate hygiene. (9) Hypoalbuminemia Is this a current diagnosis for this admission?: Yes Plan: Secondary to poor p.o. intake. Albumin 2.8; prealbumin 9.4. Patient previously admitted with failure to thrive secondary to advanced dementia with poor p.o. intake. She was provided tube feeds at that time; discharged to home on p.o. diet and subsequently readmitted with significant LEATHA (CR 7.20) despite Remeron and Megace for appetite support. This is likely a chronic condition and result of her advanced age and dementia; patient is unlikely to benefit from continued artificial means of nutrition. Additional IV albumin 25 g today followed by IV furosemide to help mobilize fluid and attempt to reduce fluid overload. Have asked discharge planning to assist with setting up a family meeting between provider, social security benefits interviewer, and palliative of care/buyer liaison to discuss goals of care and medical futility of aggressive/heroic measures. If necessary, we will ask surgery to weigh in on ineffectiveness of PEG tube for tube feedings in patient with these comorbidities. 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 Discussed with Dr. Paulino; will obtain a noncontrasted pelvic CT for further evaluation. - Time Time Spent with patient: 35 or more minutes Medications reviewed and adjusted accordingly: Yes Anticipated discharge: Hospice
[2018-10-17] MEDS: ACETAMINOPHEN 325 MG TABLET PO PRN (19:55)
--- NOTE | 2018-10-17 22:10 | PDOC CONSULTATION ---
History of Present Illness Admission Date/PCP: 09/27/18 16:43 NNEKA ULLOA MD Patient complains of: To evaluate colovaginal fistula History of Present Illness: YULI HAMMER is a 83 year old female who is currently in the hospital for management of severe dehydration and malnutrition. She had C. difficile colitis several weeks ago that was treated and she was subsequently discharged but had failure to thrive with poor p.o. intake and she subsequently had to be readmitted. Patient was noted now with liquid stool coming from her left labial region. Surgical consult now being obtained to evaluate this apparent colovaginal fistula. According to patient's family member patient has had minimal nutritional intake. Although she was functional couple of months ago prior to her C. difficile colitis, she has not ambulated in several weeks now and has become progressively weaker. Patient continues to have diarrhea although her initial C. difficile studies during this most recent hospitalizations were negative. She had a bowel resection performed over 10 years ago for what sounds like obstruction. There is no known history of obstetric trauma. No prior history of colovaginal fistula. Past Medical History Cardiac Medical History: Reports: Atrial Fibrillation - Noted on previous admission, Hyperlipidema, Hypertension Pulmonary Medical History: Reports: Sleep Apnea Endocrine Medical History: Reports: Diabetes Mellitus Type 1, Diabetes Mellitus Type 2 GI Medical History: Reports: Gastroesophageal Reflux Disease Psychiatric Medical History: Reports: Depression Infectious Medical History: Reports: Clostridium Difficile Past Surgical History Past Surgical History: Reports: Hysterectomy, Orthopedic Surgery - back Social History Lives with: Family Smoking Status: Former Smoker Frequency of Alcohol Use: None Hx Recreational Drug Use: No Hx Prescription Drug Abuse: No - Advance Directive Resuscitation Status: Do Not Resuscitate Family History Family History: Other - Unobtainable Parental Family History Reviewed: No Children Family History Reviewed: No Sibling(s) Family History Reviewed.: No Medication/Allergy Home Medications: Levothyroxine Sodium [Synthroid 0.05 mg Tablet] 50 mcg PO MOTUWETHFRSA@0600 12/05/11 Mirtazapine [Remeron 15 mg Tablet] 15 mg PO QHS 12/05/11 Triamterene/Hydrochlorothiazid [Dyazide 37.5-25 Capsule] 1 each PO DAILY 08/09/12 Escitalopram Oxalate [Lexapro 10 mg Tablet] 10 mg PO Q12 09/06/18 Insulin Aspart Prot/Insuln Asp [Novolog Mix 70-30 Flexpen Syrn] 0 unit SQ .SLIDING SCALE PRN 09/06/18 Metoprolol Tartrate [Lopressor 25 mg Tablet] 25 mg PO Q12 09/06/18 Valsartan [Diovan 160 mg Tablet] 160 mg PO DAILY 09/06/18 Fluticasone/Salmeterol [Fluticasone-Salmeterol 113-14] 1 each IH Q12 09/27/18 Lorazepam [Ativan 0.5 mg Tablet] 0.5 mg PO Q12HP PRN 09/27/18 Megestrol Acetate 600 mg PO DAILY 09/27/18 Allergies/Adverse Reactions: adhesive tape [Adhesive Tape] Allergy (Verified 08/09/12 14:02) latex [Latex] Allergy (Verified 08/09/12 14:02) meperidine HCl [From Demerol] Allergy (Verified 08/09/12 14:02) Physical Exam Vital Signs: Temp Pulse Resp BP Pulse Ox 97.6 F 83 19 117/56 L 94 10/17/18 19:59 10/17/18 19:59 10/17/18 19:59 10/17/18 19:59 10/17/18 20:25 Pulse Oximeter Continuous Start: 10/16/18 11:45 Freq: RTQ4 Status: Active Protocol: Document 10/17/18 20:25 NSM (Rec: 10/17/18 20:31 NSM [id number]) Pulse Oximetry Assessment Oxygen Saturation (92-100) 94 Oxygen Delivery Method Room Air Fraction of Inspired Oxygen (FIO2) 21 Equipment Usage Equipment in Use Continuous SpO2 Machine # [id number] Intake & Output 10/16/18 10/17/18 10/18/18 06:59 06:59 06:59 Intake Total 1839 1680 623 Output Total 1800 2100 1800 Balance 18 -484 -6749 Weight 88.8 kg 86.5 kg General appearance: PRESENT: no acute distress, cooperative Respiratory exam: PRESENT: clear to auscultation caroline Cardiovascular exam: PRESENT: irregular rhythm GI/Abdominal exam: PRESENT: other - Soft, mildly distended, no tenderness to palpation. No peritoneal signs. Rectal exam: PRESENT: other - Palpable low-lying anterior rectovaginal fistula with about fingertip-sized opening. Copious amount liquid stool in the rectal vault and in her diaper and emanating from her left posterior vagina. Extremities exam: PRESENT: +2 edema Results Laboratory Results: 10/17/18 04:06 10/17/18 04:06 10/17/18 10/17/18 10/17/18 04:06 04:06 04:06 WBC 11.7 H RBC 3.27 L Hgb 10.6 L Hct 31.8 L MCV 98 H MCH 32.3 MCHC 33.2 RDW 17.9 H Plt Count 176 Sodium 155.6 H Potassium 2.8 L* Chloride 119 H Carbon Dioxide 32 H Anion Gap 5 BUN 26 H Creatinine 1.00 Est GFR ( Amer) > 60 Est GFR (Non-Af Amer) 53 L Glucose 132 H Calcium 8.4 Total Bilirubin 0.7 AST 52 H ALT 39 Alkaline Phosphatase 107 Total Protein 5.0 L Albumin 3.1 L TSH 7.31 H Free T4 Free T3 pg/mL 10/17/18 04:06 WBC RBC Hgb Hct MCV MCH MCHC RDW Plt Count Sodium Potassium Chloride Carbon Dioxide Anion Gap BUN Creatinine Est GFR ( Amer) Est GFR (Non-Af Amer) Glucose Calcium Total Bilirubin AST ALT Alkaline Phosphatase Total Protein Albumin TSH Free T4 0.96 Free T3 pg/mL 1.97 L 10/15/18 13:55 Flores Catheter Urine Culture - Final Escherichia Coli C.albicans/C.dubliniensis 09/27/18 09/27/18 10/16/18 15:00 17:25 06:10 Creatine Kinase 68 CK-MB (CK-2) 3.15 Troponin I 0.061 NT-Pro-B Natriuret Pep 1140 H 4550 H Impressions: Head CT 09/27/18 14:30 IMPRESSION: No acute intracranial pathology. EVIDENCE OF ACUTE STROKE: NO. KUB X-Ray 09/29/18 00:00 IMPRESSION: Tip of the enteric tube likely in the body of the stomach. Several mildly prominent air filled loops of small bowel may reflect ileus. Follow-up recommended copyright 2011 [employer]- All Rights Reserved Abdomen/Pelvis CT 10/08/18 00:00 IMPRESSION: Diffuse dilatation of the colon containing air and fluid. Maximal diameter approximately 10 cm. No wall thickening or evidence of torsion. The small bowel is normal in caliber. Moderate size bilateral pleural effusions with adjacent atelectasis. Small amount of perihepatic free fluid. Acute Abdomen Series 10/09/18 07:00 IMPRESSION: Partial colonic obstruction or pseudo-obstruction. No significant change. Chest X-Ray 10/15/18 00:00 IMPRESSION: Trace bilateral pleural effusions with bibasilar and right upper lobe airspace disease. Findings are unchanged from yesterday Assessment & Plan - Diagnosis (1) Rectovaginal fistula Is this a current diagnosis for this admission?: Yes Plan: In patient with a recent history of C. difficile colitis currently malnourished with continued significant medical problems including diarrhea, poor to nonexistent p.o. intake, hypernatremia. She is certainly in no shape to undergo any type of surgical treatment for her rectovaginal fistula. I do not think she is septic from her rectovaginal fistula. Suspect that the rectovaginal fistula as a consequence of her long-standing colitis along with severe malnutrition. Will review CT scan with radiology concerning possibility of a pelvic abscess as a culprit. In discussion with the patient's son, his expectations for her management and for her recovery is different from what I see her current management. I believe he expects aggressive management with the possibility of a functional recovery. If the right course of action is aggressive management, I recommend reinstitution of Flagyl for several weeks for history of C. diff icile, stoppage of any other antibiotics other than vancomycin unless absolutely indicated, gastroenterology consultation for their input concerning her chronic diarrhea, resumption of narcotics in this chronically narcotic dependent patient, nutritional support with either TPN or tube enteral nutrition, maintenance IV fluids with stoppage of diuretics with reconsultation of nephrology. At this point I do not have any surgical therapy to help this patient. No matter what, I strongly recommend a family physician conference to determine her medical management.
[2018-10-17] MEDS: MIRTAZAPINE 15 MG TABLET NG SCH (22:51)
[2018-10-17 23:48] LABS: ANION GAP 6 (5-19); BLOOD UREA NITROGEN 23 mg/dL (7-20); CALCIUM 8.7 mg/dL (8.4-10.2); CARBON DIOXIDE 32 mmol/L (22-30); CHLORIDE 112 mmol/L (98-107); GLUCOSE 129 mg/dL (75-110); SODIUM 150.3 mmol/L (137-145)
[2018-10-17 23:50] LABS: POTASSIUM 2.9 mmol/L (3.6-5.0)
[2018-10-18] MEDS ORDERED: POTASSI CL 20 MEQ/1/2NS 1L 0 MEQ/0 ML RTUINJ IV ONE (00:04)
[2018-10-18] MEDS: POTASSIUM CHLORIDE 20 MEQ/50 ML RTU IV SCH ×5 (00:15→23:01)
[2018-10-18] MEDS: SPIRONOLACTONE 25 MG TABLET PO SCH ×3 (00:42→22:57)
[2018-10-18] MEDS: FUROSEMIDE INJ/PF 40 MG/4 ML SDV IV SCH ×3 (00:42→23:00)
[2018-10-18] MEDS: NYSTATIN/TRIAMCIN CREAM 15 GM TP SCH ×5 (00:43→23:00)
[2018-10-18] MEDS: AMOXICILLIN TRIHYD 250 MG/5 ML SUSP 80 ML PO SCH ×3 (00:43→13:36)
--- NOTE | 2018-10-18 04:34 | RADIOLOGY REPORT (SQ) ---
CLINICAL HISTORY: Stool draining from perineal wound COMPARISON: None. TECHNIQUE: CT PELVIS WITHOUT IV CONTRAST on 10/17/2018 4:08 PM [employer] This exam was performed according to our departmental dose-optimization program, which includes automated exposure control, adjustment of the mA and/or kV according to patient size and/or use of iterative reconstruction technique. FINDINGS: Lower lungs are clear. Abdomen: The liver is normal in appearance. There is no biliary dilatation. The pancreas and spleen are normal in appearance. Adrenal glands are unremarkable. Kidneys are mildly atrophic. There is diffuse body wall anasarca. Abdominal aorta is normal in course and caliber without aneurysm. There is no free air. There is no retroperitoneal adenopathy. Pelvis: There is large amount of fluid and air throughout the colon. Urinary bladder is decompressed with a Flores catheter. Index is not well seen. There is no free fluid. Skeleton: There are no acute osseous findings. No suspicious bony lesions. IMPRESSION: Continued extensive distention of the colon throughout. Anasarca.
[2018-10-18] MEDS: KETOROLAC TROMETHAMINE INJ/PF 30 MG/1 ML SDV IV PRN ×2 (05:01→21:08)
[2018-10-18] MEDS: HEPARIN SOD (PORCINE) 5,000 UNIT/ML 1 ML SYRINGE SUBCUT SCH ×3 (05:01→22:56)
[2018-10-18] MEDS: LEVOTHYROXINE SODIUM 0.05 MG TABLET NG SCH (05:05)
[2018-10-18 08:27] LABS: HEMATOCRIT 32.4 % (36.0-47.0); HEMOGLOBIN 10.8 g/dL (12.0-15.5); MEAN CORPUSCULAR HGB CONC 33.4 g/dL (32.0-36.0); MEAN CORPUSCULAR VOLUME 96 fl (80-97); PLATELET COUNT 185 10^3/uL (150-450); RED BLOOD COUNT 3.38 10^6/uL (3.72-5.28); RED CELL DISTRIBUTION WIDTH 17.4 % (11.5-14.0); WHITE BLOOD COUNT 13.5 10^3/uL (4.0-10.5)
[2018-10-18 08:39] LABS: ANION GAP 6 (5-19); BLOOD UREA NITROGEN 23 mg/dL (7-20); CALCIUM 8.7 mg/dL (8.4-10.2); CARBON DIOXIDE 31 mmol/L (22-30); CHLORIDE 114 mmol/L (98-107); GLUCOSE 116 mg/dL (75-110); POTASSIUM 3.6 mmol/L (3.6-5.0)
[2018-10-18] MEDS: INSULIN LISPRO 100 UNIT/ML 3 ML VIAL SUBCUT SCH ×4 (08:41→22:56)
[2018-10-18 08:59] LABS: ABSOLUTE LYMPHOCYTES# (MANUAL) 0.9 10^3/uL (0.5-4.7); ABSOLUTE MONOCYTES # (MANUAL) 0.1 10^3/uL (0.1-1.4); ABSOLUTE NEUTROPHILS# (MANUAL) 12.3 10^3/uL (1.7-8.2); BASOPHILS % (MANUAL) 1 % (0-2); EOSINOPHILS % (MANUAL) 0 % (0-6); LYMPHOCYTES % (MANUAL) 7 % (13-45); MONOCYTES % (MANUAL) 1 % (3-13); SEGMENTED NEUTROPHILS % (MAN) 91 % (42-78); TOTAL CELLS COUNTED 100
[2018-10-18 09:00] LABS: ANISOCYTOSIS 1+; PLATELET COMMENT ADEQUATE; POLYCHROMASIA SLIGHT; TOXIC GRANULATION 1+
--- NOTE | 2018-10-18 10:20 | PDOC CONSULTATION ---
Consultation Consult Date: 10/18/18 Attending physician:: JOSE SERRATO Consult reason:: possible rectovaginal/colovaginal fistula History of Present Illness Admission Date/PCP: 09/27/18 16:43 NNEKA ULLOA MD Patient complains of: dementia, possible rectovaginal fistula noted by PCM History of Present Illness: YULI HAMMER is a 83 year old female with no h/o obstetric trauma and no prior history of RV or colovaginal fistula admitted by hospitalist due to severe dehydration and malnutrition. She was apparently functional until several months ago then had a a long bout of C diff and has not been ambulatory since. Since her discharge from last c. diff she has had failure to thrive and malnutrition and dehydration. Notes and radiology reviewed. Dr. Ayers evaluated patient for the same complaint last evening. She apparently has liquid stool from left labia per primary care. Per dr. Ayers notes pt with palpable low lying anterior RV fistula. Past Medical History Gynecological Infection: No Cardiac Medical History: Reports: Atrial Fibrillation - Noted on previous admission, Hyperlipidema, Hypertension Pulmonary Medical History: Reports: Sleep Apnea Endocrine Medical History: Reports: Diabetes Mellitus Type 1, Diabetes Mellitus Type 2 GI Medical History: Reports: Gastroesophageal Reflux Disease Psychiatric Medical History: Reports: Depression Infectious Medical History: Reports: Clostridium Difficile Social History Information Source: [facility] Records Lives with: Family Smoking Status: Former Smoker Frequency of Alcohol Use: None Hx Recreational Drug Use: No Hx Prescription Drug Abuse: No - Advance Directive Resuscitation Status: Do Not Resuscitate Family History Family History: None, Other - Unobtainable Parental Family History Reviewed: No Children Family History Reviewed: NA Sibling(s) Family History Reviewed.: NA Medication/Allergy Home Medications: Levothyroxine Sodium [Synthroid 0.05 mg Tablet] 50 mcg PO MOTUWETHFRSA@0600 12/05/11 Mirtazapine [Remeron 15 mg Tablet] 15 mg PO QHS 12/05/11 Triamterene/Hydrochlorothiazid [Dyazide 37.5-25 Capsule] 1 each PO DAILY 08/09/12 Escitalopram Oxalate [Lexapro 10 mg Tablet] 10 mg PO Q12 09/06/18 Insulin Aspart Prot/Insuln Asp [Novolog Mix 70-30 Flexpen Syrn] 0 unit SQ .SLIDING SCALE PRN 09/06/18 Metoprolol Tartrate [Lopressor 25 mg Tablet] 25 mg PO Q12 09/06/18 Valsartan [Diovan 160 mg Tablet] 160 mg PO DAILY 09/06/18 Fluticasone/Salmeterol [Fluticasone-Salmeterol 113-14] 1 each IH Q12 09/27/18 Lorazepam [Ativan 0.5 mg Tablet] 0.5 mg PO Q12HP PRN 09/27/18 Megestrol Acetate 600 mg PO DAILY 09/27/18 Allergies/Adverse Reactions: adhesive tape [Adhesive Tape] Allergy (Verified 08/09/12 14:02) latex [Latex] Allergy (Verified 08/09/12 14:02) meperidine HCl [From Demerol] Allergy (Verified 08/09/12 14:02) Physical Exam - Physical Exam Vital Signs: Temp Pulse Resp BP Pulse Ox 98.1 F 76 21 H 112/63 95 10/18/18 03:52 10/18/18 03:52 10/18/18 03:52 10/18/18 03:52 10/18/18 08:05 Pulse Oximeter Continuous Start: 10/16/18 11:45 Freq: RTQ4 Status: Active Protocol: Document 10/18/18 08:05 JDR (Rec: 10/18/18 09:14 JDR [id number]) Pulse Oximetry Assessment Oxygen Saturation (92-100) 95 Oxygen Delivery Method Room Air Fraction of Inspired Oxygen (FIO2) 21 Equipment Usage Equipment in Use Continuous SpO2 Machine # 5 Intake & Output 10/17/18 10/18/18 10/19/18 06:59 06:59 06:59 Intake Total 1680 1989 Output Total 2100 2400 Balance -420 -411 Weight 86.5 kg 87.7 kg Result Laboratory Results: 10/18/18 08:08 10/18/18 08:08 10/17/18 10/18/18 10/18/18 23:15 03:00 08:08 WBC RBC Hgb Hct MCV MCH MCHC RDW Plt Count Seg Neutrophils % Lymphocytes % Monocytes % Eosinophils % Basophils % Absolute Neutrophils Absolute Lymphocytes Absolute Monocytes Absolute Eosinophils Absolute Basophils Sodium 150.3 H 151.0 H Potassium 2.9 L* 3.6 Chloride 112 H 114 H Carbon Dioxide 32 H 31 H Anion Gap 6 6 BUN 23 H 23 H Creatinine 0.94 0.84 Est GFR ( Amer) > 60 > 60 Est GFR (Non-Af Amer) 57 L > 60 Glucose 129 H 116 H Calcium 8.7 8.7 Magnesium 1.6 1.7 Stool for White Cells FEW H 10/18/18 08:08 WBC 13.5 H RBC 3.38 L Hgb 10.8 L Hct 32.4 L MCV 96 MCH 32.0 MCHC 33.4 RDW 17.4 H Plt Count 185 Seg Neutrophils % Not Reportable Lymphocytes % Not Reportable Monocytes % Not Reportable Eosinophils % Not Reportable Basophils % Not Reportable Absolute Neutrophils Not Reportable Absolute Lymphocytes Not Reportable Absolute Monocytes Not Reportable Absolute Eosinophils Not Reportable Absolute Basophils Not Reportable Sodium Potassium Chloride Carbon Dioxide Anion Gap BUN Creatinine Est GFR ( Amer) Est GFR (Non-Af Amer) Glucose Calcium Magnesium Stool for White Cells 10/15/18 13:55 Flores Catheter Urine Culture - Final Escherichia Coli C.albicans/C.dubliniensis 09/27/18 09/27/18 10/16/18 15:00 17:25 06:10 Creatine Kinase 68 CK-MB (CK-2) 3.15 Troponin I 0.061 NT-Pro-B Natriuret Pep 1140 H 4550 H Impressions: Head CT 09/27/18 14:30 IMPRESSION: No acute intracranial pathology. EVIDENCE OF ACUTE STROKE: NO. KUB X-Ray 09/29/18 00:00 IMPRESSION: Tip of the enteric tube likely in the body of the stomach. Several mildly prominent air filled loops of small bowel may reflect ileus. Follow-up recommended copyright 2010 [employer]- All Rights Reserved Abdomen/Pelvis CT 10/08/18 00:00 IMPRESSION: Diffuse dilatation of the colon containing air and fluid. Maximal diameter approximately 10 cm. No wall thickening or evidence of torsion. The small bowel is normal in caliber. Moderate size bilateral pleural effusions with adjacent atelectasis. Small amount of perihepatic free fluid. Acute Abdomen Series 10/09/18 07:00 IMPRESSION: Partial colonic obstruction or pseudo-obstruction. No significant change. Chest X-Ray 10/15/18 00:00 IMPRESSION: Trace bilateral pleural effusions with bibasilar and right upper lobe airspace disease. Findings are unchanged from yesterday Pelvis CT 10/17/18 16:08 IMPRESSION: Continued extensive distention of the colon throughout. Anasarca. Status: Imported from PACS Assessment & Plan - Diagnosis (1) Rectovaginal fistula Is this a current diagnosis for this admission?: Yes Plan: Review of notes and patient records reveals dementia patient with mutliple medical issues and RV fistula. Reviewed with Char Rubio that agree with Dr. Ayers that I do not have any surgical options for this patient. She is not a surgical candidate to be placed under anesthesia for this type of procedure. She would not likely survive the surgery and would not be able to recover due to her hydration/nutrition status. The recovery for RV fistula in a healthy individual is long and arduous. If the family insists in proceeding with surgical management then would recommend transfer to tertiary care facility with Colorectal and Urogyn surgeon. If the family would like to discuss further then I am available to do so today. Thank you for the consult. I did not re-examine the patient at this time (Dr. Aeyrs did exam already and unless necessary do not need to put dementia patient through a rectovaginal exam again at this time). - Time Medications reviewed and adjusted accordingly: Yes Anticipated discharge: Home Within: Other - Inpatient Certification Based on my medical assessment, after consideration of the patient's comorbidities, presenting symptoms, or acuity I expect that the services needed warrant INPATIENT care.: Yes I certify that my determination is in accordance with my understanding of Medicare's requirements for reasonable and necessary INPATIENT services [42 CFR 412.3e].: Yes Medical Necessity: Need Close Monitoring Due to Risk of Patient Decompensation, Need For IV Fluids Post Hospital Care: D/C Collator Documentation
[2018-10-18] MEDS: INSULIN GLARGINE,HUM.REC.ANLOG 300 UNIT/3 ML INSULN.PEN SUBCUT SCH ×2 (11:18→22:55)
[2018-10-18] MEDS: METOPROLOL TARTRATE 25 MG TABLET NG SCH ×2 (11:19→22:57)
[2018-10-18] MEDS: FLUCONAZOLE 100 MG TABLET PO SCH (11:19)
--- NOTE | 2018-10-18 15:19 | PDOC PROGRESS REPORT ---
Subjective Progress Note for:: 10/18/18 Subjective:: The patient was seen on morning rounds. She was found resting in bed comfortably on supplemental oxygen by nasal cannula 3 L/min. She is awake, alert, oriented to self. She does answer most simple questions and follows a few directions today, but continues to have delayed responses. She denies chest pain, shortness of breath, and abdominal pain. Her only complaint is that she is tired and "wants to rest." She has no questions or concerns. Lengthily conversation with her son, Jayro Carlson, by phone today. We discussed her malnutrition, hypoalbuminemia, dementia, recent kidney failure, UTIs, persistent diarrhea, and new diagnosis of colovaginal fistula. Mr. Carlson was informed that both the surgical and gynecological teams have stated that she is not a candidate for surgical intervention at this time due to her poor nutritional status and high probability of not being able to survive the operative procedure followed by a prolonged and difficult recovery. We discussed that the attempts during her last admission to artificially support nutrition temporarily through NG tube while admitted and then discharged home with p.o. intake only had clearly failed as the patient was promptly readmitted with malnutrition, anasarca, and kidney failure. At this time, it was my clinical opinion that the patient would not benefit from a trial of temporary feeding tube again and if that he wished to pursue aggressive measures we should reconsult surgery for evaluation for PEG placement. I did express to him that tube feedings via PEG, with their own risks and that while this may prolong her life for a short period of time, she would likely continue to be readmitted to the hospital for infections related to her fistula. I advised him to consider the quality of life that his mother would wish to have at this time and Mr. Carlson did express interest and had many questions regarding inpatient hospice services. He declined speaking to the hospice aide at this time stating that he wished to process our discussion further and that he would contact me again shortly to discuss future goals of care. Nursing has no questions or concerns today. Reason For Visit: SEPSIS, CLOSTRIDIUM DIFFICILE COLITIS,ACUTE KIDNEY Physical Exam Vital Signs: Temp Pulse Resp BP Pulse Ox 97.3 F 83 20 110/47 L 98 10/18/18 13:00 10/18/18 13:00 10/18/18 13:00 10/18/18 13:10/18/18 13:00 Pulse Oximeter Continuous Start: 10/16/18 11:45 Freq: RTQ4 Status: Active Protocol: Document 10/18/18 12:00 ANIL (Rec: 10/18/18 12:05 ANIL [id number]) Pulse Oximetry Assessment Oxygen Saturation (92-100) 99 Oxygen Flow Rate (L/min) 2 Oxygen Delivery Method Nasal Cannula Fraction of Inspired Oxygen (FIO2) 28 Equipment Usage Equipment in Use Continuous SpO2 Machine # 5 Intake & Output 10/17/18 10/18/18 10/19/18 06:59 06:59 06:59 Intake Total 1680 1988 Output Total 2099 2400 Balance -420 -411 Weight 86.5 kg 87.7 kg General appearance: PRESENT: no acute distress, morbidly obese, well-developed, other - Anasarca Head exam: PRESENT: atraumatic, normocephalic Eye exam: PRESENT: conjunctiva pink, EOMI, PERRLA. ABSENT: scleral icterus Mouth exam: PRESENT: moist, tongue midline Respiratory exam: PRESENT: clear to auscultation caroline - throughout; poor inspiratory effort, impeded by body habitus, crackles - bibasilar, symmetrical, unlabored, other - supplemental oxygen via NC. ABSENT: rales, rhonchi, wheezes Cardiovascular exam: PRESENT: RRR. ABSENT: diastolic murmur, rubs, systolic murmur Pulses: PRESENT: +1 pedal pulses bilateral Vascular exam: PRESENT: normal capillary refill GI/Abdominal exam: PRESENT: diminished bowel sounds, soft, other - Exam limited secondary to body habitus. ABSENT: distended, guarding, mass, organolmegaly, rebound, tenderness Rectal exam: PRESENT: deferred Gentrourinary exam: PRESENT: indwelling catheter, other - Significant perineal/dependent edema. Left medial labia at 5 o'clock found to have a 0.5 cm round lesion draining copious amounts of apparently feculent material Extremities exam: PRESENT: full ROM - Moves all extremities spontaneously; weak but equal dorsiflexion bilaterally, equal but weak client success director bilaterally, +2 edema - pitting edema BLE; +1 pitting BUE. ABSENT: calf tenderness, clubbing, pedal edema Neurological exam: PRESENT: alert, awake, CN II-XII grossly intact, other - Delayed responses; answers yes or no questions but is not conversational. Does follow simple directions with multiple prompts. ABSENT: motor sensory deficit Psychiatric exam: PRESENT: appropriate affect, normal mood. ABSENT: homicidal ideation, suicidal ideation Skin exam: PRESENT: dry, rash - Healing Janel rash to all skin folds, warm. ABSENT: cyanosis, intact - as above Results Laboratory Results: 10/18/18 08:08 10/18/18 08:08 10/17/18 10/18/18 10/18/18 23:15 03:00 08:08 WBC RBC Hgb Hct MCV MCH MCHC RDW Plt Count Seg Neutrophils % Lymphocytes % Monocytes % Eosinophils % Basophils % Absolute Neutrophils Absolute Lymphocytes Absolute Monocytes Absolute Eosinophils Absolute Basophils Sodium 150.3 H 151.0 H Potassium 2.9 L* 3.6 Chloride 112 H 114 H Carbon Dioxide 32 H 31 H Anion Gap 6 6 BUN 23 H 23 H Creatinine 0.94 0.84 Est GFR ( Amer) > 60 > 60 Est GFR (Non-Af Amer) 57 L > 60 Glucose 129 H 116 H Calcium 8.7 8.7 Magnesium 1.6 1.7 Stool for White Cells FEW H 10/18/18 08:08 WBC 13.5 H RBC 3.38 L Hgb 10.8 L Hct 32.4 L MCV 96 MCH 32.0 MCHC 33.4 RDW 17.4 H Plt Count 185 Seg Neutrophils % Not Reportable Lymphocytes % Not Reportable Monocytes % Not Reportable Eosinophils % Not Reportable Basophils % Not Reportable Absolute Neutrophils Not Reportable Absolute Lymphocytes Not Reportable Absolute Monocytes Not Reportable Absolute Eosinophils Not Reportable Absolute Basophils Not Reportable Sodium Potassium Chloride Carbon Dioxide Anion Gap BUN Creatinine Est GFR ( Amer) Est GFR (Non-Af Amer) Glucose Calcium Magnesium Stool for White Cells 10/15/18 13:55 Flores Catheter Urine Culture - Final Escherichia Coli C.albicans/C.dubliniensis 09/27/18 09/27/18 10/16/18 15:00 17:25 06:10 Creatine Kinase 68 CK-MB (CK-2) 3.15 Troponin I 0.061 NT-Pro-B Natriuret Pep 1140 H 4550 H Impressions: Head CT 09/27/18 14:30 IMPRESSION: No acute intracranial pathology. EVIDENCE OF ACUTE STROKE: NO. KUB X-Ray 09/29/18 00:00 IMPRESSION: Tip of the enteric tube likely in the body of the stomach. Several mildly prominent air filled loops of small bowel may reflect ileus. Follow-up recommended copyright 2011 [employer]- All Rights Reserved Abdomen/Pelvis CT 10/08/18 00:00 IMPRESSION: Diffuse dilatation of the colon containing air and fluid. Maximal diameter approximately 10 cm. No wall thickening or evidence of torsion. The small bowel is normal in caliber. Moderate size bilateral pleural effusions with adjacent atelectasis. Small amount of perihepatic free fluid. Acute Abdomen Series 10/09/18 07:00 IMPRESSION: Partial colonic obstruction or pseudo-obstruction. No significant change. Chest X-Ray 10/15/18 00:00 IMPRESSION: Trace bilateral pleural effusions with bibasilar and right upper lobe airspace disease. Findings are unchanged from yesterday Pelvis CT 10/17/18 16:08 IMPRESSION: Continued extensive distention of the colon throughout. Anasarca. Assessment & Plan - Diagnosis (1) Hypothermia Is this a current diagnosis for this admission?: Yes Plan: Resolved; currently maintaining body temperature without use of rayray hugger. Patient was noted to develop hypothermia; rectal temp 94.3. Likely secondary to anasarca resulting from hypoalbuminemia. Blood cultures have no growth at 72 hours. Original urine culture revealed Proteus mirabilis; repeat urine culture shows Janel and E. coli. WBC is minimally elevated 10.8. Normal temperature today. Lactic acid nml. Thyroid panel and a.m. cortisol are acceptable. Both Proteus mirabilis and E. coli are pansensitive/PCN sensitive. Briefly transitioned to p.o. amoxicillin; however, Surgery advises against secondary to risk for repeat c. diff colitis. Patient did receive 4 days of Zosyn; will discontinue and monitor closely for evidence of worsening infection. (2) Acute cystitis with positive culture Is this a current diagnosis for this admission?: Yes Plan: On admission UTI confirmed with urinalysis with follow-up culture positive for Proteus mirabilis. She completed a full course of IV cefazolin. Antibiotic was subsequently discontinued. Repeat urine culture demonstrates pansensitive E. coli. Previously received a full course of Ancef therapy for Proteus Gayle S. On repeat urinalysis/urine culture, patient was placed on Zosyn. Likely colonization secondary to colovaginal fistula. Zosyn is discontinued after 3 days. Will observe closely for clear indication for additional antibiotic needs. (3) Hypernatremia Is this a current diagnosis for this admission?: Yes Plan: Stable; remains elevated. Na 140-> 160.7-> 154.8-> 151.0 Secondary to poor p.o. intake. Medications reviewed for hypernatremia. Continue Lasix 40 mg IV twice daily and spironolactone 50 mg twice daily. Continue to monitor with daily chemistries. Low sodium diet. (4) Metabolic encephalopathy Is this a current diagnosis for this admission?: Yes Plan: Waxing and waning; patient is awake, alert, oriented to self but with delayed responses to simple questions and otherwise does not participate conversationally. Does follow simple commands with multiple prompting. Likely multifactorial secondary to dementia, metabolic encephalopathy resulting from sepsis, electrolyte derangements, recent LEATHA, and hospitalization. Evaluation and management of hypothermia and possible sepsis as above. Avoid all sedating medications; home dose Remeron is continued. Provide for patient safety. Supportive care. (5) Renal failure Qualifiers: Renal failure chronicity: acute Acute renal failure type: unspecified Qualified Code(s): N17.9 - Acute kidney failure, unspecified Is this a current diagnosis for this admission?: Yes Plan: Resolved; prerenal secondary to poor p.o. intake. Admitted with creatinine of 7.20; now at baseline of 0.84 with BUN of 27. Continue to avoid nephrotoxic medications as able. Patient does require spironolactone and Lasix for fluid mobilization secondary to mild CHF exacerbation and anasarca. Will monitor renal function closely. Daily chemistries. (6) Atrial fibrillation with RVR Is this a current diagnosis for this admission?: Yes Plan: Patient initially admitted with atrial fibrillation with RVR; likely secondary to dehydration resulting in LEATHA. She does have a history of proximal atrial fibrillation with RVR. Currently rate controlled with metoprolol 25 mg twice daily. She is not a good candidate for chronic anticoagulation; HAS-BLED Score 3: High risk for major bleeding event (5.8% yearly risk). (7) Hypokalemia Is this a current diagnosis for this admission?: Yes Plan: Persistent, though improved today. Secondary to poor p.o. intake, continued frequent loose stools, and Lasix utilization. Continue spironolactone. Will monitor serial chemistries and replace as necessary. (8) Candidiasis, intertrigo Is this a current diagnosis for this admission?: Yes Plan: Fluconazole p.o. daily x5 days; has been discontinued. Continue Nystatin/triamcinolone cream 4 times daily. Optimize diabetes management. Ensure adequate hygiene. (9) Hypoalbuminemia Is this a current diagnosis for this admission?: Yes Plan: Secondary to poor p.o. intake. Albumin 2.8; prealbumin 9.4. Albumin level pending; will check full CMP with AM labs.. Patient previously admitted with failure to thrive secondary to advanced dementia with poor p.o. intake. She was provided tube feeds at that time; discharged to home on p.o. diet and subsequently readmitted with significant LEATHA (CR 7.20) despite Remeron and Megace for appetite support. This is likely a chronic condition and result of her advanced age and dementia; patient is unlikely to benefit from continued artificial means of nutrition. asset protection professional has been consulted; patient continues to have minimal intake ('bites' of most meals). No albumin today; will re-evaluate albumin level. Discussed with the patient's son, Jayro benjamin, today option for artificial means of nutrition. Suggested that we may place a NG tube for tube feedings, however, this was a temporizing measure and the patient has previously failed this in the past as shortly after discharge on oral diet she was readmitted with malnutrition and acute renal failure secondary to dehydration. The patient would require a more permanent solution such as a PEG tube. We further discussed the patient's overall health, comorbidities, new diagnosis of colovaginal fistula and recommendations for consideration of transition to hospice care. Her Son/POA stated that he would like time to process/consider information and suggested that he would choose to move toward Hospice/Comfort care measures. Will hold on artificial means of nutrition for now. Continue to encourage p.o. intake. Continue megace and remeron for appetite support. (10) Colovaginal fistula Is this a current diagnosis for this admission?: Yes Plan: Colovaginal fistula; patient is noted to have severely edematous labia with hard/pitting edema and a 0.5 cm round lesion to the medial aspect of her left labia at 5 o'clock position that is noted to be draining copious amounts of feculent material. Noncontrasted pelvic CT Demonstrated continued extensive distention of the colon and anasarca. Fistula was not identified; likely due to lack of contrast. Surgery was consulted; appreciate Dr. Lynn evaluation last night. 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 Per notes, patient is not a surgical candidate at this time due to her overall health and comorbid condition. MEDICAL EQUIPMENT REPAIRER service was consulted; spoke with Dr. Murphy today. Reiterates that the patient is not a good surgical candidate as she would not likely survive the procedure and would certainly have difficulty recovery due to her age, hydrati on, nutrition, and comorbid status. If the family wishes to pursue surgical intervention, patient would need to be transferred to tertiary center. Spoke with the patient's son, he understands the recommendations against surgical intervention at this time due to the patient's poor health and concer marsha that she would not survive the procedure. He agrees that he would not wish to put his mother through "more suffering," he had a long discussion that the president of the fistula will result in recurrent skin irritation/infections and UTIs. Even with optimization of her nutritional status, she is very unlikely to improve enough to be a good surgical candidate and would have a very difficult r ecovery following the procedure and very likely experience complications (heart failure, renal failure, respiratory failure, etc). (11) DNR (do not resuscitate) Is this a current diagnosis for this admission?: Yes - Time Time Spent with patient: 35 or more minutes Medications reviewed and adjusted accordingly: Yes Anticipated discharge: Hospice
--- NOTE | 2018-10-18 16:47 | Progress Note ---
Provider Note Provider Note: Advance care planning Lengthily conversation with patient's son (POA), Jayro Carlson, by phone today. We discussed her malnutrition, hypoalbuminemia, dementia, recent kidney failure, UTIs, persistent diarrhea, and new diagnosis of colovaginal fistula. Mr. Carlson was informed that both the surgical and gynecological teams have stated that she is not a candidate for surgical intervention at this time due to her poor nutritional status and high probability of not being able to survive the operative procedure followed by a prolonged and difficult recovery. We discussed that the attempts during her last admission to artificially support nutrition temporarily through NG tube while admitted and then discharged home with p.o. intake only had clearly failed as the patient was promptly readmitted with malnutrition, anasarca, and kidney failure. At this time, it was my clinical opinion that the patient would not benefit from a trial of temporary feeding tube again and if that he wished to pursue aggressive measures we should reconsult surgery for evaluation for PEG placement. I did express to him that tube feedings via PEG, with their own risks and that while this may prolong her life for a short period of time, she would likely continue to be readmitted to the hospital for infections related to her fistula. I advised him to consider the quality of life that his mother would wish to have at this time. Mr. Carlson did express interest in, and had many questions regarding, inpatient hospice services. He declined speaking to the patient liaison at this time; stating that he wished to process our discussion further. He stated he would contact me again shortly to discuss future goals of care. It was confirmed that the patient is a DNR/DNI and that he did not wish for us to begin tube feedings at this time but to instead focus on encouraging p.o. intake. 45 minutes was spent in goals of care discussion with the patient's POA/son, Mr. Jayro Carlson.
[2018-10-18 18:27] LABS: ALBUMIN 2.9 g/dL (3.5-5.0); ANION GAP 7 (5-19); BLOOD UREA NITROGEN 23 mg/dL (7-20); CALCIUM 8.6 mg/dL (8.4-10.2); CARBON DIOXIDE 31 mmol/L (22-30); CHLORIDE 112 mmol/L (98-107); GLUCOSE 170 mg/dL (75-110); POTASSIUM 3.2 mmol/L (3.6-5.0); SODIUM 150.3 mmol/L (137-145)
[2018-10-18] MEDS: LACTOBACILLUS ACIDOPHILUS 250 MG TAB PO SCH (19:01)
[2018-10-18] MEDS: MIRTAZAPINE 15 MG TABLET NG SCH (22:56)
[2018-10-19] MEDS: HEPARIN SOD (PORCINE) 5,000 UNIT/ML 1 ML SYRINGE SUBCUT SCH ×3 (05:34→23:04)
[2018-10-19] MEDS: LEVOTHYROXINE SODIUM 0.05 MG TABLET NG SCH (05:34)
[2018-10-19 06:08] LABS: ALANINE AMINOTRANSFERASE 51 U/L (9-52); ALBUMIN 3.1 g/dL (3.5-5.0); ALKALINE PHOSPHATASE 130 U/L (38-126); ANION GAP 6 (5-19); ASPARTATE AMINO TRANSFERASE 42 U/L (14-36); BILIRUBIN,DIRECT 0.3 mg/dL (0.0-0.4); BILIRUBIN,TOTAL 0.7 mg/dL (0.2-1.3); BLOOD UREA NITROGEN 24 mg/dL (7-20); CALCIUM 8.9 mg/dL (8.4-10.2); CARBON DIOXIDE 33 mmol/L (22-30); CHLORIDE 112 mmol/L (98-107); GLUCOSE 118 mg/dL (75-110); POTASSIUM 3.4 mmol/L (3.6-5.0); SODIUM 151.2 mmol/L (137-145); TOTAL PROTEIN 5.1 g/dL (6.3-8.2)
[2018-10-19 06:13] LABS: HEMOGLOBIN 10.9 g/dL (12.0-15.5); MEAN CORPUSCULAR HEMOGLOBIN 31.8 pg (27.0-33.4); MEAN CORPUSCULAR HGB CONC 33.1 g/dL (32.0-36.0); MEAN CORPUSCULAR VOLUME 96 fl (80-97); PLATELET COUNT 211 10^3/uL (150-450); RED BLOOD COUNT 3.43 10^6/uL (3.72-5.28); RED CELL DISTRIBUTION WIDTH 18.4 % (11.5-14.0); WHITE BLOOD COUNT 13.3 10^3/uL (4.0-10.5)
[2018-10-19 06:38] LABS: ABSOLUTE LYMPHOCYTES# (MANUAL) 1.5 10^3/uL (0.5-4.7); ABSOLUTE MONOCYTES # (MANUAL) 0.4 10^3/uL (0.1-1.4); ABSOLUTE NEUTROPHILS# (MANUAL) 11.4 10^3/uL (1.7-8.2); BAND NEUTROPHILS % (MANUAL) 1 % (3-5); BASOPHILS % (MANUAL) 0 % (0-2); EOSINOPHILS % (MANUAL) 0 % (0-6); LYMPHOCYTES % (MANUAL) 11 % (13-45); MONOCYTES % (MANUAL) 3 % (3-13); POLYCHROMASIA SLIGHT; SEGMENTED NEUTROPHILS % (MAN) 85 % (42-78); TOTAL CELLS COUNTED 100; TOXIC GRANULATION 1+
[2018-10-19 06:39] LABS: ANISOCYTOSIS 2+; PLATELET COMMENT ADEQUATE; POIKILOCYTOSIS 1+
[2018-10-19] MEDS: INSULIN LISPRO 100 UNIT/ML 3 ML VIAL SUBCUT SCH ×4 (08:12→23:03)
[2018-10-19] MEDS: FUROSEMIDE INJ/PF 40 MG/4 ML SDV IV SCH ×2 (09:21→16:27)
[2018-10-19] MEDS: METOPROLOL TARTRATE 25 MG TABLET NG SCH ×2 (09:22→22:57)
[2018-10-19] MEDS: LACTOBACILLUS ACIDOPHILUS 250 MG TAB PO SCH ×2 (09:22→18:01)
[2018-10-19] MEDS: ESCITALOPRAM OXALATE 10 MG TABLET NG SCH (09:22)
[2018-10-19] MEDS: SPIRONOLACTONE 25 MG TABLET PO SCH ×2 (09:22→22:53)
[2018-10-19] MEDS: MEGESTROL ACETATE SUSP 400 MG/10 ML UDCUP PO SCH (10:24)
[2018-10-19] MEDS: ALBUMIN HUMAN 12.5 GM/50 ML RTUINJ IV SCH ×2 (10:24→12:02)
[2018-10-19] MEDS: INSULIN GLARGINE,HUM.REC.ANLOG 300 UNIT/3 ML INSULN.PEN SUBCUT SCH ×2 (10:25→22:58)
[2018-10-19] MEDS: MULTIVITAMINS W-IRON TABLET, CHEWABLE PO SCH (10:25)
[2018-10-19] MEDS: NYSTATIN/TRIAMCIN CREAM 15 GM TP SCH ×4 (10:26→22:55)
--- NOTE | 2018-10-19 16:31 | PDOC PROGRESS REPORT ---
Subjective Progress Note for:: 10/19/18 Subjective:: The patient was seen on morning rounds. She was found resting in bed comfortably on supplemental oxygen by nasal cannula 2 L/min. She is awake, alert, oriented to self. She does answer most simple questions and follows a directions today, she is noted to be more alert and conversational, though with continued slight delayed responses (improved from yesterday). The patient was also noted to successfully roll side to side nearly independently whereas yesterday she made no attempt to do so. She reports that she enjoyed her breakfast this morning and now would like to take a nap. She denies fever, chills, chest pain, difficulty breathing, abdominal pain. She has no questions or concerns. Long discussion w/ nursing today: Discussed importance of continuing lasix and albumin for fluid mobilization. Na will likely trend down r/t lasix use, once fluid overload is addressed/improved, can consider maintanence IV fluids as needed. Further, hypokalemia will be addressed as necessary. Reduction in total body water (patient is currently 14 kg heavy) will improve her overall comfort, work of breathing, ability to regulate temperature, and stabilize electrolyte derangements. Dayshift nurse was asked to communicate plan of care explanation to retail shift leader. 10/18/18: Lengthily conversation with her son, Jayro Carlson, by phone today. We discussed her malnutrition, hypoalbuminemia, dementia, recent kidney failure, UTIs, persistent diarrhea, and new diagnosis of colovaginal fistula. Mr. Carlson was informed that both the surgical and gynecological teams have stated that she is not a candidate for surgical intervention at this time due to her poor nutritional status and high probability of not being able to survive the operative procedure followed by a prolonged and difficult recovery. We discussed that the attempts during her last admission to artificially support nutrition temporarily through NG tube while admitted and then discharged home wi th p.o. intake only had clearly failed as the patient was promptly readmitted with malnutrition, anasarca, and kidney failure. At this time, it was my clinical opinion that the patient would not benefit from a trial of temporary feeding tube again and if that he wished to pursue aggressive measures we should reconsult surgery for evaluation for PEG placement. I did express to him that tube feedings via PEG, with their own risks and that while this may prolong her life for a short period of time, she would likely continue to be readmitted to the hospital for infections related to her fistula. I advised him to consider the quality of life that his mother would wish to have at this time and Mr. Carlson did express interest and had many questions regarding inpatient hospice services. He declined speaking to the community liaison officer at this time stating that he wished to process our discussion further and that he would contact me again shortly to discuss future goals of care. Reason For Visit: SEPSIS, CLOSTRIDIUM DIFFICILE COLITIS,ACUTE KIDNEY Physical Exam Vital Signs: Temp Pulse Resp BP Pulse Ox 98.1 F 98 18 133/74 H 99 10/19/18 11:35 10/19/18 11:35 10/19/18 11:35 10/19/18 11:35 10/19/18 12:00 Pulse Oximeter Continuous Start: 10/16/18 11: 45 Freq: RTQ4 Status: Active Protocol: Document 10/19/18 12:00 [facility] [place] (Rec: 10/19/18 14:51 [facility] [place] [id number]) Pulse Oximetry Assessment Oxygen Saturation (92-100) 99 Oxygen Flow Rate (L/min) 2 Oxygen Delivery Method Nasal Cannula Fraction of Inspired Oxygen (FIO2) 28 Equipment Usage Equipment in Use Continuous SpO2 Machine # N 5 Intake & Output 10/18/18 10/19/18 10/20/18 06:59 06:59 06:59 Intake Total 6785 642 308 Output Total 5261 8015 218 Balance -411 -833 -372 Weight 87.7 kg 87.7 kg General appearance: PRESENT: no acute distress, obese, well-developed, well- nourished, other - anasarca; improved Head exam: PRESENT: atraumatic, normocephalic Eye exam: PRESENT: conjunctiva pink, EOMI, PERRLA. ABSENT: scleral icterus Mouth exam: PRESENT: moist, tongue midline Respiratory exam: PRESENT: clear to auscultation caroline, symmetrical, unlabored, other - supplemental oxygen via NC. ABSENT: rales, rhonchi, wheezes Cardiovascular exam: PRESENT: RRR. ABSENT: diastolic murmur, rubs, systolic murmur Pulses: PRESENT: +1 pedal pulses bilateral Vascular exam: PRESENT: normal capillary refill GI/Abdominal exam: PRESENT: normal bowel sounds, soft, other - Exam limited secondary to body habitus. ABSENT: distended, guarding, mass, organolmegaly, rebound, tenderness Rectal exam: PRESENT: deferred Gentrourinary exam: PRESENT: indwelling catheter Extremities exam: PRESENT: full ROM - Moves all extremities spontaneously; weak but equal dorsiflexion bilaterally, equal but weak manager financial reporting bilaterally, other - +1 pitting BLE; decreased edema to BUE, flank/back. ABSENT: calf tenderness, cl ubbing, pedal edema Neurological exam: PRESENT: alert - improved, awake, oriented to person, CN II- XII grossly intact. ABSENT: motor sensory deficit Psychiatric exam: PRESENT: appropriate affect, normal mood. ABSENT: homicidal ideation, suicidal ideation Skin exam: PRESENT: dry, rash - Healing Janel rash to all skin folds, warm. ABSENT: cyanosis Results Laboratory Results: 10/19/18 05:40 10/19/18 05:40 10/18/18 10/19/18 10/19/18 17:00 05:40 05:40 WBC 13.3 H RBC 3.43 L Hgb 10.9 L Hct 33.0 L MCV 96 MCH 31.8 MCHC 33.1 RDW 18.4 H Plt Count 211 Seg Neutrophils % Not Reportable Lymphocytes % Not Reportable Monocytes % Not Reportable Eosinophils % Not Reportable Basophils % Not Reportable Absolute Neutrophils Not Reportable Absolute Lymphocytes Not Reportable Absolute Monocytes Not Reportable Absolute Eosinophils Not Reportable Absolute Basophils Not Reportable Sodium 150.3 H 151.2 H Potassium 3.2 L 3.4 L Chloride 112 H 112 H Carbon Dioxide 31 H 33 H Anion Gap 7 6 BUN 23 H 24 H Creatinine 0.88 0.95 Est GFR ( Amer) > 60 > 60 Est GFR (Non-Af Amer) > 60 56 L Glucose 170 H 118 H Calcium 8.6 8.9 Magnesium 1.7 Total Bilirubin 0.7 AST 42 H ALT 51 Alkaline Phosphatase 130 H Total Protein 5.1 L Albumin 2.9 L 3.1 L 09/27/18 09/27/18 10/16/18 15:00 17:25 06:10 Creatine Kinase 68 CK-MB (CK-2) 3.15 Troponin I 0.061 NT-Pro-B Natriuret Pep 1140 H 4550 H 10/19/18 05:40 Creatine Kinase CK-MB (CK-2) Troponin I NT-Pro-B Natriuret Pep 6960 H Impressions: Head CT 09/27/18 14:30 IMPRESSION: No acute intracranial pathology. EVIDENCE OF ACUTE STROKE: NO. KUB X-Ray 09/29/18 00:00 IMPRESSION: Tip of the enteric tube likely in the body of the stomach. Several mildly prominent air filled loops of small bowel may reflect ileus. Follow-up recommended copyright 2010 [employer]- All Rights Reserved Abdomen/Pelvis CT 10/08/18 00:00 IMPRESSION: Diffuse dilatation of the colon containing air and fluid. Maximal diameter approximately 10 cm. No wall thickening or evidence of torsion. The small bowel is normal in caliber. Moderate size bilateral pleural effusions with adjacent atelectasis. Small amount of perihepatic free fluid. Acute Abdomen Series 10/09/18 07:00 IMPRESSION: Partial colonic obstruction or pseudo-obstruction. No significant change. Chest X-Ray 10/15/18 00:00 IMPRESSION: Trace bilateral pleural effusions with bibasilar and right upper lobe airspace disease. Findings are unchanged from yesterday Pelvis CT 10/17/18 16:08 IMPRESSION: Continued extensive distention of the colon throughout. Anasarca. Assessment & Plan - Diagnosis (1) Hypothermia Is this a current diagnosis for this admission?: Yes Plan: Resolved; currently maintaining body temperature without use of rayray hugger. Patient was noted to develop hypothermia (10/15/18); rectal temp 94.3. Likely secondary to anasarca resulting from hypoalbuminemia. Blood cultures have no growth at 4 days. Original urine culture revealed Proteus mirabilis; repeat urine culture shows Janel and E. coli. WBC is elevated (11.1-> 11.7-> 13.5-> 13.3). Normal temperature x4days. Lactic acid nml. Thyroid panel and a.m. cortisol are acceptable. Both Proteus mirabilis and E. coli are pansensitive/PCN sensitive. Briefly transitioned to p.o. amoxicillin; however, Surgery advises against secondary to risk for repeat c. diff colitis. Patient did receive 4 days of Zosyn; discontinued yesterday. WBC stable, rem ains afebrile. Continue to monitor closely for evidence of worsening infection. (2) Acute cystitis with positive culture Is this a current diagnosis for this admission?: Yes Plan: On admission UTI confirmed with urinalysis with follow-up culture positive for Proteus mirabilis. She completed a full course of IV cefazolin. Antibiotic was subsequently discontinued. Repeat urine culture demonstrates pansensitive E. coli. Previously received a full course of Ancef therapy for Proteus Gayle S. On repeat urinalysis/urine culture, patient was placed on Zosyn. Likely colonization secondary to colovaginal fistula. Zosyn is discontinued (10/18/18) after 3 days. Will observe closely for clear indication for additional antibiotic needs. (3) Hypernatremia Is this a current diagnosis for this admission?: Yes Plan: Stable; remains elevated. Na 140-> 160.7-> 154.8-> 151.0-> 151.2 Secondary to poor p.o. intake. Medications reviewed for hypernatremia. Continue Lasix 40 mg IV twice daily and spironolactone 50 mg twice daily. Discussed importance of continuing lasix and albumin for fluid mobilization. Na will likely trend down r/t lasix use, once fluid overload is addressed/improved, can consider maintanence IV fluids as needed. Continue to monitor with daily chemistries. Low sodium diet. (4) Metabolic encephalopathy Is this a current diagnosis for this admission?: Yes Plan: Waxing and waning; slightly improved today. Patient is awake, alert, oriented to self, with increased alertness and participation in conversation today. Does follow simple commands with noted improvement in strength. Multifactorial secondary to dementia, metabolic encephalopathy resulting from sepsis, electrolyte derangements, recent LEATHA, and hospitalization. Evaluation and management of hypothermia and possible sepsis as above. Avoid all sedating medications; home dose Remeron is continued. Provide for patient safety. Supportive care. (5) Renal failure Qualifiers: Renal failure chronicity: acute Acute renal failure type: unspecified Qualified Code(s): N17.9 - Acute kidney failure, unspecified Is this a current diagnosis for this admission?: Yes Plan: Resolved; prerenal secondary to poor p.o. intake. Admitted with creatinine of 7.20; now at baseline of 0.84 with BUN of 27. Continue to avoid nephrotoxic medications as able. Patient does require spironolactone and Lasix for fluid mobilization secondary to mild CHF exacerbation and anasarca. Will monitor renal function closely. Daily chemistries. (6) Atrial fibrillation with RVR Is this a current diagnosis for this admission?: Yes Plan: Patient initially admitted with atrial fibrillation with RVR; likely secondary to dehydration resulting in LEATHA. She does have a history of proximal atrial fibrillation with RVR. Currently rate controlled with metoprolol 25 mg twice daily. She is not a good candidate for chronic anticoagulation; HAS-BLED Score 3: High risk for major bleeding event (5.8% yearly risk). (7) Hypokalemia Is this a current diagnosis for this admission?: Yes Plan: Persistent, though improved today. Secondary to poor p.o. intake, continued frequent loose stools, and Lasix utilization. Replaced with p.o. potassium today. Start p.o. Potassium 20 mEQ daily tomorrow. Continue spironolactone. Will monitor serial chemistries and replace as necessary. (8) Candidiasis, intertrigo Is this a current diagnosis for this admission?: Yes Plan: Fluconazole p.o. daily x5 days; has been discontinued. Continue Nystatin/triamcinolone cream 4 times daily. Optimize diabetes management. Ensure adequate hygiene. (9) Hypoalbuminemia Is this a current diagnosis for this admission?: Yes Plan: Secondary to poor p.o. intake. Albumin 2.8; prealbumin 9.4. Albumin level is improved; 3.1 today. Patient previously admitted with failure to thrive secondary to advanced dementia with poor p.o. intake. She was provided tube feeds at that time; discharged to home on p.o. diet and subsequently readmitted with significant LEATHA (CR 7.20) despite Remeron and Megace for appetite support. This is likely a chronic condition and result of her advanced age and dementia; patient is unlikely to benefit from continued artificial means of nutrition. tower switch operator has been consulted; patient continues to have minimal intake ('bites' of most meals). IV albumin today between IV lasix doses to assist w/ fluid mobilization. Discussed with the patient's son, Jayro Carlson option for artificial means of nutrition. Suggested that we may place a NG tube for tube feedings, however, this was a temporizing measure and the patient has previously failed this in the past as shortly after discharge on oral diet she was readmitted with malnutrition and acute renal failure secondary to dehydration. The patient would require a more permanent solution such as a PEG tube. We further discussed the patient's overall health, comorbidities, new diagnosis of colovaginal fistula and recommendations for consideration of transition to hospice care. Her Son/POA stated that he would like time to process/consider information and suggested that he would choose to move toward Hospice/Comfort care measures. Will hold on artificial means of nutrition for now. Continue to encourage p.o. intake. Continue megace and remeron for appetite support. (10) Colovaginal fistula Is this a current diagnosis for this admission?: Yes Plan: Colovaginal fistula; patient is noted to have severely edematous labia with hard/pitting edema and a 0.5 cm round lesion to the medial aspect of her left labia at 5 o'clock position that is noted to be draining copious amounts of feculent material. Noncontrasted pelvic CT Demonstrated continued extensive distention of the colon and anasarca. Fistula was not identified; likely due to lack of contrast. Surgery was consulted; appreciate Dr. Ayers's evaluation and recommendations. 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 Per notes, patient is not a surgical candidate at this time due to her overall health and comorbid condition. STRENGTH AND CONDITIONING COACH service was consulted; spoke with Dr. Murphy. Reiterates that the patient is not a good surgical candidate as she would not likely survive the procedure and would certainly have difficulty recovery due to her age, hydration, nutrition, and comorbid status. If the family wishes to pursue surgical intervention, patient would need to be transferred to tertiary center. Spoke with the patient's son (10/18/18), he understands the recommendations against surgical intervention at this time due to the patient's poor health and concerned that she would not survive the procedure. He agrees that he would not wish to put his mother through "more suffering," he had a long discussion that the president of the fistula will result in recurrent skin irritation/infections and UTIs. Even with optimization of her nutritional status, she is very unlikely to improve enough to be a good surgical candidate and would have a very difficult recovery following the procedure and very likely experience complications (heart failure, renal failure, respiratory failure, etc). (11) DNR (do not resuscitate) Is this a current diagnosis for this admission?: Yes - Time Time Spent with patient: 25-34 minutes Medications reviewed and adjusted accordingly: Yes Anticipated discharge: Hospice
[2018-10-19] MEDS ORDERED: POTASSIUM CHLORIDE 20 MEQ/15 ML UDCUP PO ONE (17:00)
[2018-10-19] MEDS: MIRTAZAPINE 15 MG TABLET NG SCH (22:56)
[2018-10-20 06:34] LABS: HEMATOCRIT 33.9 % (36.0-47.0); HEMOGLOBIN 11.4 g/dL (12.0-15.5); MEAN CORPUSCULAR HEMOGLOBIN 32.2 pg (27.0-33.4); MEAN CORPUSCULAR HGB CONC 33.6 g/dL (32.0-36.0); MEAN CORPUSCULAR VOLUME 96 fl (80-97); PLATELET COUNT 207 10^3/uL (150-450); RED BLOOD COUNT 3.55 10^6/uL (3.72-5.28); RED CELL DISTRIBUTION WIDTH 18.2 % (11.5-14.0); WHITE BLOOD COUNT 17.4 10^3/uL (4.0-10.5)
[2018-10-20 06:43] LABS: ALANINE AMINOTRANSFERASE 47 U/L (9-52); ALBUMIN 2.9 g/dL (3.5-5.0); ALKALINE PHOSPHATASE 117 U/L (38-126); ANION GAP 8 (5-19); ASPARTATE AMINO TRANSFERASE 48 U/L (14-36); BILIRUBIN,DIRECT 0.4 mg/dL (0.0-0.4); BLOOD UREA NITROGEN 26 mg/dL (7-20); CALCIUM 8.8 mg/dL (8.4-10.2); CARBON DIOXIDE 31 mmol/L (22-30); CHLORIDE 110 mmol/L (98-107); GLUCOSE 125 mg/dL (75-110); PHOSPHORUS 2.7 mg/dL (2.5-4.5); SODIUM 148.8 mmol/L (137-145); TOTAL PROTEIN 4.7 g/dL (6.3-8.2)
[2018-10-20 06:47] LABS: POTASSIUM 2.7 mmol/L (3.6-5.0)
[2018-10-20 06:50] LABS: PREALBUMIN 11.5 mg/dL (17.6-36.0)
[2018-10-20] MEDS: HEPARIN SOD (PORCINE) 5,000 UNIT/ML 1 ML SYRINGE SUBCUT SCH ×3 (06:54→22:05)
[2018-10-20] MEDS: LEVOTHYROXINE SODIUM 0.05 MG TABLET NG SCH (06:55)
[2018-10-20] MEDS: INSULIN LISPRO 100 UNIT/ML 3 ML VIAL SUBCUT SCH ×4 (08:14→22:04)
[2018-10-20] MEDS ORDERED: VANCOMYCIN HCL 0 MG in DEXTROSE 5%-WATER 250 ML IV NR (08:15)
[2018-10-20] MEDS ORDERED: FUROSEMIDE INJ/PF 20 MG/2 ML SDV IV SCH (09:00)
[2018-10-20] MEDS: POTASSIUM CHLORIDE 20 MEQ/50 ML RTU IV SCH ×3 (09:50→14:25)
[2018-10-20] MEDS: INSULIN GLARGINE,HUM.REC.ANLOG 300 UNIT/3 ML INSULN.PEN SUBCUT SCH ×2 (09:51→22:03)
[2018-10-20] MEDS: POTASSIUM CHLORIDE 20 MEQ/15 ML UDCUP PO SCH (09:51)
[2018-10-20] MEDS: MULTIVITAMINS W-IRON TABLET, CHEWABLE PO SCH (09:52)
[2018-10-20] MEDS: LACTOBACILLUS ACIDOPHILUS 250 MG TAB PO SCH ×2 (09:52→17:49)
[2018-10-20] MEDS: ESCITALOPRAM OXALATE 10 MG TABLET NG SCH (09:52)
[2018-10-20] MEDS: METOPROLOL TARTRATE 25 MG TABLET NG SCH ×2 (09:52→22:04)
[2018-10-20] MEDS: LOPERAMIDE HCL 2 MG CAPSULE PO PRN (09:52)
[2018-10-20] MEDS: SPIRONOLACTONE 25 MG TABLET PO SCH ×2 (09:52→22:05)
[2018-10-20] MEDS: MEGESTROL ACETATE SUSP 400 MG/10 ML UDCUP PO SCH (09:53)
[2018-10-20] MEDS: NYSTATIN/TRIAMCIN CREAM 15 GM TP SCH ×4 (09:53→22:06)
[2018-10-20] MEDS ORDERED: DIPHENOXYLATE HCL/ATROP SULF 2.5-0.025 MG TABLET PO PRN (11:01)
[2018-10-20] MEDS: AMOXICILLIN TRIHYD 250 MG/5 ML SUSP 80 ML PO SCH ×2 (14:24→22:11)
[2018-10-20] MEDS ORDERED: FUROSEMIDE INJ/PF 40 MG/4 ML SDV IV SCH (16:00)
--- NOTE | 2018-10-20 17:01 | PDOC PROGRESS REPORT ---
Subjective Progress Note for:: 10/20/18 Subjective:: The patient was seen on morning rounds. She was found resting in bed comfortably on supplemental oxygen by nasal cannula 2 L/min; w/ pulse ox 100%. Oxygen was turned off and she continued to maintain saturations in the mid 90s without increase work of breathing. She is awake, alert, oriented to self. She does answer most simple questions and follows a directions today; she is conversationally appropriate, though with continued responses. She denies fever, chills, chest pain, difficulty breathing, abdominal pain. Her only complaint is that she is tired and would like to rest. She has no questions or concerns. Discussed importance of accurate weights with nursing. Patient was weighed while I was in the room; her current weight is actually 76.6 kg. Nursing report that the patient's son discussed revoking DNR status w/ night nursing staff. Otherwise, they have no new concerns. Reason For Visit: SEPSIS, CLOSTRIDIUM DIFFICILE COLITIS,ACUTE KIDNEY Physical Exam Vital Signs: Temp Pulse Resp BP Pulse Ox 98.2 F 77 16 121/61 96 10/20/18 11:52 10/20/18 14:00 10/20/18 11:52 10/20/18 11:52 10/20/18 15:43 Pulse Oximeter Continuous Start: 10/16/18 11:45 Freq: RTQ4 Status: Active Protocol: Document 10/20/18 15:43 LDA (Rec: 10/20/18 15:44 LDA [id number]) Pulse Oximetry Assessment Oxygen Saturation (92-100) 96 Oxygen Flow Rate (L/min) 2 Oxygen Delivery Method Nasal Cannula Fraction of Inspired Oxygen (FIO2) 28 Equipment Usage Equipment in Use Continuous SpO2 Machine # 5 Intake & Output 10/19/18 10/20/18 10/21/18 06:59 06:59 06:59 Intake Total 642 834 100 Output Total 7681 7505 Balance -183 1193 100 Weight 87.7 kg 87.5 kg General appearance: PRESENT: no acute distress, cooperative, obese, well- developed, well-nourished, other - anasarca has nearly resolved Head exam: PRESENT: atraumatic, normocephalic Eye exam: PRESENT: conjunctiva pink, EOMI, PERRLA. ABSENT: scleral icterus Mouth exam: PRESENT: moist, tongue midline Neck exam: ABSENT: carotid bruit, JVD, lymphadenopathy, thyromegaly Respiratory exam: PRESENT: clear to auscultation caroline, symmetrical, unlabored. ABSENT: rales, rhonchi, wheezes Cardiovascular exam: PRESENT: irregular rhythm. ABSENT: diastolic murmur, rubs, systolic murmur Pulses: PRESENT: +1 pedal pulses bilateral Vascular exam: PRESENT: normal capillary refill GI/Abdominal exam: PRESENT: normal bowel sounds, soft, other - Exam limited secondary to body habitus. ABSENT: distended, guarding, mass, organolmegaly, rebound, tenderness Rectal exam: PRESENT: deferred Gentrourinary exam: PRESENT: indwelling catheter, other - Colovaginal fistula (not examined today) Extremities exam: PRESENT: full ROM, pedal edema - +1 pitting pedal edema; otherwise edema to lower extremities has resolved. ABSENT: calf tenderness, clubbing Neurological exam: PRESENT: alert, awake, oriented to person, CN II-XII grossly intact, other - Pleasantly confused, conversationally appropriate, delayed responses. Overall improved. ABSENT: motor sensory deficit Psychiatric exam: PRESENT: flat affect, normal mood. ABSENT: homicidal ideation, suicidal ideation Skin exam: PRESENT: dry, rash - Janel rash to skin fold; nearly resolved, warm. ABSENT: cyanosis Results Laboratory Results: 10/20/18 05:50 10/20/18 05:50 10/20/18 10/20/18 05:50 05:50 WBC 17.4 H RBC 3.55 L Hgb 11.4 L Hct 33.9 L MCV 96 MCH 32.2 MCHC 33.6 RDW 18.2 H Plt Count 207 Sodium 148.8 H Potassium 2.7 L* Chloride 110 H Carbon Dioxide 31 H Anion Gap 8 BUN 26 H Creatinine 0.88 Est GFR ( Amer) > 60 Est GFR (Non-Af Amer) > 60 Glucose 125 H Calcium 8.8 Phosphorus 2.7 Magnesium 1.7 Total Bilirubin 1.0 AST 48 H ALT 47 Alkaline Phosphatase 117 Total Protein 4.7 L Albumin 2.9 L Prealbumin 11.5 L 10/15/18 15:00 Blood Blood Culture - Final NO GROWTH IN 5 DAYS 10/15/18 14:10 Blood Blood Culture - Final NO GROWTH IN 5 DAYS 09/27/18 09/27/18 10/16/18 15:00 17:25 06:10 Creatine Kinase 68 CK-MB (CK-2) 3.15 Troponin I 0.061 NT-Pro-B Natriuret Pep 1140 H 4550 H 10/19/18 05:40 Creatine Kinase CK-MB (CK-2) Troponin I NT-Pro-B Natriuret Pep 6960 H Impressions: Head CT 09/27/18 14:30 IMPRESSION: No acute intracranial pathology. EVIDENCE OF ACUTE STROKE: NO. KUB X-Ray 09/29/18 00:00 IMPRESSION: Tip of the enteric tube likely in the body of the stomach. Several mildly prominent air filled loops of small bowel may reflect ileus. Follow-up recommended copyright 2010 [employer]- All Rights Reserved Abdomen/Pelvis CT 10/08/18 00:00 IMPRESSION: Diffuse dilatation of the colon containing air and fluid. Maximal diameter approximately 10 cm. No wall thickening or evidence of torsion. The small bowel is normal in caliber. Moderate size bilateral pleural effusions with adjacent atelectasis. Small amount of perihepatic free fluid. Acute Abdomen Series 10/09/18 07:00 IMPRESSION: Partial colonic obstruction or pseudo-obstruction. No significant change. Chest X-Ray 10/15/18 00:00 IMPRESSION: Trace bilateral pleural effusions with bibasilar and right upper lobe airspace disease. Findings are unchanged from yesterday Pelvis CT 10/17/18 16:08 IMPRESSION: Continued extensive distention of the colon throughout. Anasarca. Assessment & Plan - Diagnosis (1) Acute cystitis with positive culture Is this a current diagnosis for this admission?: Yes Plan: On admission UTI confirmed with urinalysis with follow-up culture positive for Proteus mirabilis. She completed a full course of IV cefazolin. Antibiotic was subsequently discontinued. Repeat urine culture demonstrates pansensitive E. coli. Patient did receive 4 days of Zosyn; briefly transitioned to p.o. amoxicillin which was discontinued following 2 doses (was thought to be just colonization and/or contamination from stool related to fistula). WBC now trending up; will treat for UTI Discussed w/ pharmacy; will consult Infectious disease. Penicillins to provide medium risk for C. difficile infection. Macrolides would provide lower risk, though with poor coverage of Proteus and E. coli. The p atient is bound to have recurrent E. coli UTI infections due to her nonoperable colovaginal fistula; patient will always have unavoidable risk of UTI sepsis vs C. Diff sepsis. Will minimize c. diff risk as much as possible; increase probiotics and encourage live-sulture foods (yogurt). Will resume p.o. amoxicillin. Exchange slaughter catheter today. Will need to discuss with family again the appropriateness of hospice transition. (2) Hypernatremia Is this a current diagnosis for this admission?: Yes Plan: Gradually improving; remains elevated. Na 140-> 160.7-> 154.8-> 151.0-> 151.2-> 148.8 Secondary to poor p.o. intake. Patient has had improved intake x 2 days (50% most meals) Medications reviewed for hypernatremia. Transition to p.o. Lasix 40 mg twice daily and spironolactone 50 mg twice daily. Continue to monitor with daily chemistries. Encourage p.o. fluids Low sodium diet. (3) Hypokalemia Is this a current diagnosis for this admission?: Yes Plan: Persistent Secondary to poor p.o. intake, continued frequent loose stools, and Lasix utilization. Replaced with IV potassium today. Continue p.o. Potassium 20 mEQ daily Continue spironolactone. Decreased lasix today. Will monitor serial chemistries and replace as necessary. (4) Metabolic encephalopathy Is this a current diagnosis for this admission?: Yes Plan: Waxing and waning; remains improved today. Patient is awake, alert, oriented to self, with increased alertness and participation in conversation today. Does follow simple commands with noted improvement in strength. Multifactorial secondary to dementia, metabolic encephalopathy resulting from sepsis, electrolyte derangements, recent LEATHA, and hospitalization. Evaluation and management of hypothermia and possible sepsis as above. Avoid all sedating medications; home dose Remeron is continued. Provide for patient safety. Supportive care. (5) Candidiasis, intertrigo Is this a current diagnosis for this admission?: Yes Plan: Significantly improved. Fluconazole p.o. daily x5 days; has been discontinued. Continue Nystatin/triamcinolone cream 4 times daily. Optimize diabetes management. Ensure adequate hygiene. (6) Hypoalbuminemia Is this a current diagnosis for this admission?: Yes Plan: Overall unchanged; Albumin 3.5-> 2.1-> 2.9; prealbumin 9.4-> 11.5. Slight improvement in appetite x 2 days Patient previously admitted with failure to thrive secondary to advanced dementia with poor p.o. intake. She was provided tube feeds at that time; discharged to home on p.o. diet and subsequently readmitted with significant LEATHA (CR 7.20) despite Remeron and Megace for appetite support. This is likely a chronic condition and result of her advanced age and dementia; patient is unlikely to benefit from continued artificial means of nutrition. rehab spec has been consulted; patient continues to have minimal i ntake ('bites' of most meals). Continue to encourage p.o. intake. Continue megace and remeron for appetite support. Discussed with the patient's son, Jayro Carlson option for artificial means of nutrition. Suggested that we may place a NG tube for tube feedings, however, this was a temporizing measure and the patient has previously failed this in the past as shortly after discharge on oral diet she was readmitted with malnutrition and acute renal failure secondary to dehydration. The patient w ould require a more permanent solution such as a PEG tube. We further discussed the patient's overall health, comorbidities, new diagnosis of colovaginal fistula and recommendations for consideration of transition to hospice care. Her Son/POA stated that he would like time to process/consider information and suggested that he would choose to move toward Hospice/Comfort care measures. Will hold on artificial means of nutrition for now. (7) Colovaginal fistula Is this a current diagnosis for this admission?: Yes Plan: Colovaginal fistula; patient is noted to have severely edematous labia with hard/pitting edema and a 0.5 cm round lesion to the medial aspect of her left labia at 5 o'clock position that is noted to be draining copious amounts of feculent material. Noncontrasted pelvic CT Demonstrated continued extensive distention of the colon and anasarca. Fistula was not identified; likely due to lack of contrast. Surgery was consulted; appreciate Dr. Ayers's evaluation and recommendations. 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 Per notes, patient is not a surgical candidate at this time due to her overall health and comorbid condition. [employer]CH[employer] service was consulted; spoke with Dr. Murphy. Reiterates that the patient is not a good surgical candidate as she would not likely survive the procedure and would certainly have difficulty recovery due to her age, hydration, nutrition, and comorbid status. If the family wishes to pursue surgical intervention, patient would need to be transferred to tertiary center. Spoke with the patient's son (10/18/18), he understands the recommendations agai nst surgical intervention at this time due to the patient's poor health and concerned that she would not survive the procedure. He agrees that he would not wish to put his mother through "more suffering," he had a long discussion that the president of the fistula will result in recurrent skin irritation/infections and UTIs. Even with optimization of her nutritional status, she is very unlikely to improve enough to be a good surgical candidate and would have a very difficult recovery following the procedure and very likely experience complications (heart failure, renal failure, respiratory failure, etc). (8) Hypothermia Is this a current diagnosis for this admission?: Yes Plan: Resolved; currently maintaining body temperature without use of rayray hugger. Patient was noted to develop hypothermia (10/15/18); rectal temp 94.3. Likely secondary to anasarca resulting from hypoalbuminemia. Sepsis was considered but ruled out. Blood cultures have no growth at 5 days. Original urine culture revealed Proteus mirabilis; repeat urine culture shows Janel and E. coli. WBC is elevated (11.1-> 11.7-> 13.5-> 13.3-> 17). Normal temperature x5 days. Lactic acid nml. Thyroid panel and a.m. cortisol are acceptable. (9) Renal failure Qualifiers: Renal failure chronicity: acute Acute renal failure type: unspecified Qualified Code(s): N17.9 - Acute kidney failure, unspecified Is this a current diagnosis for this admission?: Yes Plan: Resolved; prerenal secondary to poor p.o. intake. Admitted with creatinine of 7.20; now at baseline of 0.88 with BUN of 26. Continue to avoid nephrotoxic medications as able. Patient does require spironolactone and Lasix for fluid mobilization secondary to mild CHF exacerbation and anasarca. Will monitor renal function closely. Daily chemistries. (10) Atrial fibrillation with RVR Is this a current diagnosis for this admission?: Yes Plan: Patient initially admitted with atrial fibrillation with RVR; likely secondary to dehydration resulting in LEATHA. She does have a history of proximal atrial fibrillation with RVR. Currently rate controlled with metoprolol 25 mg twice daily. She is not a good candidate for chronic anticoagulation; HAS-BLED Score 3: High risk for major bleeding event (5.8% yearly risk). (11) DNR (do not resuscitate) Is this a current diagnosis for this admission?: Yes - Time Time Spent with patient: 25-34 minutes Medications reviewed and adjusted accordingly: Yes Anticipated discharge: Hospice - Hospice vs SNF w/ palliative care/hospice vs Home w/ services Within: within 48 hours - Plan Summary Plan Summary: Patient's weight is down 12.2 kg, anasarca is significantly improved, sodium trending down, albumin essentially stable. However, patient now maintaining body temperature without assistance, with increased alertness and p.o. intake. Have transition to all oral medications. Have resumed amoxicillin for treatment of UTI; do anticipate the patient to have recurrent infections related to inoperable colovaginal fistula. We will continue to monitor; if patient shows appropriate response to antibiotic (remains afebrile with stabilization and/or downward trend in WBCs) she will be ready for discharge within 24-48 hours. Unfortunately, disposition is unknown at this time (prolonged discussion with the patient's son earlier this week regarding inpatient hospice services; however, nursing tells me he is now considering resuming Full Code status).
[2018-10-20] MEDS: FUROSEMIDE 40 MG TABLET PO SCH (17:49)
[2018-10-20 19:54] LABS: APPEARANCE,URINE SLIGHTLY-CLOUDY; BILIRUBIN,URINE NEGATIVE (NEGATIVE); COLOR,URINE YELLOW; GLUCOSE, URINE 150 mg/dL (NEGATIVE); KETONES,URINE NEGATIVE (NEGATIVE); LEUKOCYTE ESTERASE,URINE SMALL (NEGATIVE); NITRITE,URINE NEGATIVE (NEGATIVE); PROTEIN,URINE NEGATIVE (NEGATIVE); UROBILINOGEN,URINE NEGATIVE mg/dL (<2.0)
[2018-10-20 20:56] LABS: ANION GAP 7 (5-19); BLOOD UREA NITROGEN 23 mg/dL (7-20); CALCIUM 8.8 mg/dL (8.4-10.2); CARBON DIOXIDE 32 mmol/L (22-30); CHLORIDE 105 mmol/L (98-107); GLUCOSE 218 mg/dL (75-110); POTASSIUM 3.1 mmol/L (3.6-5.0)
[2018-10-20] MEDS: MIRTAZAPINE 15 MG TABLET NG SCH (22:05)
[2018-10-21] MEDS: AMOXICILLIN TRIHYD 250 MG/5 ML SUSP 80 ML PO SCH ×2 (05:14→16:13)
[2018-10-21] MEDS: LEVOTHYROXINE SODIUM 0.05 MG TABLET NG SCH (05:14)
[2018-10-21] MEDS: HEPARIN SOD (PORCINE) 5,000 UNIT/ML 1 ML SYRINGE SUBCUT SCH ×3 (05:14→21:43)
[2018-10-21 06:16] LABS: ABSOLUTE EOSINOPHILS # (AUTO) 0.1 10^3/uL (0.0-0.6); ABSOLUTE LYMPHOCYTES (AUTO) 1.3 10^3/uL (0.5-4.7); ABSOLUTE MONOCYTES (AUTO) 0.8 10^3/uL (0.1-1.4); ABSOLUTE NEUT (AUTO) 15.9 10^3/uL (1.7-8.2); BASOPHILS % (AUTO) 0.1 % (0-2); EOSINOPHILS % (AUTO) 0.5 % (0-6); HEMATOCRIT 31.9 % (36.0-47.0); HEMOGLOBIN 10.7 g/dL (12.0-15.5); LYMPHOCYTES % (AUTO) 7.4 % (13-45); MEAN CORPUSCULAR HEMOGLOBIN 32.4 pg (27.0-33.4); MEAN CORPUSCULAR HGB CONC 33.6 g/dL (32.0-36.0); MEAN CORPUSCULAR VOLUME 96 fl (80-97); MONOCYTES % (AUTO) 4.4 % (3-13); PLATELET COUNT 203 10^3/uL (150-450); RED BLOOD COUNT 3.31 10^6/uL (3.72-5.28); RED CELL DISTRIBUTION WIDTH 18.6 % (11.5-14.0); SEGMENTED NEUTROPHILS % (AUTO) 87.6 % (42-78); TOTAL CELLS COUNTED % (AUTO) 100 %; WHITE BLOOD COUNT 18.2 10^3/uL (4.0-10.5)
[2018-10-21 06:40] LABS: ANION GAP 8 (5-19); BLOOD UREA NITROGEN 21 mg/dL (7-20); CALCIUM 8.9 mg/dL (8.4-10.2); CARBON DIOXIDE 32 mmol/L (22-30); CHLORIDE 106 mmol/L (98-107); GLUCOSE 125 mg/dL (75-110); SODIUM 146.4 mmol/L (137-145)
[2018-10-21 06:45] LABS: POTASSIUM 2.9 mmol/L (3.6-5.0)
[2018-10-21] MEDS: INSULIN LISPRO 100 UNIT/ML 3 ML VIAL SUBCUT SCH ×4 (08:05→21:44)
[2018-10-21] MEDS: POTASSIUM CHLORIDE 20 MEQ/50 ML RTU IV SCH ×3 (08:11→12:04)
[2018-10-21] MEDS: FUROSEMIDE 40 MG TABLET PO SCH ×2 (08:11→17:04)
[2018-10-21] MEDS: MEGESTROL ACETATE SUSP 400 MG/10 ML UDCUP PO SCH (09:57)
[2018-10-21] MEDS: ESCITALOPRAM OXALATE 10 MG TABLET NG SCH (09:59)
[2018-10-21] MEDS: SPIRONOLACTONE 25 MG TABLET PO SCH (09:59)
[2018-10-21] MEDS: MULTIVITAMINS W-IRON TABLET, CHEWABLE PO SCH (09:59)
[2018-10-21] MEDS: LACTOBACILLUS ACIDOPHILUS 250 MG TAB PO SCH ×2 (09:59→17:32)
[2018-10-21] MEDS: METOPROLOL TARTRATE 25 MG TABLET NG SCH (09:59)
[2018-10-21] MEDS: POTASSIUM CHLORIDE 20 MEQ/15 ML UDCUP PO SCH (10:00)
[2018-10-21] MEDS: NYSTATIN/TRIAMCIN CREAM 15 GM TP SCH (10:01)
[2018-10-21] MEDS: INSULIN GLARGINE,HUM.REC.ANLOG 300 UNIT/3 ML INSULN.PEN SUBCUT SCH ×2 (10:18→21:43)
[2018-10-21] MEDS: KETOROLAC TROMETHAMINE INJ/PF 30 MG/1 ML SDV IV PRN (12:15)
[2018-10-21] MEDS: ACETAMINOPHEN 325 MG TABLET PO PRN (12:47)
[2018-10-21 14:36] LABS: HEMOGLOBIN 10.4 g/dL (12.0-15.5); MEAN CORPUSCULAR HEMOGLOBIN 32.5 pg (27.0-33.4); MEAN CORPUSCULAR HGB CONC 33.7 g/dL (32.0-36.0); MEAN CORPUSCULAR VOLUME 96 fl (80-97); PLATELET COUNT 191 10^3/uL (150-450); RED BLOOD COUNT 3.22 10^6/uL (3.72-5.28); RED CELL DISTRIBUTION WIDTH 18.7 % (11.5-14.0); WHITE BLOOD COUNT 23.1 10^3/uL (4.0-10.5)
[2018-10-21 14:58] LABS: ANION GAP 8 (5-19); BLOOD UREA NITROGEN 20 mg/dL (7-20); CALCIUM 8.6 mg/dL (8.4-10.2); CARBON DIOXIDE 30 mmol/L (22-30); CHLORIDE 103 mmol/L (98-107); GLUCOSE 312 mg/dL (75-110); POTASSIUM 3.6 mmol/L (3.6-5.0); SODIUM 141.3 mmol/L (137-145)
[2018-10-21] MEDS ORDERED: MORPHINE SULFATE 10 MG/ML INJ IV PRN (16:30)
--- NOTE | 2018-10-21 16:33 | Progress Note ---
Provider Note Provider Note: ID Consult Note Asked to review patient's chart by Pharmacy. Pt not seen or examined. Pt is an 83 year old woman with PMH including dementia, chronic AF, CHF, DM, VINCENT, COPD and rectovaginal fistula who has been admitted since 09/27/18, over 3 weeks ago, with persistnet diarrhea after a recent hospitalization during which time she was diagnosed with Clostridium difficile colitis. However, during this admission she has had 3 C difficle PCRs of her stool for the toxin gene that have all been negative. On 10/15/18 she had a U/A sent that showed a small amount of leukocyte esterase and 11 wbc/hpf and UCx that grew >100k cfu of E coli when she became hypothermic and was suspected of having sepsis. Zosyn empirically was started on 10/15 and continued until 10/17, at which time it was stopped in favor of starting Amoxil PO (10/17 - present). Today is day 7. Stool culture did not show any growth of Salmonella, Shigella, Campylobacter, or E coli 0157; stool was negative for shiga toxins. BCx negative from 10/15. Repeat BCx from 10/20 are negative x 24h. Repeat UCx has no growth x 1 day from 10/20. Labs include leukoc ytosis, hypokalemia, recently resolved hypernatremia, resolved LEATHA compared to admission. She has poor appetite. She is still having frequent stools. She is afebrile. Impression/Recommendations Pt has been treated for complicated UTI with E coli; today is day 7 of that antibiotic course (of Zosyn, then amoxicillin). This should be sufficient for treatment of a complicated UTI. Recommend discontinuing amoxicillin after today. Would not recommend reculturing urine unless clinical suspicion of UTI is present. However, if the need arises in the future and the organism is susceptible to an aminoglycoside, nitrofurantoin, or Bactrim, these agents have lower risk for C difficile and should be kept in mind. Avoiding Macrobid in CrCl <60 was recommended in the past. However, in the 2015 Beers Criteria ClCr at which there is concern for use of Macrobid was decreased to <30 because of new evidence for effectiveness and questions about the old evidence used to base the previous cutoff on. Willie Duffy MD [facility] Infectious Diseases pager [phone]
--- NOTE | 2018-10-21 17:36 | RADIOLOGY REPORT (SQ) ---
EXAM DESCRIPTION: ACUTE ABDOMEN SERIES COMPLETED DATE/TIME: 10/21/2018 4:51 pm REASON FOR STUDY: ABD distension/pain COMPARISON: 10/09/2018. NUMBER OF VIEWS: Three views. TECHNIQUE: Frontal chest, supine abdomen and upright/decubitus abdomen radiographic images acquired. LIMITATIONS: None. FINDINGS: CHEST: Small pleural effusions. Retrocardiac opacification bilaterally. FREE AIR: No free air is appreciated. BOWEL GAS PATTERN: Large bowel is distended with air. There is no significant small bowel distention . CALCIFICATIONS: No suspicious calcifications. HARDWARE: None in the abdomen. SOFT TISSUES: No gross mass or suggestion of organomegaly. BONES: No acute fracture. No worrisome bone lesions. OTHER: No other significant finding. IMPRESSION: 1. Cannot exclude a colonic ileus versus some degree of obstruction of the colon. 2. Small pleural effusions. Bilateral lower lobe airspace disease, likely atelectasis. Pneumonia c annot be excluded. TECHNICAL DOCUMENTATION: JOB ID: [id number] [employer]- All Rights Reserved Reading location - IP/workstation name: [email or web address]
--- NOTE | 2018-10-21 20:26 | Progress Note ---
Addendum entered and electronically signed by MALA MCGHEE NP-C 10/22/18 12:46: Provider Note Provider Note: Addendum: Face to face time 50 minutes. Original Note: Provider Note Provider Note: [facility] Met with the patient's adult son (GARIMAA), Jayro Carlson, his , Gabriel Carlson, and their adult son (the patient's grandson) this evening to talk about the patient's current medical condition, recent imaging and laboratory results, poor prognosis, and plan of care. The patient has a colovaginal fistula with development of ileus/bowel obstruction resulting in massively dilated bowel. The patient's WBC has increas ed to 23k and her lactic acid is elevated today to 2.8. The patient has been complaining of abdominal distention/discomfort and has refused p.o. intake times 24 hours. The development of her bowel obstruction necessitates n.p.o. status. We discussed the option for transfer to a tertiary care facility where they may consider attempted revision of the fistula; however, the family was cautioned t hat the in-house surgeons have advised that this is a long and difficult procedure with high risk of fatal event while in operating room followed by a very difficult recovery over the course of 3-4 months (whendone in a young and healthy individual; certainly longer in Ms. Carlson's case). The patient's realistic capability of surviving invasive surgery of this extent is extremely poor. The development of her ileus/bowel obstruction complication has placed the patient at high risk for sepsis, aspiration event, and recurrence of her renal/heart failure due to metabolic demands, fluid requirements, and potentially nephrotoxic medications. The family was made aware that Ms. Santanas life expectancy regardless of the course the family requested was short; they were encouraged to consider how they wished her to spend her final days. Their questions were answered to the best of my ability and at the conclusion of our discussion, the patient's son/DAISY stated that he understood she had reached the end of her life. He clearly confirmed in the presence of the other family members that the patient is a DNR/DNI. He does request that she be provided gentle IV fluids and support, but minimizing all other invasive and aggressive interventions, to allow him time to contact family members who would like to come and visit her. He is hopeful that his mother will have a comfortable 1-2 days to visit with family who would like to see her, at which time, he states he will move forward with requesting full comfort care with inpatient (preferably here at [facility]) hospice services. Plan of care was reviewed with the patient's current nursing staff and the on- duty [employer] E[employer]ctor.
--- NOTE | 2018-10-21 20:51 | PDOC PROGRESS REPORT ---
Subjective Progress Note for:: 10/21/18 Subjective:: The patient was seen on morning rounds. She was found resting in bed comfortably on room air. She is awake, alert, oriented to self and pleasantly conversational today. She complains of abdominal distention and poor appetite today; but denies pain, nausea, and vomiting. She denies fever, chills, chest pain, difficulty breathing, abdominal pain. She has no questions or concerns. No concerns per her private duty NA. Met with the family (son, [id number], grandson) this evening to discuss the patient's current health, imaging, and laboratory results. Please review separate provider note dated today for detailed discussion. Reason For Visit: SEPSIS, CLOSTRIDIUM DIFFICILE COLITIS,ACUTE KIDNEY Physical Exam Vital Signs: Temp Pulse Resp BP Pulse Ox 97.8 F 96 21 H 116/55 L 97 10/21/18 16:16 10/21/18 16:16 10/21/18 16:16 10/21/18 16:16 10/21/18 19:46 Pulse Oximeter Continuous Start: 10/16/18 11:45 Freq: RTQ4 Status: Active Protocol: Document 10/21/18 19:46 NSM (Rec: 10/21/18 19:46 NSM [id number]) Pulse Oximetry Assessment Oxygen Saturation (92-100) 97 Oxygen Delivery Method Room Air Fraction of Inspired Oxygen (FIO2) 21 Equipment Usage Equipment in Use Continuous SpO2 Machine # [id number] Intake & Output 10/20/18 10/21/18 10/22/18 06:59 06:59 06:59 Intake Total 834 638 145 Output Total 6074 1360 Balance -1196 -722 145 Weight 87.5 kg 77.1 kg General appearance: PRESENT: no acute distress, cooperative - Pleasantly confused, well-developed, well-nourished, other - Anasarca has resolved Head exam: PRESENT: atraumatic, normocephalic Eye exam: PRESENT: conjunctiva pink, EOMI, PERRLA. ABSENT: scleral icterus Mouth exam: PRESENT: moist, tongue midline Respiratory exam: PRESENT: clear to auscultation caroline, decreased breath sounds - Bibasilar, symmetrical, unlabored. ABSENT: rales, rhonchi, wheezes Cardiovascular exam: PRESENT: RRR, +S1, +S2. ABSENT: diastolic murmur, rubs, systolic murmur Pulses: PRESENT: +1 pedal pulses bilateral Vascular exam: PRESENT: normal capillary refill GI/Abdominal exam: PRESENT: diminished bowel sounds, distended, firm, hypoactive bowel sounds. ABSENT: guarding, mass, organolmegaly, rebound, tenderness Rectal exam: PRESENT: deferred Gentrourinary exam: PRESENT: indwelling catheter, other - Colovaginal fistula (not examined today); worsened per nursing staff-now easily identified during hygiene care Extremities exam: PRESENT: full ROM, pedal edema - +1. ABSENT: calf tenderness, clubbing Neurological exam: PRESENT: alert, awake, oriented to person, CN II-XII grossly intact, other - Pleasantly confused, socially appropriate. ABSENT: motor sensory deficit Psychiatric exam: PRESENT: appropriate affect, normal mood. ABSENT: homicidal ideation, suicidal ideation Skin exam: PRESENT: dry, warm. ABSENT: cyanosis, rash Results Laboratory Results: 10/21/18 14:00 10/21/18 14:00 10/20/18 10/21/18 10/21/18 20:25 05:40 05:40 WBC 18.2 H RBC 3.31 L Hgb 10.7 L Hct 31.9 L MCV 96 MCH 32.4 MCHC 33.6 RDW 18.6 H Plt Count 203 Seg Neutrophils % 87.6 H Lymphocytes % 7.4 L Monocytes % 4.4 Eosinophils % 0.5 Basophils % 0.1 Absolute Neutrophils 15.9 H Absolute Lymphocytes 1.3 Absolute Monocytes 0.8 Absolute Eosinophils 0.1 Absolute Basophils 0.0 Sodium 144.0 146.4 H Potassium 3.1 L 2.9 L* Chloride 105 106 Carbon Dioxide 32 H 32 H Anion Gap 7 8 BUN 23 H 21 H Creatinine 0.76 0.83 Est GFR ( Amer) > 60 > 60 Est GFR (Non-Af Amer) > 60 > 60 Glucose 218 H 125 H Lactic Acid Calcium 8.8 8.9 10/21/18 10/21/18 10/21/18 14:00 14:00 18:25 WBC 23.1 H RBC 3.22 L Hgb 10.4 L Hct 31.0 L MCV 96 MCH 32.5 MCHC 33.7 RDW 18.7 H Plt Count 191 Seg Neutrophils % Lymphocytes % Monocytes % Eosinophils % Basophils % Absolute Neutrophils Absolute Lymphocytes Absolute Monocytes Absolute Eosinophils Absolute Basophils Sodium 141.3 Potassium 3.6 Chloride 103 Carbon Dioxide 30 Anion Gap 8 BUN 20 Creatinine 0.80 Est GFR ( Amer) > 60 Est GFR (Non-Af Amer) > 60 Glucose 312 H Lactic Acid Cancelled Calcium 8.6 10/21/18 19:05 WBC RBC Hgb Hct MCV MCH MCHC RDW Plt Count Seg Neutrophils % Lymphocytes % Monocytes % Eosinophils % Basophils % Absolute Neutrophils Absolute Lymphocytes Absolute Monocytes Absolute Eosinophils Absolute Basophils Sodium Potassium Chloride Carbon Dioxide Anion Gap BUN Creatinine Est GFR ( Amer) Est GFR (Non-Af Amer) Glucose Lactic Acid 2.8 H Calcium 10/18/18 03:00 Stool - Stool - Final 10/18/18 03:00 Stool - Stool Stool Culture - Final NO SALMONELLA, SHIGELLA, CAMPYLOBACTER, OR E.COLI 0157 RECOVERED. NEGATIVE FOR SHIGA TOXINS 1&2. 10/15/18 15:00 Blood Blood Culture - Final NO GROWTH IN 5 DAYS 09/27/18 09/27/18 10/16/18 15:00 17:25 06:10 Creatine Kinase 68 CK-MB (CK-2) 3.15 Troponin I 0.061 NT-Pro-B Natriuret Pep 1140 H 4550 H 10/19/18 05:40 Creatine Kinase CK-MB (CK-2) Troponin I NT-Pro-B Natriuret Pep 6960 H Impressions: Head CT 09/27/18 14:30 IMPRESSION: No acute intracranial pathology. EVIDENCE OF ACUTE STROKE: NO. KUB X-Ray 09/29/18 00:00 IMPRESSION: Tip of the enteric tube likely in the body of the stomach. Several mildly prominent air filled loops of small bowel may reflect ileus. Follow-up recommended copyright 2010 [employer]- All Rights Reserved Abdomen/Pelvis CT 10/08/18 00:00 IMPRESSION: Diffuse dilatation of the colon containing air and fluid. Maximal diameter approximately 10 cm. No wall thickening or evidence of torsion. The small bowel is normal in caliber. Moderate size bilateral pleural effusions with adjacent atelectasis. Small amount of perihepatic free fluid. Chest X-Ray 10/15/18 00:00 IMPRESSION: Trace bilateral pleural effusions with bibasilar and right upper lobe airspace disease. Findings are unchanged from yesterday Pelvis CT 10/17/18 16:08 IMPRESSION: Continued extensive distention of the colon throughout. Anasarca. Acute Abdomen Series 10/21/18 00:00 IMPRESSION: 1. Cannot exclude a colonic ileus versus some degree of obstructio n of the colon. 2. Small pleural effusions. Bilateral lower lobe airspace disease, likely atelectasis. Pneumonia cannot be excluded. Assessment & Plan - Diagnosis (1) Acute cystitis with positive culture Is this a current diagnosis for this admission?: Yes Plan: On admission UTI confirmed with urinalysis with follow-up culture positive for Proteus mirabilis. She completed a full course of IV cefazolin. Antibiotic was subsequently discontinued. Repeat urine culture demonstrates pansensitive E. coli. Patient did receive 4 days of Zosyn; briefly transitioned to p.o. amoxicillin which was discontinued following 2 doses (was thought to be just colonization and/or contamination from stool related to fistula). WBC now trending up we transferred to the GI bleed 605 she is because she divided now she had a paraesophageal hernia is not right with possibly and a possible incarcerated stomach he should see her CT picture is, and Angiocath Infectious disease consulted; recommend stopping antibiotics as UTI has been adequately treated (leukocytosis likely 2/2 ileus/bowel obstruction) The patient is bound to have recurrent E. coli UTI infections due to her nonoperable colovaginal fistula; patient will always have unavoidable risk of UTI sepsis vs C. Diff sepsis. Flores catheter exchanged yesterday. (2) Hypernatremia Is this a current diagnosis for this admission?: Yes Plan: Resolved today. Na 140-> 160.7-> 154.8-> 151.0-> 151.2-> 148.8-> 141.3 Secondary to poor p.o. intake. Expected to recur as the patient is now n.p.o. due to bowel obstruction/ileus. Have started D5NS at 50 mls/hr at family's request as the wish for us to keep the patient stable for an additional 1-2 days so that family members can come by to say their goodbyes. Continue IV furosemide to prevent fluid overload and worsening anasarca/respiratory distress. Will check AM chemistry. Anticipate transition to full comfort care order set within 48-72 hours as discussed with patient's son/POA this evening. (3) Hypokalemia Is this a current diagnosis for this admission?: Yes Plan: Resolved Secondary to poor p.o. intake, continued frequent loose stools, and Lasix utilization. (4) Metabolic encephalopathy Is this a current diagnosis for this admission?: Yes Plan: Waxing and waning; improved today. Patient is awake, alert, oriented to self; pleasantly condused and socially appropriate. Multifactorial secondary to dementia, metabolic encephalopathy resulting from sepsis, electrolyte derangements, recent LEATHA, and hospitalization. Anticipate patient will develop worsening mental status related to acute illness. Low dose Ativan as needed for acute anxiety/agitation. Provide for patient safety. Supportive care. (5) Candidiasis, intertrigo Is this a current diagnosis for this admission?: Yes Plan: Significantly improved. Fluconazole p.o. daily x5 days; has been discontinued. Continue Nystatin/triamcinolone cream 4 times daily. Optimize diabetes management. Ensure adequate hygiene. (6) Hypoalbuminemia Is this a current diagnosis for this admission?: Yes Plan: Overall unchanged; Albumin 3.5-> 2.1-> 2.9; prealbumin 9.4-> 11.5. Slight im provement in appetite x 2 days Patient previously admitted with failure to thrive secondary to advanced dementia with poor p.o. intake. She was provided tube feeds at that time; discharged to home on p.o. diet and subsequently readmitted with significant LEATHA (CR 7.20) despite Remeron and Megace for appetite support. This is likely a chronic condition and result of her advanced age and dementia; patient is unlikely to benefit from continued artificial means of nutrition. Now NPO related to ileus/bowel obstruction. Patient with modified comfort care order set; family requesting IV fluid support to keep patient stabilized for the next 1-2 days but otherwise avoid all aggressive interventions. Will not initiate alternate means of nutrition (no PEG or Tube Feeds). (7) Colovaginal fistula Is this a current diagnosis for this admission?: Yes Plan: Colovaginal fistula; patient is noted to have severely edematous labia with hard/pitting edema and a 0.5 cm round lesion to the medial aspect of her left labia at 5 o'clock position that is noted to be draining copious amounts of feculent material. Noncontrasted pelvic CT Demonstrated continued extensive distention of the colon and anasarca. Fistula was not identified; likely due to lack of contrast. Surgery was consulted; appreciate Dr. Ayers's evaluation and recommendations. 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 Per notes, patient is not a surgical candidate at this time due to her overall health and comorbid condition. CIRCULATION MANAGER service was consulted; spoke with Dr. Murphy. Reiterates that the patient is not a good surgical candidate as she would not likely survive the procedure and would certainly have difficulty recovery due to her age, hydration, nutrition, and comorbid status. If the family wishes to pursue surgical intervention, patient would need to be transferred to tertiary center. Spoke with the patient's son (10/18/18), he understands the recommendations against surgical intervention at this time due to the patient's poor health and concerned that she would not survive the procedure. He agrees that he would not wish to put his mother through "more suffering," he had a long discussion that the president of the fistula will result in recurrent skin irritation/infections and UTIs. Even with optimization of her nutritional status, she is very unlikely to improve enough to be a good surgical candidate and would have a very difficult recovery following the procedure and very likely experience complications (heart failure, renal failure, respiratory failure, etc). Family meeting (10/21/18); please reference provider note dated for today. Son/POA advises patient is DNR/DNI and he does not wish to pursue aggressive/heroic, or surgical interventions. (8) Hypothermia Is this a current diagnosis for this admission?: Yes Plan: Resolved; likely secondary to anasarca resulting from hypoalbuminemia. Patient was noted to develop hypothermia (10/15/18); rectal temp 94.3. Sepsis was considered but ruled out. Blood cultures have no growth at 5 days. Thyroid panel and a.m. cortisol are acceptable. (9) Renal failure Qualifiers: Renal failure chronicity: acute Acute renal failure type: unspecified Qualified Code(s): N17.9 - Acute kidney failure, unspecified Is this a current diagnosis for this admission?: Yes Plan: Resolved; prerenal secondary to poor p.o. intake. Admitted with creatinine of 7.20; now at baseline of 0.88 with BUN of 26. (10) Atrial fibrillation with RVR Is this a current diagnosis for this admission?: Yes Plan: Patient initially admitted with atrial fibrillation with RVR; likely secondary to dehydration resulting in LEATHA. She does have a history of proximal atrial fibrillation with RVR. IV metoprolol for rate control. (11) Bowel obstruction Is this a current diagnosis for this admission?: Yes Plan: Patient was noted to have significant abdominal distention today with anorexia. Acute abdominal series revealed large bowel distended with air; cannot rule out colonic ileus versus obstruction of the colon. Patient is placed in n.p.o. status. Patient's family requests NG tube for suction only in the event that the patient experiences intractable/distressing vomiting. Decline surgical evaluation; proceeding toward comfort care. (12) DNR (do not resuscitate) Is this a current diagnosis for this admission?: Yes Plan: Per patient son/POA (Jayro Carlson): DNR/DNI No PEG or Tube feeds. No aggressive/heroic or surgical interventions. Gentle supportive measures (IVF, lasix, anagesics, etc) for support. Goal is to allow 1-2 days for family to come to see the patient and then will transition to comfort care only. - Time Time Spent with patient: 35 or more minutes Medications reviewed and adjusted accordingly: Yes Anticipated discharge: Hospice
[2018-10-21] MEDS: DEXTROSE 5%-NORMAL SALINE 1,000 ML IV PRN (21:43)
[2018-10-21] MEDS ORDERED: FUROSEMIDE INJ/PF 20 MG/2 ML SDV IV SCH (22:00)
[2018-10-21] MEDS: LORAZEPAM INJ 2 MG/1 ML VIAL IV PRN (22:13)
[2018-10-21] MEDS: MORPHINE SULFATE 10 MG/ML INJ IV PRN (23:24)
[2018-10-21] MEDS: FUROSEMIDE INJ/PF 20 MG/2 ML SDV IV SCH (23:37)
[2018-10-22] MEDS: METOPROLOL TARTRATE PF/INJ 5 MG/5 ML SDV IV PRN ×2 (00:42→06:14)
[2018-10-22] MEDS: MORPHINE SULFATE 10 MG/ML INJ IV PRN (03:20)
[2018-10-22] MEDS: LORAZEPAM INJ 2 MG/1 ML VIAL IV PRN (03:20)
[2018-10-22] MEDS: HEPARIN SOD (PORCINE) 5,000 UNIT/ML 1 ML SYRINGE SUBCUT SCH ×2 (05:25→14:09)
[2018-10-22] MEDS: FUROSEMIDE INJ/PF 20 MG/2 ML SDV IV SCH ×3 (05:25→12:51)
[2018-10-22 05:49] LABS: HEMATOCRIT 35.7 % (36.0-47.0); HEMOGLOBIN 11.8 g/dL (12.0-15.5); MEAN CORPUSCULAR HGB CONC 33.1 g/dL (32.0-36.0); MEAN CORPUSCULAR VOLUME 97 fl (80-97); PLATELET COUNT 246 10^3/uL (150-450); RED CELL DISTRIBUTION WIDTH 18.8 % (11.5-14.0); WHITE BLOOD COUNT 26.2 10^3/uL (4.0-10.5)
[2018-10-22 06:01] LABS: ALANINE AMINOTRANSFERASE 47 U/L (9-52); ALBUMIN 2.4 g/dL (3.5-5.0); ALKALINE PHOSPHATASE 98 U/L (38-126); ANION GAP 8 (5-19); ASPARTATE AMINO TRANSFERASE 32 U/L (14-36); BILIRUBIN,DIRECT 0.4 mg/dL (0.0-0.4); BILIRUBIN,TOTAL 1.2 mg/dL (0.2-1.3); BLOOD UREA NITROGEN 27 mg/dL (7-20); CALCIUM 8.7 mg/dL (8.4-10.2); CARBON DIOXIDE 30 mmol/L (22-30); CHLORIDE 105 mmol/L (98-107); GLUCOSE 132 mg/dL (75-110); POTASSIUM 3.4 mmol/L (3.6-5.0); SODIUM 142.6 mmol/L (137-145); TOTAL PROTEIN 4.4 g/dL (6.3-8.2)
[2018-10-22] MEDS: INSULIN LISPRO 100 UNIT/ML 3 ML VIAL SUBCUT SCH ×3 (08:00→17:32)
[2018-10-22] MEDS ORDERED: FUROSEMIDE INJ/PF 20 MG/2 ML SDV IV SCH ×2 (08:00→14:00)
[2018-10-22] MEDS ORDERED: DOPAMINE HCL/DEXTROSE 5%-WATER 800 MG/250 ML RTUINJ IV PRN (08:05)
--- NOTE | 2018-10-22 08:18 | Progress Note ---
Provider Note Provider Note: [facility] called at approximately 0745 for HYPOtension. With manual BP cuff, patient's SBP was in the 70s, HR 115 (AFIB). Upon assessment, the patient was awake and responsive but unable to answer basic orientation questions. PERRLA. +4 pitting edema in all extremities. Pale, non-diaphoretic. She was placed in reverse trendelenberg. Plan for IV digoxin to gain control of HR. Low dose Dopamine (non-titrating) to improve BP. No plan for head CT at this time, AMS likely related to low BP. Hospice consult requested. Transfer to [facility].
[2018-10-22] MEDS: DEXTROSE 5%-NORMAL SALINE 1,000 ML IV PRN (08:38)
[2018-10-22] MEDS ORDERED: DIGOXIN INJ 0.5 MG/2 ML AMPULE IV ONE (09:00)
[2018-10-22] MEDS: INSULIN GLARGINE,HUM.REC.ANLOG 300 UNIT/3 ML INSULN.PEN SUBCUT SCH (09:33)
[2018-10-22] MEDS ORDERED: POTASSIUM CHLORIDE 20 MEQ/15 ML UDCUP PO SCH (10:00)
--- NOTE | 2018-10-22 12:51 | PDOC PROGRESS REPORT ---
Subjective Progress Note for:: 10/22/18 Subjective:: Patient appears to be breathing comfortably. She is in and out of responsiveness. She did recognize me from caring for her previously. Reason For Visit: Hypotension, atrial fibrillation, ileus Physical Exam Vital Signs: Temp Pulse Resp BP Pulse Ox 98.1 F 89 14 92/72 L 100 10/22/18 11:34 10/22/18 09:13 10/22/18 11:34 10/22/18 11:34 10/22/18 11:38 Pulse Oximeter Continuous Start: 10/16/18 11:45 Freq: RTQ4 Status: Active Protocol: Document 10/22/18 11:38 LDA (Rec: 10/22/18 11:38 LDA [id number]) Pulse Oximetry Assessment Oxygen Saturation (92-100) 100 Oxygen Flow Rate (L/min) 3 Oxygen Delivery Method Nasal Cannula Fraction of Inspired Oxygen (FIO2) 32 Equipment Usage Equipment in Use Continuous SpO2 Machine # 5 Intake & Output 10/21/18 10/22/18 10/23/18 06:59 06:59 06:59 Intake Total 638 245 546 Output Total 1360 300 Balance -722 -55 546 Weight 77.1 kg 77.1 kg General appearance: PRESENT: cooperative - When interacting, mild distress, well-developed Head exam: PRESENT: normocephalic Eye exam: PRESENT: conjunctiva pale. ABSENT: scleral icterus Mouth exam: PRESENT: dry mucosa Respiratory exam: PRESENT: clear to auscultation caroline - Anteriorly. Limited inspiratory effort., decreased breath sounds - At the bases., symmetrical. ABSENT: rales, rhonchi, wheezes Cardiovascular exam: PRESENT: irregular rhythm Vascular exam: PRESENT: pallor GI/Abdominal exam: PRESENT: distended, hypoactive bowel sounds, soft. ABSENT: guarding, tenderness Rectal exam: PRESENT: deferred Neurological exam: PRESENT: awake - Intermittently., oriented to person - Appears to be, oriented to place - Appears to be, oriented to situation - Difficult to assess, other - She recognized me from taking care of her last week. It is hard to assess since she waxes and wanes from consciousness. Psychiatric exam: PRESENT: flat affect. ABSENT: agitated, anxious Focused psych exam: ABSENT: delusional, restlessness Skin exam: PRESENT: other - Occasional bruises upper extremities Results Laboratory Results: 10/22/18 04:15 03/05/19 04:15 10/21/18 10/21/18 10/21/18 14:00 14:00 18:25 WBC 23.1 H RBC 3.22 L Hgb 10.4 L Hct 31.0 L MCV 96 MCH 32.5 MCHC 33.7 RDW 18.7 H Plt Count 191 Sodium 141.3 Potassium 3.6 Chloride 103 Carbon Dioxide 30 Anion Gap 8 BUN 20 Creatinine 0.80 Est GFR ( Amer) > 60 Est GFR (Non-Af Amer) > 60 Glucose 312 H Lactic Acid Cancelled Calcium 8.6 Total Bilirubin AST ALT Alkaline Phosphatase Total Protein Albumin 10/21/18 10/22/18 10/22/18 19:05 04:15 04:15 WBC 26.2 H RBC 3.70 L Hgb 11.8 L Hct 35.7 L MCV 97 MCH 32.0 MCHC 33.1 RDW 18.8 H Plt Count 246 Sodium 142.6 Potassium 3.4 L Chloride 105 Carbon Dioxide 30 Anion Gap 8 BUN 27 H Creatinine 0.86 Est GFR ( Amer) > 60 Est GFR (Non-Af Amer) > 60 Glucose 132 H Lactic Acid 2.8 H Calcium 8.7 Total Bilirubin 1.2 AST 32 ALT 47 Alkaline Phosphatase 98 Total Protein 4.4 L Albumin 2.4 L 10/20/18 13:05 Flores Catheter Urine Culture - Final C.albicans/C.dubliniensis 10/18/18 03:00 Stool - Stool - Final 10/18/18 03:00 Stool - Stool Stool Culture - Final NO SALMONELLA, SHIGELLA, CAMPYLOBACTER, OR E.COLI 0157 RECOVERED. NEGATIVE FOR SHIGA TOXINS 1&2. 09/27/18 09/27/18 10/16/18 15:00 17:25 06:10 Creatine Kinase 68 CK-MB (CK-2) 3.15 Troponin I 0.061 NT-Pro-B Natriuret Pep 1140 H 4550 H 10/19/18 05:40 Creatine Kinase CK-MB (CK-2) Troponin I NT-Pro-B Natriuret Pep 6960 H Impressions: Head CT 09/27/18 14:30 IMPRESSION: No acute intracranial pathology. EVIDENCE OF ACUTE STROKE: NO. KUB X-Ray 09/29/18 00:00 IMPRESSION: Tip of the enteric tube likely in the body of the stomach. Several mildly prominent air filled loops of small bowel may reflect ileus. Follow-up recommended copyright 2010 [employer]- All Rights Reserved Abdomen/Pelvis CT 10/08/18 00:00 IMPRESSION: Diffuse dilatation of the colon containing air and fluid. Maximal diameter approximately 10 cm. No wall thickening or evidence of torsion. The small bowel is normal in caliber. Moderate size bilateral pleural effusions with adjacent atelectasis. Small amount of perihepatic free fluid. Chest X-Ray 10/15/18 00:00 IMPRESSION: Trace bilateral pleural effusions with bibasilar and right upper lobe airspace disease. Findings are unchanged from yesterday Pelvis CT 10/17/18 16:08 IMPRESSION: Continued extensive distention of the colon throughout. Anasarca. Acute Abdomen Series 10/21/18 00:00 IMPRESSION: 1. Cannot exclude a colonic ileus versus some degree of obstruction of the colon. 2. Small pleural effusions. Bilateral lower lobe airspace disease, likely atelectasis. Pneumonia cannot be excluded. Assessment & Plan - Diagnosis (1) Atrial fibrillation with RVR Is this a current diagnosis for this admission?: Yes Plan: The patient had a rapid response earlier today. She was in atrial fibrillation with rapid ventricular response accompanied by hypotension. Even with Trendelenburg her blood pressure was marginal. She was placed on fixed dose intravenous dopamine to try to help blood pressure without exacerbation of her atrial fibrillation. She was given digoxin to try and control rates without dropping her blood pressure. We must be mindful of volume overload because this has been an issue earlier in her hospitalization. We will monitor the patient and adjust medications based on her cardiac status. (2) Essential hypertension Is this a current diagnosis for this admission?: Yes Plan: In light of her current status, we are giving low dose of furosemide (10 mg IV) every 8 hours. Her intake and output reflect a net negative balance. I will continue to monitor. We are using digoxin for rate control. With better rate control on her atrial fibrillation her blood pressure will likely improve. We will resume antihypertensive medications when appropriate. (3) Dehydration Is this a current diagnosis for this admission?: Yes Plan: Her BUN and creatinine had briefly normalized. Her BUN is increased slightly. We will need to monitor her kidney function with the use of diuretics. (4) Leukocytosis Qualifiers: Leukocytosis type: unspecified Qualified Code(s): D72.829 - Elevated white blood cell count, unspecified Is this a current diagnosis for this admission?: Yes Plan: I am unsure of the exact etiology, but her white blood cell count is increasing again. Reviewing her hospitalization, the white blood cell count of 26,000 is the highest it has been during this admission. We will continue to observe. She is currently afebrile. I will look for a focus of infection if there is one. If identified we will treat accordingly. I will say that the family is meeting with hospice later today. In the event of a change in her treatment plan then we will stop monitoring her white blood cell count altogether. (5) Diabetes mellitus type 2 in obese Is this a current diagnosis for this admission?: Yes Plan: Currently on Lantus 10 units every 12 hours with sliding scale coverage. Her appetite does vary. We will adjust insulin based on Accu-Cheks. (6) Depression Qualifiers: Depression Type: unspecified Qualified Code(s): F32.9 - Major depressive disorder, single episode, unspecified Is this a current diagnosis for this admission?: Yes Plan: Currently only on lorazepam as needed for anxiety. (7) Hypothyroidism Qualifiers: Hypothyroidism type: unspecified Qualified Code(s): E03.9 - Hypothyroidism, unspecified Is this a current diagnosis for this admission?: Yes Plan: Currently not on levothyroxine. Will review most recent records to check the indication for holding the medicine. Atrial fibrillation would seem to be the most likely reason. (8) Acute cystitis with positive culture Is this a current diagnosis for this admission?: Yes Plan: Treated and resolved (9) Renal failure Qualifiers: Renal failure chronicity: acute Acute renal failure type: unspecified Qualified Code(s): N17.9 - Acute kidney failure, unspecified Is this a current diagnosis for this admission?: Yes Plan: Treated and resolved (10) Sepsis Qualifiers: Sepsis type: sepsis due to unspecified organism Qualified Code(s): A41.9 - Sepsis, unspecified organism Is this a current diagnosis for this admission?: Yes Plan: The sepsis that was present on admission was treated and resolved - Time Time Spent with patient: 35 or more minutes Medications reviewed and adjusted accordingly: Yes
--- NOTE | 2018-10-22 12:53 | Progress Note ---
Provider Note Provider Note: Advance care planning note After responding to the ASSISTANT LIBRARIAN earlier today and had a chance to talk to the patient's son who is the medical decision maker. Present in the room where the patient, son, [id number] and grandson. Part of the conversation took place in the room. Part of the discussion occurred in the hallway between myself and the patient's son. I explained that the patient is certainly better than when I admit her to the ICU however it does not appear that she has rallied and maintained any signific ant improvement. She is currently on low-dose vasopressin as well as digoxin and is exhibiting low blood pressure and rapid pulse. Her white blood cell count is now 26,000 which is the highest it has been during this admission. I explained to the son that for multiple reasons the prognosis seems poor. I have encouraged the patient's son to at least meet with hospice later today, which he will do. I will review records from last week and then regroup with the patient's son to see what the goals and plans are. She is currently DO NOT RESUSCITATE but we did discuss the possibility of comfort measures only. 20 minutes was spent in the discussion
--- NOTE | 2018-10-22 13:06 | Progress Note ---
Provider Note Provider Note: received consult for this patient however there is a discussion about patient being considered for hospice patient is on pressors for now for overnight transfer due to hypotension. please clarify the patient's status since a full GI work up cannot be done if patient is on hospice service.
[2018-10-22] MEDS ORDERED: LORAZEPAM INJ 2 MG/1 ML VIAL IV ONE (13:30)
[2018-10-22] MEDS ORDERED: MORPHINE SULFATE 10 MG/ML INJ IV PRN (20:17)
[2018-10-23] MEDS: SCOPOLAMINE HYDROBROMIDE 1.5 MG PATCH.TD72 TD SCH (11:38)
--- NOTE | 2018-10-23 22:08 | PDOC PROGRESS REPORT ---
Subjective Progress Note for:: 10/23/18 Subjective:: Following yestreday's GAME MODERATOR, the family decided to switch the patient to comfort care. Plan to keep patient at [facility] untill she expires. Currently managed with ativan, morphine and added scopolomine patch. Reason For Visit: SEPSIS, CLOSTRIDIUM DIFFICILE COLITIS,ACUTE KIDNEY Physical Exam Vital Signs: Temp Pulse Resp BP Pulse Ox 98.0 F 106 H 16 127/99 H 73 L 10/23/18 04:00 10/23/18 14:00 10/23/18 04:00 10/23/18 04:00 10/23/18 04:00 Pulse Oximeter Continuous Start: 10/16/18 11:45 Freq: RTQ4 Status: Complete Protocol: Document 10/22/18 15:42 LDA (Rec: 10/22/18 15:42 LDA [id number]) Pulse Oximetry Assessment Oxygen Saturation (92-100) 100 Oxygen Flow Rate (L/min) 3 Oxygen Delivery Method Nasal Cannula Fraction of Inspired Oxygen (FIO2) 32 Equipment Usage Equipment in Use Continuous SpO2 Machine # 5 Intake & Output 10/22/18 10/23/18 10/24/18 06:59 06:59 06:59 Intake Total 245 546 Output Total 300 275 Balance -55 271 Weight 77.1 kg 77.1 kg General appearance: PRESENT: obese Eye exam: PRESENT: conjunctiva pale, PERRLA Mouth exam: PRESENT: neck supple, tongue midline Teeth exam: PRESENT: poor dentation Respiratory exam: PRESENT: clear to auscultation caroline, symmetrical, unlabored Cardiovascular exam: PRESENT: RRR Pulses: PRESENT: +1 pedal pulses bilateral GI/Abdominal exam: PRESENT: soft. ABSENT: distended, tenderness Rectal exam: PRESENT: deferred Extremities exam: PRESENT: pedal edema - moderate-severe, +2 edema Musculoskeletal exam: ABSENT: ambulatory, normal inspection Neurological exam: ABSENT: alert, awake, oriented to person, oriented to place, oriented to time, oriented to situation Skin exam: PRESENT: dry, intact, pallor Results Laboratory Results: 10/22/18 04:15 10/22/18 04:15 09/27/18 09/27/18 10/16/18 15:00 17:25 06:10 Creatine Kinase 68 CK-MB (CK-2) 3.15 Troponin I 0.061 NT-Pro-B Natriuret Pep 1140 H 4550 H 10/19/18 05:40 Creatine Kinase CK-MB (CK-2) Troponin I NT-Pro-B Natriuret Pep 6960 H Impressions: Head CT 09/27/18 14:30 IMPRESSION: No acute intracranial pathology. EVIDENCE OF ACUTE STROKE: NO. KUB X-Ray 09/29/18 00:00 IMPRESSION: Tip of the enteric tube likely in the body of the stomach. Several mildly prominent air filled loops of small bowel may reflect ileus. Follow-up recommended copyright 2011 [employer]- All Rights Reserved Abdomen/Pelvis CT 10/08/18 00:00 IMPRESSION: Diffuse dilatation of the colon containing air and fluid. Maximal diameter approximately 10 cm. No wall thickening or evidence of torsion. The small bowel is normal in caliber. Moderate size bilateral pleural effusions with adjacent atelectasis. Small amount of perihepatic free fluid. Chest X-Ray 10/15/18 00:00 IMPRESSION: Trace bilateral pleural effusions with bibasilar and right upper lobe airspace disease. Findings are unchanged from yesterday Pelvis CT 10/17/18 16:08 IMPRESSION: Continued extensive distention of the colon throughout. Anasarca. Acute Abdomen Series 10/21/18 00:00 IMPRESSION: 1. Cannot exclude a colonic ileus versus some degree of obstruction of the colon. 2. Small pleural effusions. Bilateral lower lobe airspace disease, likely atelectasis. Pneumonia cannot be excluded. Status: Imported from PACS Assessment & Plan - Diagnosis (1) Need for comfort care Is this a current diagnosis for this admission?: Yes (2) DNR (do not resuscitate) Is this a current diagnosis for this admission?: Yes (3) Hypernatremia Is this a current diagnosis for this admission?: Yes (4) Hypotension Qualifiers: Hypotension type: unspecified hypotension type Qualified Code(s): I95.9 - Hypotension, unspecified Is this a current diagnosis for this admission?: Yes (5) Metabolic encephalopathy Is this a current diagnosis for this admission?: Yes (6) Rectovaginal fistula Is this a current diagnosis for this admission?: Yes - Time Time Spent with patient: 15-24 minutes Medications reviewed and adjusted accordingly: Yes Anticipated discharge: Other Within: Other - Inpatient Certification Based on my medical assessment, after consideration of the patient's comorbidities, presenting symptoms, or acuity I expect that the services needed warrant INPATIENT care.: Yes I certify that my determination is in accordance with my understanding of Medicare's requirements for reasonable and necessary INPATIENT services [42 CFR 412.3e].: Yes - Plan Summary Plan Summary: 10/23/2018 - patient was switched to comfort care yesterday following an wheel presser rapid response called for low BP.
[2018-10-24] MEDS: FUROSEMIDE INJ/PF 40 MG/4 ML SDV IV SCH (07:42)
[2018-10-24] MEDS: MORPHINE SULFATE 10 MG/ML INJ IV PRN (09:42)
--- NOTE | 2018-10-24 16:03 | PDOC PROGRESS REPORT ---
Subjective Progress Note for:: 10/24/18 Subjective:: 83 y.o. F who presented to [facility] with sepsis, dehydration and LEATHA stemming from CDIFF colitis. The patient has had a prolonged hospital stay and unfortunately, her overall health has not improved. Yesterday, family decided to switch the patient to comfort care. The plan is to keep patient at [facility] untill she expires. Currently managed with ativan, morphine and a scopolomine patch. Reason For Visit: SEPSIS, CLOSTRIDIUM DIFFICILE COLITIS,ACUTE KIDNEY Physical Exam Vital Signs: Temp Pulse Resp BP Pulse Ox 98.0 F 106 H 16 127/99 H 95 10/23/18 04:00 10/23/18 14:00 10/23/18 04:00 10/23/18 04:00 10/24/18 07:44 Pulse Oximeter Continuous Start: 10/16/18 11:45 Freq: RTQ4 Status: Complete Protocol: Document 10/22/18 15:42 LDA (Rec: 10/22/18 15:42 LDA [id number]) Pulse Oximetry Assessment Oxygen Saturation (92-100) 100 Oxygen Flow Rate (L/min) 3 Oxygen Delivery Method Nasal Cannula Fraction of Inspired Oxygen (FIO2) 32 Equipment Usage Equipment in Use Continuous SpO2 Machine # 5 Intake & Output 10/23/18 10/24/18 10/25/18 06:59 06:59 06:59 Intake Total 546 Output Total 275 120 Balance 271 -120 Weight 77.1 kg 75 kg General appearance: PRESENT: obese Eye exam: PRESENT: conjunctiva pink Mouth exam: PRESENT: dry mucosa, tongue midline Respiratory exam: PRESENT: clear to auscultation caroline, symmetrical, unlabored Cardiovascular exam: PRESENT: RRR Pulses: PRESENT: normal radial pulses, normal dorsalis pedis pul GI/Abdominal exam: PRESENT: soft. ABSENT: distended Rectal exam: PRESENT: deferred Extremities exam: PRESENT: full ROM. ABSENT: pedal edema Musculoskeletal exam: PRESENT: ambulatory, full ROM Neurological exam: ABSENT: alert, awake, oriented to person, oriented to place, oriented to time, oriented to situation Skin exam: PRESENT: dry, pallor Results Laboratory Results: 10/22/18 04:15 10/22/18 04:15 10/21/18 22:40 Stool - Stool - Final 09/27/18 09/27/18 10/16/18 15:00 17:25 06:10 Creatine Kinase 68 CK-MB (CK-2) 3.15 Troponin I 0.061 NT-Pro-B Natriuret Pep 1140 H 4550 H 10/19/18 05:40 Creatine Kinase CK-MB (CK-2) Troponin I NT-Pro-B Natriuret Pep 6960 H Impressions: Head CT 09/27/18 14:30 IMPRESSION: No acute intracranial pathology. EVIDENCE OF ACUTE STROKE: NO. KUB X-Ray 09/29/18 00:00 IMPRESSION: Tip of the enteric tube likely in the body of the stomach. Several mildly prominent air filled loops of small bowel may reflect ileus. Follow-up recommended copyright 2010 [employer]- All Rights Reserved Abdomen/Pelvis CT 10/08/18 00:00 IMPRESSION: Diffuse dilatation of the colon containing air and fluid. Maximal diameter approximately 10 cm. No wall thickening or evidence of torsion. The small bowel is normal in caliber. Moderate size bilateral pleural effusions with adjacent atelectasis. Small amount of perihepatic free fluid. Chest X-Ray 10/15/18 00:00 IMPRESSION: Trace bilateral pleural effusions with bibasilar and right upper lobe airspace disease. Findings are unchanged from yesterday Pelvis CT 10/17/18 16:08 IMPRESSION: Continued extensive distention of the colon throughout. Anasarca. Acute Abdomen Series 10/21/18 00:00 IMPRESSION: 1. Cannot exclude a colonic ileus versus some degree of obstruction of the colon. 2. Small pleural effusions. Bilateral lower lobe airspace disease, likely atelectasis. Pneumonia cannot be excluded. Status: Imported from PACS Assessment & Plan - Diagnosis (1) Need for comfort care Is this a current diagnosis for this admission?: Yes Plan: Family decided to switch patient to comfort care. PRN morphine, Ativan, scopolamine, Robinul (2) DNR (do not resuscitate) Is this a current diagnosis for this admission?: Yes Plan: See #1 (3) Hypernatremia Is this a current diagnosis for this admission?: Yes Plan: Lab holiday. (4) Hypotension Qualifiers: Hypotension type: unspecified hypotension type Qualified Code(s): I95.9 - Hypotension, unspecified Is this a current diagnosis for this admission?: Yes Plan: No longer monitoring (5) Metabolic encephalopathy Is this a current diagnosis for this admission?: Yes Plan: Patient is nonverbal Will open eyes to verbal stimuli (6) Rectovaginal fistula Is this a current diagnosis for this admission?: Yes Plan: No further treatment as patient is now comfort care Noncontrasted pelvic CT Demonstrated continued extensive distention of the colon and anasarca. Fistula was not identified; likely due to lack of contrast. Surgery was consulted; appreciate Dr. Ayers's evaluation and recommendations. 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 Per notes, patient is not a surgical candidate at this time due to her overall health and comorbid condition. - Time Time Spent with patient: 15-24 minutes Medications reviewed and adjusted accordingly: Yes Anticipated discharge: Other - patient will likely here - Inpatient Certification Based on my medical assessment, after consideration of the patient's comorbidities, presenting symptoms, or acuity I expect that the services needed warrant INPATIENT care.: Yes I certify that my determination is in accordance with my understanding of Medicare's requirements for reasonable and necessary INPATIENT services [42 CFR 412.3e].: Yes Medical Necessity: Need for Pain Control
[2018-10-24] MEDS: LORAZEPAM INJ 2 MG/1 ML VIAL IV PRN (16:58)
--- NOTE | 2018-10-25 20:55 | PDOC PROGRESS REPORT ---
Subjective Progress Note for:: 10/25/18 Subjective:: 83 y.o. F who presented to [facility] with sepsis, dehydration and LEATHA stemming from CDIFF colitis. The patient has had a prolonged hospital stay and unfortunately, her overall health has not improved. Family decided to switch the patient to comfort care. The patient is not eating or drinking. I suspect she will likely pass within a week. Currently managed with ativan, morphine and a scopolomine patch. No change to treatment plan today Reason For Visit: SEPSIS, CLOSTRIDIUM DIFFICILE COLITIS,ACUTE KIDNEY Physical Exam Vital Signs: Temp Pulse Resp BP Pulse Ox 97.5 F 106 H 15 108/81 94 10/24/18 23:41 10/24/18 23:41 10/24/18 23:41 10/24/18 23:41 10/25/18 09:20 Pulse Oximeter Continuous Start: 10/16/18 11:45 Freq: RTQ4 Status: Complete Protocol: Document 10/22/18 15:42 LDA (Rec: 10/22/18 15:42 LDA [id number]) Pulse Oximetry Assessment Oxygen Saturation (92-100) 100 Oxygen Flow Rate (L/min) 3 Oxygen Delivery Method Nasal Cannula Fraction of Inspired Oxygen (FIO2) 32 Equipment Usage Equipment in Use Continuous SpO2 Machine # 5 Intake & Output 10/24/18 10/25/18 10/26/18 06:59 06:59 06:59 Intake Total 0 0 Output Total 120 350 200 Balance -120 -350 -200 Weight 75 kg 77.6 kg General appearance: PRESENT: no acute distress, morbidly obese Eye exam: PRESENT: conjunctiva pale, PERRLA Mouth exam: PRESENT: dry mucosa, tongue midline Respiratory exam: PRESENT: symmetrical, unlabored Cardiovascular exam: PRESENT: RRR Pulses: PRESENT: other - faint radial pulses. ABSENT: normal radial pulses - faint radial pulses Vascular exam: PRESENT: pallor GI/Abdominal exam: PRESENT: soft Rectal exam: PRESENT: deferred Extremities exam: PRESENT: pedal edema Neurological exam: ABSENT: alert, awake Skin exam: PRESENT: dry, pallor Results Laboratory Results: 10/22/18 04:15 10/22/18 04:15 10/21/18 22:40 Stool - Stool - Final 10/21/18 22:40 Stool - Stool Stool Culture - Final NO SALMONELLA, SHIGELLA, CAMPYLOBACTER, OR E.COLI 0157 RECOVERED. NEGATIVE FOR SHIGA TOXINS 1&2. 10/20/18 13:30 Blood Blood Culture - Final NO GROWTH IN 5 DAYS 10/20/18 11:00 Blood Blood Culture - Final NO GROWTH IN 5 DAYS 09/27/18 09/27/18 10/16/18 15:00 17:25 06:10 Creatine Kinase 68 CK-MB (CK-2) 3.15 Troponin I 0.061 NT-Pro-B Natriuret Pep 1140 H 4550 H 10/19/18 05:40 Creatine Kinase CK-MB (CK-2) Troponin I NT-Pro-B Natriuret Pep 6960 H Impressions: Head CT 09/27/18 14:30 IMPRESSION: No acute intracranial pathology. EVIDENCE OF ACUTE STROKE: NO. KUB X-Ray 09/29/18 00:00 IMPRESSION: Tip of the enteric tube likely in the body of the stomach. Several mildly prominent air filled loops of small bowel may reflect ileus. Follow-up recommended copyright 2010 [employer]- All Rights Reserved Abdomen/Pelvis CT 10/08/18 00:00 IMPRESSION: Diffuse dilatation of the colon containing air and fluid. Maximal diameter approximately 10 cm. No wall thickening or evidence of torsion. The small bowel is normal in caliber. Moderate size bilateral pleural effusions with adjacent atelectasis. Small amount of perihepatic free fluid. Chest X-Ray 10/15/18 00:00 IMPRESSION: Trace bilateral pleural effusions with bibasilar and right upper lo be airspace disease. Findings are unchanged from yesterday Pelvis CT 10/17/18 16:08 IMPRESSION: Continued extensive distention of the colon throughout. Anasarca. Acute Abdomen Series 10/21/18 00:00 IMPRESSION: 1. Cannot exclude a colonic ileus versus some degree of obstruction of the colon. 2. Small pleural effusions. Bilateral lower lobe airspace disease, likely atelectasis. Pneumonia cannot be excluded. Assessment & Plan - Diagnosis (1) Need for comfort care Is this a current diagnosis for this admission?: Yes Plan: Family decided to switch patient to comfort care. PRN morphine, Ativan, scopolamine, Robinul (2) DNR (do not resuscitate) Is this a current diagnosis for this admission?: Yes Plan: See #1 (3) Hypernatremia Is this a current diagnosis for this admission?: Yes Plan: Lab holiday. (4) Hypotension Qualifiers: Hypotension type: unspecified hypotension type Qualified Code(s): I95.9 - Hypotension, unspecified Is this a current diagnosis for this admission?: Yes Plan: No longer monitoring (5) Metabolic encephalopathy Is this a current diagnosis for this admission?: Yes Plan: Patient is nonverbal Will open eyes to verbal stimuli (6) Rectovaginal fistula Is this a current diagnosis for this admission?: Yes Plan: No further treatment as patient is now comfort care Noncontrasted pelvic CT Demonstrated continued extensive distention of the colon and anasarca. Fistula was not identified; likely due to lack of contrast. Surgery was consulted; appreciate Dr. Ayers's evaluation and recommendations. 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 Per notes, patient is not a surgical candidate at this time due to her overall health and comorbid condition. - Time Time Spent with patient: 15-24 minutes Medications reviewed and adjusted accordingly: Yes Anticipated discharge: Hospice Within: within 72 hours - Inpatient Certification Based on my medical assessment, after consideration of the patient's comorbidities, presenting symptoms, or acuity I expect that the services needed warrant INPATIENT care.: Yes I certify that my determination is in accordance with my understanding of Medicare's requirements for reasonable and necessary INPATIENT services [42 CFR 412.3e].: Yes Medical Necessity: Need for Pain Control
[2018-10-26] MEDS: SCOPOLAMINE HYDROBROMIDE 1.5 MG PATCH.TD72 TD SCH (10:00)
--- NOTE | 2018-10-26 18:33 | PDOC PROGRESS REPORT ---
Subjective Progress Note for:: 10/26/18 Subjective:: 83 y.o. F who presented to [facility] with sepsis, dehydration and LEATHA stemming from CDIFF colitis. The patient was seen this afternoon on rounds, she was resting comfortably in bed, there was no family at the bedside. She does not open her eyes to verbal stimuli, respirations are unlabored. Lung sounds are clear. Telemetry tracings showed normal sinus rhythm. The patient has had a prolonged hospital stay and unfortunately, her overall health has not improved. Family decided to switch the patient to comfort care. The patient is not eating or drinking. I suspect she will likely pass within a week. Currently managed with ativan, morphine and a scopolomine patch. No change to treatment plan today Reason For Visit: SEPSIS, CLOSTRIDIUM DIFFICILE COLITIS,ACUTE KIDNEY Physical Exam Vital Signs: Temp Pulse Resp BP Pulse Ox 98.4 F 101 H 16 148/52 H 100 10/26/18 15:46 10/26/18 15:46 10/26/18 15:46 10/26/18 15:46 10/26/18 15:46 Pulse Oximeter Continuous Start: 10/16/18 11:45 Freq: RTQ4 Status: Complete Protocol: Document 10/22/18 15:42 LDA (Rec: 10/22/18 15:42 LDA [id number]) Pulse Oximetry Assessment Oxygen Saturation (92-100) 100 Oxygen Flow Rate (L/min) 3 Oxygen Delivery Method Nasal Cannula Fraction of Inspired Oxygen (FIO2) 32 Equipment Usage Equipment in Use Continuous SpO2 Machine # 5 Intake & Output 10/25/18 10/26/18 10/27/18 06:59 06:59 07:59 Intake Total 0 0 Output Total 350 475 Balance -350 -475 Weight 77.6 kg General appearance: PRESENT: morbidly obese Eye exam: PRESENT: PERRLA Mouth exam: PRESENT: moist, tongue midline Teeth exam: PRESENT: poor dentation Neck exam: PRESENT: full ROM Respiratory exam: PRESENT: clear to auscultation caroline, symmetrical, unlabored Cardiovascular exam: PRESENT: RRR GI/Abdominal exam: ABSENT: distended Rectal exam: PRESENT: deferred Extremities exam: ABSENT: full ROM Musculoskeletal exam: ABSENT: ambulatory, full ROM Neurological exam: ABSENT: alert, awake, oriented to person, oriented to place, oriented to time, oriented to situation Skin exam: PRESENT: dry, pallor Results Laboratory Results: 10/22/18 04:15 10/22/18 04:15 10/21/18 22:40 Stool - Stool - Final 10/21/18 22:40 Stool - Stool Stool Culture - Final NO SALMONELLA, SHIGELLA, CAMPYLOBACTER, OR E.COLI 0 157 RECOVERED. NEGATIVE FOR SHIGA TOXINS 1&2. 10/20/18 13:30 Blood Blood Culture - Final NO GROWTH IN 5 DAYS 09/27/18 09/27/18 10/16/18 15:00 17:25 06:10 Creatine Kinase 68 CK-MB (CK-2) 3.15 Troponin I 0.061 NT-Pro-B Natriuret Pep 1140 H 4550 H 10/19/18 05:40 Creatine Kinase CK-MB (CK-2) Troponin I NT-Pro-B Natriuret Pep 6960 H Impressions: Head CT 09/27/18 14:30 IMPRESSION: No acute intracranial pathology. EVIDENCE OF ACUTE STROKE: NO. KUB X-Ray 09/29/18 00:00 IMPRESSION: Tip of the enteric tube likely in the body of the stomach. Several mildly prominent air filled loops of small bowel may reflect ileus. Follow-up recommended copyright 2010 [employer]- All Rights Reserved Abdomen/Pelvis CT 10/08/18 00:00 IMPRESSION: Diffuse dilatation of the colon containing air and fluid. Maximal diameter approximately 10 cm. No wall thickening or evidence of torsion. The small bowel is normal in caliber. Moderate size bilateral pleural effusions with adjacent atelectasis. Small amount of perihepatic free fluid. Chest X-Ray 10/15/18 00:00 IMPRESSION: Trace bilateral pleural effusions with bibasilar and right upper lobe airspace disease. Findings are unchanged from yesterday Pelvis CT 10/17/18 16:08 IMPRESSION: Continued extensive distention of the colon throughout. Anasarca. Acute Abdomen Series 10/21/18 00:00 IMPRESSION: 1. Cannot exclude a colonic ileus versus some degree of obstruction of the colon. 2. Small pleural effusions. Bilateral lower lobe airspace disease, likely atelectasis. Pneumonia cannot be excluded. Status: Imported from PACS Assessment & Plan - Diagnosis (1) Need for comfort care Is this a current diagnosis for this admission?: Yes Plan: Family decided to switch patient to comfort care. PRN morphine, Ativan, scopolamine, Robinul We will discuss the option of inpatient hospice with patient's son (2) DNR (do not resuscitate) Is this a current diagnosis for this admission?: Yes Plan: See #1 (3) Hypernatremia Is this a current diagnosis for this admission?: Yes Plan: Lab holiday. (4) Hypotension Qualifiers: Hypotension type: unspecified hypotension type Qualified Code(s): I95.9 - Hypotension, unspecified Is this a current diagnosis for this admission?: Yes Plan: No longer monitoring (5) Metabolic encephalopathy Is this a current diagnosis for this admission?: Yes Plan: Patient is nonverbal Will open eyes to verbal stimuli (6) Rectovaginal fistula Is this a current diagnosis for this admission?: Yes Plan: No further treatment as patient is now comfort care Noncontrasted pelvic CT Demonstrated continued extensive distention of the colon and anasarca. Fistula was not identified; likely due to lack of contrast. Surgery was consulted; appreciate Dr. Ayers's evaluation and recommendations. 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 Per notes, patient is not a surgical candidate at this time due to her overall health and comorbid condition. - Time Time Spent with patient: 15-24 minutes Anticipated discharge: Hospice - Inpatient Certification Based on my medical assessment, after consideration of the patient's comorbidities, presenting symptoms, or acuity I expect that the services needed warrant INPATIENT care.: Yes I certify that my determination is in accordance with my understanding of Medicare's requirements for reasonable and necessary INPATIENT services [42 CFR 412.3e].: Yes Medical Necessity: Need for Pain Control, Risk of Complication if Not Cared For in Hospital
[2018-10-26] MEDS: LORAZEPAM INJ 2 MG/1 ML VIAL IV PRN (22:09)
[2018-10-27] MEDS: MORPHINE SULFATE 10 MG/ML INJ IV PRN (06:57)
--- NOTE | 2018-10-27 22:32 | PDOC PROGRESS REPORT ---
Subjective Progress Note for:: 10/27/18 Subjective:: 83 y.o. F who presented to [facility] with sepsis, dehydration and LEATHA stemming from CDIFF colitis. The patient was seen this afternoon on rounds, she was resting comfortably in bed, there was no family at the bedside. She does not open her eyes to verbal stimuli, respirations are unlabored. Lung sounds are clear. Telemetry tracings showed normal sinus rhythm. The patient has had a prolonged hospital stay and unfortunately, her overall health has not improved. Family decided to switch the patient to comfort care. The patient is not eating or drinking. I suspect she will likely pass within a week. Currently managed with ativan, morphine and a scopolomine patch. No change to treatment plan today Reason For Visit: SEPSIS, CLOSTRIDIUM DIFFICILE COLITIS,ACUTE KIDNEY Physical Exam Vital Signs: Temp Pulse Resp BP Pulse Ox 98.4 F 101 H 16 148/52 H 100 10/26/18 15:46 10/26/18 15:46 10/26/18 15:46 10/26/18 15:46 10/26/18 15:46 Pulse Oximeter Continuous Start: 10/16/18 11:45 Freq: RTQ4 Status: Complete Protocol: Document 10/22/18 15:42 LDA (Rec: 10/22/18 15:42 LDA [id number]) Pulse Oximetry Assessment Oxygen Saturation (92-100) 100 Oxygen Flow Rate (L/min) 3 Oxygen Delivery Method Nasal Cannula Fraction of Inspired Oxygen (FIO2) 32 Equipment Usage Equipment in Use Continuous SpO2 Machine # 5 Intake & Output 10/26/18 10/27/18 10/28/18 05:59 06:59 06:59 Intake Total 0 Output Total 500 Balance -500 Weight General appearance: PRESENT: obese Head exam: PRESENT: atraumatic Eye exam: PRESENT: conjunctiva pink, PERRLA Mouth exam: PRESENT: dry mucosa, tongue midline Respiratory exam: PRESENT: clear to auscultation caroline, symmetrical, unlabored Cardiovascular exam: PRESENT: RRR Pulses: PRESENT: normal radial pulses, normal dorsalis pedis pul Vascular exam: PRESENT: pallor GI/Abdominal exam: PRESENT: diminished bowel sounds Rectal exam: PRESENT: deferred Extremities exam: ABSENT: full ROM Musculoskeletal exam: ABSENT: ambulatory, full ROM, normal inspection Neurological exam: ABSENT: alert, awake, oriented to person, oriented to place, oriented to time, oriented to situation Skin exam: PRESENT: dry, pallor Results Laboratory Results: 10/22/18 04:15 10/22/18 04:15 09/27/18 09/27/18 10/16/18 15:00 17:25 06:10 Creatine Kinase 68 CK-MB (CK-2) 3.15 Troponin I 0.061 NT-Pro-B Natriuret Pep 1140 H 4550 H 10/19/18 05:40 Creatine Kinase CK-MB (CK-2) Troponin I NT-Pro-B Natriuret Pep 6960 H Impressions: Head CT 09/27/18 14:30 IMPRESSION: No acute intracranial pathology. EVIDENCE OF ACUTE STROKE: NO. KUB X-Ray 09/29/18 00:00 IMPRESSION: Tip of the enteric tube likely in the body of the stomach. Several mildly prominent air filled loops of small bowel may reflect ileus. Follow-up recommended copyright 2010 [employer]- All Rights Reserved Abdomen/Pelvis CT 10/08/18 00:00 IMPRESSION: Diffuse dilatation of the colon containing air and fluid. Maximal diameter approximately 10 cm. No wall thickening or evidence of torsion. The small bowel is normal in caliber. Moderate size bilateral pleural effusions with adjacent atelectasis. Small amount of perihepatic free fluid. Chest X-Ray 10/15/18 00:00 IMPRESSION: Trace bilateral pleural effusions with bibasilar and right upper lobe airspace disease. Findings are unchanged from yesterday Pelvis CT 10/17/18 16:08 IMPRESSION: Continued extensive distention of the colon throughout. Anasarca. Acute Abdomen Series 10/21/18 00:00 IMPRESSION: 1. Cannot exclude a colonic ileus versus some degree of obstruction of the colon. 2. Small pleural effusions. Bilateral lower lobe airspace disease, likely atelectasis. Pneumonia cannot be excluded. Status: Imported from PACS Assessment & Plan - Diagnosis (1) Need for comfort care Is this a current diagnosis for this admission?: Yes Plan: Family decided to switch patient to comfort care. PRN morphine, Ativan, scopolamine, Robinul We will discuss the option of inpatient hospice with patient's son (2) DNR (do not resuscitate) Is this a current diagnosis for this admission?: Yes Plan: See #1 (3) Hypernatremia Is this a current diagnosis for this admission?: Yes (4) Hypotension Qualifiers: Hypotension type: unspecified hypotension type Qualified Code(s): I95.9 - Hypotension, unspecified Is this a current diagnosis for this admission?: Yes Plan: No longer monitoring (5) Metabolic encephalopathy Is this a current diagnosis for this admission?: Yes Plan: Patient is nonverbal Will open eyes to verbal stimuli (6) Rectovaginal fistula Is this a current diagnosis for this admission?: Yes Plan: No further treatment as patient is now comfort care Noncontrasted pelvic CT Demonstrated continued extensive distention of the colon and anasarca. Fistula was not identified; likely due to lack of contrast. Surgery was consulted; appreciate Dr. Ayers's evaluation and recommendations. 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 Per notes, patient is not a surgical candidate at this time due to her overall health and comorbid condition. - Time Time Spent with patient: 15-24 minutes Medications reviewed and adjusted accordingly: Yes Anticipated discharge: Home Within: within 24 hours - Inpatient Certification Based on my medical assessment, after consideration of the patient's comorbidities, presenting symptoms, or acuity I expect that the services needed warrant INPATIENT care.: Yes I certify that my determination is in accordance with my understanding of Medicare's requirements for reasonable and necessary INPATIENT services [42 CFR 412.3e].: Yes
[2018-10-28] MEDS: LORAZEPAM INJ 2 MG/1 ML VIAL IV PRN (15:36)
[2018-10-28] MEDS: MAGNESIUM OXIDE 400 MG TABLET PO SCH (17:38)
--- NOTE | 2018-10-28 22:16 | PDOC PROGRESS REPORT ---
Subjective Progress Note for:: 10/28/18 Subjective:: 83 y.o. F who presented to [facility] with sepsis, dehydration and LEATHA stemming from CDIFF colitis. The patient was seen this afternoon on rounds, she was resting comfortably in bed, there was no family at the bedside. She does not open her eyes to verbal stimuli, respirations are unlabored. Lung sounds are clear. Telemetry tracings showed normal sinus rhythm. She is not eating or drinking - this is not sustainable with life. I suspect the patient will within 1-2 weeks. Currently managed with ativan, morphine and a scopolomine patch. No change to treatment plan today. Called the patient's son today to discuss the option of discharging the patient from [facility] and placing the patient under hospice care. I explained to the patient's son that the patient is breathing comfortably and her heart rate was WNL. He then stated, "It sounds like she's getting better, sounds like she doesn't need hospice care." When I asked the son what his goals were for the p atient, he stated, "for her to get better." I explained to him that someone under comfort care measures is near the end of life and we currently are not offering her any medical treatment, only pain/anxiety control. When I asked the patient if he understood the concept of hospice he became angry and stated he would "call back later today to talk about this." Reason For Visit: SEPSIS, CLOSTRIDIUM DIFFICILE COLITIS,ACUTE KIDNEY Physical Exam Vital Signs: Temp Pulse Resp BP Pulse Ox 98.4 F 101 H 16 148/52 H 95 10/26/18 15:46 10/26/18 15:46 10/26/18 15:46 10/26/18 15:46 10/28/18 12:13 Pulse Oximeter Continuous Start: 10/16/18 11:45 Freq: RTQ4 Status: Complete Protocol: Document 10/22/18 15:42 FAVIO (Rec: 10/22/18 15:42 FAVIO [id number]) Pulse Oximetry Assessment Oxygen Saturation (92-100) 100 Oxygen Flow Rate (L/min) 3 Oxygen Delivery Method Nasal Cannula Fraction of Inspired Oxygen (FIO2) 32 Equipment Usage Equipment in Use Continuous SpO2 Machine # 5 Intake & Output 10/27/18 10/28/18 10/29/18 06:59 06:59 06:59 Intake Total 0 Output Total 1125 Balance -1125 Weight 80.1 kg General appearance: PRESENT: no acute distress, obese Eye exam: PRESENT: conjunctiva pink, PERRLA - pinpoint Mouth exam: PRESENT: dry mucosa Respiratory exam: PRESENT: clear to auscultation caroline, decreased breath sounds - bilateral lower bases, symmetrical, unlabored Pulses: PRESENT: normal radial pulses, normal dorsalis pedis pul Vascular exam: PRESENT: normal capillary refill GI/Abdominal exam: PRESENT: diminished bowel sounds Rectal exam: PRESENT: deferred Extremities exam: PRESENT: pedal edema. ABSENT: full ROM Musculoskeletal exam: ABSENT: ambulatory, full ROM Neurological exam: PRESENT: other - unresponsive, even to tactile stimuli. ABSENT: alert, awake, oriented to person, oriented to place, oriented to time, oriented to situation Skin exam: PRESENT: dry, pallor Results Laboratory Results: 10/22/18 04:15 10/22/18 04:15 09/27/18 09/27/18 10/16/18 15:00 17:25 06:10 Creatine Kinase 68 CK-MB (CK-2) 3.15 Troponin I 0.061 NT-Pro-B Natriuret Pep 1140 H 4550 H 10/19/18 05:40 Creatine Kinase CK-MB (CK-2) Troponin I NT-Pro-B Natriuret Pep 6960 H Impressions: Head CT 09/27/18 14:30 IMPRESSION: No acute intracranial pathology. EVIDENCE OF ACUTE STROKE: NO. KUB X-Ray 09/29/18 00:00 IMPRESSION: Tip of the enteric tube likely in the body of the stomach. Several mildly prominent air filled loops of small bowel may reflect ileus. Follow-up recommended copyright 2010 [employer]- All Rights Reserved Abdomen/Pelvis CT 10/08/18 00:00 IMPRESSION: Diffuse dilatation of the colon containing air and fluid. Maximal diameter approximately 10 cm. No wall thickening or evidence of torsion. The small bowel is normal in caliber. Moderate size bilateral pleural effusions with adjacent atelectasis. Small amount of perihepatic free fluid. Chest X-Ray 10/15/18 00:00 IMPRESSION: Trace bilateral pleural effusions with bibasilar and right upper lobe airspace disease. Findings are unchanged from yesterday Pelvis CT 10/17/18 16:08 IMPRESSION: Continued extensive distention of the colon throughout. Anasarca. Acute Abdomen Series 10/21/18 00:00 IMPRESSION: 1. Cannot exclude a colonic ileus versus some degree of obstruction of the colon. 2. Small pleural effusions. Bilateral lower lobe airspace disease, likely atelectasis. Pneumonia cannot be excluded. Status: Imported from PACS Assessment & Plan - Diagnosis (1) Need for comfort care Is this a current diagnosis for this admission?: Yes Plan: Family decided to switch patient to comfort care. PRN morphine, Ativan, scopolamine, Robinul We will discuss the option of inpatient hospice with patient's son (2) DNR (do not resuscitate) Is this a current diagnosis for this admission?: Yes Plan: See #1 (3) Hypernatremia Is this a current diagnosis for this admission?: Yes Plan: Lab holiday. (4) Hypotension Qualifiers: Hypotension type: unspecified hypotension type Qualified Code(s): I95.9 - Hypotension, unspecified Is this a current diagnosis for this admission?: Yes Plan: No longer monitoring (5) Metabolic encephalopathy Is this a current diagnosis for this admission?: Yes Plan: Patient is nonverbal Will open eyes to verbal stimuli (6) Rectovaginal fistula Is this a current diagnosis for this admission?: Yes Plan: No further treatment as patient is now comfort care Noncontrasted pelvic CT Demonstrated continued extensive distention of the colon and anasarca. Fistula was not identified; likely due to lack of contrast. Surgery was consulted; appreciate Dr. Ayers's evaluation and recommendations. 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 Per notes, patient is not a surgical candidate at this time due to her overall health and comorbid condition. - Time Time Spent with patient: 15-24 minutes Medications reviewed and adjusted accordingly: Yes Anticipated discharge: Hospice Within: when bed available - Inpatient Certification Based on my medical assessment, after consideration of the patient's comorbidities, presenting symptoms, or acuity I expect that the services needed warrant INPATIENT care.: Yes I certify that my determination is in accordance with my understanding of Medicare's requirements for reasonable and necessary INPATIENT services [42 CFR 412.3e].: Yes Medical Necessity: Need for Pain Control
[2018-10-29] MEDS: MAGNESIUM OXIDE 400 MG TABLET PO SCH ×2 (09:36→17:02)
[2018-10-29] MEDS: SCOPOLAMINE HYDROBROMIDE 1.5 MG PATCH.TD72 TD SCH (09:39)
--- NOTE | 2018-10-29 16:47 | PDOC PROGRESS REPORT ---
Subjective Progress Note for:: 10/29/18 Subjective:: 83 y.o. F who presented to [facility] with sepsis, dehydration and LEATHA stemming from CDIFF colitis. The patient was seen on morning rounds. She was found resting in bed on supplemental oxygen via nasal cannula. There is no family at the bedside. She does not open her eyes to verbal stimuli, but does make a quiet vocalization and turn her head away from me. Her breathing is even and unlabored, lung sounds clear. She appears to be comfortable and not in any acute distress. ROS is limited secondary to patient's mental status. Patient's events from the previous week, labs, vital signs, and nursing notes reviewed. Discussed with patient's primary nurse and aide today. Documentation does show (+) bm's, however, NA reports only "skiffs and smears" without normal bm fecal volume in >1 week. She has not had anything to eat or drink for >1 week. Patient is not requesting p.o. fluids or food. This is not sustainable with life and the expected course as was described (personally by me) to the patient's son (POA), [id number], and grandson last week. I agree with the previous provider that the patient will within 1-2 weeks. Currently w/ comfort care order set in place; ativan, morphin and scopolomine patch. No change in treatment plan today. Attempt made (with Social Work and sample mounter) to patient's son/POA today. He reported that he had just sat down to lunch and so was unavailable to talk. He would not provide a more convenient time for us to call back to discuss recommendations to discharge/transfer the patient to inpatient hospice services vs home with home hospice service. Reason For Visit: SEPSIS, CLOSTRIDIUM DIFFICILE COLITIS,ACUTE KIDNEY Physical Exam Vital Signs: Temp Pulse Resp BP Pulse Ox 98.0 F 103 H 14 136/39 H 98 10/28/18 20:18 10/28/18 20:18 10/28/18 20:18 10/28/18 20:18 10/28/18 20:18 Pulse Oximeter Continuous Start: 10/16/18 11:45 Freq: RTQ4 Status: Complete Protocol: Document 10/22/18 15:42 LDA (Rec: 10/22/18 15:42 LDA [id number]) Pulse Oximetry Assessment Oxygen Saturation (92-100) 100 Oxygen Flow Rate (L/min) 3 Oxygen Delivery Method Nasal Cannula Fraction of Inspired Oxygen (FIO2) 32 Equipment Usage Equipment in Use Continuous SpO2 Machine # 5 Intake & Output 10/28/18 10/29/18 10/30/18 06:59 06:59 06:59 Intake Total 0 Output Total 1125 200 Balance -1125 -200 Weight 80.1 kg 80.1 kg General appearance: PRESENT: no acute distress, obese, other - Chronically ill- appearing Head exam: PRESENT: atraumatic, normocephalic Eye exam: PRESENT: conjunctiva pale Respiratory exam: PRESENT: decreased breath sounds - Bibasilar, symmetrical, unlabored, other - Supplemental oxygen by nasal cannula Cardiovascular exam: PRESENT: irregular rhythm, tachycardia - A. fib; heart rate <110 GI/Abdominal exam: PRESENT: diminished bowel sounds, distended, soft Extremities exam: PRESENT: other - +3 pitting edema bilateral lower extremities Neurological exam: PRESENT: other - Withdraws to verbal stimuli; does not open eyes or follow commands today Skin exam: PRESENT: dry, pallor Results Laboratory Results: 10/22/18 04:15 10/22/18 04:15 09/27/18 09/27/18 10/16/18 15:00 17:25 06:10 Creatine Kinase 68 CK-MB (CK-2) 3.15 Troponin I 0.061 NT-Pro-B Natriuret Pep 1140 H 4550 H 10/19/18 05:40 Creatine Kinase CK-MB (CK-2) Troponin I NT-Pro-B Natriuret Pep 6960 H Impressions: Head CT 09/27/18 14:30 IMPRESSION: No acute intracranial pathology. EVIDENCE OF ACUTE STROKE: NO. KUB X-Ray 09/29/18 00:00 IMPRESSION: Tip of the enteric tube likely in the body of the stomach. Several mildly prominent air filled loops of small bowel may reflect ileus. Follow-up recommended copyright 2011 [employer]- All Rights Reserved Abdomen/Pelvis CT 10/08/18 00:00 IMPRESSION: Diffuse dilatation of the colon containing air and fluid. Maximal diameter approximately 10 cm. No wall thickening or evidence of torsion. The small bowel is normal in caliber. Moderate size bilateral pleural effusions with adjacent atelectasis. Small amount of perihepatic free fluid. Chest X-Ray 10/15/18 00:00 IMPRESSION: Trace bilateral pleural effusions with bibasilar and right upper lobe airspace disease. Findings are unchanged from yesterday Pelvis CT 10/17/18 16:08 IMPRESSION: Continued extensive distention of the colon throughout. Anasarca. Acute Abdomen Series 10/21/18 00:00 IMPRESSION: 1. Cannot exclude a colonic ileus versus some degree of ob struction of the colon. 2. Small pleural effusions. Bilateral lower lobe airspace disease, likely atelectasis. Pneumonia cannot be excluded. Assessment & Plan - Diagnosis (1) Need for comfort care Is this a current diagnosis for this admission?: Yes Plan: Family decided to switch patient to comfort care. PRN morphine, Ativan, scopolamine, Hilarioinul Attempted to talk with son, Jayro Carlson, today regarding recommendations to transfer the patient to an inpatient hospice facility; he was unavailable to talk and did not provide an alternate date/time to discuss disposition needs. Discharge planning is consulted. (2) Acute cystitis with positive culture Is this a current diagnosis for this admission?: Yes Plan: Resolved. On admission UTI confirmed with urinalysis with follow-up culture positive for Proteus mirabilis. She completed a full course of IV cefazolin. Antibiotic was subsequently discontinued. Repeat urine culture demonstrates pansensitive E. coli; likely colonization Infectious disease consulted; recommend stopping antibiotics as UTI has been adequately treated (leukocytosis likely 2/2 ileus/bowel obstruction) The patient is bound to have recurrent E. coli UTI infections due to her non operable colovaginal fistula; patient will always have unavoidable risk of UTI sepsis vs C. Diff sepsis. (3) Hypernatremia Is this a current diagnosis for this admission?: Yes Plan: Resolved. Now on comfort measures. No longer following labs. (4) Hypokalemia Is this a current diagnosis for this admission?: Yes Plan: Now on comfort measures. No longer following labs. (5) Metabolic encephalopathy Is this a current diagnosis for this admission?: Yes Plan: Patient is nonverbal; withdraws to verbal stimuli today. Now on comfort care. Low dose Ativan as needed for acute anxiety/agitation. (6) Candidiasis, intertrigo Is this a current diagnosis for this admission?: Yes Plan: Resolved. Previously treated with fluconazole p.o. daily x5 days and nystatin/triamcinolone cream 4 times daily. (7) Hypoalbuminemia Is this a current diagnosis for this admission?: Yes Plan: Overall unchanged; Albumin 3.5-> 2.1-> 2.9-> 2.4; prealbumin 9.4-> 11.5. Patient previously admitted with failure to thrive secondary to advanced dementia with poor p.o. intake. She was provided tube feeds at that time; discharged to home on p.o. diet and subsequently readmitted with significant LEATHA (CR 7.20) despite Remeron and Megace for appetite support. This is likely a chronic condition and result of her advanced age and dementia; patient is unlikely to benefit from continued artificial means of nutrition. Patient then developed ileus/bowel obstruction and was placed in n.p.o. status. Her overall condition has continued to deteriorate and the patient has subsequently been transitioned to comfort care measures only. (8) Colovaginal fistula Is this a current diagnosis for this admission?: Yes Plan: Noncontrasted pelvic CT Demonstrated continued extensive distention of the colon and anasarca. Fistula was not identified; likely due to lack of contrast. Surgery was consulted; appreciate Dr. Ayers's evaluation and recommendations. 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 Per notes, patient is not a surgical candidate at this time due to her overall health and comorbid cond ition. ANIMAL HOSPITAL CLERK service was consulted; spoke with Dr. Murphy. Reiterates that the patient is not a good surgical candidate as she would not likely survive the procedure and would certainly have difficulty recovery due to her age, hydration, nutrition, and comorbid status. No further treatment is planned; patient now on comfort care measures. (9) Hypothermia Is this a current diagnosis for this admission?: Yes Plan: Resolved; likely secondary to anasarca resulting from hypoalbuminemia. Comfort care measures. (10) Renal failure Qualifiers: Renal failure chronicity: acute Acute renal failure type: unspecified Qualified Code(s): N17.9 - Acute kidney failure, unspecified Is this a current diagnosis for this admission?: Yes Plan: Resolved; prerenal secondary to poor p.o. intake. Admitted with creatinine of 7.20; now at baseline of 0.88 with BUN of 26. No longer following labs; patient is on comfort measures only. (11) Atrial fibrillation with RVR Is this a current diagnosis for this admission?: Yes Plan: No additional medications or interventions indicated; patient on comfort care measures only. (12) Bowel obstruction Is this a current diagnosis for this admission?: Yes Plan: Acute abdominal series revealed large bowel distended with air; cannot rule out colonic ileus versus obstruction of the colon. Patient is placed in n.p.o. status. Patient's family requests NG tube for suction only in the event that the patient experiences intractable/distressing vomiting. Decline surgical evaluation; comfort care measures only. (13) DNR (do not resuscitate) Is this a current diagnosis for this admission?: Yes - Time Time Spent with patient: 25-34 minutes Medications reviewed and adjusted accordingly: Yes Anticipated discharge: Hospice Within: within 24 hours
[2018-10-30] MEDS: LORAZEPAM INJ 2 MG/1 ML VIAL IV PRN ×3 (06:07→11:01)
[2018-10-30] MEDS: MAGNESIUM OXIDE 400 MG TABLET PO SCH ×2 (09:16→17:22)
[2018-10-30] MEDS ORDERED: MORPHINE SULFATE 10 MG/ML INJ IV PRN (10:41)
--- NOTE | 2018-10-30 15:23 | PDOC PROGRESS REPORT ---
Subjective Progress Note for:: 10/30/18 Subjective:: 83 y.o. F who presented to [facility] with sepsis, dehydration and LEATHA stemming from CDIFF colitis. The patient was seen on morning rounds. She was found resting in bed on supplemental oxygen via nasal cannula. There is no family at the bedside. She does not open her eyes to verbal stimuli, but is noted to be restless and moaning. She has shallow, gasping respirations at a rate of 20-24; minimal air exchange by auscultation. Last p.o. her IV fluid intake was 10/24/2018. Documentation does show (+) bm's, however, NA reports only "skiffs and smears" without normal bm fecal volume in >1 week. ROS is limited secondary to patient's mental status. Currently w/ comfort care order set in place; ativan, morphine, Robinul and scopolomine patch. No change in treatment plan today. Attempt made to contact the patient's son/POA, Jayro Carlson. The phone number dialed was that listed in the demographics section; the person who answered stated that I had the wrong phone number, but did confirm that it was dialed correctly when I read the number off to him. A follow up call was placed to Mr. Carlson's ; I expressed the importance of Mr. Carlson calling me back to discuss the patient's current health status and his desire for disposition (home hospice vs care center). She reported that she would pass the message on to him but could not provide a time that he would be reachable for follow up call. Reason For Visit: SEPSIS, CLOSTRIDIUM DIFFICILE COLITIS,ACUTE KIDNEY Physical Exam Vital Signs: Temp Pulse Resp BP Pulse Ox 98.2 F 93 16 115/29 L 96 10/29/18 23:23 10/29/18 23:23 10/29/18 23:23 10/29/18 23:23 10/29/18 23:23 Pulse Oximeter Continuous Start: 10/16/18 11:45 Freq: RTQ4 Status: Complete Protocol: Document 10/22/18 15:42 FAVIO (Rec: 10/22/18 15:42 [facility] [id number]) Pulse Oximetry Assessment Oxygen Saturation (92-100) 100 Oxygen Flow Rate (L/min) 3 Oxygen Delivery Method Nasal Cannula Fraction of Inspired Oxygen (FIO2) 32 Equipment Usage Equipment in Use Continuous SpO2 Machine # 5 Intake & Output 10/29/18 10/30/18 10/31/18 06:59 06:59 06:59 Output Total 200 200 Balance -200 -200 Weight 80.1 kg 71 kg General appearance: PRESENT: mild distress, obese, well-developed, other - Chronically ill-appearing Head exam: PRESENT: atraumatic, normocephalic Eye exam: PRESENT: conjunctiva pale. ABSENT: scleral icterus Mouth exam: PRESENT: dry mucosa Teeth exam: PRESENT: poor dentation Respiratory exam: PRESENT: decreased breath sounds, symmetrical, tachypnea, other - Shallow, gasping respirations. ABSENT: rales, rhonchi, wheezes Cardiovascular exam: PRESENT: irregular rhythm. ABSENT: diastolic murmur, rubs, systolic murmur Vascular exam: PRESENT: pallor GI/Abdominal exam: PRESENT: distended, hypoactive bowel sounds, soft Extremities exam: PRESENT: other - + Pitting edema BLE Neurological exam: PRESENT: other - Withdraws to tactile stimuli; does not open eyes or follow commands. ABSENT: motor sensory deficit Psychiatric exam: PRESENT: appropriate affect, normal mood. ABSENT: homicidal ideation, suicidal ideation Skin exam: PRESENT: dry, pallor. ABSENT: cyanosis, rash Results Laboratory Results: 10/22/18 04:15 10/22/18 04:15 09/27/18 09/27/18 10/16/18 15:00 17:25 06:10 Creatine Kinase 68 CK-MB (CK-2) 3.15 Troponin I 0.061 NT-Pro-B Natriuret Pep 1140 H 4550 H 10/19/18 05:40 Creatine Kinase CK-MB (CK-2) Troponin I NT-Pro-B Natriuret Pep 6960 H Impressions: Head CT 09/27/18 14:30 IMPRESSION: No acute intracranial pathology. EVIDENCE OF ACUTE STROKE: NO. KUB X-Ray 09/29/18 00:00 IMPRESSION: Tip of the enteric tube likely in the body of the stomach. Several mildly prominent air filled loops of small bowel may reflect ileus. Follow-up recommended copyright 2010 [employer]- All Rights Reserved Abdomen/Pelvis CT 10/08/18 00:00 IMPRESSION: Diffuse dilatation of the colon containing air and fluid. Maximal diameter approximately 10 cm. No wall thickening or evidence of torsion. The small bowel is normal in caliber. Moderate size bilateral pleural effusions with adjacent atelectasis. Small amount of perihepatic free fluid. Chest X-Ray 10/15/18 00:00 IMPRESSION: Trace bilateral pleural effusions with bibasilar and right upper lobe airspace disease. Findings are unchanged from yesterday Pelvis CT 10/17/18 16:08 IMPRESSION: Continued extensive distention of the colon throughout. Anasarca. Acute Abdomen Series 10/21/18 00:00 IMPRESSION: 1. Cannot exclude a colonic ileus versus some degree of obstruction of the colon. 2. Small pleural effusions. Bilateral lower lobe airspace disease, likely atelectasis. Pneumonia cannot be excluded. Assessment & Plan - Diagnosis (1) Need for comfort care Is this a current diagnosis for this admission?: Yes Plan: Family decided to switch patient to comfort care. PRN morphine, Ativan, scopolamine, Ryan Attempted to talk with son, Jayro Carlson, today regarding status and d isposition; reportedly I dialed the wrong number, despite it being the correct number yesterday. I did successfully reach his who stated that she would encourage him to call back but could not provide a time that he would be reachable by phone. Discharge planning is consulted. (2) Acute cystitis with positive culture Is this a current diagnosis for this admission?: Yes Plan: Resolved. On admission UTI confirmed with urinalysis with follow-up culture positive for Proteus mirabilis. She completed a full course of IV cefazolin. Antibiotic was subsequently discontinued. Repeat urine culture demonstrates pansensitive E. coli; likely colonization The patient is bound to have recurrent E. coli UTI infections due to her nonoperable colovaginal fistula; patient will always have unavoidable risk of UTI sepsis vs C. Diff sepsis. (3) Hypernatremia Is this a current diagnosis for this admission?: Yes Plan: Resolved. Now on comfort measures. No longer following labs. (4) Hypokalemia Is this a current diagnosis for this admission?: Yes Plan: Now on comfort measures. No longer following labs. (5) Metabolic encephalopathy Is this a current diagnosis for this admission?: Yes Plan: Patient is nonverbal; withdraws to verbal stimuli today. Now on comfort care. Low dose Ativan as needed for acute anxiety/agitation. (6) Candidiasis, intertrigo Is this a current diagnosis for this admission?: Yes Plan: Resolved. Previously treated with fluconazole p.o. daily x5 days and nystatin/triamcinolone cream 4 times daily. (7) Hypoalbuminemia Is this a current diagnosis for this admission?: Yes Plan: Overall unchanged; Albumin 3.5-> 2.1-> 2.9-> 2.4; prealbumin 9.4-> 11.5. Patient previously admitted with failure to thrive secondary to advanced dementia with poor p.o. intake. She was provided tube feeds at that time; discharged to home on p.o. diet and subsequently readmitted with significant LEATHA (CR 7.20) despite Remeron and Megace for appetite support. This is likely a chronic condition and result of her advanced age and dementia; patient is unlikely to benefit from continued artificial means of nutrition. Patient then developed ileus/bowel obstruction and was placed in n.p.o. status. Her overall condition has continued to deteriorate and the patient has subs equently been transitioned to comfort care measures only. (8) Colovaginal fistula Is this a current diagnosis for this admission?: Yes Plan: Noncontrasted pelvic CT Demonstrated continued extensive distention of the colon and anasarca. Fistula was not identified; likely due to lack of contrast. Surgery was consulted; appreciate Dr. Ayers's evaluation and recommendations. 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 Per notes, patient is not a surgical candidate at this time due to her overall health and comorbid condition. PRACTICE ARCHITECT service was consulted; spoke with Dr. Murphy. Reiterates that the patient is not a good surgical candidate as she would not likely survive the procedure and would certainly have difficulty recovery due to her age, hydration, nutrition, and comorbid status. No further treatment is planned; patient now on comfort care measures. (9) Hypothermia Is this a current diagnosis for this admission?: Yes Plan: Resolved; likely secondary to anasarca resulting from hypoalbuminemia. Comfort care measures. (10) Renal failure Qualifiers: Renal failure chronicity: acute Acute renal failure type: unspecified Qualified Code(s): N17.9 - Acute kidney failure, unspecified Is this a current diagnosis for this admission?: Yes Plan: Resolved; prerenal secondary to poor p.o. intake. Admitted with creatinine of 7.20; returned to baseline of 0.88 with BUN of 26. No longer following labs; patient is on comfort measures only. (11) Atrial fibrillation with RVR Is this a current diagnosis for this admission?: Yes Plan: No additional medications or interventions indicated; patient on comfort care me asures only. (12) Bowel obstruction Is this a current diagnosis for this admission?: Yes Plan: Acute abdominal series revealed large bowel distended with air; cannot rule out colonic ileus versus obstruction of the colon. Patient is placed in n.p.o. status. Patient's family requests NG tube for suction only in the event that the patient experiences intractable/distressing vomiting. Decline surgical evaluation; comfort care measures only. (13) DNR (do not resuscitate) Is this a current diagnosis for this admission?: Yes Plan: Per patient son/POA (Jayro Carlson): DNR/DNI No PEG or Tube feeds. No aggressive/heroic or surgical interventions. Discussed with nursing; comfort care set in place. - Time Time Spent with patient: 35 or more minutes Medications reviewed and adjusted accordingly: Yes Anticipated discharge: Hospice Within: Other - Awaiting family/POA decision.
[2018-10-30] MEDS: MORPHINE SULFATE 10 MG/ML INJ IV PRN (18:44)
[2018-10-31 00:31] VITALS: BP 80/27
[2018-10-31] MEDS: MORPHINE SULFATE 10 MG/ML INJ IV PRN ×3 (09:25→18:40)
[2018-10-31] MEDS: MAGNESIUM OXIDE 400 MG TABLET PO SCH ×2 (10:15→17:08)
[2018-10-31] MEDS: LORAZEPAM INJ 2 MG/1 ML VIAL IV PRN ×2 (13:01→16:35)
[2018-10-31] MEDS: GLYCOPYRROLATE INJ 0.4 MG/2 ML VIAL IV PRN ×2 (15:18→19:32)
--- NOTE | 2018-10-31 21:13 | PDOC PROGRESS REPORT ---
Subjective Progress Note for:: 10/31/18 Subjective:: 83 y.o. F who presented to [facility] with sepsis, dehydration and LEATHA stemming from CDIFF colitis. The patient was seen on morning rounds. She was found resting in bed on supplemental oxygen via nasal cannula. There is no family at the bedside. She does not open her eyes to verbal stimuli or tactile stimuli. She has shallow, gasping respirations at a rate of 10; minimal air exchange by auscultation. Last p.o. her IV fluid intake was 10/24/2018. Documentation does show (+) bm's, however, NA reports only "skiffs and smears" without normal bm fecal volume in >1 week. ROS is limited secondary to patient's mental status. Currently w/ comfort care order set in place; ativan, morphine, Robinul and scopolomine patch. No change in treatment plan today. Calls were made to both the patient's son, Jayro Carlson, and his ([id number]) to inform them of her immanent . They were encouraged to come to the hospital if they wished to be with her when she passed. Reason For Visit: SEPSIS, CLOSTRIDIUM DIFFICILE COLITIS,ACUTE KIDNEY Physical Exam Vital Signs: Temp Pulse Resp BP Pulse Ox 97.3 F 57 L 5 L 80/27 L 94 10/30/18 23:50 10/30/18 23:50 10/31/18 17:41 10/30/18 23:50 10/30/18 23:50 Pulse Oximeter Continuous Start: 10/16/18 11:45 Freq: RTQ4 Status: Complete Protocol: Document 10/22/18 15:42 FAVIO (Rec: 10/22/18 15:42 [facility] [id number]) Pulse Oximetry Assessment Oxygen Saturation (92-100) 100 Oxygen Flow Rate (L/min) 3 Oxygen Delivery Method Nasal Cannula Fraction of Inspired Oxygen (FIO2) 32 Equipment Usage Equipment in Use Continuous SpO2 Machine # 5 Intake & Output 10/30/18 10/31/18 11/01/18 06:59 06:59 06:59 Output Total 200 Balance -200 Weight 71 kg 70.1 kg General appearance: PRESENT: obese, other - chronically ill appearing; anasarca Eye exam: PRESENT: conjunctiva pale, PERRLA Mouth exam: PRESENT: dry mucosa Respiratory exam: PRESENT: decreased breath sounds - throughout; minimal air exchange, other - shallow, irregular, gasping breaths Cardiovascular exam: PRESENT: irregular rhythm, tachycardia GI/Abdominal exam: PRESENT: diminished bowel sounds, hypoactive bowel sounds Neurological exam: PRESENT: other - obtunded Skin exam: PRESENT: mottled - BLE, pallor. ABSENT: warm Results Laboratory Results: 10/22/18 04:15 10/22/18 04:15 09/27/18 09/27/18 10/16/18 15:00 17:25 06:10 Creatine Kinase 68 CK-MB (CK-2) 3.15 Troponin I 0.061 NT-Pro-B Natriuret Pep 1140 H 4550 H 10/19/18 05:40 Creatine Kinase CK-MB (CK-2) Troponin I NT-Pro-B Natriuret Pep 6960 H Impressions: Head CT 09/27/18 14:30 IMPRESSION: No acute intracranial pathology. EVIDENCE OF ACUTE STROKE: NO. KUB X-Ray 09/29/18 00:00 IMPRESSION: Tip of the enteric tube likely in the body of the stomach. Several mildly prominent air filled loops of small bowel may reflect ileus. Follow-up recommended copyright 2010 [employer]- All Rights Reserved Abdomen/Pelvis CT 10/08/18 00:00 IMPRESSION: Diffuse dilatation of the colon containing air and fluid. Maximal diameter approximately 10 cm. No wall thickening or evidence of torsion. The small bowel is normal in caliber. Moderate size bilateral pleural effusions with adjacent atelectasis. Small amount of perihepatic free fluid. Chest X-Ray 10/15/18 00:00 IMPRESSION: Trace bilateral pleural effusions with bibasilar and right upper lobe airspace disease. Findings are unchanged from yesterday Pelvis CT 10/17/18 16:08 IMPRESSION: Continued extensive distention of the colon throughout. Anasarca. Acute Abdomen Series 10/21/18 00:00 IMPRESSION: 1. Cannot exclude a colonic ileus versus some degree of obstruction of the colon. 2. Small pleural effusions. Bilateral lower lobe airspace disease, likely atelectasis. Pneumonia cannot be excluded. Assessment & Plan - Diagnosis (1) Need for comfort care Is this a current diagnosis for this admission?: Yes Plan: Family decided to switch patient to comfort care. PRN morphine, Ativan, scopolamine, Robinul Family notified of immanent . (2) Acute cystitis with positive culture Is this a current diagnosis for this admission?: Yes Plan: Resolved. (3) Hypernatremia Is this a current diagnosis for this admission?: Yes Plan: Resolved. Now on comfort measures. No longer following labs. (4) Hypokalemia Is this a current diagnosis for this admission?: Yes Plan: Now on comfort measures. No longer following labs. (5) Metabolic encephalopathy Is this a current diagnosis for this admission?: Yes Plan: Obtunded. Now on comfort care. Low dose Ativan as needed for acute anxiety/agitation. (6) Candidiasis, intertrigo Is this a current diagnosis for this admission?: Yes Plan: Resolved. Previously treated with fluconazole p.o. daily x5 days and nystatin/triamcinolone cream 4 times daily. (7) Hypoalbuminemia Is this a current diagnosis for this admission?: Yes Plan: Unchanged. No longer following labs; patient is on comfort care measures. (8) Colovaginal fistula Is this a current diagnosis for this admission?: Yes Plan: Noncontrasted pelvic CT Demonstrated continued extensive distention of the colon and anasarca. Fistula was not identified; likely due to lack of contrast. Surgery was consulted; appreciate Dr. Ayers's evaluation and recommendations. 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 Per notes, patient is not a surgical candidate at this time due to her overall health and comorbid condition. ADVERTISER service was consulted; spoke with Dr. Murphy. Reiterates that the patient is not a good surgical candidate as she would not likely survive the procedure and would certainly have difficulty recovery due to her age, hydration, nutrition, and comorbid status. No further treatment is planned; patient now on comfort care measures. (9) Hypothermia Is this a current diagnosis for this admission?: Yes Plan: Resolved; likely secondary to anasarca resulting from hypoalbuminemia. Comfort care measures. (10) Renal failure Qualifiers: Renal failure chronicity: acute Acute renal failure type: unspecified Qualified Code(s): N17.9 - Acute kidney failure, unspecified Is this a current diagnosis for this admission?: Yes Plan: Resolved; prerenal secondary to poor p.o. intake. Admitted with creatinine of 7.20; returned to baseline of 0.88 with BUN of 26. No longer following labs; patient is on comfort measures only. (11) Atrial fibrillation with RVR Is this a current diagnosis for this admission?: Yes Plan: No additional medications or interventions indicated; patient on comfort care measures only. (12) Bowel obstruction Is this a current diagnosis for this admission?: Yes Plan: Acute abdominal series revealed large bowel distended with air; cannot rule out colonic ileus versus obstruction of the colon. Patient is placed in n.p.o. status. Patient's family requests NG tube for suction only in the event that the patient experiences intractable/distressing vomiting. Decline surgical evaluation; comfort care measures only. (13) DNR (do not resuscitate) Is this a current diagnosis for this admission?: Yes Plan: Per patient son/POA (Jayro Carlson): DNR/DNI No PEG or Tube feeds. No aggressive/heroic or surgical interventions. Discussed with nursing; comfort care set in place. - Time Time Spent with patient: 15-24 minutes Medications reviewed and adjusted accordingly: Yes Within: within 24 hours
--- NOTE | 2018-11-01 16:24 | Death Summary ---
Summary Date : 11/01/18 Time of :: 19:40 Autopsy: No Resuscitation Status: Comfort Measures Only - Final Diagnosis (1) Need for comfort care Is this a current diagnosis for this admission?: Yes (2) Acute cystitis with positive culture Is this a current diagnosis for this admission?: Yes (3) Hypernatremia Is this a current diagnosis for this admission?: Yes (4) Hypokalemia Is this a current diagnosis for this admission?: Yes (5) Metabolic encephalopathy Is this a current diagnosis for this admission?: Yes (6) Candidiasis, intertrigo Is this a current diagnosis for this admission?: Yes (7) Hypoalbuminemia Is this a current diagnosis for this admission?: Yes (8) Colovaginal fistula Is this a current diagnosis for this admission?: Yes (9) Hypothermia Is this a current diagnosis for this admission?: Yes (10) Renal failure Is this a current diagnosis for this admission?: Yes (11) Atrial fibrillation with RVR Is this a current diagnosis for this admission?: Yes (12) Bowel obstruction Is this a current diagnosis for this admission?: Yes (13) DNR (do not resuscitate) Is this a current diagnosis for this admission?: Yes Hospital Course:: HPI per Dr. Heerdia: YULI HAMMER is a 83 year old female who was just discharged from the hospital September 20. At that time she was diagnosed with Clostridium difficile colitis. She presents with altered mental status. Additional history was not available from the patient. Evidently the patient has been having persistent diarrhea. Her condition declined and she was presented to the emergency department for further evaluation. Upon evaluation she was found to be hypotensive with severe dehydration and severe acute kidney injury. She was referred to the hospitalist service for admission. Course: The patient was admitted 09/27/18 for sepsis, dehydration, LEATHA, and Afib RVR secondary. The patient had a prolonged course of antibiotics for treatment of C. difficile infection and urinary tract infections. She received a full appropriate course of antibiotic therapy. The patient developed profound anasarca secondary to CHF exacerbation and severe protein calorie malnutrition. The patient did pass multiple swallow screenings deeming her safe to eat; she simply did not have an appetite or express interest in eating. An NG tube was placed and she was provided tube feedings for several days with improvement in mentation. The NG tube was removed and the patient was transitioned back to an oral diet with the addition of mirtazapine and Megace for appetite support. Despite this, she quickly declined with refusals to eat and drink resulting in reoccurrence of her hypernatremia and acute kidney injury with worsening anasarca. She was supported with IV fluids, albumin, lasix and spironolactone for fluid mobilization. Her electrolyte derangements and kidney injury were eventually corrected, however, the patient unfortunately could not maintain necessary caloric or fluid intake on her own. Multiple family meetings were had to discuss the patient's advancing dementia is a likely contributor to her poor p.o. intake. The family/POA did decide to place the patient in DNR/DNI status and decided against artificial means of nutrition. It was then found that the patient had developed a rectovaginal fistula. Surgery and SUPERVISOR ENROBING services were consulted; both specialists indicating that the patient was not a surgical candidate due to her comorbidities and overall poor health. The patient then developed an ileus and required placement back into n.p.o. status. In addition hearing was held with determination to place the patient in hospice. Comfort care measures were initiated with IV morphine, IV ativan, and atropine SL drops as needed for symptomatic management. The patient expectantly 10/31/18 at 1940.
== END 2018-10-31 19:40 | disposition expired | DRG 871 ==
LOC: ER 12:46 → UNDOADMIN 16:43 → EH 16:43 → ICU 20:13 → 5 10-02 15:24 → 3N 10-22 09:08 → 5 10-23 04:00
PROVIDERS: ADMIT Internal Medicine; ATTEND Internal Medicine
PROC: 02HV33Z Insertion of Infusion Device into Superior Vena Cava, Percutaneous Approach (ICD-10-PCS; 2018-09-27)
PROC: 0DH67UZ Insertion of Feeding Device into Stomach, Via Natural or Artificial Opening (ICD-10-PCS; 2018-09-29)
PROC: 3E0G76Z Introduction of Nutritional Substance into Upper GI, Via Natural or Artificial Opening (ICD-10-PCS; 2018-09-29)
PROC: 05H533Z Insertion of Infusion Device into Right Subclavian Vein, Percutaneous Approach (ICD-10-PCS; principal; 2018-10-15)
DX: A41.59 Other Gram-negative sepsis (principal); G93.41 Metabolic encephalopathy; E43 Unspecified severe protein-calorie malnutrition; N17.9 Acute kidney failure, unspecified; K56.609 Unspecified intestinal obstruction, unspecified as to partial versus complete obstruction; A04.71 Enterocolitis due to Clostridium difficile, recurrent; E87.0 Hyperosmolality and hypernatremia; N82.4 Other female intestinal-genital tract fistulae; Z51.5 Encounter for palliative care; N30.00 Acute cystitis without hematuria; T68.XXXA Hypothermia, initial encounter; E86.0 Dehydration; E88.09 Other disorders of plasma-protein metabolism, not elsewhere classified; D69.6 Thrombocytopenia, unspecified; I48.0 Paroxysmal atrial fibrillation; R63.0 Anorexia; F03.90 Unspecified dementia, unspecified severity, without behavioral disturbance, psychotic disturbance, mood disturbance, and anxiety; E11.9 Type 2 diabetes mellitus without complications; A41.4 Sepsis due to anaerobes; R65.20 Severe sepsis without septic shock; E87.6 Hypokalemia; Z66 Do not resuscitate; E78.5 Hyperlipidemia, unspecified; I10 Essential (primary) hypertension; G47.30 Sleep apnea, unspecified; K21.9 Gastro-esophageal reflux disease without esophagitis; F32.9 Major depressive disorder, single episode, unspecified; E66.9 Obesity, unspecified; E03.9 Hypothyroidism, unspecified; B37.2 Candidiasis of skin and nail; Z68.28 Body mass index [BMI] 28.0-28.9, adult; Z87.891 Personal history of nicotine dependence; Z88.6 Allergy status to analgesic agent; Z91.040 Latex allergy status; Z91.048 Other nonmedicinal substance allergy status
CPT/HCPCS: 36415; 36600; 70450; 71045; 72192; 74018; 74022; 74176; 80048; 80053; 80069; 80076; 80162; 81001; 82040; 82272; 82533; 82550; 82553; 82803; 82962; 83036; 83605; 83735; 83880; 84100; 84132; 84133; 84134; 84439; 84443; 84481; 84484; 85025; 85027; 87040; 87045; 87086; 87088; 87177; 87186; 87205; 87493; 89055; 93005; 93010; 94640; 94660; 94762; 96360; 99285; C1751; J0690; J1160; J1644; J1720; J1815; J1885; J1940; J2060; J2270; J2405; J2543; J3370; J3475; J3480; J3490; J7030; J7060; J7120; J7620; P9047; S0164